=== PATIENT | female | born 1960 | race Caucasian/White ===

== ENCOUNTER 2023-06-17 16:49 | Emergency (ER) | payer MEDICARE, OTHER, SELFPAY ==
[2023-06-17] VITALS (9 sets, daily range): BP systolic 88–122; BP diastolic 56–66; PULSE 67–84; RESP 15–18; TEMP 36.6–37.1; O2SAT 89–100
--- NOTE | ~2023-06-17 | CT_ITS ---
EXAMINATION: CT abdomen pelvis w con DATE: 06/17/2023 21:08 INDICATION: right side abdominal pain TECHNIQUE: Computed tomography (CT) of the abdomen and pelvis was performed with 100 mL Omnipaque-350 intravenous contrast. Automated exposure control and iterative reconstruction technique were employe d. The dose-length product was 1487.04 mGy-cm. COMPARISON: Right upper quadrant ultrasound, same date. FINDINGS: Lower thorax: Minimal bibasilar atelectasis. Mitral calcification. Small hiatal hernia. Liver: Normal. Biliary/Gallbladder: 2 mm hyperdensity with a small amount of likely adjacent sludge in the gallbladd er neck. No bile duct dilation. Pancreas: Mild atrophy. Spleen: Normal. Adrenals:No mass. Kidneys: Bilateral hypodensities, likely representing cysts. Punctate nonobstructing right upper pole calculi. No suspicious mass or hydronephrosis. GI tract: Mild distal esophageal wall edema. Partial colectomy. There is mild dilation of large bowel proximal and distal to the lower midline abdominal large bowel anastomosis. Mild wall edema in the d istal portion of the colon, distal to the anastomosis. No small or large bowel dilation. Normal appen felicia. Mesentery/Peritoneum: No ascites, mass, or free air. Retroperitoneum: No mass. Atherosclerotic abdominal aortic and/or arterial calcifications. Pelvis: Pelvic organs are within normal limits. Soft Tissues: Small fat-containing uncomplicated umbilical hernia. Bones: No acute osseous finding. IMPRESSION: Mild esophagitis. Prior sonographic findings in the gallbladder likely represented a small gallstone with associated sl udge in the gallbladder neck. No CT evidence of cholecystitis or choledocholithiasis. The previously recommended six-month follow-up right upper quadrant ultrasound is still advised. Mild pre and post anastomotic colonic dilation in the lower abdomen. Mild distal colonic wall edema may reflect a component of colitis. Reviewed, dictated and finalized at location K. IMPRESSION: Mild esophagitis. Prior sonographic findings in the gallbladder likely represented a small gallst one with associated sludge in the gallbladder neck. No CT evidence of cholecyst itis or choledocholithiasis. The previously recommended six-month follow-up rig ht upper quadrant ultrasound is still advised. Mild pre and post anastomotic colonic dilation in the lower abdomen. Mild distal colonic wall edema may reflect a component of colitis.
--- NOTE | ~2023-06-17 | US_ITS ---
EXAMINATION: US right upper quadrant DATE: 06/17/2023 19:31 INDICATION: ruq pain TECHNIQUE: Multiple grayscale and Doppler ultrasound images of the right upper quadrant were obtained . COMPARISON: None available. FINDINGS: The visualized portions of the pancreas are normal. The liver is normal size with increased echogenicity and normal echotexture. No surface nodularity. Normal hepatopetal flow in the main port al vein. 1.4 cm nonmobile echogenic focus in the gallbladder neck, possible partial shadowing, withou t twinkle artifact. No wall thickening or pericholecystic fluid. The common bile duct measures 4 mm. There was no sonographic Lewis sign. The right kidneys measures 9.5 x 4.2 x 5.9 with mild pelviectas is and caliectasis. IMPRESSION: Echogenic liver, most commonly due to steatosis but also can be seen with hepatitis and fibrosis. 1.4 cm echogenic focus within the gallbladder lumen may represent a gallstone, sludge, or gallbladder polyp. Consider follow-up right upper quadrant ultrasound in 6 months. Mild right hydronephrosis. Reviewed, dictated and finalized at location K. IMPRESSION: Echogenic liver, most commonly due to steatosis but also can be seen with hepat itis and fibrosis. 1.4 cm echogenic focus within the gallbladder lumen may represent a gallstone, sludge, or gallbladder polyp. Consider follow-up right upper quadrant ultrasoun d in 6 months. Mild right hydronephrosis.
[2023-06-17 17:07] LABS: Basophils Absolute Auto 0.1 K/mm3 (0.0-0.1); Basophils Percent Auto 0.5 % (0.2-1.2); Eosinophils Absolute Auto 0.2 K/mm3 (0-0.3); Eosinophils Percent Auto 2.5 % (0-4.4); Hematocrit 35.4 % (37.0-47.0); Hemoglobin 10.4 g/dL (12.0-15.0); Immature Granulocyte Absolute 0.02 K/mm3 (0.00-0.031); Immature Granulocyte Percent A 0.2 % (0-0.5); Lymphocytes Absolute Auto 3.93 K/mm3 (0.9-3.2); Lymphocytes Percent Auto 41.4 % (18.3-44.2); Mean Corpuscular HGB Conc 29.4 g/dl (32-36); Mean Corpuscular Hemoglobin 23.6 pg (26-34); Mean Corpuscular Volume 80.3 fl (80-100); Mean Platelet Volume 9.7 fl (7.4-10.4); Monocytes Absolute Auto 0.8 K/mm3 (0.1-0.6); Monocytes Percent Auto 8.5 % (2.6-8.5); Neutrophils Absolute Auto 4.5 K/mm3 (1.3-6.7); Neutrophils Percent Auto 46.9 % (45.5-73.1); Platelet Count Result 339 k/mm3 (150-375); Red Blood Count 4.41 M/mm3 (4.2-5.4); Red Cell Distribution Width 19.9 % (11.5-14.5); White Blood Count 9.5 K/mm3 (4.5-10.0)
[2023-06-17 17:17] LABS: Alanine Aminotransferase 16 U/L (6-35); Alkaline Phosphatase 123 U/L (38-126); Anion Gap 8 mmol/L (8-16); Aspartate Amino Transferase 24 U/L (14-36); Bilirubin,Total 0.5 mg/dL (0.2-1.3); Blood Urea Nitrogen 33 mg/dL (7-17); Carbon Dioxide 19 mmol/L (22-30); Chloride 106 mmol/L (98-107); Estimated CRCL calculation 56 ml/min; Estimated Glomerular Filt Rate 50; Glucose 125 mg/dL (65-110); Lipase 264 U/L (23-300); Sodium 133 mmol/L (137-145)
[2023-06-17 17:29] LABS: Platelet Estimate Adequate (Adequate)
[2023-06-17 17:30] LABS: Schistocytes None Seen (NORMAL)
[2023-06-17 17:31] LABS: Anisocytosis 2+ (NORMAL); Hypochromasia 1+ (NORMAL)
[2023-06-17 17:32] LABS: Microcytosis 1+ (NORMAL)
--- NOTE | 2023-06-17 18:01 | ED.ABDPAIN ---
HPI - Abdominal Pain General Chief Complaint: Abdominal Pain <Antonio Jorge Alberto Mcdaniel III, DO - Last Filed: 06/17/23 19:29> Stated Complaint: abd pain <Antonio Jorge Alberto Mcdaniel III, DO - Last Filed: 06/17/23 19:29> Time Seen by Provider: 06/17/23 17:50 <Antonio Jorge Alberto Mcdaniel III, DO - Last Filed: 06/17/23 19:29> History of Present Illness HPI narrative: Pt presents with RUQ abdominal pain since mid morning wiht nausea but no vomiting. Pt has history of pancreatitis but this feels different. Pt has no history of gallstones. Pt denies fever. Pt has been belching a rotten egg tasting. Pt denies diarrhea or black stools. Pt received morphine 8 mg and zofran 8 mg IV in route per EMS. <Antonio Jorge Alberto Mcdaniel III, DO - Last Filed: 06/17/23 19:29> Related Data Allergies/Adverse Reactions: Allergies Allergy/AdvReac Type Severity Reaction Status Date / Time Penicillins Allergy Hives Verified 06/17/23 16:57 pineapple Allergy Anaphylactic Verified 06/17/23 16:57 Shock <Antonio Jorge Alberto Mcdaniel III, DO - Last Filed: 06/17/23 19:29> PMFSH Past Medical History Medical History: Medical History (Updated 06/18/23 @ 00:05 by Denilson Manriquez) Biliary colic <Antonio Jorge Alberto Mcdaniel III, DO - Last Filed: 06/17/23 19:29> Exam Const: General: healthy appearing <Antonio Jorge Alberto Mcdaniel III, DO - Last Filed: 06/17/23 19:29> Nutritional Appearance: well nourished <Antonio Jorge Alberto Mcdaniel III, DO - Last Filed: 06/17/23 19:29> Orientation/consciousness: patient oriented x3 <Antonio Jorge Alberto Mcdaniel III, DO - Last Filed: 06/17/23 19:29> Limitations: no limitations <Antonio Jorge Alberto Mcdaniel III, DO - Last Filed: 06/17/23 19:29> Resp: Effort & Inspection: normal respiratory effort <Antonio Jorge Alberto Mcdaniel III, DO - Last Filed: 06/17/23 19:29> Auscultation: clear to auscultation bilaterally <Antonio Jorge Alberto Mcdaniel III, DO - Last Filed: 06/17/23 19:29> Cardio: Rate: regular rate <Antonio Jorge Alberto Mcdaniel III, DO - Last Filed: 06/17/23 19:29> Rhythm: regular rhythm <Antonio Jorge Alberto Mcdaniel III, DO - Last Filed: 06/17/23 19:29> GI: Inspection: distended <Antonio Jorge Alberto Mcdaniel III, DO - Last Filed: 06/17/23 19:29> GI Palp: Yes Tenderness to palpation present (GI) (ruq) <Antonio Jorge Alberto Mcdaniel III, DO - Last Filed: 06/17/23 19:29> Auscultation: normal bowel sounds <Antonio Jorge Alberto Mcdaniel III, DO - Last Filed: 06/17/23 19:29> Skin: General skin exam: normal color <Antonio Jorge Alberto Mcdaniel III, DO - Last Filed: 06/17/23 19:29> Rashes: no rashes <Antonio Jorge Alberto Mcdaniel III, DO - Last Filed: 06/17/23 19:29> Wounds: no wounds <Antonio Jorge Alberto Mcdaniel III, DO - Last Filed: 06/17/23 19:29> Neuro: General: patient oriented x3, moves all extremities, no focal motor deficits and CN's II-XI intact bilaterally <Antonio Jorge Alberto Mcdaniel III, DO - Last Filed: 06/17/23 19:29> Cranial nerves: Yes Nystagmus not present <Antonio Jorge Alberto Mcdaniel III, DO - Last Filed: 06/17/23 19:29> Speech: normal speech <Antonio Jorge Alberto Mcdaniel III, DO - Last Filed: 06/17/23 19:29> Extrem: General: normal to inspection and no clubbing, cyanosis or edema <Antonio Jorge Alberto Mcdaniel III, DO - Last Filed: 06/17/23 19:29> Psych: Mental Status: mental status grossly normal <Antonio Jorge Alberto Mcdaniel III, DO - Last Filed: 06/17/23 19:29> Affect: normal affect <Antonio Jorge Alberto Mcdaniel III, DO - Last Filed: 06/17/23 19:29> Attitude: cooperative <Antonio Jorge Alberto Mcdaniel III, DO - Last Filed: 06/17/23 19:29> Course Reevaluation(s) Reevaluation #1: I discussed with patient and daughter lab results They were able to allow me to look at my chart old records. Creatinine is stable. Last BUN was 24 so mildly elevated today. Patient states she can not take cephalosporins but can take cipro so will given that for UTI. CT does not show cholecystitis. I Discussed with patient she will need to follow up with General surgeon. They are comfortable with discharge home <Jacqui Kumar MD - Last Filed: 06/18/23 06:53> Date: 06/17/23 <Jacqui Kumar MD - Last Filed: 06/18/23 06
[2023-06-17] MEDS: SODIUM CHLORIDE 0.9% IV 1,000 ML 999 ML IV CONT ×2 (18:15→20:52)
[2023-06-17] MEDS: fentaNYL CITRATE INJ (*CRX) 100 MCG/2 ML VIAL 25 MCG IV PUSH (18:20)
[2023-06-17 20:02] LABS: Appearance Urine Cloudy (Clear); Bacteria Urine 4+ /hpf; Bilirubin Urine Negative (Negative); Blood Urine Negative (Negative); Color Urine Yellow (Yellow); Glucose Urine UA 3+ mg/dL (Negative); Ketones Urine Negative (Negative); Leukocyte Esterase Ur 3+ LEU/UL (Negative); Nitrate Urine Positive (Negative); Protein Urine Trace mg/dL (Negative); RBC Urine 0-2 /hpf (0-2); Specific Grav Ur 1.014 (1.001-1.035); Squamous Epithelial Cell Urine Few /hpf (Few); Urobilinogen Urine 0.2 mg/dL (<2.0); WBC Urine 51-100 /hpf; pH Urine 5.5 (5.0-9.0)
[2023-06-17 20:09] LABS: Add Urine Microscopic? YES
[2023-06-17] MEDS: MORPHINE SULFATE (*CRX) 4 MG/ML INJ IV PUSH (20:51)
--- NOTE | 2023-06-17 22:32 | PC.NURSE ---
pharm called out of atx on pyxix
[2023-06-17] MEDS: CIPROFLOXACIN 250 MG TABLET PO (22:38)
== END 2023-06-17 22:49 | disposition home or self-care (01) ==
PROVIDERS: Student in an Organized Health Care Education/Training Program; Emergency Provider Emergency Medicine
DX: K80.50 Calculus of bile duct without cholangitis or cholecystitis without obstruction (principal); N39.0 Urinary tract infection, site not specified; N13.30 Unspecified hydronephrosis; K20.90 Esophagitis, unspecified without bleeding; R93.2 Abnormal findings on diagnostic imaging of liver and biliary tract
CPT/HCPCS: 36415; 74177; 76705; 80053; 81001; 83690; 85025; 87077; 87086; 87186; 96361; 96374; 96375; 99284; A9270; J2270; J3010; J7030; Q9967

== ENCOUNTER 2023-06-24 13:18 | Outpatient (CLI) | payer MEDICARE, OTHER, SELFPAY ==
--- NOTE | 2023-06-24 13:00 | ECG_ITS ---
Measurements Intervals [place] Rate: 78 P: 38 NV: 153 QRS: -29 QRSD: 103 T: 73 QT: 369 QTc: 421 Interpretive Statements BASELINE ARTIFACT/POOR DATA QUALITY SINUS RHYTHM LEFT AXIS DEVIATION BORDERLINE VOLTAGE EVIDENCE OF LVH POOR R-WAVE PROGRESSION ABNORMAL ECG NO PREVIOUS ECG AVAILABLE FOR COMPARISON Electronically Signed On 06-24-2023 17:13:50 CDT by Elver Melara M.D.
[2023-06-24 14:01] LABS: Amylase 95 U/L (30-110)
== END 2023-06-24 13:19 | disposition home or self-care (01) ==
PROVIDERS: PCP Internal Medicine; Visit Provider Surgery
DX: K81.9 Cholecystitis, unspecified (principal); I10 Essential (primary) hypertension; Z01.818 Encounter for other preprocedural examination
CPT/HCPCS: 36415; 82150; 86850; 86900; 86901; 93005

== ENCOUNTER 2023-06-27 00:42 | Day surgery (SDC) | payer MEDICARE, OTHER, SELFPAY ==
--- NOTE | 2023-06-21 11:58 | PC.NURSE ---
Report to the Outpatient Waiting Room, entrance under the green pavilion located off [facility], at time _0600 on date _06/27/23 . Planned Procedure Time: __0730 . Time changes happen often and if your time is changed the preop area will call you the afternoon before. - You and your visitor will be asked to self-screen and do not enter if you have any COVID symptoms. - A mask is optional within the hospital at this time. Patients may have clear liquids (water, carbonated beverages, clear teas, apple juice) until 3 hours prior to surgery with a maximum of 20 ounces. - No food from midnight until time of surgery - Infants may have breast milk until 4 hours before surgery, infant formula 6 hours prior to surgery. - Children will be allowed to drink immediately following surgery. If applicable, please bring a bottle or sippy cup to assist with drinking. Juice, water, soda, and popsicles are readily available. For infants on formula, please bring formula the day of surgery. Pacifiers are allowed. Take the following medications with a SIP of water the morning of surgery: ____PREGABALIN DO NOT STOP ANY OF YOUR OTHER PRESCRIPTION MEDICATIONS PRIOR TO SURGERY ?EXCEPT THE FOLLOWING Medications to discontinue per physician ALL VITAMINS/SUPPLEMENTS 3 DAYS PRE OP.LAST DOSE 06/24/23 HIBICLENS SHOWER MORNING OF SURGERY Please no make-up, nail czech, hairspray, perfume, deodorant, or body powder the day of surgery. No jewelry (including any body piercings) or valuables the day of surgery, leave them at home. Please take a shower or bath the night before, or the morning of, surgery with an antibacterial soap. Wear comfortable, loose fitting clothing. Children are encouraged to wear pajamas. - Jewelry must be removed prior to entering the operating room. Rings and piercings that are not removed may be cut off. - The hospital will not accept responsibility for valuables. - Please leave all valuables, including medications, at home the day of surgery. If you are going home after surgery, a licensed non emergency services ambulance driver must drive you home. - NO public transportation without another adult if you receive anesthesia. - We recommend that an adult stay with you for 24 hours following discharge. - We also recommend that you do not drive, make important decision, drink alcoholic beverages, or take any drugs that were not prescribed by your health care provider for at least 24 hours after your discharge time. For Pediatric surgeries, we recommend two adults accompany the child home. Follow any additional instructions given to you from your surgeon. If you or anyone in your household have experienced Covid symptoms in the past week, please notify your surgeon or the nurse liaison at the phone number below for possible testing. Telephone instructions given to ___PATIENT and asked if any additional questions and then verbalized understanding. Patient advised to call surgeon office or pre surgery nurse liaison [phone] if any additional questions.
[2023-06-21 12:09] VITALS: BMI 33.9
[2023-06-27] VITALS (8 sets, daily range): BP systolic 114–146; BP diastolic 60–77; PULSE 85–103; RESP 14–20; TEMP 36.4–37; O2SAT 96–100
[2023-06-27 07:08] LABS: Glucose Point of Care 174 mg/dl (65-105)
[2023-06-27] MEDS: LACTATED RINGERS 1,000 ML 30 ML IV CONT ×2 (07:15→09:23)
[2023-06-27] MEDS: ACETAMINOPHEN 500 MG TABLET 1000 MG PO (07:15)
[2023-06-27] MEDS: KETOROLAC 15 MG/ML VIAL (*BKC) IV PUSH (07:15)
--- NOTE | 2023-06-27 07:15 | WPDANESEPPF ---
Anes - Initial Pre Proc Eval Procedure: Operation Date: 06/27/23 07:30 Proposed Procedures p Laparoscopic Cholecystectomy - Anais Jackson MD Date/Time: 06/27/23 07:15 Surgeon: Anais Jackson MD Pre Op Diagnosis: Cholecystitis Patient Data Age: 62 Gender: F Height: 1.65 m Weight: 101.5 kg Last Vital Signs Temp 97.5 F L 06/27/23 06:15 Pulse 85 06/27/23 06:15 Resp 16 06/27/23 06:15 BP 137/60 06/27/23 06:15 Pulse Ox 100 06/27/23 06:15 O2 Del Method Room Air 06/27/23 06:15 Allergies Allergy/AdvReac Type Severity Reaction Status Date / Time pine nut Allergy Severe Anaphylactic Verified 06/27/23 07:09 Shock pineapple Allergy Severe Anaphylactic Verified 06/27/23 07:09 Shock Penicillins Allergy Hives Verified 06/27/23 07:09 Cephalosporins AdvReac Hives Verified 06/27/23 07:09 Home Medications Medication Instructions Recorded Confirmed Type ciprofloxacin HCl 500 mg tablet 500 mg PO Q12H #14 tabs 06/17/23 06/21/23 Rx (Cipro) tramadol 50 mg tablet 50 mg PO Q6H PRN pain #14 tabs 06/17/23 06/21/23 Rx duloxetine 60 mg capsule,delayed 60 mg PO HS FIBROMYALGIA 06/19/23 06/21/23 History release (Cymbalta) empagliflozin 10 mg tablet 10 mg PO DAILY 06/19/23 06/21/23 History (Jardiance) losartan 50 mg tablet 50 mg PO DAILY 06/19/23 06/21/23 History omeprazole 20 mg capsule,delayed 20 mg PO DAILY 06/19/23 06/21/23 History release pregabalin 300 mg capsule (Lyrica) 300 mg PO BID FIBROMYALGIA 06/19/23 06/21/23 History aspirin 81 mg tablet,delayed 81 mg PO DAILY 06/21/23 06/21/23 History release (Adult Low Dose Aspirin) ferrous sulfate 325 mg (65 mg 325 mg PO DAILY 06/21/23 06/21/23 History iron) tablet insulin glargine 100 unit/mL (3 15 unit subcut HS 06/21/23 06/21/23 History mL) subcutaneous pen (Lantus Solostar U-100 Insulin) tumeric 100 mg-sari 150 mg-olive 1 cap PO DAILY 06/21/23 06/21/23 History 50 mg-oreg 150 mg-caprylate capsule Laboratory Tests 06/27/23 07:00 POC Capillary Glucose 174 H mg/dl (65-105) Patient hx anesthesia problems: none Family hx anesthesia problems: none Results Review: All pre-operative results and documents have been reviewed as part of the pre-operative evaluation. [facility] Past Medical History Medical History (Updated 06/19/23 @ 11:44 by Ryann Caceres Willian) Biliary colic Diabetes type 2, controlled GERD (gastroesophageal reflux disease) History of blood transfusion Hypertension Surgical History Surgical History History of delivery x2 History of colon surgery 2022 [place], [place] History of hand surgery Family History Family History Other Cerebrovascular accident Diabetes mellitus Hypertension Social History Social History Smoking status: Never smoker Alcohol intake: never Living arrangements: alone Occupation/Education: occupation 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 Informed Consent: The patient's anesthetic plan and its attendant risks and benefits were discussed with the patient/family/POA. Questions were solicited and answers provided to the satisfaction of the patient/family/POA.
--- NOTE | 2023-06-27 07:19 | WPDHPUPDATE1 ---
History and Physical Update Update Date/Time: 06/27/23 07:19 History and Physical has been reviewed, including an updated exam of the patient. There are NO changes in the patient's condition. Risks, benefits, and alternatives have been discussed and questions answered. Patient agrees to proceed with procedure.
[2023-06-27] MEDS: CLINDAMYCIN 900 MG/D5W 50 ML 900 MG/50 ML PIGGYBACK 50 MG IVPB (07:30)
--- NOTE | 2023-06-27 08:47 | W.PM.PROC2 ---
Procedure Note - Detailed Date of Procedure 06/27/23 Pre-op Diagnosis Cholecystitis, cholelithiasis Post-op Diagnosis Same Procedure Performed Laparoscopic cholecystectomy Surgeon Anais Jackson MD Anesthesia General Indications 62-year-old female presented to the office complaining of postprandial right upper quadrant abdominal pain associated with nausea and vomiting. Workup including imaging significant for cholecystitis, cholelithiasis. Findings Cholecystitis with cholelithiasis Description of Procedure The patient was taken to the operating room placed in the supine position. After adequate induction of general anesthesia, the patient was prepped and draped in normal sterile fashion. A time-out was then performed to verify the patient's identity as well as the procedure being performed. I then made a 5 mm incision in the infraumbilical region. Through this, a Veress needle was placed into the peritoneal cavity and CO2 gas was then insufflated. After adequate pneumoperitoneum was achieved, the Veress needle was removed and a 5 mm optiview trocar was placed through this incision under direct visualization. I then placed the laparoscope through this trocar site and under direct visualization placed a further 12 mm subxiphoid port as well as 2 additional 5 mm ports in the right upper abdomen. Of note, there was some adhesions from previous abdominal surgery that were taken down to facilitate placement of ports. The gallbladder was then identified and was noted to be moderately inflamed and distended. I was able to place a grasper at the dome of the gallbladder and this was retracted anterior and cephalad up over the liver. A 2nd retractor was then placed at the infundibulum and retracted laterally, this allowed visualization of the triangle of Calot. I then was able to visualize the cystic duct in its entirety from its proximal insertion into the gallbladder, to its distal junction with the common hepatic/common bile duct junction. At this point, I carefully skeletonized the proximal cystic duct with the [place] dissector. I then clipped and transected the proximal cystic duct. Next I visualized the cystic artery. Again the artery was skeletonized, clipped, and transected. I then used the Bovie cautery to take down the peritoneal attachments of the gallbladder off the liver bed. This was somewhat difficult given the amount of inflammation in the posterior space. Once the gallbladder specimen was completely detached, an endo-pouch was placed through the 12 mm port site. I then placed the gallbladder specimen into the Endo pouch and removed the endo-pouch from the 12 mm port site. The specimen will now be sent to pathology for further review. I then copiously irrigated the right upper quadrant. Some mild oozing was noted in the liver bed and this was controlled with the bovie cautery. I then placed some hemostatic powder in the liver bed. Hemostasis was noted in the liver bed, the clips were noted to be in good position on both the cystic duct stump and the cystic artery stump. No other pathology was noted in the right upper quadrant. I then moved the laparoscope to the subxiphoid port. No iatrogenic injury or other pathology was noted in the lower abdomen. I then closed the 12 mm trocar site under direct visualization using the Smooth cone and 0 Vicryl suture. At this point, the abdomen was desufflated and all ports removed. All port sites were then closed with 4.O Monocryl subcuticular sutures. Dermabond was placed on each incision. The patient tolerated the procedure well, was extubated in the operating room postoperative and will be transferred to the recovery room in stable condition Estimated Blood Loss 5 Drains No Packing No Pathology Yes Complications No immediate complications Condition Stable Disposition PACU [facility] Billing Surgery - Charge Forward: Surgery Billing
--- NOTE | 2023-06-27 08:57 | SUR.PHASEI ---
0877 - dr. ruvalcaba aware of [facility] 210
[2023-06-27 09:00] LABS: Glucose Point of Care 210 mg/dl (65-105)
[2023-06-27] MEDS: fentaNYL CITRATE INJ (*CRX) 100 MCG/2 ML VIAL 25 MCG IV PUSH ×2 (09:11→09:18)
[2023-06-27] MEDS: oxyCODONE HCL (*CRX) 5 MG TAB IR PO (09:49)
== END 2023-06-27 10:30 | disposition home or self-care (01) ==
PROVIDERS: PCP Internal Medicine; Visit Provider Surgery
PROC: 0FT44ZZ Resection of Gallbladder, Percutaneous Endoscopic Approach (ICD-10-PCS; CPT 47562; principal; 2023-06-27 07:30)
DX: K80.10 Calculus of gallbladder with chronic cholecystitis without obstruction (principal); K21.9 Gastro-esophageal reflux disease without esophagitis; I10 Essential (primary) hypertension; E11.9 Type 2 diabetes mellitus without complications; Z79.891 Long term (current) use of opiate analgesic; Z79.82 Long term (current) use of aspirin; Z79.4 Long term (current) use of insulin; E66.9 Obesity, unspecified; Z68.37 Body mass index [BMI] 37.0-37.9, adult; Z79.84 Long term (current) use of oral hypoglycemic drugs
CPT/HCPCS: 47562; 82948; 88304; A9270; J1100; J1885; J2250; J2405; J2704; J3010; J7120

== ENCOUNTER 2024-09-14 10:57 | Emergency (ER) | payer MEDICARE, OTHER, SELFPAY ==
[2024-09-14 11:07] VITALS: BP 127/72; PULSE 84; RESP 18; TEMP 36.6; O2SAT 99
--- NOTE | 2024-09-14 11:21 | ED_ITS ---
HPI - Neck Pain/Injury General Chief Complaint: Neck Pain/Injury Stated Complaint: Neck Pain Source: patient, RN notes reviewed and old records reviewed Mode of arrival: ambulatory Limitations: no limitations History of Present Illness HPI Narrative: Patient presents with complaints of neck pain that radiates to the left trapezius and shoulder. She reports that pain began after she did several hours of cleaning and heavy lifting yesterday. She has been taking ibuprofen with minimal relief. She reports the pain is worse with range of motion of the neck. She reports that she has had similar pain in the past. She denies any fever, chills, sweats. She voices no other concerns or complaints at this time. She was able to perform ADLs and drive morning Related Data Home Medications Medication Instructions Recorded Confirmed duloxetine 60 mg capsule,delayed 60 mg PO HS FIBROMYALGIA 06/19/23 09/14/24 release (Cymbalta) empagliflozin 10 mg tablet 10 mg PO DAILY 06/19/23 09/14/24 (Jardiance) losartan 50 mg tablet 50 mg PO DAILY 06/19/23 09/14/24 omeprazole 20 mg capsule,delayed 20 mg PO DAILY 06/19/23 09/14/24 release pregabalin 300 mg capsule (Lyrica) 300 mg PO BID FIBROMYALGIA 06/19/23 09/14/24 aspirin 81 mg tablet,delayed 81 mg PO DAILY 06/21/23 09/14/24 release (Adult Low Dose Aspirin) ferrous sulfate 325 mg (65 mg 325 mg PO DAILY 06/21/23 09/14/24 iron) tablet insulin glargine 100 unit/mL (3 15 unit subcut HS 06/21/23 09/14/24 mL) subcutaneous pen (Lantus Solostar U-100 Insulin) turmeric 100 mg-sari 150 1 cap PO DAILY 06/21/23 09/14/24 mg-olive 50 mg-oreg 150 mg-capryl capsule tirzepatide 5 mg/0.5 mL 5 mg subcut DIRECTED 09/14/24 09/14/24 subcutaneous pen injector (Debra) Allergies Allergy/AdvReac Type Severity Reaction Status Date / Time pine nut Allergy Severe Anaphylactic Verified 09/14/24 11:08 Shock pineapple Allergy Severe Anaphylactic Verified 09/14/24 11:08 Shock Penicillins Allergy Hives Verified 09/14/24 11:08 Cephalosporins AdvReac Hives Verified 09/14/24 11:08 Review of Systems Review of Systems: All systems reviewed & are unremarkable except as noted in HPI and below Constitutional: Constitutional: Reports no additional constitutional complaints ENT: Reports system reviewed and no additional complaints, except as documented Cardiovascular: Cardiovascular: Reports no additional cardiovascular complaints Respiratory: Respiratory: Reports no additional respiratory complaints Gastrointestinal: Gastrointestinal: Reports no additional gastrointestinal complaints Musculoskeletal: Musculoskeletal: Reports no additional musculoskeletal complaints, Reports as per HPI, Reports neck pain and Reports radiating pain into limb [facility] Past Medical History Medical History Biliary colic Diabetes type 2, controlled GERD (gastroesophageal reflux disease) History of blood transfusion Hypertension Surgical History Surgical History History of delivery x2 History of colon surgery 2022 [place], [place] History of hand surgery Family History Family History Other Cerebrovascular accident Diabetes mellitus Hypertension Social History Social History Smoking status: Never smoker Alcohol intake: never Living arrangements: alone Occupation/Education: occupation 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 There is no relevant family history pertinent to the patient complaint. Exam Const: General: cooperative, no acute distress, alert and awake Orientation/consciousness: oriented to person, oriented to place and oriented to time HENMT: Head: normal to inspection Resp: Effort & Inspection: normal respiratory effort and able to speak in complete sentences Auscultation: clear to auscultation bilaterally, no crackles, no rales, no rhonchi and no wheezes Cardio: Palpation: normal PMI Rate: regular rate Rhythm: regular rhythm Heart sounds: S1 normal heart sound present and S2 normal heart sound present Back/Spine/Pelvis: Cervical Spine: cervical ROM normal, cervical muscular tenderness, pain with cervical ROM and No Cervical spine tenderness Neuro: General: oriented to person, oriented to place and oriented to time Cranial nerves: Yes CN's II-XII intact bilaterally Psych: Appearance: grossly normal Thought process: Normal thought process present Insight: Good insight present (Psych) Judgement: Good judgement present (Psych) Course Course Level of Care: Express Care Visit Vital Signs Vital signs: Vital Signs Temperature 97.8 F 09/14/24 11:07 Pulse Rate 84 09/14/24 11:07 Respiratory Rate 18 09/14/24 11:07 Blood Pressure 127/72 09/14/24 11:07 Pulse Oximetry 99 09/14/24 11:07 Oxygen Delivery Room Air 09/14/24 11:07 Temperature 97.8 F 09/14/24 11:07 Pulse Rate 84 09/14/24 11:07 Respiratory Rate 18 09/14/24 11:07 Blood Pressure 127/72 09/14/24 11:07 Pulse Oximetry 99 09/14/24 11:07 Oxygen Delivery Room Air 09/14/24 11:07 Reviewed MDM - Neck Pain/Injury MDM Narrative Medical decision making narrative: History and exam consistent with cervical radicular pain. Patient has had this in the past. Start steroid burst, muscle relaxants. She reports that she will follow with chiropractor and primary. Discharge instructions reviewed with patient, as well as provided in writing per nursing staff. The instructions also include specific and strict return/GO TO THE ER as well as f/u information. All questions have been answered, and the patient deny any further questions with discharge and discharge plan. Some parts of this dictation were generated by voice recognition software and may contain typographical and/or grammatical inaccuracies. Differential Diagnosis Differential diagnosis: Likely cervical radiculopathy and strain of neck muscle Medical Records Attestation: I reviewed the patient's medical records. Discharge Plan Discharge Clinical Impression: Cervical radiculopathy Patient Disposition: Home, Self-Care Condition: Stable Instructions: Antibiotic Form, Acute Neck Pain (ED) Additional Instructions: Take medications as prescribed, monitor blood sugars carefully. Follow with primary care provider, emergency department for new or worse symptoms Patient Language: Marshallese Prescriptions: New prednisone 50 mg tablet 50 mg PO DAILY Qty: 5 0RF methocarbamol 500 mg tablet 500 mg PO TID Qty: 30 0RF methocarbamol 500 mg tablet 500 mg PO TID PRN (Reason: muscle spasm) Qty: 30 0RF prednisone 50 mg tablet 50 mg PO DAILY Qty: 5 0RF No Action Mounjaro 5 mg/0.5 mL pen injector 5 mg SUBCUT DIRECTED pregabalin [Lyrica] 300 mg capsule 300 mg PO BID Jardiance 10 mg tablet 10 mg PO DAILY losartan 50 mg tablet 50 mg PO DAILY omeprazole 20 mg capsule,delayed release(DR/EC) 20 mg PO DAILY duloxetine [Cymbalta] 60 mg capsule,delayed release(DR/EC) 60 mg PO HS insulin glargine [Lantus Solostar U-100 Insulin] 100 unit/mL (3 mL) insulin pen 15 unit SUBCUT HS aspirin [Adult Low Dose Aspirin] 81 mg Tablet,Delayed Release (Dr/Ec) 81 mg PO DAILY ferrous sulfate 325 mg (65 mg iron) Tablet 325 mg PO DAILY [id number]-capry 100 mg-150 mg- 50 mg-150 mg Capsule 1 cap PO DAILY tramadol 50 mg tablet 50 mg PO Q6H PRN (Reason: pain) Qty: 14 0RF Follow-up/Referrals: Mike,MD Ana Cristina [Primary Care Provider] - 2 Weeks
== END 2024-09-14 11:40 | disposition home or self-care (01) ==
PROVIDERS: Emergency Provider Nurse Practitioner Family; PCP Internal Medicine
DX: M54.12 Radiculopathy, cervical region (principal); E11.9 Type 2 diabetes mellitus without complications; Z79.4 Long term (current) use of insulin; I10 Essential (primary) hypertension; K21.9 Gastro-esophageal reflux disease without esophagitis; Z79.82 Long term (current) use of aspirin
CPT/HCPCS: 99213; G0463

== ENCOUNTER 2025-01-27 10:16 | Outpatient (CLI) | payer MEDICARE, OTHER, SELFPAY ==
[2025-01-27 10:43] LABS: Hematocrit 40.1 % (37.0-47.0); Hemoglobin 12.1 g/dL (12.0-15.0); Mean Corpuscular HGB Conc 30.2 g/dl (32-36); Mean Corpuscular Hemoglobin 25.2 pg (26-34); Mean Corpuscular Volume 83.5 fl (80-100); Mean Platelet Volume 10.3 fl (7.4-10.4); Platelet Count Result 253 k/mm3 (150-375); Red Cell Distribution Width 16.8 % (11.5-14.5); White Blood Count 6.7 K/mm3 (4.5-10.0)
[2025-01-27 10:56] LABS: Alanine Aminotransferase 17 U/L (6-35); Albumin Level 4.2 g/dL (3.5-5.1); Alkaline Phosphatase 86 U/L (38-126); Amylase 299 U/L (30-110); Anion Gap 9 mmol/L (4-12); Aspartate Amino Transferase 22 U/L (14-36); Bilirubin,Total 0.4 mg/dL (0.2-1.3); Blood Urea Nitrogen 29 mg/dL (7-17); Calcium 9.3 mg/dL (8.4-10.2); Carbon Dioxide 26 mmol/L (22-30); Chloride 103 mmol/L (98-107); Cholesterol 158 mg/dL (0-200); Estimated Glomerular Filt Rate 50; Glucose 90 mg/dL (65-110); HDL Direct 79 mg/dL; Potassium 4.7 mmol/L (3.4-5.0); Sodium 138 mmol/L (137-145); Triglycerides 100 mg/dL (<150)
[2025-01-27 11:04] LABS: LDL Cholesterol Direct 45 mg/dL
[2025-01-27 11:10] LABS: Lipase 2924 U/L (23-300)
--- OUTSIDE RECORDS SUMMARY | 2025-01-27 11:50 | XMS_ITS | Referral Summary ---
Author Organization [facility] Address [address] [place] [address] Care Team Providers Care Diecast Machine Operator Name Role Phone Ana Cristina Mckeon MD Primary Care Provider [phone] Encounters Date Type Department Care Team Description 12/28/2024 1:45 PM FORK LIFT TRUCK OPERATOR Office Visit [facility] Ophthal[facility] [address] [place] [id number] Lo Mcgregor MD Proliferative diabetic retinopathy of both eyes with macular edema associated with type 2 diabetes mellitus (HCC) (Primary Dx) 12/25/2024 10:30 AM FORK LIFT TRUCK OPERATOR Office Visit [facility] Diabetes and Endocrinology [address] [place] [phone] Priya Calderon NP Type 2 diabetes mellitus with diabetic polyneuropathy, without long-term current use of insulin (HCC) (Primary Dx); Hypertension associated with type 2 diabetes mellitus (HCC); Hyperlipidemia associated with type 2 diabetes mellitus (HCC) 12/21/2024 Orders Only [facility] Diabetes and Endocrinology [address] [place] [phone] Priya Calderon NP Type 2 diabetes mellitus with diabetic polyneuropathy, without long-term current use of insulin (HCC) 12/18/2024 Orders Only [facility] Diabetes and Endocrinology [address] [place] [phone] Schleeper, Priya R., FRENCH BINDER Type 2 diabetes mellitus with diabetic polyneuropathy, without long-term current use of insulin (HCC) (Primary Dx) from Last 3 Months Allergies Active Allergy Reactions Criticality Noted Date Comments Adalimumab Unknown 12/16/2017 Humira Alprazolam Other (See comments) Low 11/17/2019 Intolerance - She becomes very irritable. Beta-Blockers (Beta-Adrenergic Blocking Agts) Palpitations Low Cephalosporins Hives Medium 07/02/2018 Codeine Nausea & Vomiting Low 09/03/2016 Gabapentin Other (See comments) Low 11/27/2017 Anxiety, depression Hydrocodone Hives,Shortness of breath,Rash High 03/05/2016 Insulin Glargine Vomiting Medium 08/12/2023 States that no allergy, was nauseated Canagliflozin Stomach upset Low 10/01/2014 Yeast infection Metformin Diarrhea Medium 08/12/2023 Methotrexate Other (See comments),Stomach upset Low 12/16/2017 Medication did not work Ondansetron Headache Low 11/27/2017 Penicillins Anaphylaxis,Hives High 11/16/2010 [place] Nut Anaphylaxis,Rash High 03/05/2016 Pineapple Swelling Medium 03/06/2016 Pregabalin Diarrhea,Fatigue,Hea d ache,Stomach upset,Vision changes Medium 06/21/2021 Promethazine Mental status changes High 03/05/2016 anxiety Semaglutide Diarrhea,Stomach upset,Nausea & Vomiting High 08/08/2021 pancreatitis Medications MULTIVITAMIN ORALIndications:s upplement Take 1 tablet by mouth daily as needed Active diclofenac sodium (VOLTAREN) 1 % gel Apply 2 g topically 4 (four) times a day 100 g 2 9 Active cholecalciferol (VITAMIN D-3) 2000 unit capsule Take 1 capsule (2,000 Units total) by mouth daily 0 Active aflibercept (Eylea) 2 mg/0.05 mL intra-ocular injection 0.05 mL (2 mg total) Pt currently getting injections every 10 weeks. 9 Active aspirin 81 mg enteric coated tabletIndications :Myocardial Reinfarction Prevention,preven tion of thrombosis Take 1 tablet (81 mg total) by mouth every morning On hold for bleeding 1 Active omeprazole (PriLOSEC) 20 mg capsuleIndication s:Stress Ulcer Prophylaxis Take 1 capsule (20 mg total) by mouth 2 (two) times a day as needed [address] (CYMBALTA) 60 mg capsuleIndication s:Fibromyalgia Take 1 capsule (60 mg total) by mouth nightly 1 Active losartan (COZAAR) 50 mg tabletIndications :hypertension Take 1 tablet (50 mg total) by mouth every morning 1 Active pregabalin (LYRICA) 100 mg capsuleIndication s:Fibromyalgia Take 1-2 capsules (100-200 mg total) by mouth 2 (two) times a day 100mg in am and 200mg in pm Active Jardiance 25 mg tabletIndications :type 2 diabetes mellitus Take 1 tablet (25 mg total) by mouth every morning 2 Active cyanocobalamin (Vitamin B-12) 1,000 mcg sublingual tabletIndications :Prevention of Vitamin B12 Deficiency Take 1 tablet (1,000 mcg total) by mouth every morning Active freestyle 28 gauge lancets 2 (two) times a day 3 Active atorvastatin (LIPITOR) 40 mg tabletIndications :hyperlipidemia Take 1 tablet (40 mg total) by mouth nightly 4 Active blood-glucose meter kitIndications:Ty pe 2 diabetes mellitus with diabetic polyneuropathy, without long-term current use of insulin ([facility]) Check blood sugar twice daily 1 kit 4 Active blood glucose diagnostic stripIndications: Type 2 diabetes mellitus with diabetic polyneuropathy, without long-term current use of insulin ([facility]) Check blood sugar twice daily. 200 strip 3 4 Active methocarbamoL (ROBAXIN) 500 mg tablet TAKE 1 TABLET BY MOUTH THREE TIMES A DAY NEEDED FOR MUSCLE SPASM 4 Active triamcinolone (KENALOG) 0.1 % cream PLEASE SEE ATTACHED FOR DETAILED DIRECTIONS 4 Active insulin glargine (LANTUS) 100 unit/mL (3 mL) pen for injectionIndicati ons:Type 2 diabetes mellitus with diabetic polyneuropathy, without long-term current use of insulin ([facility]) Inject 30 Units under the skin nightly 30 mL 3 4 09/24/20 25 Active pen needle, diabetic (Pen Needle) 31 gauge x 5/16 needleIndications :Type 2 diabetes mellitus with diabetic polyneuropathy, without long-term current use of insulin (HCC) Use to inject 1-4 times daily as directed 100 each 11 4 Active tirzepatide (MOUNJARO) 7.5 mg/0.5 mL pen injector injectionIndicati ons:type 2 diabetes mellitus Inject 0.5 mL (7.5 mg total) under the skin every 7 days 6 mL 3 5 12/21/19 26 Active albuterol HFA (PROVENTIL HFA,VENTOLIN HFA,PROAIR HFA) 90 mcg/actuation inhaler INHALE 1 TO 2 PUFFS BY MOUTH EVERY 4-6 HOURS NEEDED FOR WHEEZING FOR 10 DAYS 5 Active benzonatate (TESSALON) 200 mg capsule TAKE 1 CAPSULE BY MOUTH THREE TIMES A DAY FOR 10 DAYS 5 Active estradioL (ESTRACE) 0.01 % (0.1 mg/gram) vaginal cream INSERT 1 GRAM VAGINALLY AT BEDTIME 2-3 TIMES PER WEEK 4 Active levoFLOXacin (LEVAQUIN) 500 mg tablet TAKE 1 TABLET BY MOUTH EVERY DAY FOR 10 DAYS 5 Active ondansetron (ZOFRAN) 4 mg tabletIndications :Type 2 diabetes mellitus with diabetic polyneuropathy, without long-term current use of insulin (HCC) Take 1 tablet (4 mg total) by mouth 3 (three) times a day as needed for nausea or vomiting 20 tablet 1 5 Active Active Problems Problem Noted Date Diagnosed Date Vitreous hemorrhage of left eye 07/04/2024 Morbid (severe) obesity due to excess calories 0 05/25/2024 Class 2 severe obesity due t o excess calories with serious comorbidity and body mass index (BMI) of 35.0 to 35.9 in adult 05/25/2024 Assessment & Plan (05/25/2024 9:26 AM CDT): Discussed healthy diet and importance of regular physical activity (20- 30min/day, 150min/wk). Now on Mounjaro 5mg weekly that is helping with weight loss. Hypertension associated with type 2 diabetes romeo litus 08/12/2023 Assessment & Plan (12/25/2024 10:44 AM FORK LIFT TRUCK OPERATOR): Chronic problem. Controlled on current losartan 50mg daily. Assessment & Plan (09/24/2024 11:10 AM FORK LIFT TRUCK OPERATOR): Chronic problem. Controlled on current losartan 50mg daily. Assessment & Plan (05/25/2024 9:37 AM CDT): Chronic problem. Controlled on current losartan 50mg daily. Will update labs today. Verified that she uses mychart. Aware to check results/results letter in [place]. Will contact by phone if needed. Assessment & Plan (01/27/2024 9:39 AM CDT): Chronic problem. Controlled on current losartan 50mg daily. Assessment & Plan (08/12/2023 2:45 PM CDT): Chronic problem. Controlled on current losartan 50mg daily. Hyperlipidemia associated with type 2 diabetes kolby herbert 08/12/2023 Assessment & Plan (12/25/2024 10:44 AM FORK LIFT TRUCK OPERATOR): Chronic problem. Currently taking Atorvastatin 40mg & Bempedoic acid-zetia 180- 10mg. Last lipid panel: 05/25/24 ODQ=032, BZ=349. Assessment & Plan (09/24/2024 11:11 AM FORK LIFT TRUCK OPERATOR): Chronic problem. Currently taking Atorvastatin 40mg & Bempedoic acid-zetia 180- 10mg. Last lipid panel: 05/25/24 AZX=292, DW=369. Assessment & Plan (05/25/2024 9:38 AM CDT): Chronic problem. Currently taking Atorvastatin 40mg & Bempedoic acid-zetia 180- 10mg. Last lipid panel: 05/13/23 LDL=31, LV=195. Will update labs today. Verified that she uses mychart. Aware to check results/results letter in [place]. Will contact by phone if needed. Assessment & Plan (01/27/2024 9:39 AM CDT): Chronic problem. Currently taking Atorvastatin 40mg & Bempedoic acid-zetia 180- 10mg. Last lipid panel: 05/13/23 LDL=31, VV=580. Assessment & Plan (08/12/2023 2:53 PM CDT): Chronic problem. Currently taking Atorvastatin 40mg & Bempedoic acid-zetia 180- 10mg. Last lipid panel: 05/13/23 LDL=31, SM=954. Class 2 severe obesity due t o excess calories with serious comorbidity and body mass index (BMI) of 37.0 to 37.9 in adult 08/12/2023 Assessment & Plan (08/12/2023 2:27 PM CDT): Discussed healthy diet and importance of regular physical activity (20- 30min/day, 150min/wk). Please start using your [employer] membership. Right posterior capsular opacification Assessment & Plan (08/15/2021 12:06 PM CDT): PCO causing glare, poor vision at baseline. Discussed that vision may not improve although glare might. RBA discussed and pt wants to proceed with yag cap OD. History of iron deficiency anemia 06/29/2020 Assessment & Plan (08/24/2020 3:49 PM CDT): Lab Results Component Value Date WBC 8.7 06/22/2020 HGB 13.0 06/22/2020 HCT 40.1 06/22/2020 MCV 89.1 06/22/2020 LABPLAT 329 06/22/2020 Assessment & Plan (06/29/2020 2:49 PM CDT): Check iron studies and CBC. Status post cataract extraction, left 12/17/2019 History of rheumatic fever 12/17/2019 Overview (12/17/2019): Rheumatic fever Assessment & Plan (08/24/2020 3:49 PM CDT): Patient is followed by Rheumatology. Hiatal hernia with gastroesophageal reflux 12/17 Overview (12/17/2019): Hiatal Hernia Assessment & Plan (08/24/2020 3:50 PM CDT): Sit upright postprandial. Avoid eating after 7:00 p.m. Avoid fat sugar pork etoh Call for any signs of sal bleeding from rectum, dark tarry stools, abdominal pain nausea emesis or po intolerance, Encounter for care related to vascular access po rt 12/17/2019 Assessment & Plan (12/17/2019 2:09 PM FORK LIFT TRUCK OPERATOR): Without plans for further infusion therapy, vascular port may be removed. Surgical referral provided. Arthritis of carpometacarpal (CMC) joint of left thumb 11/17/2019 Arthritis of carpometacarpal (CMC) joint of righ t thumb 11/17/2019 Restless leg syndrome 11/17/2019 Insomnia 11/17/2019 Assessment & Plan (11/17/2019 8:35 PM FORK LIFT TRUCK OPERATOR): Symptoms are worsening in the context of increased stressors. She is referred to sleep medicine. Malaise 11/14/2019 Assessment & Plan (11/14/2019 12:22 AM FORK LIFT TRUCK OPERATOR): Check CBC and CMP. Encounter for adjustment and management of vascular access device 09/14/2019 Osteopenia of multiple sites 08/14/2019 Overview (08/14/2019): Images from the original note were not included. BONE DENSITY/DEX02/27/2018 [facility] Result Narrative Examination: Bone Density Axial and proximal Femurs Exam date/time: 02/27/2018 12:29 PM Reason For Exam: Postmenopausal Comparison: None Findings: DEXA bone densitometry The bone mineral density (BMD) was determined by dual-energy x-ray absorptiometry, the results are as follows: AP Lumbar Spine L2 through L4 BMD Patient (GM/SQCM): 1.065 T-Score (Standard deviations from young adult peak bone density): -0.1 Bilateral femoral neck mean: BMD Patient (GM/SQCM): 0.687 T-Score (Standard deviations from young adult peak bone density): -1.5 Bilateral femoral femur mean: BMD Patient (GM/SQCM): 0.900 T-Score (Standard deviations from young adult peak bone density): -0.3 =====IMPRESSION:===== Lumbar spine bone density: Normal Femur bone density: Osteopenia Bone Density for the femur is felt be more accurate as there is hypertrophic spurring of lumbar spine which can falsely elevate the bone density of the lumbar spine. 10 year fracture risk for major osteoporotic fracture is 8.9% and for hip fracture 0.9% All treatment decisions require clinical judgment and considerations of individual patient factors, including patient preferences, comorbidities, previous drug use and risk factors not catheter. In the FRAX model. ( Frailty, falls, vitamin D deficiency, increased bone turnover, interval significant decline in BMD ) Assessment & Plan (08/24/2020 3:48 PM CDT): To maintain your bone health, I recommend the following: Weight bearing exercises (like walking) 3-5 times a week for at least 30 minutes Dietary Calcium intake of 800-1000 mg a daily. Vitamin D intake of 7315-3941 iu daily. Most Cox Monetters do not get enough Vitamin D, so a supplement in an oil capsule gives the best absorption. I recommend repeating your bone density in 3 years. Assessment & Plan (09/17/2019 3:39 PM FORK LIFT TRUCK OPERATOR): We recommend you take Caltrate D once daily as well as increase dietary calcium as well. Exercising regularly (walking and light weights) will promote bone health. A Guide to Calcium-Rich Foods We all know that milk is a great source of calcium, but you may be surprised by all the different foods you can work into your diet to reach your daily recommended amount of calcium. Use the guide below to get ideas of additional calcium-rich foods to add to your weekly shopping list. Produce Serving Size Estimated Calcium* Major greens, frozen 8 oz 360 mg Broccoli libra 8 oz 200 mg Kale, frozen 8 oz 180 mg Soy Beans, green, boiled 8 oz 175 mg Bok Shayna, cooked, boiled 8 oz 160 mg Figs, dried 2 figs 65 mg Broccoli, fresh, cooked 8 oz 60 mg Oranges 1 whole 55 mg Seafood Serving Size Estimated Calcium* Sardines, canned with bones 3 oz 325 mg [place], canned with bones 3 oz 180 mg Shrimp, canned 3 oz 125 mg Dairy Serving Size Estimated Calcium* Ricotta, part-skim 4 oz 335 mg Yogurt, plain, low-fat 6 oz 310 mg Milk, skim, low-fat, whole 8 oz 300 mg Yogurt with fruit, low-fat 6 oz 260 mg Mozzarella, part-skim 1 oz 210 mg Cheddar 1 oz 205 mg Yogurt, Greenlandic 6 oz 200 mg Haitian Cheese 1 oz 195 mg Feta Cheese 4 oz 140 mg Cottage Cheese, 2% 4 oz 105 mg Frozen yogurt, vanilla 8 oz 105 mg Ice Cream, vanilla 8 oz 85 mg Parmesan 1 tbsp 55 mg Fortified Food Serving Size Estimated Calcium* [place] milk, rice milk or soy milk, fortified 8 oz 300 mg [place] juice and other fruit juices, fortified 8 oz 300 mg Tofu, prepared with calcium 4 oz 205 mg Waffle, frozen, fortified 2 pieces 200 mg Oatmeal, fortified 1 packet 140 mg [place]i muffin, fortified 1 muffin 100 mg Cereal, fortified 8 oz 100-1,000 mg Other Serving Size Estimated Calcium* Mac & cheese, frozen 1 package 325 mg Pizza, cheese, frozen 1 serving 115 mg Pudding, chocolate, prepared with 2% milk 4 oz 160 mg Beans, baked, canned 4 oz 160 mg *The calcium content listed for most foods is estimated and can vary due to multiple factors. Check the food label to determine how much calcium is in a particular product. Assessment & Plan (08/14/2019 3:15 PM CDT): Images from the original note were not included. BONE DENSITY/DEX02/27/2018 [facility] Result Narrative Examination: Bone Density Axial and proximal Femurs Exam date/time: 02/27/2018 12:29 PM Reason For Exam: Postmenopausal Comparison: None Findings: DEXA bone densitometry The bone mineral density (BMD) was determined by dual-energy x-ray absorptiometry, the results are as follows: AP Lumbar Spine L2 through L4 BMD Patient (GM/SQCM): 1.065 T-Score (Standard deviations from young adult peak bone density): -0.1 Bilateral femoral neck mean: BMD Patient (GM/SQCM): 0.687 T-Score (Standard deviations from young adult peak bone density): -1.5 Bilateral femoral femur mean: BMD Patient (GM/SQCM): 0.900 T-Score (Standard deviations from young adult peak bone density): -0.3 =====IMPRESSION:===== Lumbar spine bone density: Normal Femur bone density: Osteopenia Bone Density for the femur is felt be more accurate as there is hypertrophic spurring of lumbar spine which can falsely elevate the bone density of the lumbar spine. 10 year fracture risk for major osteoporotic fracture is 8.9% and for hip fracture 0.9% All treatment decisions require clinical judgment and considerations of individual patient factors, including patient preferences, comorbidities, previous drug use and risk factors not catheter. In the FRAX model. ( Frailty, falls, vitamin D deficiency, increased bone turnover, interval significant decline in BMD ) Low vitamin D on lab 05/2019. Repeat pend. Primary osteoarthritis involving multiple joints 08/14/2019 Assessment & Plan (12/17/2019 8:59 PM FORK LIFT TRUCK OPERATOR): Continue acetaminophen as needed. Assessment & Plan (09/17/2019 3:37 PM FORK LIFT TRUCK OPERATOR): See discussion above. Assessment & Plan (08/14/2019 3:17 PM CDT): See above. Continue acetaminophen for pain. MORRISSEY (dyspnea on exertion) 01/01/2019 Assessment & Plan (01/01/2019 11:08 AM FORK LIFT TRUCK OPERATOR): EKG, chest x-ray and labs. Patient has an appointment with her fish receiver on Saturday. Instruct patient that if she should developed symptoms again she should go to the emergency room. Symptoms including shortness of breath or chest pain. Patient verbalizes understanding. EKG normal sinus rhythm 77 with no ischemia. Snoring 09/29/2018 Encounter for medical examination to establish c are 07/02/2018 Assessment & Plan (07/04/2018 4:39 PM CDT): The patient is a 57-year-old woman who presents to establish primary care. Her past medical history is notable for type 2 diabetes with complications including retinopathy. Tinnitus of both ears 07/02/2018 Venosclerosis 05/12/2018 Mixed hyperlipidemia 09/23/2017 Assessment & Plan (08/24/2020 3:48 PM CDT): Most recent lipid profile reviewed: Lab Results Component Value Date CHOL 149 03/22/2020 TRIG 173 (H) 03/22/2020 HDL 63 03/22/2020 LDL 61 03/22/2020 Stable at this time. Continue current medication. Assessment & Plan (03/22/2020 7:41 PM CDT): Check fasting lipid panel. Continue atorvastatin 10 mg daily. Assessment & Plan (08/14/2019 3:14 PM CDT): Lab Results Component Value Date CHOL 162 01/14/2019 CHOL 176 09/29/2018 CHOL 176 10/08/2016 Lab Results Component Value Date HDL 57 01/14/2019 HDL 66 09/29/2018 HDL 60 10/08/2016 Lab Results Component Value Date LDL 73 01/14/2019 LDL 81 09/29/2018 LDL 80 10/08/2016 Lab Results Component Value Date TRIG 229 (H) 01/14/2019 TRIG 194 (H) 09/29/2018 TRIG 178 (H) 10/08/2016 Vitamin D deficiency 06/24/2017 Assessment & Plan (12/17/2019 1:55 PM FORK LIFT TRUCK OPERATOR): Images from the original note were not included. She is no longer taking her Vitamin D supplement. Update lab as per orders. Assessment & Plan (11/14/2019 12:20 AM FORK LIFT TRUCK OPERATOR): She continues vitamin D supplementation. Proliferative diabetic retin opathy of both eyes with macular edema associated with type 2 diabetes mellitus 10/26/2016 Assessment & Plan (09/24/2024 11:11 AM FORK LIFT TRUCK OPERATOR): Chronic problem. Seen at [facility]. 07/17/24 [facility] optho +PDR w/DME. Assessment & Plan (08/24/2020 3:47 PM CDT): Is followed by Ophthalmology and is receiving I injections. Assessment & Plan (09/17/2019 3:40 PM FORK LIFT TRUCK OPERATOR): Noted Assessment & Plan (10/31/2018 2:50 PM FORK LIFT TRUCK OPERATOR): Resolved fluid 5 wks after injection right eye (OD) Isolated cyst left eye (OS) Would continue alternating injections - Eylea left eye (OS) today Assessment & Plan (07/04/2018 4:38 PM CDT): The patient will continue to follow with her medical technical writer. Erosive osteoarthritis 10/08/2016 Overview (09/17/2019): Images from the original note were not included. US Hands Bilateral for Rheumatoid Arthritis (C) Order: [id number] Status: Final result Visible to patient: No (Not Released) Dx: Rheumatoid arthritis of multiple site... Details Reading Physician Reading Date Result Priority Nathaly Rodriguez MD 08/26/2019 Schedule Routine, Read Routine (OP Routine) Narrative & Impression EXAMINATION: US HANDS BILATERAL FOR RHEUMATOID ARTHRITIS (C) HISTORY: Arthritis, rule out synovitis and erosions; negative rheumatoid factor per patient COMPARISON: Radiographic joint survey 08/15/2019 TECHNIQUE: Real-time sonographic evaluation of both hands and wrists was performed, with attention to the dorsal first through third metacarpophalangeal and proximal interphalangeal joints, as well as the dorsal wrists. Additionally, the dorsal DIP joint of the third finger left hand was also evaluated. FINDINGS: Synovial hypertrophy with no significant associated synovial hyperemia was seen at the right thumb metacarpophalangeal, interphalangeal, second digit metacarpophalangeal joints. A small amount of fluid is seen at the dorsal mid wrists bilaterally. Sonographic images at the left third DIP joint demonstrates osteophyte formation, joint space narrowing, and associated joint fluid. IMPRESSION: 1. Synovial hypertrophy without significant associated hyperemia at multiple joints of both hands, right greater than left. 2. Ultrasound images of the left third DIP are most consistent with erosive osteoarthritis. Electronically signed by: Lorena Rodriguez MD Specimen Collected: 08/26/19 10:40 Assessment & Plan (12/17/2019 1:49 PM FORK LIFT TRUCK OPERATOR): Erosive osteoarthritis stable. Since she was last seen she has had surgery bilateral thumb (trigger finger) as well as fusion third DIP L hand by Dr. Nicola Singer. She is pleased with outcome; pain relieved. She is working with PT/OT; doing well. Assessment & Plan (09/17/2019 9:51 PM FORK LIFT TRUCK OPERATOR): Reviewed with patient ultrasound findings with little support for synovial based arthritis; findings more suggestive or erosive osteoarthritis. I do not advise further DMARD or biologic response modifiers at this time. Unfortunately hydroxychloroquine is not an option for her due to diabetic retinopathy. Will continue to work with duloxetine (increase dose to 40 mg daily) and diclofenac gel as needed. Continue Lyrica 100 mg three times daily. She will see Dr. Nicola Singer to discuss surgical options regarding recurrent snapping thumb and CMC osteoarthritis. She will see Dr. Dontrell Farah regarding painful bunions. She is advised she must keep her tramadol at no more than 2 daily (her current 90 day order was dispensed 08/12/2019). We could consider MR hands/wrists for further diagnostics down the line pend clinical course. A NCV test to rule out carpal tunnel as well as diabetic neuropathy may be informative. Assessment & Plan (08/14/2019 3:12 PM CDT): 58 year old female with history of RA (RF negative, ANIBAL positive) diagnosed 2014. She has been treated by Dr. Dontrell Gr with classic DMARDS (methotrexate [ineffective], leflunomide [GI intolerance] and azathioprine [ineffective]) as well as Humira (ineffective) and most recently Orencia. She has had repeated steroid injections for single joint and stenosing tenosynovitis management. She was recommended transition to Renflexis (infliximab bioequivalent) by Dr. Gr after last visit but has requested a second opinion for probable transition of care. Discussed with patient current observations and exam. Reviewed pathophysiology of RA vs OA. Recommend updated comprehensive lab and imaging as per orders. Discussed rationale for combination classic DMARD with biologics (methotrexate was tolerated in the past). Will discuss therapeutic alternatives pend diagnostic review. Assessment & Plan (10/30/2018 10:25 AM FORK LIFT TRUCK OPERATOR): The patient will continue to follow up with rheumatology. Assessment & Plan (07/04/2018 4:38 PM CDT): The patient will continue to follow up with her coding compliance specialist. 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 Assessment & Plan (03/22/2020 7:40 PM CDT): The patient's blood pressure is 132/68. Continue the current medication regimen. Continued weight loss encouraged. She is eating a more heart healthy eating plan. Assessment & Plan (12/17/2019 1:51 PM FORK LIFT TRUCK OPERATOR): Vitals BP 132/80 (BP Location: Right arm, Patient Position: Sitting) Pulse 78 Temp 36.8 C (98.3 F) (Oral) Resp 16 Ht 162.6 cm (5' 4 ) Wt 104.3 kg (230 lb) BMI 39.48 kg/m Denies headache, dizziness, chest pain, palpitations, shortness of breath, edema, orthopnea, PND. Assessment & Plan (11/14/2019 12:19 AM FORK LIFT TRUCK OPERATOR): Continue the current medication regimen. Assessment & Plan (09/17/2019 3:38 PM FORK LIFT TRUCK OPERATOR): Vitals BP 118/64 (BP Location: Right arm, Patient Position: Sitting) Pulse 77 Temp 36.8 C (98.3 F) (Oral) Resp 16 Ht 162.6 cm (5' 4 ) Wt 107.8 kg (237 lb 11.2 oz) BMI 40.80 kg/m Assessment & Plan (08/14/2019 3:17 PM CDT): Vitals BP 128/72 (BP Location: Right arm, Patient Position: Sitting) Pulse 72 Temp 36.9 C (98.5 F) (Oral) Resp 18 Ht 162.6 cm (5' 4 ) Wt 104.3 kg (230 lb) BMI 39.48 kg/m Denies headache, dizziness, chest pain, palpitations, shortness of breath, edema, orthopnea, PND. Fibromyalgia 05/21/2016 Assessment & Plan (08/24/2020 3:50 PM CDT): Followed by Rheumatology. Assessment & Plan (12/17/2019 1:51 PM FORK LIFT TRUCK OPERATOR): She remains on Lyrica 100 mg three times daily and duloxetine 30 mg daily. Pain control satisfactory. Assessment & Plan (09/17/2019 3:17 PM FORK LIFT TRUCK OPERATOR): She remains on Lyrica 100 mg three times daily and duloxetine 30 mg daily. She felt that she could not tolerate 60 mg duloxetine. She is willing to try 40 mg daily. Gastroparesis 05/21/2016 History of myocardial infarction 05/21/2016 Assessment & Plan (08/24/2020 3:49 PM CDT): Patient is on appropriate medication asymptomatic at this time. Unremarkable cardiac catheterization. Assessment & Plan (08/14/2019 3:13 PM CDT): Noted. Reportedly unremarkable cardiac catheterization. 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 Avoid nonsteroidals low-sodium diet drink plenty of fluids. Assessment & Plan (12/17/2019 1:53 PM FORK LIFT TRUCK OPERATOR): Images from the original note were not included. Be sure to maintain good hydration. Do not use any nonsteroidal antiinflammatory medications (including over the counter ibuprofen and naproxen) as these are kidney irritants. Assessment & Plan (09/17/2019 3:40 PM FORK LIFT TRUCK OPERATOR): Lab Results Component Value Date GLUCOSE 217 (H) 08/14/2019 CALCIUM 9.4 08/14/2019 SODIUM 139 08/14/2019 POTASSIUM 4.0 08/14/2019 CO2 24 08/14/2019 CHLORIDE 97 08/14/2019 BUNSER 15 08/14/2019 CREATININE 1.05 08/14/2019 Be sure to maintain good hydration. Do not use any nonsteroidal antiinflammatory medications (including over the counter ibuprofen and naproxen) as these are kidney irritants. Assessment & Plan (08/14/2019 3:16 PM CDT): Images from the original note were not included. Lab Results Component Value Date GLUCOSE 132 (H) 06/04/2019 CALCIUM 9.6 06/04/2019 SODIUM 139 06/04/2019 POTASSIUM 4.5 06/04/2019 CO2 26 06/04/2019 CHLORIDE 103 06/04/2019 BUNSER 17 06/04/2019 CREATININE 1.01 06/04/2019 Be sure to maintain good hydration. Do not use any nonsteroidal antiinflammatory medications (including over the counter ibuprofen and naproxen) as these are kidney irritants. Benign neoplasm of skin 03/17/2014 Type 2 diabetes mellitus wit h diabetic polyneuropathy, without long-term current use of insulin 01/27/2013 Overview (06/22/2020): Type 2 diabetes mellitus diagnosed in 2010. Assessment & Plan (12/25/2024 11:01 AM FORK LIFT TRUCK OPERATOR): Chronic problem. A1c improved from 7.4% 09/24/24 to now 6.7%. Nico start dropping Lantus dose by 2 units weekly if morning fasting blood sugar is less than 110 persistently. Current medications: Jardiance 25mg daily Mounjaro 7.5mg weekly Lantus 30 units nightly UTD on labs. UTD on DM eye exam (07/17/24 [facility] optho +PDR w/DME). Has appt 12/28/24. Strive for regular exercise (30min most days) and diet (get at least 4-5 servings of fruit and veggies daily, avoid processed foods, increase lean protein intake and decrease carb portions as well as fruit juices, regular soda & desserts). Watch carbs and simple sugars. Check the blood sugar daily Check the feet daily for skin breakdown and infection. Chronic problem. Currently taking Lyrica 300mg daily. Reviewed foot care; needs to lotion daily. Aware to check feet nightly, not to go barefoot. Assessment & Plan (09/24/2024 11:43 AM FORK LIFT TRUCK OPERATOR): Chronic problem. A1c not at goal & but improved from 7.7% 05/25/24 to now 7.4%. no med changes. Will continue to work on diet & activity. Will switch from Levemir to Lantus d/t insurance preference; to call if any side effects from Lantus (she thought it was only nausea when she took last). Current medications: Jardiance 25mg daily Mounjaro 5mg weekly Lantus 30 units nightly UTD on labs. UTD on DM eye exam (07/17/24 [facility] optho +PDR w/DME). Strive for regular exercise (30min most days) and diet (get at least 4-5 servings of fruit and veggies daily, avoid processed foods, increase lean protein intake and decrease carb portions as well as fruit juices, regular soda & desserts). Watch carbs and simple sugars. Check the blood sugar daily Check the feet daily for skin breakdown and infection. Chronic problem. Currently taking Lyrica 300mg daily. Reviewed foot care; needs to lotion daily. Aware to check feet nightly, not to go barefoot. Assessment & Plan (05/25/2024 9:37 AM CDT): Chronic problem. Not at goal & but improved from 9.9% 01/27/24 to now 7.7%. no med changes. Will continue to work on diet & activity. Current medications: Jardiance 25mg daily Mounjaro 5mg weekly Levemir 30 units nightly Will update labs today. Verified that she uses [facility]. Aware to check results/results letter in [facility]. Will contact by phone if needed. UTD on DM eye exam (12/30/23). Strive for regular exercise (30min most days) and diet (get at least 4-5 servings of fruit and veggies daily, avoid processed foods, increase lean protein intake and decrease carb portions as well as fruit juices, regular soda & desserts). Watch carbs and simple sugars. Check the blood sugar daily Check the feet daily for skin breakdown and infection. Chronic problem. Currently taking Lyrica 100mg Tid. Reviewed foot care; needs to lotion daily. Aware to check feet nightly, not to go barefoot. Assessment & Plan (01/27/2024 10:36 AM CDT): Chronic problem. Not at goal & worsening. A1c worsened from 9.0% 08/12/23 to now 9.9% Discussed diabetic education class so insurance will cover FSL. She will check with [facility] to see if there is a virtual class available as she works FT still. Restart the Ozempic 0.25mg weekly as we discussed. Watch for any signs of pancreatitis-stop immediately if pain starts. Current medications: Jardiance 25mg daily Ozempic 0.25mg weekly Levemir 30 units nightly UTD on labs. UTD on DM eye exam (12/30/23). List of complex carbs given on AVS. Discussed better snacks. Has improved activity level. Strive for regular exercise (30min most days) and diet (get at least 4-5 servings of fruit and veggies daily, avoid processed foods, increase lean protein intake and decrease carb portions as well as fruit juices, regular soda & desserts). Watch carbs and simple sugars. Check the blood sugar daily Check the feet daily for skin breakdown and infection. Chronic problem. Currently taking Lyrica 100mg bid. Reviewed foot care; needs to lotion daily. Aware to check feet nightly, not to go barefoot. Assessment & Plan (08/12/2023 2:55 PM CDT): Chronic problem. Not at goal & worsening. A1c worsened from 8.7% 05/2023 to now 9.0%. Unable to tolerate lantus. Will try levemir 15 units nightly. To let me know if any side effects. Current medications: Jardiance 25mg daily Levemir 15 units nightly. UTD on labs. UTD on DM eye exam. Strive for regular exercise (30min most days) and diet (get at least 4-5 servings of fruit and veggies daily, avoid processed foods, increase lean protein intake and decrease carb portions as well as fruit juices, regular soda & desserts). Watch carbs and simple sugars. Check the blood sugar freestyle gaurav. Check the feet daily for skin breakdown and infection. Assessment & Plan (05/13/2023 5:03 PM CDT): Hba1c was Lab Results Component Value Date HGBA1C 8.7 05/13/2023 today, indicating inadequate DM control Goal Hba1c and blood glucose explained Diet and exercise were advised Prevention and treatment of hyypoglcyemia were discussed with the patient Blood glucose monitoring : Start CGM with freestyle Gaurav Adjustment to medications: Stay on Metformin and Jardiance Start Tresiba insulin , 10 units at bedtime Increase by 3 units every 5 days until your morning sugars are persistently under 150 Assessment & Plan (09/28/2020 5:24 PM FORK LIFT TRUCK OPERATOR): Hemoglobin A1c ordered for today. Her last hemoglobin A1c approximately 3 months ago indicated reasonably adequate control. No changes in medication at this time. Patient is taking Ozempic and metformin. Follow-up in 3 months at which time we will perform a diabetic foot exam. Patient sees an medical technical writer for diabetic retinopathy management. Discussed diet and exercise. Assessment & Plan (08/24/2020 3:46 PM CDT): Pertinent diabetes labs reviewed: Lab Results Component Value Date HGBA1C 6.1 (H) 06/22/2020 GLUCOSE 110 (H) 03/22/2020 CREATININE 1.04 03/22/2020 LDL 61 03/22/2020 MALBCRTRAT <18.2 07/02/2018 On appropriate therapy. Assessment & Plan (06/22/2020 9:42 AM CDT): She notes that AM blood sugars are in the 120s at times. She plans to increase physical activity in the early evening. She will integrate a walking regimen or use her walking videos. Assessment & Plan (03/22/2020 7:37 PM CDT): The patient has lost 11 pounds. She recently started Ozempic, and blood sugars are improving. Check A1C. Assessment & Plan (12/17/2019 1:58 PM FORK LIFT TRUCK OPERATOR): She is working more diligently ion diet. Lab Results Component Value Date HGBA1C 8.5 (H) 10/20/[address] Valdes 01/2020. Assessment & Plan (11/17/2019 8:34 PM FORK LIFT TRUCK OPERATOR): The patient is tolerating Ozempic. She reports substantial improvement in blood sugars. She will continues the diabetic diet, and she is referred to a bank president. Assessment & Plan (11/14/2019 12:21 AM FORK LIFT TRUCK OPERATOR): The patient reports recent hyperglycemia. Check A1C. Consider addition of Ozempic. Assessment & Plan (09/17/2019 3:41 PM FORK LIFT TRUCK OPERATOR): Lab Results Component Value Date HGBA1C 7.1 (H) 06/04/2019 Assessment & Plan (08/14/2019 3:16 PM CDT): Lab Results Component Value Date HGBA1C 7.1 (H) 06/04/2019 Assessment & Plan (06/04/2019 10:28 AM CDT): Check A1C. Assessment & Plan (10/30/2018 10:25 AM FORK LIFT TRUCK OPERATOR): Check BMP and A1C at the next visit in 2 months. Assessment & Plan (07/04/2018 4:38 PM CDT): Check A1c. H/O colectomy 11/26/2012 Assessment & Plan (08/14/2019 3:13 PM CDT): Colonic inertia. Resolved Problems Problem Noted Date Diagnosed Date Resolved Date Morbid (severe) obesity due to excess calories 08/12/2023 08/12/2023 Morbid obesity with BMI of 40.0-44.9, adult 10/20/2019 08/12/2023 Overview (10/20/2019): BMI Follow-up includes: nutrition counseling, exercise counseling and education provided. Assessment & Plan (06/29/2020 2:48 PM CDT): Body mass index is 38.62 kg/m . BMI follow up includes nutrition counseling, exercise counseling, and education provided. Assessment & Plan (03/22/2020 7:38 PM CDT): Body mass index is 38.45 kg/m . BMI Follow-up includes: nutrition counseling, exercise counseling and education provided. She has lost 11 pounds since November. Assessment & Plan (11/17/2019 8:36 PM FORK LIFT TRUCK OPERATOR): Body mass index is 40.34 kg/m . BMI Follow-up includes: nutrition counseling, exercise counseling and education provided. Assessment & Plan (10/20/2019 2:35 PM FORK LIFT TRUCK OPERATOR): BMI Follow-up includes: nutrition counseling, exercise counseling and education provided. Earache on right 06/04/2019 12/17/2019 Assessment & Plan (06/04/2019 10:10 AM CDT): She notes two days of symptoms. BMI 36.0-36.9,adult 07/02/2018 08/12/20 23 Overview (07/02/2018): BMI Follow-up includes: nutrition counseling, exercise counseling and education provided. Assessment & Plan (08/24/2020 3:06 PM CDT): BMI Follow-up includes: nutrition counseling, exercise counseling and education provided. Assessment & Plan (12/17/2019 1:50 PM FORK LIFT TRUCK OPERATOR): 5 pound weight loss noted and endorsed. Continue your good efforts. An optimal BMI (body mass index) is between 20 and 25. Encourage weight loss. Each pound of weight lost unloads 3-4 pounds per square inch pressure from weight bearing joints. Diet and exercise are the keys to weight management. Assessment & Plan (09/17/2019 3:13 PM FORK LIFT TRUCK OPERATOR): An optimal BMI (body mass index) is between 20 and 25. Encourage weight loss. Each pound of weight lost unloads 3-4 pounds per square inch pressure from weight bearing joints. Diet and exercise are the keys to weight management. Assessment & Plan (08/14/2019 3:12 PM CDT): An optimal BMI (body mass index) is between 20 and 25. Encourage weight loss. Each pound of weight lost unloads 3-4 pounds per square inch pressure from weight bearing joints. Diet and exercise are the keys to weight management. Assessment & Plan (06/04/2019 9:46 AM CDT): BMI Follow-up includes: nutrition counseling, exercise counseling and education provided. Assessment & Plan (01/14/2019 8:39 AM FORK LIFT TRUCK OPERATOR): BMI Follow-up includes: nutrition counseling, exercise counseling and education provided. Assessment & Plan (01/01/2019 10:04 AM FORK LIFT TRUCK OPERATOR): BMI Follow-up includes: nutrition counseling, exercise counseling and education provided. Assessment & Plan (10/30/2018 10:12 AM FORK LIFT TRUCK OPERATOR): BMI Follow-up includes: nutrition counseling, exercise counseling and education provided. Assessment & Plan (09/29/2018 1:07 PM FORK LIFT TRUCK OPERATOR): BMI Follow-up includes: nutrition counseling, exercise counseling and education provided. Assessment & Plan (07/04/2018 4:39 PM CDT): Follow-up for management of elevated BMI morbid obesity includes nutrition counseling, exercise counseling, and lifestyle education. Dysuria 07/02/2018 12/17/2019 Assessment & Plan (11/14/2019 12:19 AM FORK LIFT TRUCK OPERATOR): Check UA micro and culture. Assessment & Plan (07/04/2018 4:39 PM CDT): Urinalysis will be checked. 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 Assessment & Plan (11/12/2018 3:51 PM FORK LIFT TRUCK OPERATOR): Status post (s/p) anti-VEGF left eye (OS) 1.5 wks ago with periocular swelling and tenderness since then. No evidence of endophthalmitis or intraocular inflammation on exam today. No conjunctivits/scleritis. +TTP but no erythema or significant periocular edema. On recheck post dilation, BCVA grossly stable compared to last visit. No increased cystoid macular edema (CME). No evidence of optic neuropathy. Recommend warm compress left cheek Ibuprofen PRN pain If no improvement patient to call for recs re f/u evaluation Otherwise f/u as scheduled with Dr. Mcgregor in a few weeks Infectious warts 03/17/2014 08/14/2019 Immunizations Immunization Administration Dates Next Due DTaP 03/06/2018 Hep B, Unspecified 11/12/2000 Influenza, Quadrivalent, Tawny l Culture-based MDCK, Preservative Free, Antibiotic Free, Intramuscular 08/23/2020 Influenza, Quadrivalent, Spl it, Intramuscular 08/14/2019,07/21/2018,09/13/2017,10/25 Influenza, Quadrivalent, Spl it, Preservative Free, Intramuscular 08/14/2019,2017,07/23/2016 Influenza, Split 07/30/2012 Influenza, Trivalent, IM (MDV) 07/28/2014,2012 Influenza, Trivalent, Preser vative Free, Intramuscular 07/12/2014 Pneumococcal Polysaccharide PPV23 11/08/2015, Pneumococcal, Unspecified 08/23/2014 TD Preservative Free 12/26/2011 Tdap 11/12/2017 Social History Tobacco Use Types Packs/Day Years Used Date Smoking Tobacco: Never Smokeless Tobacco: Never Alcohol Use Standard Drinks/Week Comments No 0 (1 standard drink = 0.6 oz pur e alcohol) AUDIT-C Answer Date Recorded Q1: How often do you have a drink containing alc ohol? Monthly or less 07/07/2024 Q2: How many drinks containi ng alcohol do you have on a typical day when you are drinking? 1 or 2 07/07/2024 Q3: How often do you have si x or more drinks on one occasion? Never 07/07/2024 PHQ-2 Answer Date Recorded PHQ-2 Total Score (If total score is 3 or more points, staff should administer the PHQ-9) 0 09/28/2020 Personal Safety Answer Date Recorded Have you ever been in or are you currently in a harmful physical or emotional relationship or is someone making you feel afraid or unsafe? 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 on file Not on file No t on file Last Filed Vital Signs Vital Sign Reading Time Taken Comments Blood Pressure 120/72 12/25/2024 10:33 AM FORK LIFT TRUCK OPERATOR Pulse 80 12/25/2024 10:33 AM FORK LIFT TRUCK OPERATOR Temperature 36 C (96.8 F) 07/14/2024 9:07 AM CDT Respiratory Rate 16 12/25/2024 10:33 AM FORK LIFT TRUCK OPERATOR Oxygen Saturation 98% 07/14/2024 9:25 AM CDT Inhaled Oxygen Concentration - - Weight 94.8 kg (209 lb) 12/25/2024 10:33 AM FORK LIFT TRUCK OPERATOR Height 165.1 cm (5' 5 ) 12/25/2024 10:33 AM FORK LIFT TRUCK OPERATOR Body Mass Index 34.78 12/25/2024 10:33 AM FORK LIFT TRUCK OPERATOR Plan of Treatment Not on file Medical Devices Implanted Type Area Software Educator Device Identifier Shelf Expiration Date Model / Serial / Lot [employer] [id number] [employer]rex Fibertak Fiberwire Needle 1 [place] Suture Sterile - [id number] Implanted:Qty: 1 on 12/28/2021 by Agapito Yang MD at [facility] Left: Wrist [employer] 10/10/2026 [id number] / / [id number] Procedures Procedure Name Priority Date/Time Associated Diagnosis Comments OCT, RETINA - OU - BOTH EYES Routine 12/28/2024 4:57 PM FORK LIFT TRUCK OPERATOR Proliferative diabetic retinopathy of both eyes with macular edema associated with type 2 diabetes mellitus (HCC) POCT GLUCOSE Routine 12/25/2024 10:36 AM FORK LIFT TRUCK OPERATOR Type 2 diabetes mellitus with diabetic polyneuropathy, without long-term current use of insulin (HCC) POCT HEMOGLOBIN A1C Routine 12/25/2024 1 0:36 AM FORK LIFT TRUCK OPERATOR Type 2 diabetes mellitus with diabetic polyneuropathy, without long-term current use of insulin (HCC) EGFR STAT 07/03/2024 10:02 PM CDT LIPID PANEL Routine 05/25/2024 9:58 AM CDT Type 2 diabetes mellitus with diabetic polyneuropathy, without long-term current use of insulin (HCC) Hyperlipidemia associated with type 2 diabetes mellitus (HCC) ALBUMIN CREATININE RATIO, URINE Routine 05/25/2024 9:58 AM CDT Type 2 diabetes mellitus with diabetic polyneuropathy, without long-term current use of insulin (HCC) SCREENING MAMMOGRAM Schedule Routine, Read Routine (OP Routine) 01/15/2020 HM PAP SMEAR Routine 01/14/2020 HEPATITIS C ANTIBODY Routine 08/14/2019 3:21 PM CDT Rheumatoid arthritis of multiple sites with negative rheumatoid factor (HCC) HM COLONOSCOPY Routine 05/09/2018 from Last 3 Months or Most Recently Relevant to Health Maintenance Results * OCT, Retina - OU - Both Eyes (12/28/2024 4:57 PM FORK LIFT TRUCK OPERATOR) Anatomical Region Laterality Modality Head Optical Coherenc e Tomography Narrative 12/28/2024 4:57 PM FORK LIFT TRUCK OPERATOR Right Eye Quality was good. Scan locations included subfoveal. Left Eye Quality was good. Scan locations included subfoveal. Notes OD: no cme OS: no CME us Lo Mcgregor MD OPHTH TOMOGRAPHY Final Res ult * (ABNORMAL) POCT hemoglobin A1c (12/25/2024 10:36 AM FORK LIFT TRUCK OPERATOR) Hemoglobin A1C, POC 6.7 4.0 - 5.6 % Blood 12/25/2024 10:3 6 AM FORK LIFT TRUCK OPERATOR us Priyacarmen Calderon [facility] POINT OF CARE TEST ORDERA BLES Final Result * POCT glucose (12/25/2024 10:36 AM FORK LIFT TRUCK OPERATOR) Glucose Blood, POC 102 mg/dL Blood 12/25/2024 10:3 6 AM FORK LIFT TRUCK OPERATOR us Priya Calderon [facility] POINT OF CARE TEST ORDERA BLES Final Result * (ABNORMAL) eGFR (07/03/2024 10:02 PM CDT) eGFR 59(L) >=60 mL/min/1. 73 m2 Comment: Interpretive Data Reference Interval Normal >/= 90 mL/min/1.73m2 Mildly decreased* 60 - 89 mL/min/1.73m2 Mildly to moderately decreased 45 - 59 mL/min/1.73m2 Moderately to severely decreased 30 - 44 mL/min/1.73m2 Severely decreased 15 - 29 mL/min/1.73m2 Kidney Failure < 15 mL/min/1.73m2 *Relative to young adult level Estimated glomerular filtration rate is determined by the 2020 CKD-EPI equation recommended by the National Kidney Foundation (A Unifying Approach to GFR Estimation: Recommendations of the NKF-ASK Task Force on Reassessing the Inclusion of Race in Diagnosing Kidney Disease, JASN 2020). The CKD-EPI equation should not be used for patients with unstable renal function and has not been validated in children and those over 70. Current interpretive data was last reviewed 2021. Blood 07/03/2024 10:0 2 PM CDT 07/03/2024 10:19 PM CDT Mu Kelley MD LAB BLOOD ORDERABLES [facility] Result [facility] Department [place] [address] * Albumin Creatinine Ratio, Urine (05/25/2024 9:58 AM CDT) Albumin Ur 22.9 mg/L Comment: Interpretive Data No reference range established. Current interpretive data was last revised 2019. Creatinine Ur 167.2 mg/dL [facility] BRANDON Comment: Interpretive Data No reference range established. Current interpretive data was last revised 2019. Albumin Creatinine Ratio, Ur 14 1 - 29 mg/g Y[facility]I BRANDON Urine 05/25/2024 9:58 AM CDT 05/25/2024 2:40 PM CDT us Priya Calderon NP LAB URINE ORDERABLES Joyce moreno Result [facility]AD[facility] [id number] [facility] Department [place] [address] * (ABNORMAL) Lipid panel (05/25/2024 9:58 AM CDT) Cholesterol 196 30 - 199 mg/dL Comment: Interpretive Data Ages < or = 19 years Acceptable: <170 mg/dL Borderline high: 170-199 mg/dL High: >or= 200 mg/dL Ages > or = 20 years Desirable: <200 mg/dL Borderline high: 200-239 mg/dL High: >or= 240 mg/dL Literature References: 1. Expert Panel on Integrated Guidelines for Cardiovascular Health and Risk Reduction in Children and Adolescents. Pediatrics 2011;128:S213 2. NCEP Expert Panel. Circulation 2004;110:227 Current Interpretive Data was last revised on 2018. Triglycerides 158(H) <=149 mg/dL YADI BRANDON Comment: Interpretive Data Ages < or = 9 years Acceptable: <75 mg/dL Borderline high: 75-99 mg/dL High: >or= 100 mg/dL Ages 10 to 20 years Acceptable: <90 mg/dL Borderline high: 90-129 mg/dL High: >or= 130 mg/dL Ages > or = 20 years Desirable: <150 mg/dL Borderline high: 150-199 mg/dL High: 200-499 mg/dL Very high: >or= 499 mg/dL Literature References: 1. Expert Panel on Integrated Guidelines for Cardiovascular Health and Risk Reduction in Children and Adolescents. Pediatrics 2011;128:S213 2. NCEP Expert Panel. Circulation 2004;110:227 Current Interpretive Data was last revised on 2018. HDL 62 >=40 mg/dL YADI BRANDON Comment: Interpretive Data Ages < or = 19 years Acceptable: >45 mg/dL Borderline low: 40-45 mg/dL Low: <40 mg/dL Ages > or = 20 years Desirable: >or= 60 mg/dL Low: <40 mg/dL Literature References: 1. Expert Panel on Integrated Guidelines for Cardiovascular Health and Risk Reduction in Children and Adolescents. Pediatrics 2011;128:S213 2. NCEP Expert Panel. Circulation 2004;110:227 Current Interpretive Data was last revised on 2018. LDL, calculated 102 <=129 mg/dL YADI BRANDON Comment: Interpretive Data Ages < or = 19 years Acceptable: <110 mg/dL Borderline high: 110-129 mg/dL High: >or= 130 mg/dL Ages > or = 20 years Optimal: <100 mg/dL Near optimal: 100-129 mg/dL Borderline high: 130-159 mg/dL High: >160 mg/dL Literature References: 1. Expert Panel on Integrated Guidelines for Cardiovascular Health and Risk Reduction in Children and Adolescents. Pediatrics 2011;128:S213 2. NCEP Expert Panel. Circulation 2004;110:227 Current Interpretive Data was last revised on 2018. Non-HDL Cholesterol 134 mg/dL YADI BRANDON Comment: Interpretive Data Ages < or = 19 years Acceptable: <120 mg/dL Borderline high: 120-144 mg/dL High: >145 mg/dL Ages > or = 20 years When triglycerides are >200 mg/dL, Non-HDL cholesterol is a secondary target of therapy with treatment goals that are 30 mg/dL greater than the LDL cholesterol target. Literature References: 1. Expert Panel on Integrated Guidelines for Cardiovascular Health and Risk Reduction in Children and Adolescents. Pediatrics 2011;128:S213 2. NCEP Expert Panel. Circulation 2003;110:227 Current Interpretive Data was last revised on 2018. Chol/HDL ratio 3 YADI BRANDON Blood 05/25/2024 9:58 AM CDT 05/25/2024 2:40 PM CDT us Priya Calderon [facility] BLOOD ORDERABLES Joyce l Result YADI [address] [place] [address] * Screening Mammogram (01/15/2020) Anatomical Region Laterality Modality Breast N/A Mammography Impressions 01/15/2020 Mammogram report 01/15/2020 Impression: No mammographic findings suggestive of malignancy. Assessment: ACR BI-RADS CATEGORY 2- benign findings Recommendation: Routine screening mammogram bilateral in 1 year. us Notinfile Unknown IMG MAMMO PROCEDURES Final Res ult * HM PAP SMEAR (01/14/2020) Pap smear Normal Comment:see scanned report Historical Provider HEALTH MAINTENANCE Final Result * Hepatitis C antibody (08/14/2019 3:21 PM CDT) Pathologist [facility] Hep C Ab Non-Reactiv e Non-Reactiv e YADI [facility] Blood specimen (specimen) 08/14/2019 3:21 PM CDT 08/14/2019 6:33 PM CDT Arden Justin MD LAB MICROBIOLOGY - GENERA L ORDERABLES Final Result YADI [facility] [address] [place] [address] * COLONOSCOPY (05/09/2018) Colonoscopy Abnormal Historical Provider HEALTH MAINTENANCE Final Result from Last 3 Months or Most Recently Relevant to Health Maintenance Insurance MEDICARE ClariFI MEDICARE [facility] MEDICARE [facility] 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
--- OUTSIDE RECORDS SUMMARY | 2025-01-27 11:50 | XMS_ITS | CONTINUITY OF CARE DOCUMENT ---
Author Name carlos a strauss Address Unknown Organization [facility] Office Address [address] [place] [address] Phone [phone] Care Team Providers Care Varnish Mixer Name Role Phone Sander WILCOX, Aaron Unavailable EFREN WILCOX, JELENA Tierney Unavailable Michael WILCOX, Aura Unavailable Unavailable INSURANCE PROVIDERS Payer name Policy type / Coverage type [place] red green party ID BLUE [facility] Blue Shield [id number] [place] MED[place] PART B Medicare [id number]
--- OUTSIDE RECORDS SUMMARY | 2025-01-27 11:50 | XMS_ITS | Continuity of Care Document ---
Author Organization [facility] Address [address] [place] [address] Phone Care Team Providers Care Master Planner Name Role Phone Hanane WILCOX, Constantin Unavailable Unavailable Allergies, Adverse Reactions, Alerts Substance Reaction Status Criticality pineapple Active No Information hydrocodone Active No Information Penicillins Hives Active No Information Medications Medication Instructions Dosage Effective Dates (start - stop) Status Comments OMEPRAZOLE DR 20 MG CAPSULE TAKE ONE CAPSULE BY MOUTH TWICE A DAY 30 MINUTES TO 1 HOUR BEFORE A MEAL 20 MG - Active Compazine 10 mg tablet take 1 tablet by oral route every 6 hours as needed nausea - Active metformin 500 mg tablet take 2 tablet by oral route 2 times every day with morning and evening meals 1000 MG - Active Zofran 4 mg tablet take 1 tablet by oral route every 6 hours as needed for nausea - Active One Touch Ultra Test Strips use once daily - Active Lancets, Super Thin use once daily - A ctive methotrexate sodium (PF) 25 mg/mL injection solution inject 1 milliliter by intramuscular route every week 25 MG - Active Cymbalta 30 mg capsule,delayed release take 2 capsule by oral route every day 60 MG - Active KAVA KAVA (unknown strength) Not Available - Active Super B-50 Complex Plus tablet - Active hydrochlorothiazide 12.5 mg tablet take 1 tablet by oral route every day 12.5 MG - Active cyclobenzaprine 5 mg tablet take 1 tablet by oral route every bedtime as needed for muscle spasm 5 MG - Active VITAMIN D2 (unknown strength) take 1 capsule by oral route every month Not Available - Active tramadol 50 mg tablet take 1-2 Tablet by Oral route 3 times every day prn severe pain - Active sodium bicarbonate 650 mg tablet take 1 Tablet by Oral route once 1 Tablet - Active folic acid 1 mg tablet take 1 tablet by oral route every day 1 MG - Active magnesium 250 mg tablet - Active loperamide 2 mg tablet take 3 Tablet by oral route 3 times every day 6 MG - Active cranberry concentrate-ascorbic acid 4,200 mg-20 mg capsule take 2 capsule by oral route 3 times every day 2 capsule - Active Xanax 0.5 mg tablet take 1 tablet (0.5MG) by oral route 2 times every day as needed - Active spironolactone 25 mg tablet take 0.5 tablet by oral route every day 12.5 MG - Active Lyrica 100 mg capsule take 1 capsule by oral route 3 times every day 100 MG - Active Advance Directives Directive Yes / No Effective Date File Name No Information Encounters Encounter Description Practice Location Reason(s) For Visit Diagnoses Date Provider Providers Copied on Encounter [facility], [address], [place], [place], [address] , tel: [phone] [facility] No Information 9 Hanane Killian. [address] [place] [address], [id number], [place]. tel:[phone] [facility], [address], [place], [place], [address] , tel: [phone] [facility] No Information 8 Hanane Martedamigue. [address] [place], [place], [address], [place]. tel:[phone] [facility], [address], [place], [place], [address] , tel: [phone] [place] Type 2 diabetes mellitus with peripheral neuropathyRheuma toid arthritis, involving unspecified site, unspecified rheumatoid factor presenceBenign essential hypertensionAnem ia, unspecified type 7 Humble Lopes. [address] [place] [address], [id number], [place]. tel:[phone] Referring Provider: Moses Kate, [address] [place] [address] [place], [address] . tel:[phone] [facility], [address], [place], [place], [address] , tel: [phone] [place] Mild anemia [place]. [address] [facility], [address], [address], . tel: [phone] Referring Provider: Moses Kate, [address] [facility] [address], [place], [address] . tel:[phone] [facility], [address], [place], [place], [address] , tel: [phone] [place] Jerking movements of extremities [place]. [address] [facility], [address], [place], [address], . tel: [phone] Referring Provider: Moses Kate, [address] [facility] [address], [place], [address] . tel:[phone] [facility], [address], [place], [place], [address] , tel: [phone] [place] Tremors of nervous system Su Briseno. [address] [facility], [address], [place], [address], . tel: [phone] [facility], [address], [place], [place], [address] , tel: [phone] [place] Benign essential hypertensionRheu matoid arthritis, involving unspecified site, unspecified rheumatoid factor presenceType 2 diabetes mellitus with peripheral neuropathyAnemia , unspecified type May-0 [place]. [address] [facility], [address], [place], [address], [place]. tel: [phone] Referring Provider: Moses Kate, [address], [place], [address] . tel:[phone] [facility], [address], [place], [place], [address] , [place] tel: [phone] [facility] No Information 7 Bialecki Eldad. [address] [place] [address], [id number], [place]. tel:[phone] [facility], [address], [place], [place], [address] , tel: [phone] [facility] Weight loss 7 Bialecki Eldad. [address] [place] [address], [id number], [place]. tel:[phone] Referring Provider: Moses Kate, [address] [facility] [address], [address] . tel:[phone] [facility], [address], [place], [place], [address] , tel: [phone] [place] Type 2 diabetes mellitus with peripheral neuropathyRheuma toid arthritis, involving unspecified site, unspecified rheumatoid factor presenceGastropa resisBenign essential hypertensionAnxi etyFibromyalgia syndromeGastroes ophageal reflux disease, esophagitis presence not specifiedAnemia, unspecified type 7 [place]. [address] [facility], [address], [id number], . tel:[phone] Referring Provider: Moses Kate, [address], [address] . tel:[phone] [facility], [address], [place], [place], [address] , tel: [phone] [facility] History of colectomySlow transit constipationGast roparesisHemorrh oids, unspecified hemorrhoid type 6 Bialecki Eldad. [address] [place] [address], [id number], [place]. tel:[phone] Referring Provider: Constantin Arnett, [address] [place] [address], [address] . tel:[phone] [facility], [address] [place] [address], [id number] , tel: [phone] [facility] Small bowel obstructionHisto ry of colectomy 6 Hanane Killian. [address] [place] [address], [id number], [place]. tel:[phone] Referring Provider: Constantin Arnett, [address] [place] [address], [address] . tel:[phone] [facility], [address] [place] [address], [id number] , [place] tel: [phone] [facility] Generalized abdominal painNauseaChange in bowel functionHistory of colectomy 6 Hanane Killian. [address] [place] [address], [id number], [place]. tel:[phone] Referring Provider: Constantin Arnett, [address] [place] [address], [place], [address] . tel:[phone] [facility], [address], [place], [place], [address] , [place] tel: [phone] [facility] No Information 3 Solitario Shah. [address] [place] [address], [address] , [place], [place], [address], . tel:[phone] [facility], [address], [place], [place], [address] , [place] tel: [phone] [facility] FibromyalgiaCons tipation, unspecifiedDiabe jeny with ophthalmic manifestations, type II or unspecified type, not stated as uncontrolledProl iferative diabetic retinopathy 3 Solitario Shah. [address] [place] [address], [address], [place], [place], [address], [place]. tel:[phone] [facility], [address], [place], [place], [address] , [place] tel: [phone] [facility] Diabetes mellitus type 2 with neurological manifesGastric paresisGERD (gastroesophagea l reflux disease)Anxiety and depressionAbdomi nal painMenopausal state 3 Debora Sinclair. [address], [address], [place], [place], [address], . tel:[phone] Referring Provider: Pablo Jerez, [address] [place] [address] [address], [place], [address] . tel:[phone] [facility], [address], [place], [place], [address] , tel: [phone] [facility] Diabetes with neurological manifestations, type II or unspecified type, not stated as uncontrolledGast roparesisEsophag eal refluxDysthymic disorderUnspecif ied essential hypertension [address], [address], [place], [place], [address], . tel:[phone] Referring Provider: Pablo Jerez, [address] [place] [address] [address], [place], [place], [address] [place] [address] . tel:[phone] [facility], [address], [place], [place], [address] , tel: [phone] [facility] NEED FOR PROPHYLACTIC VACCINATION AND INOCULATION, INFLUENZAScreeni ng examination for pulmonary tuberculosis 2 Solitario Shah. [address] [place] [address], [address], [place], [place], [address], . tel:[phone] Referring Provider: Pablo Jerez, [address] [place] [address] [address], [place], [address] . tel:[phone] [facility], [address], [place], [place], [address] , tel: [phone] [facility] Diabetes mellitus without mention of complication, type II or unspecified type, not stated as uncontrolledLong -term (current) use of other medications 2 Solitario Shah. [address] [place] [address], [address] , [place], [place], [address], . tel:[phone] Referring Provider: Pablo Jerez, [address] [place] [address] [address], [place], [address] . tel:[phone] [facility], [address], [place], [place], [address] , tel: [phone] [facility] Diabetes mellitus type 2 with neurological manifesGastric paresisEssential hypertensionWeig ht gainAbnormal CT scanHematuria, microscopicAbdom inal pain, RLQOther and unspecified hyperlipidemiaEs ophageal refluxDepressive disorder, not elsewhere classifiedDysthy kan disorderDiabetic retinopathy associated with type 2 diabet [address] Debor[address] Dott[address], [address], [place], [place], [address], [place]. tel:[phone] Referring Provider: Pablo Jerez, [address] [place] [address] [address], [place], [address] . tel:[phone] [facility], [address], [place], [place], [address] , tel: [phone] [facility] Diabetes with neurological manifestations, type II or unspecified type, not stated as uncontrolledGast roparesisOther and unspecified hyperlipidemiaUn specified essential hypertensionDepr essive disorder, not elsewhere classifiedEsopha geal reflux 2 Thompson Dottie. [address], [address], [place], [place], [address], [place]. tel:[phone] Referring Provider: Pablo Jerez, [address] [place] [address] [address], [place], [address] . tel:[phone] [facility], [address], [place], [place], [address] , [place] tel:[phone] [facility] Anxiety state, unspecifiedDiabe jeny with neurological manifestations, type II or unspecified type, not stated as uncontrolledPoly neuropathy in diabetes 2 Debora Dottie. [address], [address], [place], [place], [address], [place]. tel:[phone] Referring Provider: Pablo Jerez [address] [place] [address] [address], [place], [address] . tel:[phone] [facility], [address], [place], [place], [address] , tel:[phone] [facility] Laceration of scalpEncounter for removal of paula 2 eDbora Sinclair. [address], [address], [place], [place], [address], . tel:[phone] Referring Provider: Pablo Jerez, [address] [place] [address] [address], [place], [address] . tel:[phone] [facility], [address], [place], [place], [address] , tel: [phone] [facility] Scalp lacerationAssaul t, allegedAnxietyUn specified essential hypertensionDepr essive disorder, not elsewhere classifiedDiabet es with neurological manifestations, type IIGastric paresis 2 Debora Sinclair. [address] [place] [address], [address], [place], [place], [address], . tel:[phone] Referring Provider: Pablo Jerez [address] [place] [address] [address] , [place], [address] . tel:[phone] [facility], [address], [place], [place], [address] , tel: [phone] [facility] Diabetes with neurological manifestations, type IIPolyneuropathy in diabetesUnspecif ied essential hypertensionSCRE EN LIPOID DISORDERSOtalgia , unspecifiedOther malaise and fatigueROUTINE TECHNICAL COMMUNICATOR EXAMINATIONDiabe jeny mellitus without mention of complication, 2 Debor[address]. [address] [place] [address], [address], [place], [place], [address], . tel:[phone] Referring Provider: Pablo Jerez [address] [place] [address] [address], [place], [address] . tel:[phone] [facility], [address], [place], [place], [address] , [place] tel: [phone] [facility] ESOPHAGEAL REFLUX Sep-0 3-200 9 [facility]. [address], [place], [address], [place]. [facility], [address], [place], [place], [address] , [place] tel: [phone] [facility] HYPERLIPIDEMIA NEC/NOS Sep-0 2-[address], [place], [address], [place]. [facility], [address], [place], [place], [address] , tel: [phone] [facility] SCREEN-DIABETES MELLITUSSCREEN LIPOID DISORDERSLONG-TE RM USE MEDS NECVISUAL DISTURBANCE NOSIMPAIRED FASTING GLUCOSEROUTINE MEDICAL EXAMMALAISE AND FATIGUE NEC Sep-0 1200 9 Scooter Bejarano. [address] [facility] [address], [place], [place], [address]. tel:[phone] Family History Family Member Type Diagnosis Age At Onset Mother Problem (finding) malignant neoplasm of c ervix uteri Mother Problem (finding) Heart disease Brother Problem (finding) Allergies Mother Problem (finding) Renal disease Mother Problem (finding) Non-Hodgkin's lymphoma Mother Problem (finding) osteoarthritis Mother Problem (finding) raised blood lipids Mother Problem (finding) Obesity Father Problem (finding) Allergies Mother Problem (finding) Mental illness Father Problem (finding) Myocardial infarction Mother Problem (finding) diabetes melli tus in first degree relative Mother Problem (finding) hypertension Mother Problem (finding) depression Mother Problem (finding) stroke Immunizations Vaccine Date Status Comments Fluzone Quad , spli t virus, 0.5mL dosage administered Source: New Immuniza tion Record Flu (split) (3 yrs or older) administered Source: New Immunization Record Td administered Source: New Imm unization Record Td, preservative free, (7 yr s and older) pending Source: New Immuniza tion Record Payers Payer name Insurance type Covered democrat ID Authoriza tion(s) MEDICARE [place] [id number] FOR LIFE MDCR SUPPLEMENT CI [id number] MEDICARE MB [id number] BCBS INACTIVE OUT OF STATE BL [id number] FOR LIFE MDCR SUPPLEMENT CI [id number] Social History Type Description Quantity Date Captured Comments Alcohol Use Details Unknown Caffeine Use Details Unknown Tobacco Use Status No Information Smoking Status No Information Sex Female Chief Complaint And Reason For Visit No Information Reason For Referral Reason For Referral No Information Plan Of Treatment Date Type Action Status Unknown Immunization Td, preservative free, (7 yr s and older) ordered History Of Present Illness Encounter Date Complaint History Of Prese nt Illness No Information Functional Status Date Functional Assessmen t No Information Instructions Date Instruction Additional Infor mation No Information Assessments Type Assessment Date No Information Patient Care Teams Name Effective Dates (start - stop) Status Members No Information
--- OUTSIDE RECORDS SUMMARY | 2025-01-27 11:50 | XMS_ITS | Encounter Summary ---
Author Organization [facility] Address [address] [place] [address] Care Team Providers Care Passenger Interline Clerk Name Role Phone Darin Bryant MD Unavailable [phone] Mary Rodriguez Primary Care Provider [phone] Elizabeth Nava NP Primary Care Provider [phone] None, Provider MD Primary Care Provider Unavaila ble Mary Rodriguez Unavailable [phone] Elena Valdes MD Primary Care Provider [phone] Ana Cristina Mckeon MD Primary Care Provider [phone] Encounter Details Date Type Department Care Team (Late st Contact Info) Description 12/11/[address] [facility] [facility] [place] [address] Darin Bryant MD [facility]. 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 Gender Identity Not on file Sexual Orientation Not on file Occupation Industry Job Start Date Job End Date Not on file Not on file Not on file Not on file documented as of this encounter Plan of Treatment Upcoming Encounters Date Type Department Care Team (Late st Contact Info) Description 03/08/2025 2:00 PM CDT Appointment [facility] [place], [place] [address] Ana Cristina Mckeon MD [address] [place] [address] 03/08/2025 2:40 PM CDT Appointment [facility] [place], [place] [address] Ana Cristina Mckeon MD [address] [place] [address] documented as of this encounter Visit Diagnoses Not on filedocumented in this encounter Care Teams Passenger Interline Clerk Relationship Specialty Start Date End Date Mary Rodriguez APNP [address] [place] [address] PCP - General NURSE PRACTITIONER 11/11/17 01/08/19 Elizabeth Nava NP [address] [place] [address] PCP - General NURSE PRACTITIONER 01/09/19 02/02/19 None, MD Jermaine PCP - General 02/03/19 11/11/19 Mary Rodriguez APNP [address] [place] [address] PCP - Med Group - MSSP Attributed Provider 08/11/17 11/10/21 Elena Valdes MD [address] [place] [address] PCP - General INTERNAL MEDICINE GERIATRIC MEDICINE 11/12/19 03/14/21 Ana Cristina Mckeon MD [address] [facility] [address] [place] [address] PCP - General INTERNAL MEDICINE 03/15/21 Darin Bryant MD [facility]. [facility] [address] [place] [address] [facility] CARDIOVASCULAR DISEASE 11/05/17 documented as of this encounter
--- OUTSIDE RECORDS SUMMARY | 2025-01-27 11:50 | XMS_ITS | Continuity of Care Document ---
Author Organization [facility] Address [address] [place] [address] Phone Care Team Providers Care Central Office Equipment Installer Name Role Phone Lisa Reynaga Unavailabl e Allergies, Adverse Reactions, Alerts Substance Reaction Status Criticality Penicillins Rash, ItchyEyes, DifficultyBreat Active No Information codeine Rash, DifficultyBreathing Active No Information Medications Medication Instructions Dosage Effective Dates (start - stop) Status Comments Percocet 5 mg-325 mg tablet take 1 tablet by oral route every 4 hours as needed 1 tablet - Active atorvastatin 10 mg tablet - Active alprazolam 0.5 mg tablet - Active Compazine 10 mg tablet - Active Cyclobenzaprine 15mg TABLET - Active Cymbalta 30 mg capsule,delayed release - Active Lyrica 100 mg capsule - Active metformin 1,000 mg tablet - Active omeprazole 20 mg capsule,delayed release - Active sodium bicarbonate 650 mg tablet - Active Steglatro 5 mg tablet - Active tramadol 50 mg tablet - Active Orencia (with maltose) 250 mg intravenous solution - Active Procedures Procedure Date X-ray exam finger(s), minimum 2 views Ja Global/Postop followup visit X-ray exam finger(s), minimum 2 views De Global/Postop followup visit Arthrodesis IP Joint Tendon sheath incision, trigger finger D X-ray exam finger(s), minimum 2 views No X-ray exam hand, 3+ views Thumb Spica Orange OTS 9 Thumb Spica Orange OTS 9 Mallet Finger Splint Office/outpatient visit,halley gonzalez 2018 Advance Directives Directive Yes / No Effective Date File Name No Information Encounters Encounter Description Practice Location Reason(s) For Visit Diagnoses Date Provider Providers Copied on Encounter [facility], [address], [id number], tel:[phone] [facility] Left hand (chief complaint) Trigger thumb, left thumbPrimary osteoarthritis, left hand 0 Dre Gonzalez. [address] [facility] [place] [address], [place], [place], [id number], [place]. tel:[phone] Referring Provider: Lisa Hudson, [address] [facility] [address], [place], [address] . tel:[phone] [facility], [address], [id number], [place] tel:[phone] [facility] [employer] [facility] Left hand (chief complaint) Trigger thumb, left thumbPrimary osteoarthritis, left hand 9 Dre Gonzalez. [address] [facility] [facility] [address], [place], [place], [id number], [place]. tel:[phone] Referring Provider: Lisa Hudson, [address] [facility] [address], [place], [address] . tel:[phone] [facility], [address] [facility] [address], [place], [id number], [place] tel:[phone] [facility] No Information 9 Enmanuel Nicola. [address] [facility] [facility] [address], [place], [place], [id number], [place]. tel:[phone] [facility], [address], [id number], [place] tel:[phone] [facility] No Information 9 Enmanuel Petersen. [address] [facility], [place], [place], [id number], [place]. tel:[phone] [facility], [address] [facility] [address], [place], [place], [id number], [place] tel:[phone] [facility] Trigger thumb, left thumbPrimary osteoarthritis, left handPrimary OA of 1st carpometacarpal joint of left handPrimary OA of 1st carpometacarpal joint of right handTrigger thumb, right thumb 9 Dre Gonzalez. [address] [facility], [place], [place], [id number], [place]. tel:[phone] Office/outpa tient visit,[facility], [address] [address], [place], [place], [id number], [place] tel:[phone] [facility] Bilateral hands (chief complaint) Pain in right finger(s)Pain in left finger(s)Primary OA of 1st carpometacarpal joint of left handPrimary OA of 1st carpometacarpal joint of right handTrigger thumb, right thumbTrigger thumb, left thumbPrimary osteoarthritis, left hand 9 Dre Gonzalez. [address] [facility], [place], [place], [id number], [place]. tel:[phone] Referring Provider: Lisa Hudson, [address] [facility] [address] [facility], [place], [address] . tel:[phone] Family History Family Member Type Diagnosis Age At Onset Mother Problem (finding) Heart Disease Brother Problem (finding) Hypertension Brother Problem (finding) Heart Disease Brother Problem (finding) Seizures Mother Problem (finding) Osteoarthritis Father Problem (finding) Heart Disease Mother Problem (finding) Hypertension Father Problem (finding) Cancer, unknown Mother Problem (finding) Cancer, unknown Brother Problem (finding) Cancer, unknown Mother Problem (finding) Osteoporosis Mother Problem (finding) Depression Mother Problem (finding) Gout Father Problem (finding) Hypertension Mother Problem (finding) Diabetes Payers Payer name Insurance type Covered libertarian ID Authorarnaldoa arturo(s) Medicare [place] Part B [place] [id number] [place] [employer] Paul camarena [facility] [id number] [facility] [id number] Social History Type Description Quantity Date Captured Comments Alcohol Use Details Unknown Caffeine Use Details Unknown Tobacco Use Status No Information Smoking Status No Information Sex Female Chief Complaint And Reason For Visit From encounter dated '12/08/2019 09:45'. Left hand (chief complaint). Description: Lisa is 6 weeks out from a left middle finger distal interphalangeal joint arthrodesis and an A1 lili trigger release of the left thumb on October 27, 2019. She was last seen in the office 4 weeks ago on November 10, 2019. At that time she was referredto therapy for rehabilitation and I provided her with a tip protector splint. She has discontinued the splint. She has no complaints of pain, and she is pleased with her progress. She returns for follow-up. Reason For Referral Reason For Referral No Information Plan Of Treatment Date Type Action Status Referral Ordered: X-ray exam finger(s), minimum 2 views LT ordered Referral Ordered: X-ray exam hand, 3+ views LT ordered Referral Ordered: X-ray exam finger(s), minimum 2 views Bilateral ordered History Of Present Illness Encounter Date Complaint History Of Prese nt Illness Left hand Lisa is 6 week s out from a left middle finger distal interphalangeal joint arthrodesis and an A1 lili trigger release of the left thumb on October 27, 2019. She was last seen in the office 4 weeks ago on November 10, 2019. At that time she was referred to therapy for rehabilitation and I provided her with a tip protector splint. She has discontinued the splint. She has no complaints of pain, and she is pleased with her progress. She returns for follow-up. Left hand Lisa is 2 week s out from a left middle finger distal interphalangeal joint arthrodesis and an A1 lili trigger release of the left thumb on October 27, 2019. She returns for follow-up. Nov-14-2019 Bilateral hands Lisa is seen i n the office today as a new patient. She presents with bilateral hand pain. She presents with bilateral thumb pain and locking, pain at the base of both thumbs, and left middle finger pain at the distal interphalangeal joint. She saw Dr. Gr, a web site administrator, for a few years and was being treated for rheumatoid arthritis. At that time she was diagnosed with bilateral thumb stenosing flexor tenosynovitis. She received 6-7 injections for the bilateral trigger thumbs, and the injections provided temporary relief. She also has pain at the base of both thumbs. The pain is worse with gripping and activity. She also presents with pain at the middle finger distal interphalangeal joint. She has pain at rest as well as with activity. Even filing her nail is painful. She recently saw Dr. 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 Medications for erosive arthritis is limited because of severe vision problems so she is on Tylenol and tramadol only. She denies numbness and tingling. She presents to the office today for evaluation treatment of her bilateral thumb pain and left middle finger pain. Functional Status Date Functional Assessmen t No Information Instructions Date Instruction Additional Infor kim No Information Assessments Type Assessment Date assessment Trigger thumb, left thumb assessment Primary osteoarthritis, left aldana d impression She may slowly advan ce activities as tolerated. She will return to the office as needed. She may call with any questions or concerns. Patient Care Teams Name Effective Dates (start - stop) Status Members No Information
--- OUTSIDE RECORDS SUMMARY | 2025-01-27 11:50 | XMS_ITS | Encounter Summary ---
Author Organization [facility] Address [address] [place] [address] Phone Care Team Providers Care Road Production General Manager Name Role Phone Eduardo Liu MD Primary Care Provi jose antonio Eduardo Liu MD Primary Care Provi jose antonio Moses Kate MD Primary Care Provider Eduardo Liu MD Primary Care Provi jose antonio Moses Kate MD Primary Care Provider [phone] Mary Rodriguez NP Primary Care Provider [phone] Elena Valdes MD Primary Care Provider Sarah Lopez MD Primary Care Provider Mekhi Medrano DO Primary Care Provider [phone] No, Physician Primary Care Provider Ana Cristina Mckeon MD Primary Care Provider [phone] Encounter Details Date Type Department Care Team (Late st Contact Info) Description 02/05/2014 [facility] ProviderMoose MD [address] [place] [address] Social History Tobacco Use Types Packs/Day Years Used Date Smoking Tobacco: Never Alcohol Use Standard Drinks/Week Comments Yes 0 (1 standard drink = 0.6 oz pur e alcohol) Comments Unknown Sex and Gender Information Value Date Recorded Sex Assigned at Not on file Legal Sex Female 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 us Historical Provider NURSING COMMUNICATION Fin al Result documented in this encounter Visit Diagnoses Not on filedocumented in this encounter Care Teams Road Production General Manager Relationship Specialty Start Date End Date Eduardo Liu MD PCP - General 04/09/14 03/05/17 Eduardo Liu MD PCP - General 09/07/13 04/08/14 [place] [id number] [place] [id number] PCP - General 03/06/17 10/13/17 Eduardo Liu MD PCP - General Internal Medicine 10/14/17 10/17/17 [place] [id number] [place] [address] [id number] PCP - General 10/18/17 03/06/18 [place] [address] [place] [id number] PCP - General 03/07/18 07/01/18 Elena Valdes MD [address] [facility] [address] [place] [address] PCP - General Geriatric Medicine 07/02/18 08/23/20 Sarah Lopez MD [address] [facility] [facility] [address] [address] PCP - General Internal Medicine 08/24/20 09/27/20 Mekhi Medrano DO [address] [facility] [address] [place] [address] PCP - General Internal Medicine 09/28/20 02/13/21 No, Physician PCP - General 02/14/21 03/02/21 Ana Cristina Mckeon MD [address] [facility] [address] [place] [address] PCP - General Internal Medicine 03/03/21 documented as of this encounter
--- OUTSIDE RECORDS SUMMARY | 2025-01-27 11:50 | XMS_ITS | Clinical Summary ---
Author Organization [facility] Address Count includes the [facility] [place] [address] Care Team Providers Care Credit Operations Specialist Name Role Phone Darin Bryant MD Unavailable [phone] Ana Cristina Mckeon MD Primary Care Provider [phone] Allergies Active Allergy Reactions Criticality Noted Date Comments Adalimumab Unknown 12/16/2017 Adalimumab Unknown 12/16/2017 Alprazolam Other (see comment) Low 11/17/2019 Intolerance - She becomes very irritable. Beta Adrenergic Blockers Palpitations Low Canagliflozin Unknown,GI Upset Low 10/01/2014 Yeast infection Cephalosporins Hives Medium 07/02/2018 Codeine Nausea Only,Vomiting Low 09/03/2016 Gabapentin Other (see comment) Low 11/27/2017 anxiety Hydrocodone Hives,Shortness of Breath,Rash High 03/05/2016 Methotrexate Unknown,Other (see comment),GI Upset Low 12/16/2017 Medication did not work Ondansetron Headache Low 11/27/2017 Penicillins Anaphylaxis,Hives High 11/16/2010 Sandy Anaphylaxis,Rash High 03/05/2016 Sandy Nut Anaphylaxis,Rash High 03/05/2016 Pineapple Swelling 03/06/2016 Promethazine Hallucinations High 03/05/2016 Anxiety, Mental status changes, Psychiatric Medications traMADol 50 MG tablet Take 50-100 mg by mouth 3 (three) times daily. Active cyclobenzaprine 5 MG tablet Take 1 tablet (5 mg total) by mouth daily as needed for Muscle Spasms. 8 Active vitamin D2, ergocalciferol, 35949 UNITS capsule Take 1 capsule (50,000 Units total) by mouth weekly. 8 Active Blood Glucose Monitoring Suppl (ONE TOUCH ULTRA 2) w/Device Kit 1 each by Does not apply route. 7 Active Cranberry 600 MG Tab Take 2 tablets by mouth 3 (three) times daily. 7 Active Glucose Blood (BLOOD GLUCOSE TEST STRIPS) Strip 1 strip by Does not apply route. 7 Active Insulin Pen Needle (NOVOFINE PLUS) 32G X 4 MM Misc use to inject victoza daily 6 Active timolol 0.5 % ophthalmic solution 2 times daily. 6 Active prochlorperazine (COMPAZINE) 10 MG tabletIndication s:Healthcare maintenance Take 1 tablet (10 mg total) by mouth every 6 (six) hours as needed. 30 tablet 2 8 Active spironolactone 25 MG tabletIndication s:Healthcare maintenance Take 0.5 tablets (12.5 mg total) by mouth daily. 30 tablet 1 8 Active atorvastatin 10 MG tablet Take 1 tablet (10 mg total) by mouth every other day. 9 Active duloxetine 30 MG capsule Take 1 capsule (30 mg total) by mouth daily. 60 capsule 9 Active LYRICA 100 MG capsule Take 1 capsule (100 mg total) by mouth 3 (three) times a day. 90 capsule 1 9 Active metFORMIN 1000 MG tablet Take 1 tablet (1,000 mg total) by mouth 2 (two) times a day. 9 Active SODIUM BICARBONATE 650 MG tabletIndication s:Hypokalemia TAKE ONE TABLET BY MOUTH ONCE DAILY 90 tablet 9 Active OMEPRAZOLE 20 MG capsuleIndicatio ns:GERD (gastroesophagea l reflux disease) TAKE ONE CAPSULE BY MOUTH TWICE A DAY 60 capsule 5 9 Active Additional Information Patient not taking.Reason: listed twice, Reported on 06/08/2020 OMEPRAZOLE 20 MG capsuleIndicatio ns:GERD (gastroesophagea l reflux disease) TAKE ONE CAPSULE BY MOUTH TWICE A DAY 60 capsule 5 9 Active semaglutide 2 MG/1.5ML injection (PEN) Inject 1 mg into the skin once a week. 0 Active aflibercept (EYLEA) 2 MG/0.05ML ophthalmic injection 2 mg monthly. 9 Active Active Problems Problem Noted Date Diagnosed Date Chest pain 11/20/2017 Diabetes mellitus ([facility]) 11/20/2017 Palpitations 11/20/2017 Mixed hyperlipidemia 09/23/2017 Essential hypertension 05/21/2016 [place] (myocardial infarction) 05/21/2016 Acute renal failure (ARF) 03/06/2016 Family History Medical History Relation Comments hyperthyroidism Father Heart Attack Maternal Grandfather Heart Attack Maternal Grandmother Colon Cancer Mother Diabetes Mother Kidney Disease Mother Stroke Mother hyperthyroidism Mother Relation Status Comments Brother 1 Alive Brother 2 Alive Father Alive Maternal Grandfather (Age 83) non hodki ns Maternal Grandmother (Age 82) Mother (Age 67) cervicle ca Paternal Grandfather (Age 60) Paternal Grandmother (Age 83) Social History Tobacco Use Types Packs/Day Years Used Date Smoking Tobacco: Never Smokeless Tobacco: Never Alcohol Use Standard Drinks/Week Comments No 0 (1 standard drink = 0.6 oz pur e alcohol) Comments Unknown Sex and Gender Information Value Date Recorded Sex Assigned at Not on file 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 Gender Identity Not on file Sexual Orientation Not on file Occupation Industry Job Start Date Job End Date Not on file Not on file Not on file Not on file Last Filed Vital Signs Vital Sign Reading Time Taken Comments Blood Pressure 130/80 06/08/2020 9:26 AM CDT Pulse 92 06/08/2020 9:26 AM CDT Temperature 37.1 C (98.7 F) 02/03/2019 7:50 AM CDT Respiratory Rate 17 02/03/2019 7:50 AM CDT Oxygen Saturation 96% 02/03/2019 7:50 AM CDT Inhaled Oxygen Concentration - - Weight 102.1 kg (225 lb) 06/08/2020 9:26 AM CDT Height 165.1 cm (5' 5 ) 06/08/2020 9:26 AM CDT Body Mass Index 37.44 06/08/2020 9:26 AM CDT Plan of Treatment Upcoming Encounters Date Type Department Care Team (Late st Contact Info) Description 03/08/2025 2:00 PM CDT Appointment [facility] [place] [address] Ana Cristina Mckeon MD [address] [place] [address] 03/08/2025 2:40 PM CDT Appointment [facility] [place] [place] [address] Ana Cristina Mckeon MD [address] [place] [address] Health Maintenance Due Date Last Done Comments ASCVD Statin 1961 Cervical Cancer Screening Pap Smear (Age 30 to 64) Every 3 Years 1961 Kidney Health Evaluation 1961 Annual Physical 1964 Diabetes: Retinopathy Eye Exam 1979 Hepatitis C 1979 Cervical Cancer Screening Pap with HPV Testing (Age 30 to 64) Every 5 Years 1991 Cervical Cancer Screening with HPV 1991 ASCVD LDL 12/06/2018 12/06/2017 Lipid Panel 12/06/2018 12/06/2017 RSV Immunization or 60+ Years (1 - Risk 60-74 years 1-dose series) 2021 Hemoglobin A1C 07/23/2023 04/22/2023, 07/0 11/2021, 09/28/2020, Additional history exists COVID-19 Vaccine ( season) 2024 11/01/2021, 01/30/2021, 01/06/2021 Influenza Adult (#1) 2024 06/28/2021, 08/23/2020, 08/11/2020, Additional history exists PHQ-2 (Physician [place]) 11/11/2024 Mammogram Screening 05/10/2025 05/10/2023, 04/30/2022, 03/15/2021, Additional history exists Pneumococcal Vaccine: Pediatrics (0 to 5 Years) and At-Risk Patients (6 to 64 Years) (3 of 3 - PPSV23 or PCV20) 2026 11/08/2015, 08/23/2014, 11/11/2012 DTaP, Tdap and Td Vaccines (5 - Td or Tdap) 05/11/2029 05/11/2019, 03/06/2018, 03/06/2018, Additional history exists Colorectal Cancer Screening Colonoscopy (10 Years) Discontinued 11/11/2012 Zoster Vaccines Completed 06/28/2021, 04/28/2021 Meningococcal B Vaccine Aged Out No l onger eligible based on patient's age to complete this topic Meningococcal Vaccine Aged Out No raeann margot eligible based on patient's age to complete this topic RSV Immunizations Under 20 Months Aged Out No longer eligible based on patient's age to complete this topic Medical Devices Implanted Type Area Test Bore Helper Device Identifier Shelf Expiration Date Model / Serial / Lot Implantable Loop Recorder- [id number] Implanted:12/03 by Radha Gillespie MD (Quantity not on file) Explanted:02/03 by Radha Gillespie MD (Quantity not on file) Implantable Loop Recorder Meldium [id number] / [id number] S / Procedures Procedure Name Priority Date/Time Associated Diagnosis Comments MG SCREENING W HILDA RUPA DIGI Routine 05/10/2023 1:11 PM CDT Encounter for screening mammogram for malignant neoplasm of breast OUTSIDE LAB (SCAN ORDER) Routine 04/22/2023 LIPID PANEL Routine 12/06/2017 8:49 AM CRIME LABORATORY ANALYST Abnormal stress test Type 2 diabetes mellitus with other specified complication, without long-term current use of insulin Benign essential HTN Preop testing COLONOSCOPY Routine 11/11/2012 12:00 AM CRIME LABORATORY ANALYST from Last 3 Months or Most Recently Relevant to Health Maintenance Results * MG SCREENING W HILDA RUPA DIGI (05/10/2023 1:11 PM CDT) Anatomical Region Laterality Modality Breast Bilateral Mammography 05/10/2023 4:07 PM CDT Narrative 05/10/2023 4:09 PM CDT EXAMINATION: MG SCREENING W HILDA RUPA DIGI INDICATIONS: Screening TECHNIQUE: Digital full field CC and MLO screening mammography bilaterally to include 3-D Tomosynthesis technique. This study was read with the assistance of a computer-aided detection system. HISTORY: No reported personal or first degree family history of breast cancer. No reported prior breast procedure or current breast complaint. COMPARISON: Multiple prior examinations available for comparison dating back to 03/26/2016, the most recent of 04/30/2022, 03/15/2021, and 01/15/2020. TISSUE DENSITY: There are scattered areas of fibroglandular density. FINDINGS: Few scattered benign round, rim, and vascular calcifications. No suspicious microcalcification or mass. No developing asymmetry or architectural distortion. No axillary adenopathy. IMPRESSION: No significant interval change. No mammographic evidence of malignancy. RECOMMENDATION: Routine ScreeningBilateral OVERALL IMAGING ASSESSMENT: ACR BI-RADS 2 - BENIGN FINDING(S). Ordered By: ANA CRISTINA MCKEON Interpreted By: Eduar Haas, 05/10/2023 4:07 PM Ana Cristina Mckeon MD MAMMO Final Result * OUTSIDE LAB (SCAN) (04/22/2023) HGB A1C 9.3 % [facility] ONBASE CREATININE (U) 38.57 [facility] MICROALBUMIN (U) 12 [facility] MICROALB/CREAT 30 [facility] ONBASE 04/22/2023 [facility] Scanned SCANNING Edited Res ult - Final HS ONBASE * (ABNORMAL) LIPID PANEL (12/06/2017 8:49 AM CRIME LABORATORY ANALYST) CHOLESTEROL 182 <200 MG/DL 12/06/2017 9:55 AM CRIME LABORATORY ANALYST [facility] TRIGLYCERIDES 226(H) <150 MG/DL 12/06/2017 9:55 AM CRIME LABORATORY ANALYST [facility] HDL 55 >40.0 MG/DL 12/06/2017 9:55 AM [facility] LDL (CALCULATED) 81.8 <100 MG/L 12/06/19 18 9:55 AM [facility] NON HDL CHOLESTEROL 127 <130 MG/DL 12/06/2017 9:55 AM [facility] CHOL/HDL RATIO 3.3 0.0 - 4.5 12/06/2017 9:55 AM [facility] VLDL CALCULATION 45 5 - 55 MG/DL 12/06/2017 9:55 AM [facility] LIPID INTERPRETATION 12/06/2017 9:55 AM [facility] Comment: [facility]ENS[facility] REPORT RECOMMENDATIONS: ADULT CHILD LOW RISK: CHOLESTEROL <200 <170 TRIGLYCERIDE <150 --- HDL >=60 --- LDL <100 <110 BORDERLINE: CHOLESTEROL 200-239 170-199 TRIGLYCERIDE 150-199 --- HDL 40-59 --- LDL 100-159 110-129 HIGH RISK: CHOLESTEROL >=240 >=200 TRIGLYCERIDE >=200 --- HDL <40 --- LDL >=160 >=130 12/06/2017 8:49 AM CRIME LABORATORY ANALYST Darin Bryant MD LABORATORY Final Result Performing Organization Address [facility] de Phone Number [facility] [address] [place] [address], [place] [phone] * Colonoscopy (11/11/2012 12:00 AM CRIME LABORATORY ANALYST) 11/11/2012 11/11/2012 Narrative TOUCHWORKS TO EPIC CONVERSION - 05/09/2018 1:14 PM CDT removed colon Procedure Note , Generic ConversionMD - 02/24/2019 removed colon Joya Burr Md, MD GI PROCEDURE ORDERABLES Final Result Performing Organization Address [facility] Co de Phone Number TOUCHWORKS TO EPIC CONVERSION from Last 3 Months or Most Recently Relevant to Health Maintenance Insurance [employer] [facility] Care Teams Credit Operations Specialist Relationship Specialty Start Date End Date Ana Cristina Mckeon MD [address] [facility] [address] [place] [phone] PCP - General INTERNAL MEDICINE 03/15/21 Darin Bryant MD [facility]. [facility] [address] [place] [address] [employer] Account Manager CARDIOVASCULAR DISEASE 11/05/17
--- OUTSIDE RECORDS SUMMARY | 2025-01-27 11:50 | XMS_ITS | Clinical Summary ---
Author Organization [facility] Address [address] [place] [address] Care Team Providers Care Beam Worker Name Role Phone Ana Cristina Mckeon MD Primary Care Provider [phone] Allergies Active Allergy Reactions Criticality Noted Date [...] Headache Low 11/27/2017 Penicillins Anaphylaxis,Hives High 11/16/2010 Jackson Nut Anaphylaxis,Rash High 03/05/2016 Pineapple Swelling Medium [...] without long-term current use of insulin (HCC) Check blood sugar twice daily 1 kit 4 Active blood glucose diagnostic stripIndications: Type 2 diabetes mellitus with diabetic polyneuropathy, without long-term current use of insulin ([facility]) Check blood sugar twice daily. 200 strip [...] polyneuropathy, without long-term current use of insulin ([facility]) Inject 30 Units under the skin nightly 30 mL 3 4 09/24/20 25 Active pen needle, diabetic (Pen Needle) 31 gauge x 5/16 needleIndications :Type 2 diabetes mellitus with diabetic polyneuropathy, without long-term current use of insulin ([facility]) Use to inject 1-4 times daily as [...] polyneuropathy, without long-term current use of insulin ([facility]) Take 1 tablet (4 mg total) by [...] 08/12/2023 Assessment & Plan (12/25/2024 10:44 AM FISH HATCHERY SPECIALIST): Chronic problem. Controlled on current losartan 50mg daily. Assessment & Plan (09/24/2024 11:10 AM FISH HATCHERY SPECIALIST): Chronic problem. Controlled on current losartan 50mg daily. Assessment & Plan (05/25/2024 9:37 AM CDT): Chronic problem. Controlled on current losartan 50mg daily. Will update labs today. Verified that she uses [facility]. Aware to check results/results letter in [facility]. Will contact by phone if needed. Assessment & Plan (01/27/2024 9:39 AM CDT): Chronic problem. Controlled on current losartan 50mg daily. Assessment & Plan (08/12/2023 2:45 PM CDT): Chronic problem. Controlled on current losartan 50mg daily. Hyperlipidemia associated with type 2 diabetes kolby herbert 08/12/2023 Assessment & Plan (12/25/2024 10:44 AM FISH HATCHERY SPECIALIST): Chronic problem. Currently taking Atorvastatin 40mg & Bempedoic acid-zetia 180- 10mg. Last lipid panel: 05/25/24 ZCW=228, TP=497. Assessment & Plan (09/24/2024 11:11 AM FISH HATCHERY SPECIALIST): Chronic problem. Currently taking Atorvastatin 40mg & Bempedoic acid-zetia 180- 10mg. Last lipid panel: 05/25/24 PRW=874, UT=001. Assessment & Plan (05/25/2024 9:38 AM CDT): Chronic problem. Currently taking Atorvastatin 40mg & Bempedoic acid-zetia 180- 10mg. Last lipid panel: 05/13/23 LDL=31, CQ=262. Will update labs today. Verified that she uses [facility]. Aware to check results/results letter in [facility]. Will contact by phone if needed. Assessment & Plan (01/27/2024 9:39 AM CDT): Chronic problem. Currently taking Atorvastatin 40mg & Bempedoic acid-zetia 180- 10mg. Last lipid panel: 05/13/23 LDL=31, SW=205. Assessment & Plan (08/12/2023 2:53 PM CDT): Chronic problem. Currently taking Atorvastatin 40mg & Bempedoic acid-zetia 180- 10mg. Last lipid panel: 05/13/23 LDL=31, PL=411. Class 2 severe obesity due t o [...] 12/17/2019 Assessment & Plan (12/17/2019 2:09 PM FISH HATCHERY SPECIALIST): Without plans for further infusion therapy, vascular port may be removed. Surgical referral provided. Arthritis of carpometacarpal (CMC) joint of left thumb 11/17/2019 Arthritis of carpometacarpal (CMC) joint of righ t thumb 11/17/2019 Restless leg syndrome 11/17/2019 Insomnia 11/17/2019 Assessment & Plan (11/17/2019 8:35 PM FISH HATCHERY SPECIALIST): Symptoms are worsening in the context of increased stressors. She is referred to sleep medicine. Malaise 11/14/2019 Assessment & Plan (11/14/2019 12:22 AM FISH HATCHERY SPECIALIST): Check CBC and CMP. Encounter for adjustment and management of vascular access device 09/14/2019 Osteopenia of multiple sites 08/14/2019 Overview (08/14/2019): Images from the original note were not included. BONE DENSITY/DEX02/27/2018 [facility] Result Narrative Examination: Bone Density Axial and [...] mg a daily. Vitamin D intake of 0784-8859 iu daily. Most [facility] do not get enough Vitamin D, so a supplement in an oil capsule gives the best absorption. I recommend repeating your bone density in 3 years. Assessment & Plan (09/17/2019 3:39 PM FISH HATCHERY SPECIALIST): We recommend you take Caltrate D once [...] canned with bones 3 oz 325 mg Wahoo, canned with bones 3 oz 180 mg Shrimp, canned 3 oz 125 mg Dairy Serving Size Estimated Calcium* Ricotta, part-skim 4 oz 335 mg Yogurt, plain, low-fat 6 oz 310 mg Milk, skim, low-fat, whole 8 oz 300 mg Yogurt with fruit, low-fat 6 oz 260 mg Mozzarella, part-skim 1 oz 210 mg Cheddar 1 oz 205 mg Yogurt, Danish 6 oz 200 mg Gibraltarian Cheese 1 oz 195 mg Feta Cheese 4 oz 140 mg Cottage Cheese, 2% 4 oz 105 mg Frozen yogurt, vanilla 8 oz 105 mg Ice Cream, vanilla 8 oz 85 mg Parmesan 1 tbsp 55 mg Fortified Food Serving Size Estimated Calcium* Baldwin milk, rice milk or soy milk, fortified 8 oz 300 mg Sterling juice and other fruit juices, fortified 8 oz 300 mg Tofu, prepared with calcium 4 oz 205 mg Waffle, frozen, fortified 2 pieces 200 mg Oatmeal, fortified 1 packet 140 mg Sammarinese muffin, fortified 1 muffin 100 mg Cereal, [...] original note were not included. BONE DENSITY/DEX02/27/2018 [facility] Result Narrative Examination: Bone Density Axial and [...] 08/14/2019 Assessment & Plan (12/17/2019 8:59 PM FISH HATCHERY SPECIALIST): Continue acetaminophen as needed. Assessment & Plan (09/17/2019 3:37 PM FISH HATCHERY SPECIALIST): See discussion above. Assessment & Plan (08/14/2019 3:17 PM CDT): See above. Continue acetaminophen for pain. MORRISSEY (dyspnea on exertion) 01/01/2019 Assessment & Plan (01/01/2019 11:08 AM FISH HATCHERY SPECIALIST): EKG, chest x-ray and labs. Patient has an appointment with her dumbwaiter operator on Saturday. Instruct patient that if she [...] 06/24/2017 Assessment & Plan (12/17/2019 1:55 PM FISH HATCHERY SPECIALIST): Images from the original note were not included. She is no longer taking her Vitamin D supplement. Update lab as per orders. Assessment & Plan (11/14/2019 12:20 AM FISH HATCHERY SPECIALIST): She continues vitamin D supplementation. 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 Seen at [facility]. 07/17/24 [facility] optho +PDR w/DME. Assessment & Plan (08/24/2020 3:47 PM CDT): Is followed by Ophthalmology and is receiving I injections. Assessment & Plan (09/17/2019 3:40 PM FISH HATCHERY SPECIALIST): Noted Assessment & Plan (10/31/2018 2:50 PM FISH HATCHERY SPECIALIST): Resolved fluid 5 wks after injection right eye (OD) Isolated cyst left eye (OS) Would continue alternating injections - Eylea left eye (OS) today Assessment & Plan (07/04/2018 4:38 PM CDT): The patient will continue to follow with her ceo [place]. Erosive osteoarthritis 10/08/2016 Overview (09/17/2019): Images from the original note were not included. US Hands Bilateral for Rheumatoid Arthritis (C) Order: [id number] Status: Final result Visible to patient: No [...] with erosive osteoarthritis. Electronically signed by: Lorena Rodriguze MD Specimen Collected: 08/26/19 10:40 Assessment & Plan (12/17/2019 1:49 PM FISH HATCHERY SPECIALIST): Erosive osteoarthritis stable. Since she was last seen she has had surgery bilateral thumb (trigger finger) as well as fusion third DIP L hand by Dr. Nicola Singer. She is pleased with outcome; pain relieved. She is working with PT/OT; doing well. Assessment & Plan (09/17/2019 9:51 PM FISH HATCHERY SPECIALIST): Reviewed with patient ultrasound findings with little [...] review. Assessment & Plan (10/30/2018 10:25 AM FISH HATCHERY SPECIALIST): The patient will continue to follow up with rheumatology. Assessment & Plan (07/04/2018 4:38 PM CDT): The patient will continue to follow up with her adult basic education instructor. 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 Assessment & Plan (12/17/2019 1:51 PM FISH HATCHERY SPECIALIST): Vitals BP 132/80 (BP Location: Right arm, Patient Position: Sitting) Pulse 78 Temp 36.8 C (98.3 F) (Oral) Resp 16 Ht 162.6 cm (5' 4 ) Wt 104.3 kg (230 lb) BMI 39.48 kg/m Denies headache, dizziness, chest pain, palpitations, shortness of breath, edema, orthopnea, PND. Assessment & Plan (11/14/2019 12:19 AM FISH HATCHERY SPECIALIST): Continue the current medication regimen. Assessment & Plan (09/17/2019 3:38 PM FISH HATCHERY SPECIALIST): Vitals BP 118/64 (BP Location: Right arm, [...] Rheumatology. Assessment & Plan (12/17/2019 1:51 PM FISH HATCHERY SPECIALIST): She remains on Lyrica 100 mg three times daily and duloxetine 30 mg daily. Pain control satisfactory. Assessment & Plan (09/17/2019 3:17 PM FISH HATCHERY SPECIALIST): She remains on Lyrica 100 mg three [...] fluids. Assessment & Plan (12/17/2019 1:53 PM FISH HATCHERY SPECIALIST): Images from the original note were not included. Be sure to maintain good hydration. Do not use any nonsteroidal antiinflammatory medications (including over the counter ibuprofen and naproxen) as these are kidney irritants. Assessment & Plan (09/17/2019 3:40 PM FISH HATCHERY SPECIALIST): Lab Results Component Value Date GLUCOSE 217 [...] 2010. Assessment & Plan (12/25/2024 11:01 AM FISH HATCHERY SPECIALIST): Chronic problem. A1c improved from 7.4% 09/24/24 to now 6.7%. Nico start dropping Lantus dose by 2 units weekly if morning fasting blood sugar is less than 110 persistently. Current medications: Jardiance 25mg daily Mounjaro 7.5mg weekly Lantus 30 units nightly UTD on labs. UTD on DM eye exam (07/17/24 [facility] optho +PDR w/DME). Has appt 12/28/24. Strive [...] barefoot. Assessment & Plan (09/24/2024 11:43 AM FISH HATCHERY SPECIALIST): Chronic problem. A1c not at goal & [...] labs. UTD on DM eye exam (07/17/24 [facility] optho +PDR w/DME). Strive for regular exercise [...] update labs today. Verified that she uses [facility]. Aware to check results/results letter in [facility]. Will contact by phone if needed. UTD [...] 150 Assessment & Plan (09/28/2020 5:24 PM FISH HATCHERY SPECIALIST): Hemoglobin A1c ordered for today. Her last hemoglobin A1c approximately 3 months ago indicated reasonably adequate control. No changes in medication at this time. Patient is taking Ozempic and metformin. Follow-up in 3 months at which time we will perform a diabetic foot exam. Patient sees an ceo [place] for diabetic retinopathy management. Discussed diet and [...] A1C. Assessment & Plan (12/17/2019 1:58 PM FISH HATCHERY SPECIALIST): She is working more diligently ion diet. Lab Results Component Value Date HGBA1C 8.5 (H) 10/20/[address] Valdes 01/2020. Assessment & Plan (11/17/2019 8:34 PM FISH HATCHERY SPECIALIST): The patient is tolerating Ozempic. She reports substantial improvement in blood sugars. She will continues the diabetic diet, and she is referred to a maintenance groundskeeper. Assessment & Plan (11/14/2019 12:21 AM FISH HATCHERY SPECIALIST): The patient reports recent hyperglycemia. Check A1C. Consider addition of Ozempic. Assessment & Plan (09/17/2019 3:41 PM FISH HATCHERY SPECIALIST): Lab Results Component Value Date HGBA1C 7.1 (H) 06/04/2019 Assessment & Plan (08/14/2019 3:16 PM CDT): Lab Results Component Value Date HGBA1C 7.1 (H) 06/04/2019 Assessment & Plan (06/04/2019 10:28 AM CDT): Check A1C. Assessment & Plan (10/30/2018 10:25 AM FISH HATCHERY SPECIALIST): Check BMP and A1C at the next [...] November. Assessment & Plan (11/17/2019 8:36 PM FISH HATCHERY SPECIALIST): Body mass index is 40.34 kg/m . BMI Follow-up includes: nutrition counseling, exercise counseling and education provided. Assessment & Plan (10/20/2019 2:35 PM FISH HATCHERY SPECIALIST): BMI Follow-up includes: nutrition counseling, exercise counseling [...] provided. Assessment & Plan (12/17/2019 1:50 PM FISH HATCHERY SPECIALIST): 5 pound weight loss noted and endorsed. Continue your good efforts. An optimal BMI (body mass index) is between 20 and 25. Encourage weight loss. Each pound of weight lost unloads 3-4 pounds per square inch pressure from weight bearing joints. Diet and exercise are the keys to weight management. Assessment & Plan (09/17/2019 3:13 PM FISH HATCHERY SPECIALIST): An optimal BMI (body mass index) is [...] provided. Assessment & Plan (01/14/2019 8:39 AM FISH HATCHERY SPECIALIST): BMI Follow-up includes: nutrition counseling, exercise counseling and education provided. Assessment & Plan (01/01/2019 10:04 AM FISH HATCHERY SPECIALIST): BMI Follow-up includes: nutrition counseling, exercise counseling and education provided. Assessment & Plan (10/30/2018 10:12 AM FISH HATCHERY SPECIALIST): BMI Follow-up includes: nutrition counseling, exercise counseling and education provided. Assessment & Plan (09/29/2018 1:07 PM FISH HATCHERY SPECIALIST): BMI Follow-up includes: nutrition counseling, exercise counseling and education provided. Assessment & Plan (07/04/2018 4:39 PM CDT): Follow-up for management of elevated BMI morbid obesity includes nutrition counseling, exercise counseling, and lifestyle education. Dysuria 07/02/2018 12/17/2019 Assessment & Plan (11/14/2019 12:19 AM FISH HATCHERY SPECIALIST): Check UA micro and culture. Assessment & [...] reviewed. Assessment & Plan (11/12/2018 3:51 PM FISH HATCHERY SPECIALIST): Status post (s/p) anti-VEGF left eye (OS) [...] a few weeks Infectious warts 03/17/2014 08/14/2019 Encounters Date Type Department Care Team Description 12/28/2024 1:45 PM FISH HATCHERY SPECIALIST Office Visit [facility] Ophthalmology [facility] [address] [place] [address] Lo Mcgregor MD Proliferative diabetic retinopathy of both eyes with macular edema associated with type 2 diabetes mellitus (HCC) (Primary Dx) 12/25/2024 10:30 AM FISH HATCHERY SPECIALIST Office Visit [facility] Diabetes [facility] Endocrinology [address] [place] [phone] Priya Calderon NP Type 2 diabetes mellitus with diabetic polyneuropathy, without long-term current use of insulin (HCC) (Primary Dx); Hypertension associated with type 2 diabetes mellitus (HCC); Hyperlipidemia associated with type 2 diabetes mellitus (HCC) 12/21/2024 Orders Only [facility] Diabetes [facility] Endocr[facility]ology [address] [place] [phone] Priya Calderon NP Type 2 diabetes mellitus with diabetic polyneuropathy, without long-term current use of insulin (HCC) 12/18/2024 Orders Only [facility] Endocr[facility] [address] [place] [phone] Priya Calderon NP Type 2 diabetes mellitus with diabetic polyneuropathy, without long-term current use of insulin (HCC) (Primary Dx) from Last 3 Months Immunizations Immunization Administration Dates Next Due DTaP [...] 08/23/2014 TD Preservative Free 12/26/2011 Tdap 11/12/2017 Surgical History Surgery Date Site/Laterality Comments TUBAL LIGATION 04/14/1986 Bilateral tubal ligation COLECTOMY 12/11/2012 Colectomy 12/11/12 EPIDURAL INJECTION LUMBOSACRAL 06/05/2013 N/A EPIDURAL INJECTION LUMBOSACRAL 01/21/2013 N/A SECTION 1983, 1985 RETINAL LASER PROCEDURE Bilateral OTHER SURGICAL HISTORY 11/11/2014 - 11/10/2015 implanted and removal (2018) implantable loop recorder CATARACT EXTRACTION W/ INTRA OCULAR LENS IMPLANT 11/11/2019 - 11/10/2020 Bilateral Karacal JOINT REPLACEMENT 11/11/2019 - 11/10/2020 Bilateral Finger bones fused due to arthritis ESOPHAGOGASTRODUODENOSCOPY 11/11/2021 - 11/10/2022 has hiatal hernia FOOT GANGLION EXCISION 07/12/2021 - 08/10/2021 Left GALLBLADDER SURGERY 06/27/2023 COLONOSCOPY 11/30/2016 PORTACATH PLACEMENT 05/12/2018 THUMB SURGERY 12/28/2021 Left OTHER SURGICAL HISTORY 11/11/2018 - 11/10/2019 portacath removal Medical History Medical History Date Comments Hx Other Medical c-sections Hx Other Medical benign lung nod ules Hx Other Medical uterine fibroid s Depression Depression Hx Other Medical heart valve [place] Diabetes mellitus (HCC) GERD (gastroesophageal reflux disease) Anxiety Arthritis Hypertension 2017 Rheumatic fever Rheumatic fever as child Iron deficiency anemia iron defi ciency- assoc w colon surgery Type 2 diabetes mellitus (HCC) 2 011 Heart murmur transient murmer heard with no symptoms Gastroparesis Diabetic retinopathy (HCC) Pneumonia 12/18/2024 Family History Medical History Relation Name Comments Heart attack Brother 1 1 Other Brother 1 1 heart conditio n ; Diabetes Brother 2 2 Other Brother 2 2 good health; Coronary artery disease Father N a Glaucoma Father N a Hypertension Father N a Cancer Maternal Grandfather N a 1 Diabetes Maternal Grandfather N a 1 Heart attack Maternal Grandfather N a 1 Heart disease Maternal Grandfather N a 1 Hypertension Maternal Grandfather N a 1 Hypertension Maternal Grandmother N a Liver cancer Maternal Grandmother N a Stroke Maternal Grandmother N a Cancer Mother N a Depression Mother N a Diabetes Mother N a Hypertension Mother N a Mental illness Mother N a Obesity Mother N a Other Mother N a brain aneurysm, diabetes, stroke; Cause of : brain aneurysm, diabetes, stroke Ovarian cancer Mother N a Cancer, ovari an; Stroke Mother N a Transient ischemic attack Mother N a Tr ansient ischemic attack; Cause of : Transient ischemic attack Osteoarthritis Other Family histor y of Osteoarthritis; Macular degeneration Neg Hx Relation Name Status Comments Brother 1 1 Alive Brother 2 2 Alive Father N a Alive Maternal Grandfather N a 1 Maternal Grandmother N a Mother N a (Age 65) Other Social History Tobacco Use Types Packs/Day Years [...] on file Legal Sex Female 10:06 AM FISH HATCHERY SPECIALIST Gender Identity Female 09/28/2020 10:45 AM FISH HATCHERY SPECIALIST Sexual Orientation Straight 09/28/2020 10 :45 AM FISH HATCHERY SPECIALIST 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 Industry 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 Start 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 Job 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 on file Not on file No t on file Obstetrics History Last Filed Vital Signs Vital Sign Reading Time Taken Comments Blood Pressure 120/72 12/25/2024 10:33 AM FISH HATCHERY SPECIALIST Pulse 80 12/25/2024 10:33 AM FISH HATCHERY SPECIALIST Temperature 36 C (96.8 F) 07/14/2024 9:07 AM CDT Respiratory Rate 16 12/25/2024 10:33 AM FISH HATCHERY SPECIALIST Oxygen Saturation 98% 07/14/2024 9:25 AM CDT Inhaled Oxygen Concentration - - Weight 94.8 kg (209 lb) 12/25/2024 10:33 AM FISH HATCHERY SPECIALIST Height 165.1 cm (5' 5 ) 12/25/2024 10:33 AM FISH HATCHERY SPECIALIST Body Mass Index 34.78 12/25/2024 10:33 AM FISH HATCHERY SPECIALIST Plan of Treatment Health Maintenance Due Date Last Done Comments Regular Well Visit/Exam 18-64 1979 Zoster Vaccine (1 of 2) 2011 Pneumococcal vaccine <65 (2 of 2 - PCV) 11/08/2016 11/08/2015, 08/23/2014, 08/23/2014 Cervical Cancer Screening 01/13/20212019, 01/14/2020, 03/14/2015, Additional history exists Depression Screening 09/28/2021 09/28/2020, 08/24/2020, 06/22/2020, Additional history exists Breast Cancer Screening-Mammogram 05/10/2024 05/10/2023, 05/10/2023, 04/30/2022, Additional history exists Influenza Vaccine (#1) 2024 , 08/14/2019, 08/14/2019, Additional history exists Albumin Creatinine Ratio, Urine 05/25/2025 05/25/2024, 05/13/2023, 10/20/2019 Lipid Panel 05/25/2025 05/25/2024, 07/0 01/2023, 03/22/2020, Additional history exists Hemoglobin A1C 06/24/2025 12/25/2024, 09/11, 05/25/2024, Additional history exists eGFR 07/03/2025 07/03/2024, 05/11, 05/13/2023, Additional history exists Foot Exam 09/24/2025 09/24/2024, 1012/2022, 10/20/2019, Additional history exists Dilated Eye Exam 12/28/2025 12/28/2024, , 07/17/2024, Additional history exists DTaP/Tdap/Td Vaccine (3 - Td or Tdap) 03/06/2028 03/06/2018, 11/12/2017, 12/26/2011 Colon Cancer Screening-Colonoscopy 05/09/2028 05/09/2018, 10/29/2016 Hepatitis B Screening Completed 11/12/2000 Colon Cancer Screening-CT Colonography Discontinued 05/09/2018, 10/29/2016 Colon Cancer Screening-DNA Stool Discontinued 05/09/20 18, 10/29/2016 Colon Cancer Screening-FIT Discontinued 05/09/2018, Colon Cancer Screening-Sigmoidoscopy Discontinued 05/09/2018, 10/29/2016 Hepatitis C Screening Completed 08/14/2019 Medical Devices Implanted Type Area Pin Feather Machine Operator Device Identifier Shelf Expiration Date Model / Serial / Lot [employer] [id number] Ar[employer]rex Fibertak Fiberwire Needle 1 [place] Suture Sterile - [id number] Implanted:Qty: 1 on 12/28/2021 by Agapito Yang MD at [facility] Left: Wrist [employer] 10/10/2026 [id number] / / [id number] Procedures Procedure Name Priority Date/Time Associated Diagnosis Comments OCT, RETINA - OU - BOTH EYES Routine 12/28/2024 4:57 PM FISH HATCHERY SPECIALIST Proliferative diabetic retinopathy of both eyes with macular edema associated with type 2 diabetes mellitus (HCC) POCT GLUCOSE Routine 12/25/2024 10:36 AM FISH HATCHERY SPECIALIST Type 2 diabetes mellitus with diabetic polyneuropathy, without long-term current use of insulin (HCC) POCT HEMOGLOBIN A1C Routine 12/25/2024 1 0:36 AM FISH HATCHERY SPECIALIST Type 2 diabetes mellitus with diabetic polyneuropathy, [...] OU - Both Eyes (12/28/2024 4:57 PM FISH HATCHERY SPECIALIST) Anatomical Region Laterality Modality Head Optical Coherenc e Tomography Narrative 12/28/2024 4:57 PM FISH HATCHERY SPECIALIST Right Eye Quality was good. Scan locations included subfoveal. Left Eye Quality was good. Scan locations included subfoveal. Notes OD: no cme OS: no CME us Lo Mcgregor MD OPHTH TOMOGRAPHY Final Res ult * (ABNORMAL) POCT hemoglobin A1c (12/25/2024 10:36 AM FISH HATCHERY SPECIALIST) Hemoglobin A1C, POC 6.7 4.0 - 5.6 % Blood 12/25/2024 10:3 6 AM FISH HATCHERY SPECIALIST us Priyacarmen Calderon TUBE MAKING MACHINE OPERATOR POINT OF CARE TEST ORDERA BLES Final Result * POCT glucose (12/25/2024 10:36 AM FISH HATCHERY SPECIALIST) Glucose Blood, POC 102 mg/dL Blood 12/25/2024 10:3 6 AM FISH HATCHERY SPECIALIST us Priya Calderon TUBE MAKING MACHINE OPERATOR POINT OF CARE TEST ORDERA BLES Final [...] 2 PM CDT 07/03/2024 10:19 PM CDT us Mu Kelley MD LAB BLOOD ORDERABLES Fi nal Result [facility] Department [place] [address] * Albumin Creatinine Ratio, Urine (05/25/2024 9:58 AM CDT) Albumin Ur 22.9 mg/L Comment: Interpretive Data No reference range established. Current interpretive data was last revised 2019. Creatinine Ur 167.2 mg/dL [facility] Comment: Interpretive Data No reference range established. Current interpretive data was last revised 2019. Albumin Creatinine Ratio, Ur 14 1 - 29 mg/g [facility] Urine 05/25/2024 9:58 AM CDT 05/25/2024 2:40 PM CDT us Priay Calderon NP LAB URINE ORDERABLES Joyce l Result [facility] [id number] [place] [address] * (ABNORMAL) Lipid panel (05/25/2024 9:58 AM [...] on 2018. Triglycerides 158(H) <=149 mg/dL [facility] Comment: Interpretive Data Ages < or = [...] 05/25/2024 2:40 PM CDT us Priya Calderon TUBE MAKING MACHINE OPERATOR LAB BLOOD ORDERABLES Joyce moreno Result [facility] [id number] [place] [address] * Screening Mammogram (01/15/2020) Anatomical Region Laterality Modality Breast N/A Mammography Impressions 01/15/2020 Mammogram report 01/15/2020 Impression: No mammographic findings suggestive of malignancy. Assessment: ACR BI-RADS CATEGORY 2- benign findings Recommendation: Routine screening mammogram bilateral in 1 year. us Notinfile Unknown IMG MAMMO PROCEDURES Final Res ult * PAP SMEAR (01/14/2020) Pap smear Normal Comment:see scanned report Historical Provider HEALTH MAINTENANCE Final Result * Hepatitis C antibody (08/14/2019 3:21 PM CDT) Hep C Ab Non-Reactiv e Non-Reactiv e [facility] Blood specimen (specimen) 08/14/2019 3:21 PM CDT 08/14/2019 6:33 PM CDT Arden Justin MD LAB MICROBIOLOGY - GENERA L ORDERABLES Final Result Performing Organization Address City/[facility]/ZIP Co de Phone Number [facility] [address] [place] [address] * COLONOSCOPY (05/09/2018) Colonoscopy Abnormal Historical Provider HEALTH MAINTENANCE Final Result from Last 3 Months or Most Recently Relevant to Health Maintenance Insurance MEDICARE FOR LIFE MEDICARE FOR LIFE MEDICARE [facility] FOR [facility] Care Teams Beam Worker Relationship Specialty Start Date End Date Ana Cristina Mckeon MD [address] [facility] [address] [place] [address] PCP - General Internal Medicine 03/03/21
== END 2025-01-27 10:17 | disposition home or self-care (01) ==
PROVIDERS: PCP Internal Medicine; Visit Provider Nurse Practitioner Family
DX: K85.90 Acute pancreatitis without necrosis or infection, unspecified (principal)
CPT/HCPCS: 36415; 80053; 80061; 82150; 83690; 85027

== ENCOUNTER 2025-02-10 14:48 | Outpatient (CLI) | payer MEDICARE, OTHER, SELFPAY ==
--- NOTE | ~2025-02-10 | CT_ITS ---
CT of the Abdomen and Pelvis: Indication: Acute pancreatitis Technique: 2.5 mm axial scans were obtained through the abdomen and pelvis following intravenous adm inistration of 100 cc of Omnipaque 350. Dose reduction technique was used on this scan by utilizing a utomated exposure control and iterative reconstruction technique. The dose-length product (DLP) was 1 327.95 mGy-cm. COMPARISON: 06/17/2023 Findings: Scans through the lung bases are unremarkable. The liver, spleen, pancreas, adrenals and kidneys are within normal limits. Cholecystectomy clips are present. No evidence of aortic aneurysm. No lymphadenopathy. Extensive partial colectomy noted. Extensive stool in the remaining colon/rectum is compatible with c onstipation. No bowel obstruction. Small bowel unremarkable. Images through the pelvis were performed. Urinary bladder unremarkable. No pelvic mass seen. No ascit es. Impression: No acute abnormality. No evidence for acute pancreatitis. Extensive partial colectomy with constipation involving the remaining distal large bowel. Reviewed, dictated and finalized at location M. Impression: No acute abnormality. No evidence for acute pancreatitis. Extensive partial colectomy with constipation involving the remaining distal la rge bowel.
--- OUTSIDE RECORDS SUMMARY | 2025-02-10 16:14 | XMS_ITS | CONTINUITY OF CARE DOCUMENT ---
Author Name carlos a strauss Address Unknown Organization [facility] Office Address [address] [place] [address] Phone [phone] Care Team Providers Care Assistant Oceanographer Name Role Phone Sander WILCOX, Aaron Unavailable EFREN WILCOX, JELENA Tierney Unavailable [phone] Michael WILCOX, Aura Unavailable Unavailable INSURANCE PROVIDERS Payer name Policy type / Coverage type [place] red democrat ID BLUE [facility] Blue Shield [id number] MD MEDICARE PART B Medicare [id number]
--- OUTSIDE RECORDS SUMMARY | 2025-02-10 16:14 | XMS_ITS | Data Portability ---
Author Organization [facility], [employer] Address [address] [address] Care Team Providers Care Regulatory Affairs Coordinator Name Role Phone ANA CRISTINA WHITTINGTON Primary Care Provider Assessment Encounter Date Assessment Date Assessment LastModified by Organization Details LastModified Time 04/22/2023 04/22/2023 Patient presented for follow up. Studies ordered as below. Discussed plan with patient/careg iver, who expressed understanding . Follow up as noted below. Not available 04/22/2023 11:55:29 08/16/2023 08/16/2023 Patient presented for follow up. Studies ordered as below. Discussed plan with patient/careg iver, who expressed understanding . Follow up as noted below. Not available 08/16/2023 13:05:07 02/26/2024 02/26/2024 Patient presented for follow up. Studies ordered as below. Discussed plan with patient/careg iver, who expressed understanding . Follow up as noted below. Not available 02/26/2024 15:54:54 09/02/2024 09/02/2024 Patient presented for follow up. Studies ordered as below. Discussed plan with patient/careg iver, who expressed understanding . Follow up as noted below. Not available 09/02/2024 09:05:00 01/11/2025 01/11/2025 Patient presented for follow up. Studies ordered as below. Discussed plan with patient/careg iver, who expressed understanding . Follow up as noted below. Not available 01/11/2025 09:22:42 Plan of Treatment Reminders Order Date Submit Date Provider Last Modified By Organization Details Last Modified Time Details Appointments ESTABLISH ED PATIENT 15 2024 08:15A M Ana Cristina Whittington MD Not available Not available Not available Lab urinalysi s, dipstick 2024 025 [facility], [address] [facility] [address], [place], [address], 01/11/2025 10:39:56 CMP, serum or plasma 2024 025 [facility], [address] [facility], [place], [address], 01/12/2025 19:07:28 CBC w/ auto diff 2024 025 [facility], [address] [place] [address], [address], 01/12/2025 19:07:29 amylase + lipase, serum 2024 025 [facility], [address] [place] [address], [place], [address], 01/11/2025 10:00:27 HbA1c (hemoglob in A1c), blood 2024 025 [facility], [address] [place] [address], [place], [address], 01/12/2025 19:07:27 HIV (1+2) Ab screen, serum 2023 024 [facility], [address] [place] [address], [place], [address], 09/02/2024 09:46:29 ESR (erythroc yte sedimenta tion rate), blood 2023 024 [facility], [address] [place] [address], [address], 09/06/2024 11:12:42 amylase isoenzyme s, serum (OBS) 2023 024 [facility], [address] [place], [address], 09/02/2024 09:46:29 lipid panel w/ direct LDL, serum 2023 [facility], [address] [place], [address], 09/09/2024 05:39:18 vitamin B12 + folate, serum or blood 2023 [facility], [address] [place], [address], 09/02/2024 09:46:29 CMP, serum or plasma 2023 [facility], [address] [place], [address], 09/06/2024 11:12:39 CBC w/ auto diff 2023 [facility], [address] [place], [address], 09/06/2024 11:12:42 TSH, serum or plasma 2023 [facility], [address] [place], [address], 09/09/2024 05:39:17 HbA1c (hemoglob in A1c), blood 2023 [facility], [address] [place], [address], 09/06/2024 11:12:37 microalbu min/creat inine, mass ratio, urine 2023 [facility], [address] [place], [address], 09/09/2024 05:39:18 C-peptide , serum 2023 [facility], [address] [place], [address], 09/02/2024 09:46:28 vitamin B12, serum 2023 024 [facility], [address] [facility], [place], [address], 03/05/2024 00:38:39 drug screen, urine 2023 024 [facility], [address] [facility], [place], [address], 03/04/2024 04:10:20 lipid panel w/ direct LDL, serum 2023 024 [facility], [address] [facility], [place], [address], 03/04/2024 04:10:21 TSH, serum or plasma 2023 024 [facility], [address] [facility], [place], [address], 03/04/2024 04:10:21 CBC w/ auto diff 2023 024 [facility], [address] [facility], [place], [address], 03/05/2024 00:31:15 CMP, serum or plasma 2023 024 [facility], [address] [facility], [place], [address], 02/27/2024 15:23:08 lipase, serum or plasma 2023 024 [facility], [address] [facility], [place], [address], 02/27/2024 15:23:08 amylase, serum or plasma 2023 024 [facility], [address] [facility], [place], [address], 02/27/2024 15:23:07 urinalysi s, dipstick 2023 024 [facility], [address], [place], [address], 02/27/2024 14:56:45 lipid panel w/ direct LDL, serum 2022 023 [facility] Not available 08/23/2023 05:27:16 CMP, serum or plasma 2022 023 [facility] Not available 08/23/2023 05:26:54 CBC 2022 023 [facility] Not available 08/23/2023 05:26:48 ESR (erythroc yte sedimenta tion rate), blood 2022 023 [facility] Not available 04/24/2023 14:03:42 drug screen, urine 2022 023 [facility] Not available 04/29/2023 05:22:47 amylase, serum or plasma 2022 023 [facility] Not available 04/24/2023 14:03:37 lipid panel w/ direct LDL, serum 2022 023 [facility] Not available 04/29/2023 05:22:30 CK (creatine kinase), total, serum 2022 023 [facility] Not available 04/24/2023 14:03:39 CMP, serum or plasma 2022 023 [facility] Not available 04/24/2023 14:03:38 CBC 2022 023 [facility] Not available 04/24/2023 14:03:42 iron panel, serum or plasma 2022 023 [facility] Not available 04/24/2023 14:03:40 vitamin B12 + folate, serum or blood 2022 023 [facility] Not available 04/24/2023 14:03:41 HbA1c (hemoglob in A1c), blood 2022 023 [facility] Not available 04/29/2023 05:22:59 microalbu min/creat inine, mass ratio, urine 2022 023 [facility] Not available 04/24/2023 14:03:43 C-peptide , serum 2022 023 [facility] Not available 04/24/2023 14:03:38 TSH, serum or plasma 2022 023 [facility] Not available 04/24/2023 14:03:41 Referral gastroent erologist referral 2024 025 [facility] Pak MD, [address] [facility] [address], [place], [address], 02/08/2025 04:08:19 gynecolog ist referral 2023 024 [facility] Willis, [address], [place], [address], 09/30/2024 04:03:53 gastroent erologist referral 2023 024 [facility] Pak MD, [address] [facility] [address], [place], [address], 09/30/2024 04:03:53 podiatris t referral 2023 024 [email or web address] Pablo Callaway DPM, [address] [facility] , [place], [address], 09/02/2024 09:52:00 gynecolog ist referral 2023 024 [facility] Rudolph MD, [address], [place], [address], 03/25/2024 04:05:20 gastroent erologist referral 2023 024 [facility] Downey MD, [address], [place], [address], 03/25/2024 04:05:21 gynecolog ist referral 2022 023 [facility] Rudolph MD, [address], [place], [address], 05/20/2023 05:24:27 dermatolo gist referral 2022 023 [facility], [address] [facility] [place], [address], 05/20/2023 05:24:42 diabetic ophthalmo logy referral 2022 023 [facility] [place], [facility] [place], [address], 05/20/2023 05:24:11 Procedures None recorded. Surgeries None recorded. Imaging MAMMO, screening , digital, bilateral 2024 025 [facility], [facility] [facility], [place], [address], 01/21/2025 04:12:09 bone density 2024 025 [facility], [facility], [place], [address], 01/28/2025 04:04:32 XR, chest, 2 view - 6 weeks from 12/31/242024 025 [facility], [facility], [place], [address], 01/21/2025 04:12:09 MAMMO, screening , digital, bilateral 2023 024 [facility]uling, [address] [facility], [place], [address], 09/09/2024 05:39:18 bone density 2023 024 [facility], [address] [facility], [place], [address], 09/16/2024 04:03:44 CT, abdomen + pelvis, w/wo contrast 2023 024 [facility], [address] [facility], [place], [address], 03/04/2024 04:10:21 electroca rdiogram 2023 024 [facility], [facility], [address], [place], [address], 02/27/2024 08:49:18 MAMMO, screening , digital, bilateral [address] [facility]uling, [address] [facility], [place], [address], 05/11/2023 13:19:28 home sleep study 2022 023 [facility] Not available 04/29/2023 05:22:42 Medication Orders ondansetr on HCl 4 mg tablet 2023 024 [facility], [address] [place] [address], [address], 01/11/2025 09:49:49 Mounjaro 5 mg/0.5 mL subcutane ous pen injector 2023 024 [email or web address], [address] [place] [address], [address], 01/11/2025 09:48:54 Levemir FlexPen 100 unit/mL (3 mL) solution subcutane ous insulin pen 2023 024 [email or web address], [address] [place] [address], [address], 01/11/2025 09:47:52 ondansetr on HCl 4 mg tablet 2023 024 [email or web address], [address] [place] [address], [address], 01/11/2025 09:49:42 Cipro 500 mg tablet 2023 024 [email or web address], [address] [place] [address], [address], 03/22/2024 15:57:47 metronida zole 500 mg tablet 2023 024 [facility], [address] [place] [address], [address], 01/11/2025 09:49:09 atorvasta tin 40 mg tablet 2022 023 [facility], [address] [place] [address], [address], 08/16/2023 13:30:11 losartan 50 mg tablet 2022 023 [facility], [address] [place] [address], [address], 08/16/2023 13:30:13 duloxetin e 60 mg capsule,d elayed release 2022 023 [facility], [address] [place] [address], [address], 08/16/2023 13:30:10 clotrimaz ole-betam ethasone 1 %-0.05 % topical cream 2022 023 [email or web address], [address] [place] [address], [address], 08/16/2023 13:20:52 atorvasta tin 20 mg tablet 2022 023 [facility], [address] [place] [address], [address], 04/24/2023 21:24:40 pregabali n 100 mg capsule 2022 023 [email or web address], [address] [place] [address], [address], 08/07/2023 11:29:13 Patient TargetsNo targets recorded. Patient Instructions Encounter Date Encounter Id Patient Instructions Last Modified By Organization Details Last Modified Time 04/22/2023 [id number] mammogram: about this test mshenouda Not available 04/22/2023 12:34:58 arthritis: care instructions mshenouda Not available 04/22/2023 12:34:59 osteoarthritis: care instructions mshenouda Not available 04/22/2023 12:34:59 hand arthritis: exercises mshenouda Not available 04/22/2023 12:34:58 hyperkalemia: care instructions mshenouda Not available 04/22/2023 12:35:00 anemia: care instructions mshenouda Not available 04/22/2023 12:34:59 snoring: care instructions mshenouda Not available 04/22/2023 12:35:00 type 2 diabetes: care instructions mshenouda Not available 04/22/2023 12:34:59 diabetic retinopathy: care instructions mshenouda Not available 04/22/2023 12:34:59 type 2 diabetes: care instructions mshenouda Not available 04/22/2023 12:35:00 body mass index: care instructions mshenouda Not available 04/22/2023 12:34:59 learning about healthy weight mshenouda Not available 04/22/2023 12:34:59 living will mshenouda Not available 04/11 12:30:41 08/16/2023 [id number] mammogram: about this test mshenouda Not available 08/16/2023 13:30:08 type 2 diabetes: care instructions mshenouda Not available 08/16/2023 13:30:08 body mass index: care instructions mshenouda Not available 08/16/2023 13:30:08 learning about healthy weight mshenouda Not available 08/16/2023 13:30:07 02/26/2024 [id number] mammogram: about this test mshenouda Not available 02/26/2024 16:59:47 diarrhea: care instructions mshenouda Not available 02/26/2024 16:59:48 nausea and vomiting: care instructions mshenouda Not available 02/26/2024 16:59:47 abdominal pain: care instructions mshenouda Not available 02/26/2024 16:59:46 type 2 diabetes: care instructions mshenouda Not available 02/26/2024 16:59:48 body mass index: care instructions mshenouda Not available 02/26/2024 16:59:47 learning about healthy weight mshenouda Not available 02/26/2024 16:59:47 09/02/2024 [id number] mammogram: about this test mshenouda Not available 09/02/2024 09:45:38 arthritis: care instructions mshenouda Not available 09/02/2024 09:45:39 type 2 diabetes: care instructions mshenouda Not available 09/02/2024 09:45:37 body mass index: care instructions mshenouda Not available 09/02/2024 09:45:39 learning about healthy weight mshenouda Not available 09/02/2024 09:45:38 living will mshenouda Not available 08/12 09:35:33 01/11/2025 [id number] painful urinatio n (dysuria): care instructions mshenouda Not available 01/11/2025 09:59:49 mammogram: about this test mshenouda Not available 01/11/2025 09:59:49 pneumonia: care instructions mshenouda Not available 01/11/2025 09:59:49 type 2 diabetes: care instructions mshenouda Not available 01/11/2025 09:59:49 body mass index: care instructions mshenouda Not available 01/11/2025 09:59:48 learning about healthy weight mshenouda Not available 01/11/2025 09:59:49 Reason for Referral Diabetic Ophthalmology Refer ral for Type 2 diabetes mellitus without complication Referring Physician: Ana Cristina Whittington, Internal Medicine, Encounter Date: 04/22/2023 Automotive Tire Worker Referral for Sc reening for malignant neoplasm of cervix Referring Physician: Ana Cristina Whittington, Internal Medicine, Encounter Date: 04/22/2023 Software Support Analyst Referral for L ocalized eruption of skin Referring Physician: Ana Cristina Whittington, Internal Medicine, Encounter Date: 04/22/2023 Automotive Tire Worker Referral for Sc reening for malignant neoplasm of cervix Referring Physician: Ana Cristina Whittington Internal Medicine, Encounter Date: 02/26/2024 Machine Presser Referral for Screening for malignant neoplasm of colon Referring Physician: Ana Cristina Whittington Internal Medicine, Encounter Date: 02/26/2024 Automotive Tire Worker Referral for Sc reening for malignant neoplasm of cervix Referring Physician: Ana Cristina Whittington Internal Medicine, Encounter Date: 09/02/2024 Machine Presser Referral for Screening for malignant neoplasm of colon Referring Physician: Ana Cristina Whittington Internal Medicine, Encounter Date: 09/02/2024 Explosives Handler Referral for Type 2 diabetes mellitus without complication Referring Physician: Ana Cristina Whittington, Internal Medicine, Encounter Date: 09/02/2024 Machine Presser Referral for Screening for malignant neoplasm of colon Referring Physician: Ana Cristina Whittington Internal Medicine, Encounter Date: 01/11/2025 Results Created Date Observation Date Name Description Value Unit Range Abnormal Flag Note LastModifiedBy Organization Detail LastModifiedTime 04/22/2004/22/2023 HEMOG LOBIN A1C HGBA1C 9.3 % 4.0-6. 0 high Not Available [facility] (Main Location) [facility] ,, [place], [address], 04/24/2023 14:03:37 04/22/20 23 04/22/2023 AMYLA SE, SERUM amylase, serum 140 U/L 28-100 high Not Available [facility] (Main Location) [address] ,, [place], [address], 04/24/2023 14:03:37 04/22/20 23 04/22/2023 C-PEP TIDE C-peptide 2.4 NG/mL 1.1-4. 4 Not Available [facility] (Main Location) [facility] ,, [place], [address], 04/24/2023 14:03:37 04/22/20 23 04/22/2023 CMP (COMP REHEN SIVE METAB OLIC PANEL ) glucose 194 mg/dL 74-99 high Not Available [facility] (Main Location) [address] [place] [address]. [address] ,, [place], [address], 04/24/2023 14:03:38 04/22/20 23 04/22/2023 CMP (COMP REHEN SIVE METAB OLIC PANEL ) urea nitrogen, blood (BUN) 21 mg/dL 8-23 Not Available [facility] (Main Location) [address] [place] [address]. [address] ,, [place], [address], 04/24/2023 14:03:38 04/22/20 23 04/22/2023 CMP (COMP REHEN SIVE METAB OLIC PANEL ) total bilirubin 0.2 mg/dL 0.0-1. 2 Not Available [facility] (Main Location) [address] [place] [address]. [address] ,, [place], [address], 04/24/2023 14:03:38 04/22/20 23 04/22/2023 CMP (COMP REHEN SIVE METAB OLIC PANEL ) total protein 7.1 g/dL 6.6-8. 7 Not Available [facility] (Main Location) [address] [place] [address]. [address] ,, [place], [address], 04/24/2023 14:03:38 04/22/20 23 04/22/2023 CMP (COMP REHEN SIVE METAB OLIC PANEL ) alanine aminotransfe rase (ALT) 10 U/L 0-33 Not Available [facility] (Main Location) [address] [place] [address]. [address] ,, [place], [address], 04/24/2023 14:03:38 04/22/20 23 04/22/2023 CMP (COMP REHEN SIVE METAB OLIC PANEL ) alkaline phosphatase 139 U/L 40-130 high Not Available [facility] (Main Location) [address] [place] [address]. [address] ,, [place], [address], 04/24/2023 14:03:38 04/22/20 23 04/22/2023 CMP (COMP REHEN SIVE METAB OLIC PANEL ) aspartate aminotransfe rase (AST) 14 U/L 0-32 Not Available [facility] (Main Location) [address] [place], [place] [address] ,, [place], [address], 04/24/2023 14:03:38 04/22/20 23 04/22/2023 CMP (COMP REHEN SIVE METAB OLIC PANEL ) calcium 9.4 mg/dL 8.6-10 .2 Not Available [facility] (Main Location) [address] [place] [address] [address] ,, [place], [address], 04/24/2023 14:03:38 04/22/20 23 04/22/2023 CMP (COMP REHEN SIVE METAB OLIC PANEL ) albumin 4.3 g/dL 3.5-5. 2 Not Available [facility] (Main Location) [address] [place] [address]. [address] ,, [place], [address], 04/24/2023 14:03:38 04/22/20 23 04/22/2023 CMP (COMP REHEN SIVE METAB OLIC PANEL ) CO2 22 mmol/ L 23-31 low Not Available [facility] (Main Location) [address] [place] [address] [address] ,, [place], [address], 04/24/2023 14:03:38 04/22/20 23 04/22/2023 CMP (COMP REHEN SIVE METAB OLIC PANEL ) creatinine, serum 0.9 mg/dL 0.5-0. 9 Not Available [facility] (Main Location) [address] [place] [address] [address] ,, [place], [address], 04/24/2023 14:03:38 04/22/20 23 04/22/2023 CMP (COMP REHEN SIVE METAB OLIC PANEL ) sodium, serum 141 mmol/ L 136-14 5 Not Available [facility] (Main Location) [address] [place] [address] [address] ,, [place], [address], 04/24/2023 14:03:38 04/22/20 23 04/22/2023 CMP (COMP REHEN SIVE METAB OLIC PANEL ) potassium, serum 5.0 mmol/ L 3.5-5. 1 Not Available [facility] (Main Location) [address] ,, [place], [address], 04/24/2023 14:03:38 04/22/20 23 04/22/2023 CMP (COMP REHEN SIVE METAB OLIC PANEL ) chloride, serum 105 mmol/ L 98-107 Not Available [facility] (Main Location) [address] ,, [place], [address], 04/24/2023 14:03:38 04/22/20 23 04/22/2023 CMP (COMP REHEN SIVE METAB OLIC PANEL ) eGFR 94 >59 Persi stent reduc tion for 3 month s or more in an eGFR <60 mL/mi n/1.7 3 m2 defin es CKD. Patie nts with eGFR value s>/=6 0 mL/mi n/1.7 3 m2 may also have CKD if evide nce of persi stent protu niuri a is prese nt. Addit ional infor stephanie n may be found at www.k doqi. org. Not Available [facility] (Main Location) [address] ,, [place], [address], 04/24/2023 14:03:38 04/22/20 23 04/22/2023 CREAT INE KINAS E (CPK) creatine kinase 95 U/L 0-170 Not Available [facility] (Main Location) [address] ,, [place], [address], 04/24/2023 14:03:39 04/22/20 23 04/22/2023 DLDL dldl 122 mg/dL 0-100 high Not Available [facility] (Main Location) [address] ,, [place], [address], 04/24/2023 14:03:39 04/22/20 23 04/22/2023 IRON PANEL (WITH TRANS JULIANE N SATUR ATION ) transferrin 366 mg/dL 200-36 0 high Not Available [facility] (Main Location) [address] ,, [place], [address], 04/24/2023 14:03:40 04/22/20 23 04/22/2023 IRON PANEL (WITH TRANS JULIANE N SATUR ATION ) iron 37 ug/dL 25-156 Not Available [facility] (Main Location) [address] ,, [place], [address], 04/24/2023 14:03:40 04/22/20 23 04/22/2023 IRON PANEL (WITH TRANS JULIANE N SATUR ATION ) % transferrin saturation 7.22 20.00- 50.00 low Not Available [facility] (Main Location) [address] ,, [place], [address], 04/24/2023 14:03:40 04/22/20 23 04/22/2023 IRON PANEL (WITH TRANS JULIANE N SATUR ATION ) TIBC 512 ug/dL 250-45 0 high Not Available [facility] (Main Location) [facility] ,, [place], [address], 04/24/2023 14:03:40 04/22/20 23 04/22/2023 LIPID PANEL trigylceride s 179 mg/dL 0-150 high Not Available [facility] (Main Location) [facility] ,, [place], [address], 04/24/2023 14:03:40 04/22/20 23 04/22/2023 LIPID PANEL cholesterol 217 mg/dL 0-200 high Not Available [facility] (Main Location) [address] ,, [place], [address], 04/24/2023 14:03:40 04/22/20 23 04/22/2023 LIPID PANEL uhdl 74 mg/dL 45-65 high Not Available [facility] (Main Location) [facility] ,, [place], [address], 04/24/2023 14:03:40 04/22/20 23 04/22/2023 LIPID PANEL LDL, calculated 107 mg/dL 0-100 high Not Available [facility] (Main Location) [facility] ,, [place], [address], 04/24/2023 14:03:40 04/22/20 23 04/22/2023 LIPID PANEL LDL, measured 122 mg/dL <99 high Not Available [facility] (Main Location) [facility] ,, [place], [address], 04/24/2023 14:03:40 04/22/20 23 04/22/2023 LIPID PANEL LDL/HDL ratio 1 mg/dL 0-5 Not Available [facility] (Main Location) [facility] [address] ,, [place], [address], 04/24/2023 14:03:40 04/22/20 23 04/22/2023 LIPID PANEL VLDL 35.8 mg/dL 5.0-40 .0 Not Available [facility] (Main Location) [facility] [address] ,, [place], [address], 04/24/2023 14:03:40 04/22/20 23 04/22/2023 LIPID PANEL cholesterol/ HDL ratio 2.93 0.00-5 .00 Not Available [facility] (Main Location) [facility] ,, [place], [address], 04/24/2023 14:03:40 04/22/20 23 04/22/2023 THYRO ID STIMU LATIN G HORMO NE (TSH) TSH 2.56 ?IU/m L 0.27-4 .20 Not Available [facility] (Main Location) [facility] ,, [place], [address], 04/24/2023 14:03:41 04/22/20 23 04/22/2023 VITAM IN B12 AND FOLAT E folate 20.0 NG/mL 5.6-45 .8 Not Available [facility] (Main Location) [facility] [address] ,, [place], [address], 04/24/2023 14:03:41 04/22/20 23 04/22/2023 VITAM IN B12 AND FOLAT E vitamin B12 II 795 pg/mL 232-12 45 Not Available [facility] (Main Location) [address] ,, [place], [address], 04/24/2023 14:03:41 04/22/20 23 04/22/2023 CBC (W/O DIFF, W/ PLT) white blood cell count 7.4 thous and/u L 3.5-10 .0 Not Available [facility] (Main Location) [address] ,, [place], [address], 04/24/2023 14:03:42 04/22/20 23 04/22/2023 CBC (W/O DIFF, W/ PLT) red blood cell count 4.7 eboni on/uL 3.5-5. 5 Not Available [facility] (Main Location) [address] ,, [place], [address], 04/24/2023 14:03:42 04/22/20 23 04/22/2023 CBC (W/O DIFF, W/ PLT) hemoglobin 10.9 g/dL 11.5-1 6.5 low Not Available [facility] (Main Location) [address] ,, [place], [address], 04/24/2023 14:03:42 04/22/20 23 04/22/2023 CBC (W/O DIFF, W/ PLT) hematocrit 37 % 35-55 Not Available [facility] (Main Location) [address] ,, [place], [address], 04/24/2023 14:03:42 04/22/20 23 04/22/2023 CBC (W/O DIFF, W/ PLT) MCH 23 pg 25-35 low Not Available [facility] (Main Location) [address] ,, [place], [address], 04/24/2023 14:03:42 04/22/20 23 04/22/2023 CBC (W/O DIFF, W/ PLT) MCHC 30 g/dL 31-38 low Not Available [facility] (Main Location) [facility] [address] ,, [place], [address], 04/24/2023 14:03:42 04/22/20 23 04/22/2023 CBC (W/O DIFF, W/ PLT) MCV 80 fL 75-100 Not Available [facility] (Main Location) [facility] [address] ,, [place], [address], 04/24/2023 14:03:42 04/22/20 23 04/22/2023 CBC (W/O DIFF, W/ PLT) RDW-CV 19 % 11-15 high Not Available [facility] (Main Location) [facility] [address] ,, [place], [address], 04/24/2023 14:03:42 04/22/20 23 04/22/2023 CBC (W/O DIFF, W/ PLT) platelet count 412 thous and/u L 100-40 0 high Not Available [facility] (Main Location) [facility] [address] ,, [place], [address], 04/24/2023 14:03:42 04/22/20 23 04/22/2023 ERYTH ROCYT E SEDIM ENTAT ION RATE (ESR) sed rate 41 RESULT S VERIFI ED BY REPEAT ANALYS IS. mm/HR 0-20 high Not Available [facility] (Main Location) [facility] [address] ,, [place], [address], 04/24/2023 14:03:42 04/22/20 23 04/22/2023 URINE MICRO ALBUM IN/CR EATIN INE RATIO urine microalbumin 12 mg/L 0-30 Not Available [facility] (Main Location) [facility] [address] ,, [place], [address], 04/24/2023 14:03:43 04/22/20 23 04/22/2023 URINE MICRO ALBUM IN/CR EATIN INE RATIO urine creatinine 38.57 mg/dL 28.00- 217.00 Not Available [facility] (Main Location) [address] ,, [place], [address], 04/24/2023 14:03:43 04/22/20 23 04/22/2023 URINE MICRO ALBUM IN/CR EATIN INE RATIO urine microalbumin /creatinine ratio 30 mg/g_ creat inine 0-30 Not Available [facility] (Main Location) [address] ,, [place], [address], 04/24/2023 14:03:43 02/26/20 24 02/26/2024 AMYLA SE amylase 65.0 U/L 31.0-1 24.0 Not Available [facility] [address] [facility] [address], [place], [address], 02/27/2024 15:23:07 02/26/20 24 02/26/2024 COMPR EHENS LUCILLE METAB OLIC PANEL sodium 134 mmol/ L 134-14 4 Not Available [facility] [address] [facility] [address], [place], [address], 02/27/2024 15:23:07 02/26/20 24 02/26/2024 COMPR EHENS LUCILLE METAB OLIC PANEL potassium 4.9 mmol/ L 3.5-5. 2 Not Available [facility] [address] [facility] [address], [place], [address], 02/27/2024 15:23:07 02/26/20 24 02/26/2024 COMPR EHENS LUCILLE METAB OLIC PANEL chloride 107 mmol/ L 97-108 Not Available [facility] [address] [facility] [address], [place], [address], 02/27/2024 15:23:07 02/26/20 24 02/26/2024 COMPR EHENS LUCILLE METAB OLIC PANEL carbon dioxide (co2) 16.0 mmol/ L 18.0-2 9.0 low Not Available [facility] [address] [facility] [address], [place], [address], 02/27/2024 15:23:07 02/26/20 24 02/26/2024 COMPR EHENS LUCILLE METAB OLIC PANEL glucose 210 mg/dL 65-99 high Ruben l Fasti ng: < 100 mg/dL Impai red Fasti n - 125 mg/dL Diagn ostic of Diabe jeny: => 126 mg/dL Ameri can Diabe jeny [employer] i[employer] n, 2008 Not Available [facility] [address] [facility] [address], [place], [address], 02/27/2024 15:23:07 02/26/20 24 02/26/2024 COMPR EHENS LUCILLE METAB OLIC PANEL urea nitrogen (BUN) 27 mg/dL 8-23 high Not Available [facility] [address] [facility] [address], [place], [address], 02/27/2024 15:23:07 02/26/20 24 02/26/2024 COMPR EHENS LUCILLE METAB OLIC PANEL creatinine 1.27 mg/dL 0.57-1 .00 high Not Available [facility] [address] [facility] [address], [place], [address], 02/27/2024 15:23:07 02/26/20 24 02/26/2024 COMPR EHENS LUCILLE METAB OLIC PANEL eGFR for nonafrican AM 43 mL/mi nute/ 1.73_ m2 >59 low Not Available [facility] [address] [facility] [address], [place], [address], 02/27/2024 15:23:07 02/26/20 24 02/26/2024 COMPR EHENS LUCILLE METAB OLIC PANEL eGFR for AM 52 mL/mi nute/ 1.73_ m2 >59 low MDRD Study Equat ion: The calcu lated GFR is NOT appli cable for pedia tric (< 18 years old) and > 70 year old patie nts and patie nts that are NOT of [place] . Not Available [facility] [address] [facility] [address], [place], [address], 02/27/2024 15:23:07 02/26/20 24 02/26/2024 COMPR EHENS LUCILLE METAB OLIC PANEL calcium 8.8 mg/dL 8.7-10 .3 Not Available [facility] [address] [facility] [address], [place], [address], 02/27/2024 15:23:07 02/26/20 24 02/26/2024 COMPR EHENS LUCILLE METAB OLIC PANEL protein, total 6.7 gm/dL 6.4-8. 3 Not Available [facility] [address] [facility] [address], [place], [address], 02/27/2024 15:23:07 02/26/20 24 02/26/2024 COMPR EHENS LUCILLE METAB OLIC PANEL albumin 4.0 gm/dL 3.5-5. 2 Not Available [facility] [address] [facility] [address], [place], [address], 02/27/2024 15:23:07 02/26/20 24 02/26/2024 COMPR EHENS LUCILLE METAB OLIC PANEL bilirubin, total 0.50 mg/dL 0.00-1 .20 Not Available [facility] [address] [facility] [address], [place], [address], 02/27/2024 15:23:07 02/26/20 24 02/26/2024 COMPR EHENS LUCILLE METAB OLIC PANEL alkaline phosphatase (ALP) 159 U/L 39-117 high Not Available [facility] [address] [facility] [address], [place], [address], 02/27/2024 15:23:07 02/26/20 24 02/26/2024 COMPR EHENS LUCILLE METAB OLIC PANEL aspartate aminotransfe rase (AST) 19 U/L 0-32 Not Available [facility] [address] [facility] [address], [place], [address], 02/27/2024 15:23:07 02/26/20 24 02/26/2024 COMPR EHENS LUCILLE METAB OLIC PANEL alanine aminotransfe rase (ALT) 13 U/L 0-33 Not Available [facility] [address] [facility] [address], [place], [address], 02/27/2024 15:23:07 02/26/20 24 02/26/2024 COMPR EHENS LUCILLE METAB OLIC PANEL A/G ratio (calculated) 1.5 ratio 1.0-2. 7 Not Available [facility] [address] [facility] [address], [place], [address], 02/27/2024 15:23:07 02/26/20 24 02/26/2024 COMPR EHENS LUCILLE METAB OLIC PANEL globulin (calculated) 2.7 gm/dL 1.5-3. 8 Not Available [facility] [address] [facility] [address], [place], [address], 02/27/2024 15:23:07 02/26/20 24 02/26/2024 COMPR EHENS LUCILLE METAB OLIC PANEL BUN/creatini ne ratio (calculated) 21.3 ratio 8.0-20 .0 high Not Available [facility] [address] [facility] [address], [place], [address], 02/27/2024 15:23:07 02/26/20 24 02/26/2024 COMPR EHENS LUCILLE METAB OLIC PANEL serum hemolysis index NORMAL index normal Not Available [facility] [address] [facility] [address], [place], [address], 02/27/2024 15:23:07 02/26/20 24 02/26/2024 LIPAS E lipase 39 U/L 0-59 Not Available [facility] [address] [facility] [address], [place], [address], 02/27/2024 15:23:08 02/26/20 24 02/26/2024 LIPID PANEL W/ CALC. LDL cholesterol, total 109 mg/dL 100-19 9 Not Available [facility] [address] [facility] [address], [place], [address], 02/27/2024 15:23:09 02/26/20 24 02/26/2024 LIPID PANEL W/ CALC. LDL HDL cholesterol 58 mg/dL =>40 Not Available [facility] [address] [facility] [address], [place], [address], 02/27/2024 15:23:09 02/26/20 24 02/26/2024 LIPID PANEL W/ CALC. LDL LDL cholesterol (calculated) 26 mg/dL 0-99 Not Available [facility] [address] [facility] [address], [place], [address], 02/27/2024 15:23:09 02/26/20 24 02/26/2024 LIPID PANEL W/ CALC. LDL triglyceride s 125 mg/dL 50-149 Not Available [facility] [address] [facility] [address], [place], [address], 02/27/2024 15:23:09 02/26/20 24 02/26/2024 LIPID PANEL W/ CALC. LDL chol/HDL ratio (calculated) 1.88 ratio 0.00-5 .00 Not Available [facility] [address] [facility] [address], [place], [address], 02/27/2024 15:23:09 02/26/20 24 02/26/2024 LIPID PANEL W/ CALC. LDL VLDL cholesterol (calculated) 25 mg/dL 5-40 Not Available [facility] [address] [facility] [address], [place], [address], 02/27/2024 15:23:09 02/26/20 24 02/26/2024 THYRO ID-ST IM. HORMO NE (TSH) , HIGH- SENSI TIVE thyroid-stim . hormone (TSH), hs 1.96 uIU/m L 0.27-4 .20 Not Available [facility] [address] [facility] [address], [place], [address], 02/27/2024 15:23:10 02/26/20 24 02/26/2024 VITAM IN B12 vitamin B12 366 pg/mL 232-12 45 Not Available [facility] [address] [facility] [address], [place], [address], 02/27/2024 15:23:10 02/26/20 24 02/26/2024 CBC WITH AUTO- DIFFE RENTI AL WBC 9.8 10*3/ uL 3.4-10 .8 Not Available [facility] [address] [facility] [address], [place], [address], 02/27/2024 15:23:11 02/26/20 24 02/26/2024 CBC WITH AUTO- DIFFE RENTI AL RBC 4.92 10*6/ uL 3.80-5 .30 Not Available [facility] [address] [facility] [address], [place], [address], 02/27/2024 15:23:11 02/26/20 24 02/26/2024 CBC WITH AUTO- DIFFE RENTI AL HGB 11.6 g/dL 11.1-1 5.9 Not Available [facility] [address] [facility] [address], [place], [address], 02/27/2024 15:23:11 02/26/20 24 02/26/2024 CBC WITH AUTO- DIFFE RENTI AL HCT 39.2 % 34.0-4 6.6 Not Available [facility] [address] [facility] [address], [place], [address], 02/27/2024 15:23:11 02/26/20 24 02/26/2024 CBC WITH AUTO- DIFFE RENTI AL MCV 80 fL 79-97 Not Available [facility] [address], [place], [address], 02/27/2024 15:23:11 02/26/20 24 02/26/2024 CBC WITH AUTO- DIFFE RENTI AL MCH 23.6 pg 26.6-3 3.0 low Not Available [facility] [address] [facility] [facility] [address], [place], [address], 02/27/2024 15:23:11 02/26/20 24 02/26/2024 CBC WITH AUTO- DIFFE RENTI AL MCHC 29.6 g/dL 31.5-3 5.7 low Not Available [facility] [address] [facility] [address], [place], [address], 02/27/2024 15:23:11 02/26/20 24 02/26/2024 CBC WITH AUTO- DIFFE RENTI AL RDW 19.2 % 11.5-1 4.5 high Not Available [facility] [address] [facility] [address], [place], [address], 02/27/2024 15:23:11 02/26/20 24 02/26/2024 CBC WITH AUTO- DIFFE RENTI AL platelets 343 10*3/ uL 150-40 0 Not Available [facility] [address] [facility] [address], [place], [address], 02/27/2024 15:23:11 02/26/20 24 02/26/2024 CBC WITH AUTO- DIFFE RENTI AL MPV 11 fL 9-13 Not Available [facility] [address] [facility] [address], [place], [address], 02/27/2024 15:23:11 02/26/20 24 02/26/2024 CBC WITH AUTO- DIFFE RENTI AL neutrophils 66.9 % 40.0-7 4.0 Not Available [facility] [address] [facility] [address], [place], [address], 02/27/2024 15:23:11 02/26/20 24 02/26/2024 CBC WITH AUTO- DIFFE RENTI AL absolute neutrophils 6.55 10*3/ uL 1.40-7 .00 Not Available [facility] [address] [facility] [address], [place], [address], 02/27/2024 15:23:11 02/26/20 24 02/26/2024 CBC WITH AUTO- DIFFE RENTI AL lymphocytes 20.6 % 14.0-4 6.0 Not Available [facility] [address] [facility] [address], [place], [address], 02/27/2024 15:23:11 02/26/20 24 02/26/2024 CBC WITH AUTO- DIFFE RENTI AL absolute lymphocytes 2.02 10*3/ uL 0.70-3 .10 Not Available [facility] [address] [facility] [address], [place], [address], 02/27/2024 15:23:11 02/26/20 24 02/26/2024 CBC WITH AUTO- DIFFE RENTI AL monocytes 10.1 % 4.0-12 .0 Not Available [facility] [address] [facility] [address], [place], [address], 02/27/2024 15:23:11 02/26/20 24 02/26/2024 CBC WITH AUTO- DIFFE RENTI AL absolute monocytes 0.99 10*3/ uL 0.10-0 .90 high Not Available [facility] [address] [facility] [address], [place], [address], 02/27/2024 15:23:11 02/26/20 24 02/26/2024 CBC WITH AUTO- DIFFE RENTI AL eosinophils 1.9 % 0.0-5. 0 Not Available [facility] [address] [facility] [address], [place], [address], 02/27/2024 15:23:11 02/26/20 24 02/26/2024 CBC WITH AUTO- DIFFE RENTI AL absolute eosinophils 0.19 10*3/ uL 0.00-0 .40 Not Available [facility] [address] [facility] [address], [place], [address], 02/27/2024 15:23:11 02/26/20 24 02/26/2024 CBC WITH AUTO- DIFFE RENTI AL basophils 0.2 % 0.0-3. 0 Not Available [facility] [address] [facility] [address], [place], [address], 02/27/2024 15:23:11 02/26/20 24 02/26/2024 CBC WITH AUTO- DIFFE RENTI AL absolute basophils 0.02 10*3/ uL 0.00-0 .20 Not Available [facility] [address] [facility] [address], [place], [address], 02/27/2024 15:23:11 02/26/20 24 02/26/2024 CBC WITH AUTO- DIFFE RENTI AL imm. gran. 0.3 % 0.0-2. 0 Not Available [facility] [address] [facility] [address], [place], [address], 02/27/2024 15:23:11 02/26/20 24 02/26/2024 CBC WITH AUTO- DIFFE RENTI AL abs. imm. gran. 0.03 10*3/ uL 0.00-0 .10 Not Available [facility] [address] [facility] [address], [place], [address], 02/27/2024 15:23:11 02/26/20 24 02/26/2024 URINE DRUG SCREE N, 7-ROD EL WITH BUP amphetamines NEGATI VE negati ve Not Available [facility] [address] [facility] [address], [place], [address], 02/27/2024 15:23:11 02/26/20 24 02/26/2024 URINE DRUG SCREE N, 7-ROD EL WITH BUP benzodiazepi jihan NEGATI VE negati ve Not Available [facility] [address] [facility] [address], [place], [address], 02/27/2024 15:23:11 02/26/20 24 02/26/2024 URINE DRUG SCREE N, 7-ROD EL WITH BUP buprenorphin e (bup) NEGATI VE NG/mL cutoff =10 Not Available [facility] [address] [facility] [address], [place], [address], 02/27/2024 15:23:11 02/26/20 24 02/26/2024 URINE DRUG SCREE N, 7-ROD EL WITH BUP cocaine NEGATI VE negati ve Not Available [facility] [address] [facility] [address], [place], [address], 02/27/2024 15:23:11 02/26/20 24 02/26/2024 URINE DRUG SCREE N, 7-ROD EL WITH BUP opiates NEGATI VE negati ve Not Available [facility] [address] [facility] [address], [place], [address], 02/27/2024 15:23:11 02/26/20 24 02/26/2024 URINE DRUG SCREE N, 7-ROD EL WITH BUP oxycodone NEGATI VE negati ve Not Available [facility] [address] [facility] [address], [place], [address], 02/27/2024 15:23:11 02/26/20 24 02/26/2024 URINE DRUG SCREE N, 7-ROD EL WITH BUP cannabinoid (THC) NEGATI VE negati ve Not Available [facility] [address] [facility] [address], [place], [address], 02/27/2024 15:23:11 02/26/20 24 02/26/2024 URINE DRUG SCREE N, 7-ROD EL WITH BUP creatinine - uds urine 140.9 mg/dL >20.0 Not Available [facility] [address] [facility] [address], [place], [address], 02/27/2024 15:23:11 02/26/20 24 02/26/2024 URINE DRUG SCREE N, 7-ROD EL WITH BUP specific gravity (uds) 1.020 1.003- 1.035 Not Available [facility] [address] [facility] [address], [place], [address], 02/27/2024 15:23:11 02/26/20 24 02/26/2024 URINE DRUG SCREE N, 7-ROD EL WITH BUP pH (uds) 6.0 4.5-10 .9 Not Available [facility] [address] [facility] [address], [place], [address], 02/27/2024 15:23:11 02/26/20 24 02/26/2024 URINE DRUG SCREE N, 7-ROD EL WITH BUP amphetamines NEGATI VE negati ve Not Available [facility] [address] [facility] [address], [place], [address], 02/27/2024 15:23:11 02/26/20 24 02/26/2024 URINE DRUG SCREE N, 7-ROD EL WITH BUP benzodiazepi jihan NEGATI VE negati ve Not Available [facility] [address] [facility] [address], [place], [address], 02/27/2024 15:23:11 02/26/20 24 02/26/2024 URINE DRUG SCREE N, 7-ROD EL WITH BUP buprenorphin e (bup) NEGATI VE NG/mL cutoff =10 Not Available [facility] [address] [facility] [address], [place], [address], 02/27/2024 15:23:11 02/26/20 24 02/26/2024 URINE DRUG SCREE N, 7-ROD EL WITH BUP cocaine NEGATI VE negati ve Not Available [facility] [address] [facility] [address], [place], [address], 02/27/2024 15:23:11 02/26/20 24 02/26/2024 URINE DRUG SCREE N, 7-ROD EL WITH BUP opiates NEGATI VE negati ve Not Available [facility] [address] [facility] [address], [place], [address], 02/27/2024 15:23:11 02/26/20 24 02/26/2024 URINE DRUG SCREE N, 7-ROD EL WITH BUP oxycodone NEGATI VE negati ve Not Available [facility] [address] [facility] [address], [place], [address], 02/27/2024 15:23:11 02/26/20 24 02/26/2024 URINE DRUG SCREE N, 7-ROD EL WITH BUP cannabinoid (THC) NEGATI VE negati ve Not Available [facility] [address] [facility] [address], [place], [address], 02/27/2024 15:23:11 02/26/20 24 02/26/2024 URINE DRUG SCREE N, 7-ROD EL WITH BUP creatinine - uds urine 140.9 mg/dL >20.0 Not Available [facility] [address] [facility] [address], [place], [address], 02/27/2024 15:23:11 02/26/20 24 02/26/2024 URINE DRUG SCREE N, 7-ROD EL WITH BUP specific gravity (uds) 1.020 1.003- 1.035 Not Available [facility] [address] [facility] [address], [place], [address], 02/27/2024 15:23:11 02/26/20 24 02/26/2024 URINE DRUG SCREE N, 7-ROD EL WITH BUP pH (uds) 6.0 4.5-10 .9 Not Available [facility] [address], [place], [address], 02/27/2024 15:23:11 02/27/20 24 02/27/2024 urina lysis , dipst ick Color Yellow Not Available [facility], [facility] [address], [place], [address], 02/26/2024 16:49:12 02/27/20 24 02/27/2024 urina lysis , dipst ick Appearance Cloudy Not Available [facility] [address], [place], [address], 02/26/2024 16:49:12 02/27/20 24 02/27/2024 urina lysis , dipst ick Glucose 1000 Not Available [facility] [address] [facility] [address], [place], [address], 02/26/2024 16:49:12 02/27/20 24 02/27/2024 urina lysis , dipst ick Specific [place] 1.[address] [facility] [address], [place], [address], 02/26/2024 16:49:12 02/27/20 24 02/27/2024 urina lysis , dipst ick Ketone Trace Not Available [facility] [address], [place], [address], 02/26/2024 16:49:12 02/27/20 24 02/27/2024 urina lysis , dipst ick Bilirubin Negati ve Not Available [facility], [facility] [address], [place], [address], 02/26/2024 16:49:12 02/27/20 24 02/27/2024 urina lysis , dipst ick Leukocytes Negati ve Not Available [facility], [facility] [address], [place], [address], 02/26/2024 16:49:12 02/27/20 24 02/27/2024 urina lysis , dipst ick Nitrite positi ve Not Available [facility] [address], [place], [address], 02/26/2024 16:49:12 02/27/20 24 02/27/2024 urina lysis , dipst ick Urobilinogen .2 Not Available [facility] [address], [place], [address], 02/26/2024 16:49:12 02/27/20 24 02/27/2024 urina lysis , dipst ick Protein Trace Not Available [facility] [address], [place], [address], 02/26/2024 16:49:12 02/27/20 24 02/27/2024 urina lysis , dipst ick pH 5.0 Not Available [facility] [address], [place], [address], 02/26/2024 16:49:12 02/27/20 24 02/27/2024 urina lysis , dipst ick Blood Modera te Not Available [facility] [address], [place], [address], 02/26/2024 16:49:12 09/02/20 24 09/02/2024 HEMOG LOBIN A1C hemoglobin A1C 7.4 % 4.8-5. 6 high RUBEN L RANGE BASED ON ROCÍO COL 2 (DCCT /NGSP ): Non-D iabet ic: < 5.7% Pre-D iabet es: 5.7 - 6.4% Diabe jeny: => 6.5% GLYCE DEIDRA CONTR OL: < 7.0% Not Available [facility] [address] [facility] [address], [place], [address], 09/06/2024 11:12:37 09/02/2009/02/2024 HEMOG LOBIN A1C estimated average glucose 166 Not Available [facility] [address] [facility] [address], [place], [address], 09/06/2024 11:12:37 09/02/2009/02/2024 *C-PE PTIDE C-peptide 2.6 NG/mL 1.1-4. 4 NOTE: REFER ENCE RANGE APPLI ES TO FASTI NG SAMPL E ONLY. Not Available [facility] [address] [facility] [address], [place], [address], 09/06/2024 11:12:38 09/02/2009/02/2024 COMPR EHENS LUCILLE METAB OLIC PANEL sodium 142 mmol/ L 134-14 4 Not Available [facility] [address] [facility] [address], [place], [address], 09/06/2024 11:12:39 09/02/2009/02/2024 COMPR EHENS LUCILLE METAB OLIC PANEL potassium 4.5 mmol/ L 3.5-5. 2 Not Available [facility] [address] [facility] [address], [place], [address], 09/06/2024 11:12:39 09/02/2009/02/2024 COMPR EHENS LUCILLE METAB OLIC PANEL chloride 107 mmol/ L 98-107 Not Available [facility] [address] [facility] [address], [place], [address], 09/06/2024 11:12:39 09/02/2009/02/2024 COMPR EHENS LUCILLE METAB OLIC PANEL carbon dioxide (co2) 19.0 mmol/ L 18.0-2 9.0 Not Available [facility] [address] [facility] [address], [place], [address], 09/06/2024 11:12:39 09/02/2009/02/2024 COMPR EHENS LUCILLE METAB OLIC PANEL glucose 138 mg/dL 65-99 high Ruben l Fasti n - 99 mg/dL Impai red Fasti n - 125 mg/dL Diagn ostic of Diabe jeny: => 126 mg/dL Ameri can [facility] [employer] i[facility] n, 2007 Not Available [facility] [address] [facility] [address], [place], [address], 09/06/2024 11:12:39 09/02/2009/02/2024 COMPR EHENS LUCILLE METAB OLIC PANEL urea nitrogen (BUN) 29 mg/dL 8-23 high Not Available [facility] [address] [facility] [address], [place], [address], 09/06/2024 11:12:39 09/02/2009/02/2024 COMPR EHENS LUCILLE METAB OLIC PANEL creatinine 1.07 mg/dL 0.57-1 .00 high Not Available [facility] [address] [facility] [address], [place], [address], 09/06/2024 11:12:39 09/02/2009/02/2024 COMPR EHENS LUCILLE METAB OLIC PANEL eGFR 58 mL/mi nute/ 1.73_ m2 >59 low MDRD Study Equat ion: The calcu lated GFR is NOT appli cable for pedia tric (< 18 years old) and > 70 year old patie nts and patie nts that are NOT of stead y state . Not Available [facility] [address] [facility] [address], [place], [address], 09/06/2024 11:12:39 09/02/2009/02/2024 COMPR EHENS LUCILLE METAB OLIC PANEL calcium 8.9 mg/dL 8.7-10 .3 Not Available [facility] [address] [facility] [address], [place], [address], 09/06/2024 11:12:39 09/02/2009/02/2024 COMPR EHENS LUCILLE METAB OLIC PANEL protein, total 6.7 gm/dL 6.4-8. 3 Not Available [facility] [address] [facility] [address], [place], [address], 09/06/2024 11:12:39 09/02/2009/02/2024 COMPR EHENS LUCILLE METAB OLIC PANEL albumin 3.9 gm/dL 3.5-5. 2 Not Available [facility] [address] [facility] [address], [place], [address], 09/06/2024 11:12:39 09/02/2009/02/2024 COMPR EHENS LUCILLE METAB OLIC PANEL bilirubin, total 0.20 mg/dL 0.00-1 .20 Not Available [facility] [address] [facility] [address], [place], [address], 09/06/2024 11:12:39 09/02/2009/02/2024 COMPR EHENS LUCILLE METAB OLIC PANEL alkaline phosphatase (ALP) 135 U/L 39-117 high Not Available [facility] [address] [facility] [address], [place], [address], 09/06/2024 11:12:39 09/02/2009/02/2024 COMPR EHENS LUCILLE METAB OLIC PANEL aspartate aminotransfe rase (AST) 14 U/L 0-32 Not Available [facility] [address] [facility] [address], [place], [address], 09/06/2024 11:12:39 09/02/2009/02/2024 COMPR EHENS LUCILLE METAB OLIC PANEL alanine aminotransfe rase (ALT) 8 U/L 0-33 Not Available [facility] [address] [facility] [address], [place], [address], 09/06/2024 11:12:39 09/02/20 24 09/02/2024 COMPR EHENS LUCILLE METAB OLIC PANEL A/G ratio (calculated) 1.4 ratio 1.0-2. 7 Not Available [facility] [address] [facility] [address], [place], [address], 09/06/2024 11:12:39 09/02/2009/02/2024 COMPR EHENS LUCILLE METAB OLIC PANEL globulin (calculated) 2.8 gm/dL 1.5-3. 8 Not Available [facility] [address] [facility] [address], [place], [address], 09/06/2024 11:12:39 09/02/2009/02/2024 COMPR EHENS LUCILLE METAB OLIC PANEL BUN/creatini ne ratio (calculated) 27.1 ratio 8.0-20 .0 high Not Available [facility] [address] [facility] [address], [place], [address], 09/06/2024 11:12:39 09/02/20 24 09/02/2024 COMPR EHENS LUCILLE METAB OLIC PANEL serum hemolysis index NORMAL index normal Not Available [facility] [address] [facility] [address], [place], [address], 09/06/2024 11:12:39 09/02/2009/02/2024 FOLAT E, SERUM folate 5.3 NG/mL 20 REFER ENCE RANGE : Ruben l: > 3.0 ng/mL Inter media te: 2.2 - 3.0 ng/mL Defic ient: < 2.2 ng/mL Not Available [facility] [address] [facility] [address], [place], [address], 09/06/2024 11:12:40 09/02/2009/02/2024 LIPID PANEL W/ CALC. LDL cholesterol, total 144 mg/dL 100-19 9 Not Available [facility] [address] [facility] [address], [place], [address], 09/06/2024 11:12:40 09/02/20 24 09/02/2024 LIPID PANEL W/ CALC. LDL HDL cholesterol 64 mg/dL =>40 Not Available [facility] [address] [facility] [address], [place], [address], 09/06/2024 11:12:40 09/02/2009/02/2024 LIPID PANEL W/ CALC. LDL LDL cholesterol (calculated) 54 mg/dL 0-99 Not Available [facility] [address] [facility] [address], [place], [address], 09/06/2024 11:12:40 09/02/2009/02/2024 LIPID PANEL W/ CALC. LDL triglyceride s 132 mg/dL 50-149 Not Available [facility] [address] [facility] [address], [place], [address], 09/06/2024 11:12:40 09/02/20 24 09/02/2024 LIPID PANEL W/ CALC. LDL chol/HDL ratio (calculated) 2.25 ratio 0.00-5 .00 Not Available [facility] [address] [facility] [address], [place], [address], 09/06/2024 11:12:40 09/02/20 24 09/02/2024 LIPID PANEL W/ CALC. LDL VLDL cholesterol (calculated) 26 mg/dL 5-40 Not Available [facility] [address] [facility] [address], [place], [address], 09/06/2024 11:12:40 09/02/2009/02/2024 THYRO ID-ST IM. HORMO NE (TSH) thyroid-stim . hormone (TSH) 1.87 uIU/m L 0.27-4 .20 Not Available [facility] [address] [facility] [address], [place], [address], 09/06/2024 11:12:41 1009/02/2024 VITAM IN B12 vitamin B12 344 pg/mL 232-12 45 Not Available [facility] [address], [place], [address], 09/06/2024 11:12:41 09/02/2009/02/2024 CBC WITH AUTO- DIFFE RENTI AL WBC 7.6 10*3/ uL 3.4-10 .8 Not Available [facility] [address], [place], [address], 09/06/2024 11:12:42 09/02/2009/02/2024 CBC WITH AUTO- DIFFE RENTI AL RBC 4.87 10*6/ uL 3.80-5 .30 Not Available [facility] [address], [place], [address], 09/06/2024 11:12:42 09/02/2009/02/2024 CBC WITH AUTO- DIFFE RENTI AL HGB 11.4 g/dL 11.1-1 5.9 Not Available [facility] [address], [place], [address], 09/06/2024 11:12:42 09/02/2009/02/2024 CBC WITH AUTO- DIFFE RENTI AL HCT 38.2 % 34.0-4 6.6 Not Available [facility] [address], [place], [address], 09/06/2024 11:12:42 09/02/2009/02/2024 CBC WITH AUTO- DIFFE RENTI AL MCV 78 fL 79-97 low Not Available [facility] [address], [place], [address], 09/06/2024 11:12:42 09/02/20 24 09/02/2024 CBC WITH AUTO- DIFFE RENTI AL MCH 23.4 pg 26.6-3 3.0 low Not Available [facility] [address], [place], [address], 09/06/2024 11:12:42 09/02/2009/02/2024 CBC WITH AUTO- DIFFE RENTI AL MCHC 29.8 g/dL 31.5-3 5.7 low Not Available [facility] [address] [facility] [facility] [address], [place], [address], 09/06/2024 11:12:42 09/02/2009/02/2024 CBC WITH AUTO- DIFFE RENTI AL RDW 18.9 % 11.5-1 4.5 high Not Available [facility] [address] [facility] [address], [place], [address], 09/06/2024 11:12:42 09/02/2009/02/2024 CBC WITH AUTO- DIFFE RENTI AL platelets 308 10*3/ uL 150-40 0 Not Available [facility] [address] [facility] [address], [place], [address], 09/06/2024 11:12:42 09/02/2009/02/2024 CBC WITH AUTO- DIFFE RENTI AL MPV 12 fL 9-13 Not Available [facility] [address] [facility] [address], [place], [address], 09/06/2024 11:12:42 09/02/2009/02/2024 CBC WITH AUTO- DIFFE RENTI AL neutrophils 62.9 % 40.0-7 4.0 Not Available [facility] [address], [place], [address], 09/06/2024 11:12:42 09/02/2009/02/2024 CBC WITH AUTO- DIFFE RENTI AL absolute neutrophils 4.78 10*3/ uL 1.40-7 .00 Not Available [facility] [address] [facility] [address], [place], [address], 09/06/2024 11:12:42 09/02/2009/02/2024 CBC WITH AUTO- DIFFE RENTI AL lymphocytes 26.3 % 14.0-4 6.0 Not Available [facility] [address] [facility] [address], [place], [address], 09/06/2024 11:12:42 09/02/2009/02/2024 CBC WITH AUTO- DIFFE RENTI AL absolute lymphocytes 1.99 10*3/ uL 0.70-3 .10 Not Available [facility] [address] [facility] [address], [place], [address], 09/06/2024 11:12:42 09/02/2009/02/2024 CBC WITH AUTO- DIFFE RENTI AL monocytes 7.8 % 4.0-12 .0 Not Available [facility] [address] [facility] [address], [place], [address], 09/06/2024 11:12:42 09/02/2009/02/2024 CBC WITH AUTO- DIFFE RENTI AL absolute monocytes 0.59 10*3/ uL 0.10-0 .90 Not Available [facility] [address] [facility] [address], [place], [address], 09/06/2024 11:12:42 09/02/2009/02/2024 CBC WITH AUTO- DIFFE RENTI AL eosinophils 2.0 % 0.0-5. 0 Not Available [facility] [address] [facility] [address], [place], [address], 09/06/2024 11:12:42 09/02/2009/02/2024 CBC WITH AUTO- DIFFE RENTI AL absolute eosinophils 0.15 10*3/ uL 0.00-0 .40 Not Available [facility] [address] [facility] [address], [place], [address], 09/06/2024 11:12:42 09/02/2009/02/2024 CBC WITH AUTO- DIFFE RENTI AL basophils 0.7 % 0.0-3. 0 Not Available [facility] [address] [facility] [address], [place], [address], 09/06/2024 11:12:42 09/02/2009/02/2024 CBC WITH AUTO- DIFFE RENTI AL absolute basophils 0.05 10*3/ uL 0.00-0 .20 Not Available [facility] [address] [facility] [address], [place], [address], 09/06/2024 11:12:42 09/02/2009/02/2024 CBC WITH AUTO- DIFFE RENTI AL imm. gran. 0.3 % 0.0-2. 0 Not Available [facility] [address] [facility] [address], [place], [address], 09/06/2024 11:12:42 09/02/2009/02/2024 CBC WITH AUTO- DIFFE RENTI AL abs. imm. gran. 0.02 10*3/ uL 0.00-0 .10 Not Available [facility] [address] [facility] [address], [place], [address], 09/06/2024 11:12:42 09/02/2009/02/2024 ERYTH ROCYT E SEDIM ENTAT ION RATE (ESR) erythrocyte sedimentatio n rate (ESR) 24 mm/HR 0-40 Not Available [facility] [address] [facility] [address], [place], [address], 09/06/2024 11:12:42 09/02/2009/04/2024 AMYLA SE ISOEN ZYMES amylase 245 U/L 31-110 high Not Available [facility] [address] [facility] [address], [place], [address], 09/06/2024 11:12:43 09/02/2009/06/2024 AMYLA SE ISOEN ZYMES pancreatic amylase, S 194 U/L 13-72 high Not Available [facility] [address] [facility] [address], [place], [address], 09/06/2024 11:12:43 09/02/20 24 09/06/2024 AMYLA SE ISOEN ZYMES salivary amyl. calc. 51 U/L 11-83 normal Not Available [facility] [address] [facility] [address], [place], [address], 09/06/2024 11:12:43 09/02/2009/05/2024 HIV P24 ANTIG EN/AN TIBOD Y WITH REFLE X TO CONFI RMATI ON HIV Ab/P24 Ag screen NON REACTI VE non reacti ve normal HIV-1 /HIV- 2 antib odies and HIV-1 p24 antig en were NOT detec aniceto. There is no labor atory evide nce of HIV infec tion. HIV Negat lucille Not Available [facility] [address] [facility] [address], [place], [address], 09/06/2024 11:12:43 01/12/2001/11/2025 HEMOG LOBIN A1C hemoglobin A1C 6.7 % 4.8-5. 6 high RUBEN L RANGE BASED ON ROCÍO COL 2 (DCCT /NGSP ): Non-D iabet ic: < 5.7% Pre-D iabet es: 5.7 - 6.4% Diabe jeny: => 6.5% GLYCE DEIDRA CONTR OL: < 7.0% Not Available [facility] [address] [facility] [address], [place], [address], 01/12/2025 19:07:27 01/12/2001/11/2025 HEMOG LOBIN A1C estimated average glucose 147 Not Available [facility] [address] [facility] [address], [place], [address], 01/12/2025 19:07:27 01/12/20 25 01/11/2025 AMYLA SE amylase 184.0 U/L 31.0-1 24.0 high Not Available [facility] [address] [facility] [address], [place], [address], 01/12/2025 19:07:28 01/12/20 25 01/11/2025 COMPR EHENS LUCILLE METAB OLIC PANEL sodium 143 mmol/ L 134-14 4 Not Available [facility] [address] [facility] [address], [place], [address], 01/12/2025 19:07:28 01/12/20 25 01/11/2025 COMPR EHENS LUCILLE METAB OLIC PANEL potassium 4.8 mmol/ L 3.5-5. 2 Not Available [facility] [address] [facility] [address], [place], [address], 01/12/2025 19:07:28 01/12/20 25 01/11/2025 COMPR EHENS LUCILLE METAB OLIC PANEL chloride 105 mmol/ L 98-107 Not Available [facility] [address] [facility] [address], [place], [address], 01/12/2025 19:07:28 01/12/20 25 01/11/2025 COMPR EHENS LUCILLE METAB OLIC PANEL carbon dioxide (co2) 24.0 mmol/ L 18.0-2 9.0 Not Available [facility] [address] [facility] [address], [place], [address], 01/12/2025 19:07:28 01/12/20 25 01/11/2025 COMPR EHENS LUCILLE METAB OLIC PANEL glucose 117 mg/dL 65-99 high Ruben l Fasti n - 99 mg/dL Impai red Fasti n - 125 mg/dL Diagn ostic of Diabe jeny: => 126 mg/dL Ameri can Diabe jeny Assoc iatio n, 2007 Not Available [facility] [address] [facility] [address], [place], [address], 01/12/2025 19:07:28 01/12/20 25 01/11/2025 COMPR EHENS LUCILLE METAB OLIC PANEL urea nitrogen (BUN) 17 mg/dL 8-23 Not Available [facility] [address], [place], [address], 01/12/2025 19:07:28 01/12/20 25 01/11/2025 COMPR EHENS LUCILLE METAB OLIC PANEL creatinine 1.06 mg/dL 0.57-1 .00 high Not Available [facility] [address] [facility] [address], [place], [address], 01/12/2025 19:07:28 01/12/20 25 01/11/2025 COMPR EHENS LUCILLE METAB OLIC PANEL eGFR 59 mL/mi nute/ 1.73_ m2 >59 low MDRD Study Equat ion: The calcu lated GFR is NOT appli cable for pedia tric (< 18 years old) and > 70 year old patie nts and patie nts that are NOT of stead y state . Not Available [facility] [address] [facility] [address], [place], [address], 01/12/2025 19:07:28 01/12/20 25 01/11/2025 COMPR EHENS LUCILLE METAB OLIC PANEL calcium 9.5 mg/dL 8.7-10 .3 Not Available [facility] [address] [facility] [address], [place], [address], 01/12/2025 19:07:28 01/12/20 25 01/11/2025 COMPR EHENS LUCILLE METAB OLIC PANEL protein, total 7.3 gm/dL 6.4-8. 3 Not Available [facility] [address] [facility] [address], [place], [address], 01/12/2025 19:07:28 01/12/20 25 01/11/2025 COMPR EHENS LUCILLE METAB OLIC PANEL albumin 4.3 gm/dL 3.5-5. 2 Not Available [facility] [address] [facility] [address], [place], [address], 01/12/2025 19:07:28 01/12/20 25 01/11/2025 COMPR EHENS LUCILLE METAB OLIC PANEL bilirubin, total 0.30 mg/dL 0.00-1 .20 Not Available [address], [place], [address], 01/12/2025 19:07:28 01/12/20 25 01/11/2025 COMPR EHENS LUCILLE METAB OLIC PANEL alkaline phosphatase (ALP) 118 U/L 39-117 high Not Available [place] [address] [facility] [address], [place], [address], 01/12/2025 19:07:28 01/12/20 25 01/11/2025 COMPR EHENS LUCILLE METAB OLIC PANEL aspartate aminotransfe rase (AST) 16 U/L 0-32 Not Available [place] [address] [facility] [address], [place], [address], 01/12/2025 19:07:28 01/12/20 25 01/11/2025 COMPR EHENS LUCILLE METAB OLIC PANEL alanine aminotransfe rase (ALT) 8 U/L 0-33 Not Available [address], [place], [address], 01/12/2025 19:07:28 01/12/20 25 01/11/2025 COMPR EHENS LUCILLE METAB OLIC PANEL A/G ratio (calculated) 1.4 ratio 1.0-2. 7 Not Available [address], [place], [address], 01/12/2025 19:07:28 01/12/20 25 01/11/2025 COMPR EHENS LUCILLE METAB OLIC PANEL globulin (calculated) 3.0 gm/dL 1.5-3. 8 Not Available [address], [place], [address], 01/12/2025 19:07:28 01/12/20 25 01/11/2025 COMPR EHENS LUCILLE METAB OLIC PANEL BUN/creatini ne ratio (calculated) 16.0 ratio 8.0-20 .0 Not Available [facility] [address] [facility] [address], [place], [address], 01/12/2025 19:07:28 01/12/20 25 01/11/2025 COMPR EHENS LUCILLE METAB OLIC PANEL serum index hemolysis 25.0 index normal Not Available [facility] [address] [facility] [address], [place], [address], 01/12/2025 19:07:28 01/12/20 25 01/11/2025 LIPAS E lipase 466 U/L 0-59 high Not Available [facility] [address] [facility] [address], [place], [address], 01/12/2025 19:07:28 01/12/20 25 01/11/2025 CBC WITH AUTO- DIFFE RENTI AL WBC 6.3 10*3/ uL 3.4-10 .8 Not Available [facility] [address] [facility] [address], [place], [address], 01/12/2025 19:07:29 01/12/20 25 01/11/2025 CBC WITH AUTO- DIFFE RENTI AL RBC 4.92 10*6/ uL 3.80-5 .30 Not Available [facility] [address] [facility] [address], [place], [address], 01/12/2025 19:07:29 01/12/20 25 01/11/2025 CBC WITH AUTO- DIFFE RENTI AL HGB 12.5 g/dL 11.1-1 5.9 Not Available [facility] [address] [facility] [address], [place], [address], 01/12/2025 19:07:29 01/12/20 25 01/11/2025 CBC WITH AUTO- DIFFE RENTI AL HCT 41.5 % 34.0-4 6.6 Not Available [facility] [address], [place], [address], 01/12/2025 19:07:29 01/12/20 25 01/11/2025 CBC WITH AUTO- DIFFE RENTI AL MCV 84 fL 79-97 Not Available [facility] [address] [facility], [place], [address], 01/12/2025 19:07:29 01/12/20 25 01/11/2025 CBC WITH AUTO- DIFFE RENTI AL MCH 25.4 pg 26.6-3 3.0 low Not Available [facility] [address] [facility] [address], [place], [address], 01/12/2025 19:07:29 01/12/20 25 01/11/2025 CBC WITH AUTO- DIFFE RENTI AL MCHC 30.1 g/dL 31.5-3 5.7 low Not Available [facility] [address] [facility] [address], [place], [address], 01/12/2025 19:07:29 01/12/20 25 01/11/2025 CBC WITH AUTO- DIFFE RENTI AL RDW 18.2 % 11.5-1 4.5 high Not Available [facility] [address] [facility] [address], [place], [address], 01/12/2025 19:07:29 01/12/20 25 01/11/2025 CBC WITH AUTO- DIFFE RENTI AL platelets 286 10*3/ uL 150-40 0 Not Available [facility] [address] [facility] [address], [place], [address], 01/12/2025 19:07:29 01/12/20 25 01/11/2025 CBC WITH AUTO- DIFFE RENTI AL MPV 12 fL 9-13 Not Available [facility] [address] [facility] [address], [place], [address], 01/12/2025 19:07:29 01/12/20 25 01/11/2025 CBC WITH AUTO- DIFFE RENTI AL neutrophils 50.1 % 40.0-7 4.0 Not Available [facility] [address] [facility] [address], [place], [address], 01/12/2025 19:07:29 01/12/20 25 01/11/2025 CBC WITH AUTO- DIFFE RENTI AL absolute neutrophils 3.17 10*3/ uL 1.40-7 .00 Not Available [facility] [address] [facility] [address], [place], [address], 01/12/2025 19:07:29 01/12/20 25 01/11/2025 CBC WITH AUTO- DIFFE RENTI AL lymphocytes 35.5 % 14.0-4 6.0 Not Available [facility] [address] [facility] [address], [place], [address], 01/12/2025 19:07:29 01/12/20 25 01/11/2025 CBC WITH AUTO- DIFFE RENTI AL absolute lymphocytes 2.25 10*3/ uL 0.70-3 .10 Not Available [facility] [address] [facility] [address], [place], [address], 01/12/2025 19:07:29 01/12/20 25 01/11/2025 CBC WITH AUTO- DIFFE RENTI AL monocytes 12.3 % 4.0-12 .0 high Not Available [facility] [address] [facility] [address], [place], [address], 01/12/2025 19:07:29 01/12/20 25 01/11/2025 CBC WITH AUTO- DIFFE RENTI AL absolute monocytes 0.78 10*3/ uL 0.10-0 .90 Not Available [facility] [address] [facility] [address], [place], [address], 01/12/2025 19:07:29 01/12/20 25 01/11/2025 CBC WITH AUTO- DIFFE RENTI AL eosinophils 1.3 % 0.0-5. 0 Not Available [address], [place], [address], 01/12/2025 19:07:29 01/12/20 25 01/11/2025 CBC WITH AUTO- DIFFE RENTI AL absolute eosinophils 0.08 10*3/ uL 0.00-0 .40 Not Available [place] [address] [facility] [address], [place], [address], 01/12/2025 19:07:29 01/12/20 25 01/11/2025 CBC WITH AUTO- DIFFE RENTI AL basophils 0.6 % 0.0-3. 0 Not Available [address], [place], [address], 01/12/2025 19:07:29 01/12/20 25 01/11/2025 CBC WITH AUTO- DIFFE RENTI AL absolute basophils 0.04 10*3/ uL 0.00-0 .20 Not Available [address], [place], [address], 01/12/2025 19:07:29 01/12/20 25 01/11/2025 CBC WITH AUTO- DIFFE RENTI AL imm. gran. 0.2 % 0.0-2. 0 Not Available [address], [place], [address], 01/12/2025 19:07:29 01/12/20 25 01/11/2025 CBC WITH AUTO- DIFFE RENTI AL abs. imm. gran. 0.01 10*3/ uL 0.00-0 .10 Not Available [address], [place], [address], 01/12/2025 19:07:29 01/12/20 25 01/11/2025 urina lysis , dipst ick Appearance Cloudy Not Available [facility] [address] [facility] [address], [place], [address], 01/11/2025 09:49:21 01/12/20 25 01/11/2025 urina lysis , dipst ick Color Pale Yellow Not Available [facility] [address] [facility] [address], [place], [address], 01/11/2025 09:49:21 01/12/20 25 01/11/2025 urina lysis , dipst ick Glucose 2000+ Not Available [facility] [address] [facility] [address], [place], [address], 01/11/2025 09:49:21 01/12/20 25 01/11/2025 urina lysis , dipst ick Bilirubin Negati ve Not Available [facility] [address] [facility] [address], [place], [address], 01/11/2025 09:49:21 01/12/20 25 01/11/2025 urina lysis , dipst ick Ketone Negati ve Not Available [facility] [address] [facility] [address], [place], [address], 01/11/2025 09:49:21 01/12/20 25 01/11/2025 urina lysis , dipst ick Specific [place] 1.[address] [facility] [address] [facility] [address], [place], [address], 01/11/2025 09:49:21 01/12/20 25 01/11/2025 urina lysis , dipst ick Leukocytes Negati ve Not Available [employer] [address] [facility] [address], [place], [address], 01/11/2025 09:49:21 01/12/20 25 01/11/2025 urina lysis , dipst ick Nitrite negati ve Not Available [employer] [address] [facility] [address], [place], [address], 01/11/2025 09:49:21 01/12/20 25 01/11/2025 urina lysis , dipst ick Urobilinogen .2 Not Available [facility] [address] [facility] [address], [place], [address], 01/11/2025 09:49:21 01/12/20 25 01/11/2025 urina lysis , dipst ick Protein Trace Not Available [employer] [employer] [address] [facility] [address], [place], [address], 01/11/2025 09:49:21 01/12/20 25 01/11/2025 urina lysis , dipst ick pH 5.0 Not Available [employer] [address] [facility] [address], [place], [address], 01/11/2025 09:49:21 01/12/20 25 01/11/2025 urina lysis , dipst ick Blood Negati ve Not Available [employer] [address] [facility] [address], [place], [address], 01/11/2025 09:49:21 05/10/20 23 MAMMO , scree judy, tomos ynthe sis, bilat eral [facility] [address] [facility] [address] [place] [address] Orderi ng Provid er: ANA CRISTINA ANDREA This is a summar y report . The comple te report is availa ble in the patien t's medica l record . If you cannot access the medica l record , please contac t the sendin g organi antonia for a detail ed fax or copy. EXAMIN ATION: MG SCREEN ING W HILDA RUPA DIGI ACCESS ION: [id number] INDICA TIONS: Screen ing TECHNI QUE: Digita l full field CC and MLO screen ing mammog kiarra bilate rally to includ e 3-D Tomosy nthesi s techni que. This study was read with the assist ance of a zSoup er-aid ed detect ion system . HISTOR Y: No report ed person al or first degree family histor y of breast cancer . No report ed prior breast proced ure or curren t breast compla int. COMPAR ANAND: Multip le prior examin ations availa ble for compar anand dating back to 016, the most recent of 022, 03/15/20 21, and 01/15/20. TISSUE DENSIT Y: There are scatte red areas of fibrog landul ar densit y. FINDIN GS: Few scatte red benign round, rim, and vascul ar calcif icatio ns. No suspic ious microc alcifi cation or mass. No develo ping asymme try or jerri ectura l distor tion. No axilla ry adenop athy. IMPRES LOBO: No signif icant interv al change . No mammog raphic eviden ce of malign wang. RECOMM ENDATI ON: Routin e Screen ingBil ateral OVERAL L IMAGIN G ASSESS MENT: ACR BI-RAD S 2 - BENIGN FINDIN G(S). Ordere d By: ANA CRISTINA BEAL DA Electr onical ly Signed By: Pearl Haas on 023 4:09 PM Interp reted By: Pearl Haas, 023 4:[address], [address], 08/16/2023 13:18:12 02/26/20 24 02/27/2024 elect berlin earl am No observ ation record ed. [facility], [facility] [address], [place], [address], 09/02/2024 09:27:40 02/26/20 24 02/27/2024 , echo ardio gram No observ ation record ed. [facility], [facility] [address], [place], [address], 09/02/2024 09:27:40 02/26/20 elect rocar diogr am No observ ation record ed. [facility], [facility] [address], [place], [address], 09/02/2024 09:27:40 02/27/20 24 02/26/2024 elect rocar diogr am No observ ation record ed. [facility], [facility] [address], [place], [address], 09/02/2024 09:27:40 Result Notes None recorded. 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 026235413 Active 2020 Not Available [facility] 09:37:20 Osteoarthr itis 998454128 Active 2020 Not Available [facility] 09:37:20 Benign hypertensi on 94988160 Active 2020 Not Available [facility] 09:37:20 Mixed hyperlipid emia 618486825 Active 2020 Not Available [facility] 09:37:20 Mixed anxiety and depressive disorder 684255637 Active 2020 Not Available [facility] 09:37:20 Body mass index 30+ - obesity 890480753 Active 2020 Not Available [facility] 1 09:37:20 Chronic constipati on 109731012 Active 2020 Not Available [facility] 1 09:37:20 Menopause Active 2020 Not Available [facility] 1 09:37:19 Gastroesop hageal reflux disease without esophagiti s 284789918 Active 2020 Not Available [facility] 1 09:37:20 Primary fibromyalg ia syndrome 02949169 Active 2020 Not Available [facility] 1 09:37:20 Family history of aneurysm of blood vessel of brain 3992546210090 9103 Active 2020 Not Available [facility] 1 09:37:20 Diabetic peripheral neuropathy 438266000 Active 2020 Not Available [facility] 1 09:37:20 Right dominant coronary system 612236859 Active 2020 on cath 12/2017 Not Available [facility] 1 09:37:20 Coronary arterioscl erosis 33748204 Active 2020 mild on cath 12/2017 Not Available [facility] 1 09:37:20 Serum creatinine above reference range 008704439 Active 2020 Not Available [facility] 1 09:37:20 Hyperkalem ia 91741015 Active 2020 Ana Cristina Whittington MD [address], [place], [address] , [facility] 1 20:02:56 Serum amylase above reference range 372030145 Active 2020 Ana Cristina Whittington MD [address], [place], [address] , [facility] 1 20:02:58 Arthritis of hand 520665891 Active 2020 Ana Cristina Whittington MD [address], [place], [address] , [facility] 1 10:07:08 Long-term drug therapy Active 2020 Ana Cristina Whittington MD [address], [place], [address] , [facility] 1 10:20:50 Anemia 526474603 Active 2021 Ana Cristina Whittington MD [address], [place], [address] , [facility] 2 20:42:22 Vitamin B12 deficiency (non anemic) 61566559 Active 2021 Ana Cristina Whittington MD [address], [place], [address] , [facility] 2 17:47:29 Uncontroll ed type 2 diabetes mellitus 946425974 Active 2022 Ana Cristina Whittington MD [address], [place], [address] , [facility] 3 21:24:56 History of colectomy 997898014 Active 2023 Ana Cristina Whittington MD [address], [place], [address] , [facility] 4 16:55:12 Problem Notes None recorded. Procedures Surgical History Date Name Laterality Status Provider Name and Address Organization Details Recorded Time 01/12/20 25 Diabetic Foot Exam completed Ana Cristina Whittington MD [address], [place], [address], [facility] 01/11/2025 09:55:55 09/02/20 24 Diabetic Foot Exam completed Ana Cristina Whittington MD [address], [place], [address], [facility] 09/02/2024 09:40:11 02/26/20 24 Diabetic Foot Exam completed Ana Cristina Whittington MD [address], [place], [address], [facility] 02/26/2024 16:59:35 08/16/20 23 Diabetic Foot Exam completed Ana Cristina Whittington MD [address], [place], [address], [facility] 08/16/2023 13:29:39 06/27/20 23 Cholecystectomy completed Ana Cristina Whittington MD [address], [place], [address], [facility] 08/16/2023 13:20:41 04/22/20 23 Diabetic Foot Exam completed Ana Cristina Whittington MD [address], [place], [address], [facility] 04/22/2023 12:34:06 12/31/19 23 Diabetic Foot Exam completed Ana Cristina Whittington MD [address], [place], [address], [facility] 12/31/2022 09:57:03 09/03/20 22 Diabetic Foot Exam completed Ana rCistina Whittington MD [address], [place], [address], [facility] 09/03/2022 16:27:56 05/11/20 Diabetic Foot Exam completed Ana Cristina Whittington MD [address], [place], [address], [facility] 05/11/2022 10:39:14 01/30/20 Diabetic Foot Exam completed Ana Cristina Whittington MD [address], [place], [address], [facility] 01/29/2022 10:34:10 11/01/20 21 Diabetic Foot Exam completed Ana Cristina Whittington MD [address], [place], [address], [facility] 11/01/2021 10:04:31 08/02/20 Diabetic Foot Exam completed Ana Cristina Whittington MD [address], [place], [address], [facility] 08/02/2021 10:51:31 06/18/20 21 Diabetic Foot Exam completed Ana Cristina Whittington MD [address], [place], [address], [place] [facility] 04/28/2021 10:44:23 01/27/20 21 Diabetic Foot Exam completed Ana Cristina Whittington MD [address], [place], [address], [place] [facility] 01/26/2021 11:24:07 01/10/20 20 Date of Last Pap Smear completed SENG HINKLE [facility] 01/26/2021 10:23:20 01/10/20 20 Date of Last Mammogram completed SENG HINKLE [facility] 01/26/2021 10:23:25 11/11/19 13 partial resection of colon completed Ana Cristina Whittington MD [address], [place], [address], [place] [facility] 01/26/2021 11:17:55 Imaging Results Imaging Date Name Status LastModified by Organization Details LastModified Time 05/10/2023 MAMMO, screening, tomosynthesis, bilateral completed [address], [address], 08/16/2023 13:18:12 02/27/2024 electrocardiogram completed [facility] [employer], [facility] [address], [place], [address], 09/02/2024 09:27:40 02/27/2024 US, echocardiogram completed [facility], [facility] [address], [place], [address], 09/02/2024 09:27:40 02/26/2024 electrocardiogram completed [facility] [employer] [facility], [facility] [address], [place], [address], 09/02/2024 09:27:40 02/26/2024 electrocardiogram [facility], [facility] [address], [place], [address], 09/02/2024 09:27:40 Procedure Notes None recorded. Medical Equipment None Reported. Allergies Allergen ID Allergen Name Allergen Category Reaction Reaction Severity Criticality Documentation Date Start Date Code Code System Note Provider Name and Address Organization Details Recorded Time 24147 gabapenti n medicatio n other Not available Not available 08/02/2021 51912 RxNorm depre ssion with SI Ana Cristina Whittington MD [address], [place], [address], [facility] 1 10:47:31 18537 Ozempic medicatio n other Not available Not available 01/29/2022 07 RxNorm pancr eatit is Ana Cristina Whittington MD [address], [place], [address], [facility] 2 10:34:58 9661 Product containin g penicilli n (product) medicatio n rash Not available Not available 01/26/2021 09819 8001 SNOMED Ana Cristina Whittington MD [address], [place], [address], [facility] 1 10:54:09 9662 hydrocodo ne Not available nausea Not available Not available 01/26/2021 5489 RxNorm Ana Cristina Whittington MD [address], [place], [address], [facility] 1 10:54:23 9950 pregabali n medicatio n abdominal pain diarrhea dizziness nausea Not available Not available Not available Not available Not available 06/21/2021 29863 2 RxNorm Lizzy Leatherwo od null, [facility] 1 11:47:45 Medications Name Sig Start Date Stop Date Status Note LastModified by Organization Details LastModified Time losartan 50 mg tablet TAKE 1 TABLET DAILY IN THE MORNING active Not Available Not Available No t Available atorvastati n 40 mg tablet TAKE 1 TABLET DAILY AT BEDTIME active Not Available Not Available No t Available methocarbam ol 500 mg tablet TAKE 1 TABLET BY MOUTH THREE TIMES A DAY NEEDED FOR MUSCLE SPASM active Not Available Not Available No t Available atorvastati n 20 mg tablet TAKE 1 TABLET DAILY 04/24 completed Not Available Not Available Not Available clindamycin HCl 300 mg capsule TAKE 1 CAPSULE BY MOUTH THREE TIMES A DAY FOR 10 DAYS 05/11 completed Not Available Not Available Not Available benzonatate 200 mg capsule TAKE 1 CAPSULE BY MOUTH THREE TIMES A DAY FOR 10 DAYS 01/11 completed Not Available Not Available Not Available FreeStyle Lancets 28 gauge active Not Available Not Available Not Available ondansetron HCl 4 mg tablet TAKE 1 TABLET (4 MG TOTAL) BY MOUTH 3 (THREE) TIMES A DAY NEEDED FOR NAUSEA OR VOMITING 01/11 completed Not Available Not Available Not Available Ferrex 150 mg iron capsule Take 1 capsule every other day by oral route. 2022 active Not Available Not Available Not Avai lable metronidazo le 500 mg tablet TAKE 1 TABLET BY MOUTH EVERY 8 HOURS 01/11 completed Not Available Not Available Not Available ciprofloxac in 500 mg tablet TAKE 1 TABLET BY MOUTH EVERY 12 HOURS 03/22 completed Not Available Not Available Not Available tramadol 50 mg tablet TAKE 1 TABLET BY MOUTH EVERY 6 HOURS NEEDED FOR PAIN 08/16 completed Not Available Not Available Not Available triamcinolo ne acetonide 0.1 % topical cream PLEASE SEE ATTACHED FOR DETAILED DIRECTION S active Not Available Not Available No t Available spironolact one 25 mg tablet 09/10 completed Not Available Not Available Not Available oxycodone-a cetaminophe n 5 mg-325 mg tablet TAKE 1 TABLET BY MOUTH EVERY 4 HOURS NEEDED FOR PAIN 01/29 completed Not Available Not Available Not Available prednisolon e acetate 1 % eye drops,suspe nsion 09/02 completed Not Available Not Available Not Available lorazepam 0.5 mg tablet 1 tab Po BID PRN 11/01 completed Not Available Not Available Not Available hydrocodone 7.5 mg-acetamin ophen 325 mg tablet TAKE 1 TABLET BY MOUTH EVERY 6 HOURS NEEDED FOR PAIN 08/16 completed Not Available Not Available Not Available metformin 1,000 mg tablet TAKE 1 TABLET TWICE A DAY 08/16 completed Not Available Not Available Not Available tobramycin 0.3 % eye drops 01/11 completed Not Available Not Available Not Available buspirone 10 mg tablet TAKE 1 TABLET THREE TIMES A DAY NEEDED active Not Available Not Available No t Available clotrimazol e-betametha sone 1 %-0.05 % topical cream APPLY TO THE AFFECTED AND SURROUNDI NG AREAS OF SKIN TOPICALLY TWICE A DAY IN THE MORNING AND IN THE EVENING FOR 2 WEEKS 08/16 completed Not Available Not Available Not Available prednisone 50 mg tablet TAKE 1 TABLET BY MOUTH EVERY DAY 01/11 completed Not Available Not Available Not Available losartan 25 mg tablet TAKE 1 TABLET BY MOUTH EVERY DAY 08/02 completed Not Available Not Available Not Available omeprazole 20 mg capsule,del ayed release TAKE 1 CAPSULE EVERY MORNING active Not Available Not Available No t Available cyanocobala min (vit B-12) 1,[address] 1 tablet every day by sublingua l route. 2021 active Not Available Not Available Not Avai lable levofloxaci n 500 mg tablet TAKE 1 TABLET BY MOUTH EVERY DAY FOR 10 DAYS 01/11 completed Not Available Not Available Not Available estradiol 0.01% (0.1 mg/gram) vaginal cream active Not Available Not Available Not Available Enteric Coated Aspirin 81 mg tablet,thania yed release 1 tab PO QAM 2020 active Not Available Not Available Not Avai lable albuterol sulfate HFA 90 mcg/actuati on aerosol inhaler INHALE 1 TO 2 PUFFS BY MOUTH EVERY 4-6 HOURS NEEDED FOR WHEEZING FOR 10 DAYS active Not Available Not Available No t Available Tylenol Extra Strength 500 mg tablet Take 1 tablet every 8 hours by oral route. 2021 active Not Available Not Available Not Avai lable ezetimibe 10 mg tablet Take 1 tablet every day by oral route. 01/30 completed Not Available Not Available Not Available cyclobenzap rine 5 mg tablet TAKE 1 TABLET DAILY NEEDED active Not Available Not Available No t Available nitrofurant oin monohydrate /macrocryst als 100 mg capsule TAKE 1 CAPSULE BY MOUTH EVERY 12 HOURS 05/11 completed Not Available Not Available Not Available duloxetine 60 mg capsule,del ayed release TAKE 1 CAPSULE DAILY active Not Available Not Available No t Available pregabalin 100 mg capsule TAKE 1 CAPSULE THREE TIMES A DAY 2024 active Not Available Not Available Not Avai lable Lyrica 75 mg capsule Take 1 capsule twice a day by oral route for 90 days. 11/01 completed Not Available Not Available Not Available Levemir U-100 Insulin 100 unit/mL subcutaneou s solution INJECT 15 UNITS UNDER THE SKIN NIGHTLY 09/06 completed Not Available Not Available Not Available Levemir FlexPen 100 unit/mL (3 mL) solution subcutaneou s insulin pen Inject 35 units every day by subcutane ous route in the morning. 01/11 completed Not Available Not Available Not Available BD Ultra-Fine Short Pen Needle 31 gauge x 5/16 USE TO INJECT 1-4 TIMES DAILY DIRECTED. active Not Available Not Available No t Available FreeStyle Lite Meter kit CHECK BLOOD SUGAR TWICE DAILY active Not Available Not Available No t Available FreeStyle Lite Strips BID active Not Available Not Available Not Available Lantus Solostar U-100 Insulin 100 unit/mL (3 mL) subcutaneou s pen 28 U QAM active Not Available Not Available Not Available diclofenac 1 % topical gel APPLY 2 GRAMS TO THE AFFECTED AREA(S) TOPICALLY FOUR TIMES A DAY active Not Available Not Available No t Available Tradjenta 5 mg tablet TAKE 1 TABLET DAILY 08/16 completed Not Available Not Available Not Available Farxiga 10 mg tablet Take 1 tablet every day by oral route in the morning. 01/31 completed Not Available Not Available Not Available Farxiga 5 mg tablet Take 1 tablet every day by oral route in the morning. 01/30 completed Not Available Not Available Not Available Jardiance 25 mg tablet TAKE 1 TABLET DAILY IN THE MORNING 2024 active Not Available Not Available Not Avai lable melatonin ER 5 mg tablet,imme diate and extended release Take 1 tablet every day by oral route at bedtime. 2020 active Not Available Not Available Not Avai lable Ozempic 1 mg/dose (2 mg/1.5 mL) subcutaneou s pen injector Inject 1 mg every week by subcutane ous route 08/02 completed Not Available Not Available Not Available Ozempic 0.25 mg or 0.5 mg (2 mg/1.5 mL) subcutaneou s pen injector Inject 0.5 mg every week by subcutane ous route for 90 days. 11/01 completed Not Available Not Available Not Available Nexlizet 180 mg-10 mg tablet 09/03 completed Not Available Not Available Not Available Ozempic 1 mg/dose (4 mg/3 mL) subcutaneou s pen injector INJECT 1 MG UNDER THE SKIN EVERY WEEK 08/02 completed Not Available Not Available Not Available Mounjaro 7.5 mg/0.5 mL subcutaneou s pen injector active Not Available Not Available Not Available Mounjaro 5 mg/0.5 mL subcutaneou s pen injector Inject 5 mg by subcutane ous route. 01/11 completed Not Available Not Available Not Available Mounjaro 2.5 mg/0.5 mL subcutaneou s pen injector Inject 2.5 mg every week by subcutane ous route. 05/11 completed Not Available Not Available Not Available Vitals Date Recorded Body height Body temperature Body mass index (BMI) Body weight Respiratory rate Heart rate Systolic blood pressure Diastolic blood pressure Provider Name and Address Organization Details Last Updated DateTime 3 165.1 cm 97.8 [degF] 36.6 kg/m2 27049.3 2 g 16 /min 83 /min 131 mm[Hg] 78 mm[Hg] Nikki Lagos [facility] 3 12:08:49 Date Recorded Body height Body temperature Body mass index (BMI) Body weight Respiratory rate Heart rate Provider Name and Address Organization Details Last Updated DateTime 3 165.1 cm 98.7 [degF] 37.8 kg/m2 758591. 47 g 16 /min 82 /min Nikki Lagos [facility] 3 13:05:38 Date Recorded Systolic blood pressure Diastolic blood pressure Provider Name and Address Organization Details Last Updated DateTime 08/16/2023 133 mm[Hg] 81 mm[Hg] Ana Cristina Whittington MD [address], [place], [address], [facility] 08/16/2023 13:30:22 Date Recorded Body height Heart rate Respiratory rate Body temperature Body mass index (BMI) Body weight Systolic blood pressure Diastolic blood pressure Provider Name and Address Organization Details Last Updated DateTime 4 165.1 cm 94 /min 16 /min 97.8 [degF] 36.4 kg/m2 74390.7 3 g 118 mm[Hg] 75 mm[Hg] Joey Galeano [facility] 4 15:55:39 Date Recorded Body height Body mass index (BMI) Body weight Body temperature Heart rate Respiratory rate Systolic blood pressure Diastolic blood pressure Provider Name and Address Organization Details Last Updated DateTime 4 165.1 cm 35.8 kg/m2 31240.3 6 g 97.2 [degF] 84 /min 16 /min 135 mm[Hg] 81 mm[Hg] Nikki Lagos [facility] 4 09:09:55 Date Recorded Body height Body temperature Body mass index (BMI) Body weight Respiratory rate Heart rate Provider Name and Address Organization Details Last Updated DateTime 5 165.1 cm 96.3 [degF] 35.1 kg/m2 12583.9 9 g 16 /min 84 /min Nikki Lagos [facility] 5 09:23:15 Date Recorded Systolic blood pressure Diastolic blood pressure Provider Name and Address Organization Details Last Updated DateTime 01/11/2025 133 mm[Hg] 79 mm[Hg] Ana Cristina Whittington MD [address], [place], [address] 01/11/2025 09:48:35 Social History Question Answer Notes LastModified by Organizat ion Details LastModified Time Tobacco Smoking Status Never Smoker SENG rouse, [facility] 01/26/2021 10:22:50 What Is Your Level Of Alcohol Consumption? None [email or web address] Information not available 01/26/2021 What Is Your Level Of Caffeine Consumption? Moderate Information not available 09/07/2021 Are There Any Guns Present In Your Home? No Information not available 09/07/2021 Marital Status Informatio n not available 09/07/2021 What Was The Date Of Your Most Recent Tobacco Screening? 01/29/2022 Information not available 01/29/2022 Performs Monthly Self-breast Exam? Yes Information not available 09/07/2021 Seat Belts Used Routinely Yes Information not available 09/07/2021 Smoke Alarm In Home Yes Information not available 09/07/2021 Do You Use Sunscreen Routinely? No Information not available 09/07/2021 Have You Used IV Drugs? No Information not available 09/07/2021 Sex: Unknown Functional Status Question Answer Note LastModified by Organizat ion Details LastModified Time Are you able to care for yourself? Yes Information not available 09/07/2021 What is your exercise level? Occasional Information not available 09/07/2021 Mental Status None recorded. Family History Relationship Description Onset Age of this Age Resolved Age Notes LastModified by Organization Details LastModified Time Mother Ruptured cerebral aneurysm 65 [email or web address] Not available 01/2025 08:57:34 Mother Diabetes mellitus [email or web address] Not available 2020 11:17:03 Father Benign hypertension [email or web address] Not available 0 01/11/2025 08:57:35 Medical History No medical history recorded. Gynecological History Statement/Question Response Date of Last Pap Smear 01/10/2020 Date of Last Mammogram 01/10/2020 Obstetrics History GPAL:G 0 P 0 0 0 0 Immunizations Vaccine Type Date Status Note Provider Nam e and Address Organization Details Recorded Time Td(adult) unspecified formulation 9 completed Not Available [facility] 11/06/2022 10:28:57 SARS-COV-2 (COVID-19) vaccine, UNSPECIFIED 1 completed Not Available [facility] 11/06/2022 10:28:57 Influenza, split virus, quadrivalent, preservative 0 completed Not Available [facility] 11/06/2022 10:28:57 Pneumococcal conjugate PCV 13 3 completed Not Available [facility] 11/06/2022 10:28:57 SARS-COV-2 (COVID-19) vaccine, UNSPECIFIED 1 completed Not Available [facility] 11/06/2022 10:28:57 zoster recombinant 1 completed Not Available [facility] 11/06/2022 10:28:57 Influenza, split virus, quadrivalent, PF 1 completed Not Available [facility] 11/06/2022 10:28:57 zoster recombinant 1 completed Not Available [facility] 11/06/2022 10:28:57 COVID-19, mRNA, LNP-S, PF, 30 mcg/0.3 mL dose 1 completed Not Available [facility] 11/06/2022 10:28:57 RSV, recombinant, protein subunit RSVpreF, adjuvant reconstituted, 0.5 mL, PF 4 completed Ana Cristina Whittington MD [address], [place], [address], [facility] 08/10/2024 19:54:14 Influenza, split virus, trivalent, PF 4 completed Ana Cristina Whittington MD [address], [place], [address], [facility] 08/10/2024 19:54:14 Past Encounters Encounter ID Performer Location Encounter Start Date Encounter Closed Date Diagnosis/Indication Diagnosis SNOMED-CT Code Diagnosis ICD10 Code Diagnosis Note [id number] Ana Cristina Whittington MD [facility], [facility] [address] [place] [address] 01/26/2021 09:51:01 01/26/2021 11:34:24 Allergy to penicillin 41702191 Z88.0 education Adult [facility] th examination 248267159 Z00.01 Type 2 toña betes mellitus without complication 641534589 E11.9 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 0 Gastroesop hageal reflux disease without esophagitis 577085133 K21.9 Long-term drug therapy 035002867 Z79.899 metformin , lorazepam Family his tory of aneurysm of blood vessel of brain 1228267039 3087960 Z82.49 mother Active or passive immunization 659310511 Z23 Viral screening 24908570 4 Z11.59 Diabetic p eripheral neuropathy 914933651 E11.40 education Syncope and collapse 309 828551 R55 No driving [id number] Ana Cristina Whittington MD [employer] [employer] [address] [place] [address] 04/28/2021 10:23:56 04/28/2021 10:57:25 Benign hypertension 64684466 I10 last EKG 01/30/21 Body mass index 30+ - obesity 783901104 Z68.36 educationl ost 6 LBs on diet and exercise Type 2 toña betes mellitus without complication 116199578 E11.9 Mixed hyperlipidemia 267 918162 E78.2 last LDL was above goal , increased atorva , recheck Screening mammography 24 125910 Z12.31 last mammogram 03/15/21 Screening for malignant neoplasm of cervix 375782954 Z12.4 per pt had PAP 01/2021 Screening for malignant neoplasm of colon 331281252 Z12.11 per pt had C scope 2019 , good for 5 years Active or passive immunization 199333732 Z23 Osteoarthritis 562855569 M19.90 Dysplastic nevus of skin 527709004 D22.9 [id number] Ana Cristina Whittington MD [employer] [address] [place] [address] 08/02/2021 09:57:51 08/02/2021 11:05:14 Benign hypertension 53811524 I10 last EKG 01/30/21inc rease losartan Body mass index 30+ - obesity 851791900 Z68.36 educationl ost 5 LBs on diet and exercise Chronic constipation 236 870743 K59.09 stable Coronary arteriosclerosis 35349568 I25.10 No CP Diabetic p eripheral neuropathy 910384254 E11.40 educationc ould not tolerate generic 2ry to N/V Mixed hyperlipidemia 267 509458 E78.2 last LDL 04/28/21 Osteoarthritis 018866179 M19.90 Type 2 toña betes mellitus without complication 582847977 E11.9 decreased Ozempic to 0.5 Q week 2ry to Nausea Gastroesop hageal reflux disease without esophagitis 890804141 K21.9 had 2-3 trials of stopping Screening mammography 24 038754 Z12.31 last mammogram 03/15/21 Screening for malignant neoplasm of cervix 041341468 Z12.4 per pt had PAP 01/2021 Screening for malignant neoplasm of colon 937418927 Z12.11 per pt had C scope 2019 , good for 5 years Active or passive immunization 097131127 Z23 up to date Low back pain 835452895 M54.5 [id number] Ana Cristina Whittington MD [facility] [address] [place] [address] 11/01/2021 09:22:16 11/01/2021 10:19:10 Persistent insomnia 382153490 G47.09 Diabetic p eripheral neuropathy 523126462 E11.40 education Mixed anxi ety and depressive disorder 571202075 F41.8 just pass away 12/26/20 Type 2 toña betes mellitus without complication 622650272 E11.9 decreased Ozempic to 0.5 Q week 2ry to Nausea Mixed hyperlipidemia 267 192857 E78.2 last LDL 04/28/21 Serum amyl ase above reference range 047044361 R74.8 Screening mammography 24 581009 Z12.31 last mammogram 03/15/21 Screening for malignant neoplasm of cervix 485727787 Z12.4 per pt had PAP 01/2021 Screening for malignant neoplasm of colon 052004807 Z12.11 per pt had C scope 2019 , good for 5 years Active or passive immunization 393717938 Z23 up to date Arthritis of hand 170660 005 M13.849 [id number] Ana Cristina Whittington MD [employer] [employer] [address] [place] [address] 01/29/2022 10:01:21 01/29/2022 10:48:47 Adult health examination 994594509 Z00.01 Benign hypertension 1072 5009 I10 last EKG 08/09/21 Body mass index 30+ - obesity 680143616 Z68.36 educationo n diet and exercise Arthritis of hand 381625 005 M13.849 S/P surg on lt hand 12/28/21 Chronic constipation 236 195161 K59.09 stable Coronary arteriosclerosis 59006546 I25.10 No CP Diabetic p eripheral neuropathy 541267575 E11.40 education Gastroesop hageal reflux disease without esophagitis 446524839 K21.9 had 2-3 trials of stoppingGI increase omeprazole to BIDhad EGD 12/11/21 Hyperkalemia 38638196 E8 7.5 recheck Long-term drug therapy 940902528 Z79.899 metformin , lorazepam Menopause 150672507 Z78. 0 Mixed anxi ety and depressive disorder 393464367 F41.8 just pass away 12/26/20 Mixed hyperlipidemia 267 843542 E78.2 last LDL 04/28/21 Osteoarthritis 166476515 M19.90 stable Primary fi bromyalgia syndrome 21264246 M79.7 stable Type 2 toña betes mellitus without complication 057374142 E11.9 could not get Ozempic to 0.5 Q week 2ry to pancreatit is Screening mammography 24 049581 Z12.31 last mammogram 03/15/21 Screening for malignant neoplasm of cervix 180334081 Z12.4 per pt had PAP 01/2021 Screening for malignant neoplasm of colon 475504200 Z12.11 per pt had C scope 2019 , good for 5 years Active or passive immunization 326800154 Z23 up to date 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 189371663 E11.3299 F/U with ophth [id number] Ana Cristina Whittington MD [employer] [employer] [address] [place] [address] 05/11/2022 09:58:09 05/11/2022 10:52:43 Benign hypertension 24014171 I10 last EKG 08/09/21 Body mass index 30+ - obesity 467303267 Z68.36 educationo n diet and exercise Mixed hyperlipidemia 267 455922 E78.2 last LDL 01/29/22 Type 2 toña betes mellitus without complication 210028469 E11.9 could not get Ozempic to 0.5 Q week 2ry to pancreatit isseen ophth 03/2022 Screening for malignant neoplasm of cervix 897337260 Z12.4 per pt had PAP 03/27/22 Screening mammography 24 923939 Z12.31 last mammogram 04/30/22 Screening for malignant neoplasm of colon 482766539 Z12.11 per pt had C scope 2019 , good for 5 years Active or passive immunization 158464608 Z23 up to date Osteoarthritis 751580844 M19.90 stable [id number] Ana Cristina Whittington MD [employer], [employer] [address] [place] [address] 09/03/2022 15:44:27 09/03/2022 16:48:55 Benign hypertension 45798244 I10 last EKG 08/09/21 Body mass index 30+ - obesity 071871970 Z68.36 educationo n diet and exercise Coronary arteriosclerosis 55661492 I25.10 No CP Long-term drug therapy 244070207 Z79.899 metformin , lorazepam Mixed hyperlipidemia 267 597356 E78.2 last LDL 05/11/22 Type 2 toña betes mellitus without complication 976178118 E11.9 could not get Ozempic to 0.5 Q week 2ry to pancreatit isseen ophth 03/2022 Screening mammography 24 391127 Z12.31 last mammogram 04/30/22 Screening for malignant neoplasm of cervix 601867020 Z12.4 per pt had PAP 03/27/22 Screening for malignant neoplasm of colon 182041510 Z12.11 per pt had C scope 2019 , good for 5 years Active or passive immunization 881313196 Z23 up to date Mixed anxi ety and depressive disorder 316851435 F41.8 just pass away 12/26/20 [id number] Ana Cristina Whittington MD [employer], [employer] [address] [place] [address] 10/11/2022 16:47:41 10/11/2022 18:12:30 Type 2 diabetes mellitus without complication 182180590 E11.9 could not get Ozempic to 0.5 Q week 2ry to pancreatit isseen ophth 03/2022 Vitamin B1 2 deficiency (non anemic) 03525111 E53.8 Anemia 413354794 D64.9 Long-term drug therapy 486304810 Z79.899 metformin , lorazepam Diabetic p eripheral neuropathy 749372356 E11.40 education Benign hypertension 1072 5009 I10 last EKG 09/03/22 Mixed anxi ety and depressive disorder 933455163 F41.8 pass away 12/26/20No SI , No HI Mixed hyperlipidemia 267 566054 E78.2 last LDL 05/11/22 Screening for malignant neoplasm of colon 449323401 Z12.11 per pt had C scope 2019 , good for 5 years Active or passive immunization 302791760 Z23 up to date Screening mammography 24 632820 Z12.31 last mammogram 04/30/22 Lumbago with sciatica 20 4693509 M54.42 Pain of le ft knee joint 5996055639 78212 M25.562 [id number] Ana Cristina Whittington MD [facility], [facility] [address] [place] [address] 12/31/2022 09:02:51 12/31/2022 10:06:21 Benign hypertension 61644025 I10 last EKG 09/03/22 Body mass index 30+ - obesity 597771100 Z68.36 educationo n diet and exercise Chronic constipation 236 976811 K59.09 stable Coronary arteriosclerosis 95863805 I25.10 No CP Diabetic p eripheral neuropathy 425442741 E11.40 education Long-term drug therapy 264712045 Z79.899 metformin , lorazepaml ast drug screen 08/2022 Mixed anxi ety and depressive disorder 105809940 F41.8 pass away 12/26/20No SI , No HI Mixed hyperlipidemia 267 468479 E78.2 last LDL 05/11/22 Type 2 toña betes mellitus without complication 722075620 E11.9 could not get Ozempic to 0.5 Q week 2ry to pancreatit isseen ophth 11/2022 Vitamin B1 2 deficiency (non anemic) 93080565 E53.8 recheck Screening mammography 24 156303 Z12.31 last mammogram 04/30/22 Screening for malignant neoplasm of cervix 383510792 Z12.4 per pt had PAP 03/27/22 Screening for malignant neoplasm of colon 286736432 Z12.11 per pt had C scope 2019 , good for 5 years Active or passive immunization 331323676 Z23 up to date Gastroesop hageal reflux disease without esophagitis 584233733 K21.9 had 2-3 trials of stoppingGI increase omeprazole to BIDhad EGD 12/11/21 [id number] Ana Cristina Whittington MD [employer], [employer] [address] [place] [address] 04/22/2023 11:22:51 04/22/2023 12:58:40 Adult health examination 426791498 Z00.01 Benign hypertension 1072 5009 I10 last EKG 09/03/22 Arthritis of hand 910198 005 M13.849 S/P surg on lt hand 12/28/21 Anemia 001480083 D64.9 Body mass index 30+ - obesity 209640498 Z68.36 educationo n diet and exercise Chronic constipation 236 319581 K59.09 stable Coronary arteriosclerosis 76990003 I25.10 No CP Diabetic p eripheral neuropathy 963255893 E11.40 education Family his tory of aneurysm of blood vessel of brain 2428479315 4891377 Z82.49 mother Gastroesop hageal reflux disease without esophagitis 658844573 K21.9 had 2-3 trials of stoppingGI increase omeprazole to BIDhad EGD 12/11/21 Hyperkalemia 73115585 E8 7.5 recheck Long-term drug therapy 967774953 Z79.899 metformin , lorazepaml ast drug screen 08/2022 Menopause 294298705 Z78. 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 919773176 E11.3299 F/U with ophth Osteoarthritis 710844122 M19.90 stable Primary fi bromyalgia syndrome 37287743 M79.7 stable Right mari nant coronary system 950444938 Q24.5 Serum amyl ase above reference range 407122408 R74.8 Serum crea tinine above reference range 747904092 R79.89 recheck Type 2 toña betes mellitus without complication 588876376 E11.9 could not get Ozempic to 0.5 Q week 2ry to pancreatit isseen ophth 11/2022 Vitamin B1 2 deficiency (non anemic) 56230931 E53.8 recheck Snoring 97692973 R06.83 Screening mammography 24 828961 Z12.31 last mammogram 04/30/22 Screening for malignant neoplasm of cervix 278433455 Z12.4 per pt had PAP 03/27/22 Screening for malignant neoplasm of colon 904544796 Z12.11 per pt had C scope 2019 , good for 5 years Active or passive immunization 704480090 Z23 up to date Advance di rective discussed with patient 556567588 Z71.89 education Localized eruption of skin 672873175 R21 [id number] Ana Cristina Whittington MD [facility], [facility] [address] [place] [address] 08/16/2023 12:26:31 08/16/2023 13:39:51 Mixed hyperlipidemia 430044196 E78.2 last LDL 04/22/23 Mixed anxi ety and depressive disorder 479948095 F41.8 pass away 12/26/20No SI , No HI Benign hypertension 1072 5009 I10 last EKG 09/03/22 Body mass index 30+ - obesity 918978893 Z68.36 educationo n diet and exercise Type 2 toña betes mellitus without complication 373986540 E11.9 seen endo had A1c 07/2023endo started insulin , stopped metformins een ophth 11/2022 Screening mammography 24 437055 Z12.31 last mammogram 05/10/23 Screening for malignant neoplasm of cervix 734577250 Z12.4 per pt had PAP 03/27/22 Screening for malignant neoplasm of colon 483701244 Z12.11 per pt had C scope 2019 , good for 5 years Active or passive immunization 063674397 Z23 up to date Menopause 967347531 Z78. 0 last DEXA 04/30/22 [id number] Ana Cristina Whittington MD [employer] [employer] [address] [place] [address] 02/26/2024 15:35:37 02/26/2024 17:19:14 Abdominal pain 56911207 R10.9 Diarrhea 06672308 R19.7 increase fluids Nausea and vomiting 1693 2000 R11.2 Benign hypertension 1072 5009 I10 last EKG 09/03/22 Body mass index 30+ - obesity 226834768 Z68.36 educationo n diet and exercise Long-term drug therapy 348240512 Z79.899 metformin , lorazepaml ast drug screen 08/2022 Mixed hyperlipidemia 267 216324 E78.2 last LDL 04/22/23 Type 2 toña betes mellitus without complication 117436064 E11.9 seen endo had A1c 01/27/24inc reased levemier to 35 U QAMendo started insulin , stopped metformins een ophth 11/2023 Screening mammography 24 468538 Z12.31 last mammogram 05/10/23 Screening for malignant neoplasm of cervix 469881769 Z12.4 per pt had PAP 03/27/22 Screening for malignant neoplasm of colon 859953139 Z12.11 per pt had C scope 2019 , good for 5 years Active or passive immunization 877915171 Z23 up to date History of colectomy 427 411948 Z90.49 2013 2ry to obstructio n [id number] Ana Cristina Whittington MD [employer], [employer] [address] [place] [address] 09/02/2024 08:53:16 09/02/2024 09:51:59 Adult health examination 970277900 Z00.01 Benign hypertension 1072 5009 I10 last EKG 02/27/24 Body mass index 30+ - obesity 945146096 Z68.36 educationd own 4 LBs on diet and exercise Chronic constipation 236 065073 K59.09 stable Diabetic p eripheral neuropathy 288953151 E11.40 education Coronary arteriosclerosis 28170979 I25.10 No CP Gastroesop hageal reflux disease without esophagitis 957684447 K21.9 had 2-3 trials of stoppingGI increase omeprazole to BIDhad EGD 12/11/21 History of colectomy 427 320407 Z90.49 2013 2ry to obstructio n Long-term drug therapy 748448355 Z79.899 metformin , Menopause 870977717 Z78. 0 last DEXA 04/30/22 Mixed anxi ety and depressive disorder 890860043 F41.8 pass away 12/26/20No SI , No HI Mixed hyperlipidemia 267 867004 E78.2 last LDL 04/22/23 Osteoarthritis 842878805 M19.90 stable Primary fi bromyalgia syndrome 08310699 M79.7 stable Serum amyl ase above reference range 375535226 R74.8 Type 2 toña betes mellitus without complication 198029986 E11.9 seen endo had A1c 05/25/24inc reased levemier to 35 U QAMendo started insulin , stopped metformin , now on mounjaro 5 q weekseen ophth 11/2023 Vitamin B1 2 deficiency (non anemic) 12754662 E53.8 recheck Nausea and vomiting 1693 1999 R11.2 Screening mammography 24 699223 Z12.31 last mammogram 05/10/23 Screening for malignant neoplasm of cervix 144914933 Z12.4 per pt had PAP 03/27/22 Screening for malignant neoplasm of colon 474543674 Z12.11 per pt had C scope 2019 , good for 5 years Active or passive immunization 056790698 Z23 up to date Advance di rective discussed with patient 393733823 Z71.89 education Viral screening 46825384 4 Z11.59 [id number] Ana Cristian Whittington MD [employer], [facility] [address] [place] [address] 01/11/2025 08:56:53 01/11/2025 10:06:19 Benign hypertension 67873310 I10 last EKG 02/27/24 Body mass index 30+ - obesity 824813773 Z68.36 educationd own 4 LBs on diet and exercise Coronary arteriosclerosis 04820353 I25.10 No CP Diabetic p eripheral neuropathy 336215205 E11.40 education Long-term drug therapy 100735612 Z79.899 metformin , Mixed hyperlipidemia 267 388730 E78.2 last LDL 09/02/24 Type 2 toña betes mellitus without complication 251213676 E11.9 seen endo had A1c 7/15/24end o decrease levemier to 28 U QAM, stopped metformin , now on mounjaro 7.5 q weekseen ophth 12/2024 Vitamin B1 2 deficiency (non anemic) 08045632 E53.8 last level 09/02/24 Pneumonia 951175089 J18. 9 Dysuria 78219369 R30.9 Screening mammography 24 933206 Z12.31 last mammogram 05/10/23 Screening for malignant neoplasm of cervix 670868396 Z12.4 per pt had PAP 11/2024 Menopause 765177900 Z78. 0 last DEXA 04/30/22 Screening for malignant neoplasm of colon 035735274 Z12.11 per pt had C scope 2019 , good for 5 years Active or passive immunization 064537861 Z23 up to date Serum amyl ase above reference range 847851226 R74.8 Health Concerns Section Related Observation LastModified by Organization Detai ls LastModified Time None Recorded Concern Status LastModified by Organization Details LastModified Time None Recorded Advance Directives Directive None Recorded Payers Encounter Date Sequence Insurance Name Policy Number Policy [employer] Covered Member ID [place] Member ID Guarantor Name 04/22/2023 2 [employer] - FOR LIFE (MEDICARE SUPPLEMENT) Lisa Guzman [id number] Lisa Guzman 04/22/2023 [place] Lisa Guzman [id number] Lisa Guzman 08/16/2023 2 [employer] - FOR LIFE (MEDICARE SUPPLEMENT) Lisa Guzman [id number] Lisa Guzman 08/16/2023 [place] Lisa Guzman [id number] Lisa Guzman 02/26/2024 2 [employer] - FOR LIFE (MEDICARE SUPPLEMENT) Lisa Guzman [id number] Lisa Guzman 02/26/2024 [place] Lisa Guzman [id number] Lisa Guzman 09/02/2024 2 [employer] - FOR LIFE (MEDICARE SUPPLEMENT) Lisa Guzman [id number] Lisa Guzman 09/02/2024 1 [place] Lisa Gzuman [id number] Lisa Guzman 01/11/2025 2 [employer] - FOR LIFE (MEDICARE SUPPLEMENT) Lisa Guzman [id number] Lisa Guzman 01/11/2025 1 [place] Lisa Guzman [id number] Lisa Thomas Notes Date Note Type Note Provider Name and Address Organization Details Recorded Time 04/22/2023 text/html Hypertension F/UReported bypatient.Medications: taking medications as directed; no side effects from medication Lifestyle:regular exercise; limiting/avoiding salt; compliant with low salt diet Associated Symptoms:no dizziness; no lightheadedness; no chest pain; no shortness of breath; no palpitations; no edema; no calf pain with exertion; no headacheMedicare Annual Wellness VisitReported bypatient.Diet and Nutrition:healthy diet Fracture Risk:no history of fractures; no recent explained fracture; no sudden unexplained fractures; no previous musculoskeletal injuries Physical Activity:exercises on a regular basis (walking); recent increase in physical activity; good physical condition; discussed exercise habits Depression Risk:never feels sad, empty, or tearful; no loss of interest in activities; no significant changes in weight; no sleep disturbances or insomnia; no agitation; no loss of energy; no feelings of worthlessness or guilt; no thoughts of suicide; no history of depression; no history of mood disorders Orientation:no disorientation to time; no disorientation to date; no disorientation to place Concentration and Memory:no decreased concentrating ability; no memory lapses or loss; does not forget words Speech/Motor difficulties:no speech difficulties; no difficulty expressing formulated concepts; no difficulty with fine manipulative tasks; no difficulty writing/copying; no slowed reaction time; does not knock things over when trying to pick them up Hearing:no loss of hearing Vision:no vision problems Falls Risk Assessment:no frequent falls while walking; no fall in the past year; no fall since last visit; no dizziness/vertigo Home Safety:use of seatbelts; no vision or hearing loss while driving Ana Cristina Whittington MD [address] [place] [address], [place], [address], [facility] 04/22/2023 12:40:00 08/16/2023 text/html Hypertension F/UReported bypatient.Medications: taking medications as directed; no side effects from medication Lifestyle:regular exercise; limiting/avoiding salt; compliant with low salt diet Associated Symptoms:no dizziness; no lightheadedness; no chest pain; no shortness of breath; no palpitations; no edema; no calf pain with exertion; no headache Ana Cristina Whittington MD [address] [facility] [address], [place], [address], [facility] 08/16/2023 13:33:55 02/26/2024 text/html Hypertension F/UReported bypatient.Medications: taking medications as directed; no side effects from medication Lifestyle:regular exercise; limiting/avoiding salt; compliant with low salt diet Associated Symptoms:no dizziness; no lightheadedness; no chest pain; no shortness of breath; no palpitations; no edema; no calf pain with exertion; no headache Lt abd pain , N/V/D , low grad grad fever Ana Cristina Whittington MD [address] [facility] [address], [place], [address], [facility] 02/26/2024 17:00:56 09/02/2024 text/html Hypertension F/UReported bypatient.Medications: taking medications as directed; no side effects from medication Lifestyle:regular exercise; limiting/avoiding salt; compliant with low salt diet Associated Symptoms:no dizziness; no lightheadedness; no chest pain; no shortness of breath; no palpitations; no edema; no calf pain with exertion; no headacheMedicare Annual Wellness VisitReported bypatient.Diet and Nutrition:healthy diet Fracture Risk:no history of fractures; no recent explained fracture; no sudden unexplained fractures; no previous musculoskeletal injuries Physical Activity:exercises on a regular basis (walking); recent increase in physical activity; good physical condition; discussed exercise habits Depression Risk:never feels sad, empty, or tearful; no loss of interest in activities; no significant changes in weight; no sleep disturbances or insomnia; no agitation; no loss of energy; no feelings of worthlessness or guilt; no thoughts of suicide; no history of depression; no history of mood disorders Orientation:no disorientation to time; no disorientation to date; no disorientation to place Concentration and Memory:no decreased concentrating ability; no memory lapses or loss; does not forget words Speech/Motor difficulties:no speech difficulties; no difficulty expressing formulated concepts; no difficulty with fine manipulative tasks; no difficulty writing/copying; no slowed reaction time; does not knock things over when trying to pick them up Hearing:no loss of hearing Vision:no vision problems Activities of Daily Living:able to bathe with limited or no assistance; able to contol urination and bowels; able to dress with limited or no assistance; able to feed self with limited or no assistance; able to get out of chair or bed with limited or no assistance; able to groom with limited or no assistance; able to toilet with limited or no assistance Instrumental Activities of Daily Living:able to do house work with limited or no assistance; able to grocery shop with limited or no assistance; able to manage medications with limited or no assistance; able to manage money with limited or no assistance; able to prepare meals with limited or no assistance; able to use the phone with limited or no assistance Falls Risk Assessment:no frequent falls while walking; no fall in the past year; no fall since last visit; no dizziness/vertigo Home Safety:use of seatbelts; no vision or hearing loss while driving Ana Cristina Whittington MD [address] [facility] [address], [place], [address], [facility] 09/02/2024 09:45:58 01/11/2025 text/html Hypertension F/UReported bypatient.Medications: taking medications as directed; no side effects from medication Lifestyle:regular exercise; limiting/avoiding salt; compliant with low salt diet Associated Symptoms:no dizziness; no lightheadedness; no chest pain; no shortness of breath; no palpitations; no edema; no calf pain with exertion; no headache went to Urgent care 12/21/24 Dx pneumonia , a lot better on levaquin Ana Cristina Whittington MD [address], [place], [address], [facility] 01/11/2025 10:00:52 OBGyn Episode No OBEpisode recorded.
--- OUTSIDE RECORDS SUMMARY | 2025-02-10 16:14 | XMS_ITS | Clinical Summary ---
Author Organization [facility] Address [address] [place] [address] Care Team Providers Care Adjunct Faculty Mathematics Department Name Role Phone Darin Bryant MD Unavailable [phone] Ana Cristina Mckeon MD Primary Care Provider [phone] Allergies Active Allergy Reactions Criticality Noted Date [...] Headache Low 11/27/2017 Penicillins Anaphylaxis,Hives High 11/16/2010 Ringold Anaphylaxis,Rash High 03/05/2016 Ringold Nut Anaphylaxis,Rash High 03/05/2016 Pineapple Swelling 03/06/2016 Promethazine Hallucinations High 03/05/2016 Anxiety, Mental status changes, Psychiatric Medications traMADol 50 MG tablet Take 50-100 mg by mouth 3 (three) times daily. Active cyclobenzaprine 5 MG tablet Take 1 tablet (5 mg total) by mouth daily as needed for Muscle Spasms. 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 [place] [address] Ana Cristina Mckeon MD [address] [place] [address] 03/08/2025 2:40 PM CDT Appointment [facility] [address] [address] Ana Cristina Mckeon MD [address] [place] [address] Health Maintenance Due Date Last [...] 08/23/2020, 08/11/2020, Additional history exists PHQ-2 (Physician [place]) 11/11/2024 Mammogram Screening 05/10/2025 05/10/2023, 04/30/2022, 03/15/2021, [...] this topic Medical Devices Implanted Type Area Finish Painter Device Identifier Shelf Expiration Date Model / Serial / Lot Implantable Loop Recorder- [id number] Implanted:12/03 by Radha Gillespie MD (Quantity not on file) Explanted:02/03 by Radha Gillespie MD (Quantity not on file) Implantable Loop Recorder PriceMe [id number] / [id number] S / Procedures Procedure Name Priority Date/Time Associated Diagnosis Comments MG SCREENING W HILDA RUPA DIGI Routine 05/10/2023 1:11 PM CDT Encounter for screening mammogram for malignant neoplasm of breast OUTSIDE LAB (SCAN ORDER) Routine 04/22/2023 LIPID PANEL Routine 12/06/2017 8:49 AM SENIOR GAME DESIGNER Abnormal stress test Type 2 diabetes mellitus with other specified complication, without long-term current use of insulin Benign essential HTN Preop testing COLONOSCOPY Routine 11/11/2012 12:00 AM SENIOR GAME DESIGNER from Last 3 Months or Most Recently [...] Scanned SCANNING Edited Res ult - Final [facility] ONBASE * (ABNORMAL) LIPID PANEL (12/06/2017 8:49 AM SENIOR GAME DESIGNER) CHOLESTEROL 182 <200 MG/DL 12/06/2017 9:55 AM SENIOR GAME DESIGNER [facility] TRIGLYCERIDES 226(H) <150 MG/DL 12/06/2017 9:55 AM SENIOR GAME DESIGNER [facility] HDL 55 >40.0 MG/DL 12/06/2017 9:55 AM SENIOR GAME DESIGNER [facility] LDL (CALCULATED) 81.8 <100 MG/L 12/06/19 18 9:55 AM [facility] NON HDL CHOLESTEROL 127 <130 MG/DL 12/06/2017 9:55 AM [facility] CHOL/HDL RATIO 3.3 0.0 - 4.5 12/06/2017 9:55 AM [facility] VLDL CALCULATION 45 5 - 55 MG/DL 12/06/2017 9:55 AM [facility] LIPID INTERPRETATION 12/06/2017 9:55 AM [facility] Comment: NIH CONCENSUS REPORT RECOMMENDATIONS: ADULT CHILD LOW RISK: CHOLESTEROL <200 <170 TRIGLYCERIDE <150 --- HDL >=60 --- LDL <100 <110 BORDERLINE: CHOLESTEROL 200-239 170-199 TRIGLYCERIDE 150-199 --- HDL 40-59 --- LDL 100-159 110-129 HIGH RISK: CHOLESTEROL >=240 >=200 TRIGLYCERIDE >=200 --- HDL <40 --- LDL >=160 >=130 12/06/2017 8:49 AM SENIOR GAME DESIGNER Darin Bryant MD LABORATORY Final Result [facility] [address] [place] [address], [place] [phone] * Colonoscopy (11/11/2012 12:00 AM SENIOR GAME DESIGNER) 11/11/2012 11/11/2012 Narrative TOUCHWORKS TO EPIC CONVERSION - 05/09/2018 1:14 PM CDT removed colon Procedure Note Joya Sellers MD - 02/24/2019 removed colon Joya Burr Md, MD GI PROCEDURE ORDERABLES Final Result Performing Organization Address City/[facility] Co de Phone Number TOUCHWORKS TO EPIC CONVERSION from Last 3 Months or Most Recently Relevant to Health Maintenance Insurance HUMANA MEDICARE HUMANA MEDICARE Care Teams Adjunct Faculty Mathematics Department Relationship Specialty Start Date End Date Ana Cristina Mckeon MD [address] [facility] [address] [place] [address] PCP - General INTERNAL MEDICINE 03/15/21 Darin Bryant MD [address] [facility] [address] [place], [place] [address] [place] Assistant Professor Of Criminal Justice CARDIOVASCULAR DISEASE 11/05/17
--- OUTSIDE RECORDS SUMMARY | 2025-02-10 16:14 | XMS_ITS | Encounter Summary ---
Author Organization [facility] Address [address] [place] [address] Phone Care Team Providers Care Steel Finisher Name Role Phone Eduardo Liu MD Primary Care Provi jose antonio Eduardo Liu MD Primary Care Provi jose antonio Moses Kate MD Primary Care Provider Eduardo Liu MD Primary Care Provi jose antonio Moses Kate MD Primary Care Provider Mary Rodriguez NP Primary Care Provider [phone] Elena Valdes MD Primary Care Provider Sarah Lopez MD Primary Care Provider Mekhi Medrano DO Primary Care Provider [phone] No, Physician Primary Care Provider [phone] Ana Cristina Mckeon MD Primary Care Provider [phone] Encounter Details Date Type Department Care Team (Late st Contact Info) Description 02/05/2014 Orders Only [facility] ProviderMoose MD [address] [place] [address] Social History Tobacco Use Types Packs/Day Years Used Date Smoking Tobacco: Never Alcohol Use Standard Drinks/Week Comments Yes 0 (1 standard drink = 0.6 oz pur e alcohol) Comments Unknown Sex and Gender Information Value Date Recorded Sex Assigned at Not on file Legal Sex Female 10:06 AM CONCRETE 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 Gender Identity Female 09/28/2020 10:45 AM CONCRETE RUBBER Sexual Orientation Straight 09/28/2020 10 :45 AM CONCRETE RUBBER documented as of this encounter Plan of [...] on filedocumented in this encounter Care Teams Steel Finisher Relationship Specialty Start Date End Date Eduardo Liu MD PCP - General 04/09/14 03/05/17 Eduardo Liu MD PCP - General 09/07/13 04/08/14 [place] [id number] [id number] PCP - General 03/06/17 10/13/17 Eduardo Liu MD PCP - General Internal Medicine 10/14/17 10/17/17 [place] [id number] [place] [address] PCP - General 10/18/17 03/06/18 [place] [address] [place] [address] [address] PCP - General 03/07/18 07/01/18 Elena Valdes MD [address] [facility] [address] [place] [address] PCP - General Geriatric Medicine 07/02/18 08/23/20 Sarah Lopez MD [address] [facility] [address], [place] [address] PCP - General Internal Medicine 08/24/20 09/27/20 Mekhi Medrano DO [address] [facility] [address] [place] [address] PCP - General Internal Medicine 09/28/20 02/13/21 No, Physician PCP - General 02/14/21 03/02/21 Ana Cristina Mckeon MD [address] [facility] [address] [place] [address] PCP - General Internal Medicine 03/03/21 documented as of this encounter
--- OUTSIDE RECORDS SUMMARY | 2025-02-10 16:14 | XMS_ITS | Continuity of Care Document ---
Author Organization [facility] Address [address] [place] [address] Phone Care Team Providers Care Computer Numerical Control Programmer Name Role Phone Lisa Reynaga Unavailabl e [...] X-ray exam hand, 3+ views Thumb Spica Milam OTS 9 Thumb Spica Milam OTS 9 Mallet Finger Splint Office/outpatient visit,halley gonzalez 2018 Advance Directives Directive Yes / No Effective Date File Name No Information Encounters Encounter Description Practice Location Reason(s) For Visit Diagnoses Date Provider Providers Copied on Encounter [facility], [address], [id number], tel:[phone] [facility] Left hand (chief complaint) Trigger thumb, left thumbPrimary osteoarthritis, left hand 0 Dre Gonzalez. [address] [facility] [address], [place], [place], [id number], [place]. tel:[phone] Referring Provider: Lisa Hudson, [address] [facility] [address], [place], [address] . tel:[phone] [facility], [address], [id number], [place] tel:[phone] [facility] Left hand (chief complaint) Trigger thumb, left thumbPrimary osteoarthritis, left hand 9 Dre Gonzalez. [address] [facility] [facility] [address], [place], [place], [id number], [place]. tel:[phone] Referring Provider: Lisa Hudson, [address] [facility] [address], [place], [address] . tel:[phone] [facility], [address] [facility] [address], [place], [id number], [place] tel:[phone] [facility] No Information 9 Enmanuel Nicola. [address] [facility], [facility] [address], [place], [place], [id number], [place]. tel:[phone] [facility], [address], [id number], [place] tel:[phone] [facility] No Information 9 Enmanuel Petersen. [address] [facility], [address], [place], [place], [id number], [place]. tel:[phone] [facility], [address] [facility] [address], [place], [place], [id number], [place] tel:[phone] [facility] Trigger thumb, left thumbPrimary osteoarthritis, left handPrimary OA of 1st carpometacarpal joint of left handPrimary OA of 1st carpometacarpal joint of right handTrigger thumb, right thumb 9 Dre Gonzalez. [address] [facility], [address], [place], [place], [id number], [place]. tel:[phone] Office/outpa tient visit,[facility], [address] [address], [place], [place], [id number], [place] tel:[phone] [facility] Bilateral hands (chief complaint) Pain in right finger(s)Pain in left finger(s)Primary OA of 1st carpometacarpal joint of left handPrimary OA of 1st carpometacarpal joint of right handTrigger thumb, right thumbTrigger thumb, left thumbPrimary osteoarthritis, left hand 9 Dre Gonzalez. [address] [facility], [address], [place], [place], [id number], [place]. tel:[phone] Referring Provider: Lisa Hudson, [address] [facility] [address] [facility], [place], [address] . tel:[phone] Family History Family Member Type Diagnosis Age [...] arturo(s) Medicare [place] Part [place] MB [id number] [place] [employer] Paul camarena [facility] [id number] [facility] [id number] Social History Type Description Quantity Date Captured [...] interphalangeal joint. 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
--- OUTSIDE RECORDS SUMMARY | 2025-02-10 16:15 | XMS_ITS | Data Portability ---
Author Organization [facility] Address [address] [place] [address] Assessment Encounter Date Assessment Date Assessment LastModified by Organization Details LastModified Time 10/28/2024 10/28/2024 Annual gynecological exam performed. Patient will come back in a year unless there are new symptoms. [email or web address] Not available 10/28/2024 16:22:45 Plan of Treatment Reminders Order Date Submit Date Provider Last Modified By Organization Details Last Modified Time Details Appointments MED CHECK 2024 03:30P JUSTICE Vargas Not available Not available Not available Lab None recorded. Referral None recorded. Procedures None recorded. Surgeries None recorded. Imaging None recorded. Medication Orders estradiol 0.01% (0.1 mg/gram) vaginal cream 2023 024 [facility] [id number], [place], [address], 10/28/2024 16:36:03 Patient TargetsNo targets recorded. Patient InstructionsNo instructions recorded. Reason for Referral None Reported. Results Created Date Observation Date Name Description Value Unit Range Abnormal Flag Note LastModifiedBy Organization Detail LastModifiedTime 10/28/20 24 10/28/2024 IMAGE GUIDE D PAP AND HPV REGAR DLESS image guided Pap, HPV regardless of Pap result SEE RESULT S BELOW CASE REPOR T: Cytol ogy Gynec ologi yesenia Repor t Case: [id number] Autho riwhit g Provi jose antonio: Sisi Sequeira NP Colle cted: 10/28 1701 Order ing Locat ion: [place] [facility] Recei renea: 10/29 0301 First Scree n: Usha Fields ret, CT Rescr een: Edwina Dennis, CT Speci men: Carole kim Pap - Image d, Cervi x STATE MENT OF ADEQU ACY: Satis facto ry for evalu ation Trans forma tion zone compo nent canno t be defin itive ly ident ified due to the prese nce of atrop hy or other hormo nal olson es Parti ally obscu ring infla mmati on prese nt ----- ----- ----- ----- ----- ----- ----- ----- ----- ----- ----- ----- ----- ----- ----- ----- ----- ---- FINAL DIAGN OSIS: Negat ben for Intra epith elial Leskb beaulieu or Juan Carlos valencia (NIL) . Atrop hic cell marysol chairez. Elect getachew rodriguez shanita d by Edwina Dennis , CT on 11/09 at 1117 TRAINING MANAGER ----- ----- ----- ----- ----- ----- ----- ----- ----- ----- ----- ----- ----- ----- ----- ----- ----- ---- HPV RESUL TS: HPV mRNA E6/E7 : No HPV mRNA Detec aniceto NOTE: This high risk HPV mRNA assay detec ts fourt een high- risk HPV types (16, 18, 31, 33, 35, 39, 45, 51, 52, 56, 58, 59, 66, 68) witho ut diffe renti ation . COMME NT: This speci men was revie wed by a Cytot echno logis t and/o r Patho logis t (as indic ated in this repor t) after evalu ation using the Thinp rep Imagi ng Syste m. CLINI YESENIA INFOR MATIO N: Menst rual Statu s: LMP (if appli cable ): Clini yesenia Histo ry/Pr eviou s Pap: Type of Neopl kieran (if appli cable ): Signi fican t Clini yesenia Findi ngs: Other Histo ry: Hormo jihan (if appli cable ): PAP EDUCA SRIDEVI L NOTE: The Pap Test is a scree judy test with an inher ent false negat ben rate. Liqui d-bas ed sampl ing may decre ase, but will not elimi vinod, false negat ben resul ts. A negat ben resul t does not precl ude the prese nce and/o r devel opmen t of disea se, since the prese nce of abnor mal cells in the sampl e depen ds on the locat ion of the lesio n and sampl ing techn ique. Betsy nued regul ar scree judy is the best metho d of cance r preve ntion . If repor aniceto cytol ogic findi ng do not corre late with physi yesenia and/o r histo rical findi ngs, furth er inves tigat ion is recom tyree d, as clini jesu jolley nted. Not Available [facility] ([facility]) [address], [place], [address], 11/09/2024 12:21:47 Result Notes None recorded. Procedures Surgical History Date Name Laterality Status Provider Name and Address Organization Details Recorded Time 10/28/20 24 Date of Last Pap Smear completed Catieinocente Daniels [facility] 10/28/2024 18:05:41 08/11/20 23 surgical procedure on eye proper using laser completed Catieinocente Daniels [facility] 10/28/2024 19:30:04 06/11/20 23 cholecystectomy completed Catieinocente Daniels [facility] 10/28/2024 19:13:18 11/11/19 22 Date of Last Mammogram completed Catieinocente Daniels [facility] 10/28/2024 19:03:39 11/11/19 19 Date of Last Colonoscopy completed [facility] 10/28/2024 19:04:22 11/11/19 19 colonoscopy completed [facility] 10/28/2024 19:17:27 11/11/19 18 surgical procedure on eye proper using laser completed [facility] 10/28/2024 19:29:58 11/11/19 18 insertion of denture completed [facility] 10/28/2024 19:31:09 11/11/19 16 cataract surgery completed [facility] 10/28/2024 19:26:20 11/11/19 13 cholecystostomy completed [facility] 10/28/2024 19:24:21 11/11/19 09 surgical procedure on eye proper using laser completed [facility] 10/28/2024 19:29:53 04/14/19 86 section completed [facility] 10/28/2024 19:10:08 11/11/18 86 Tubal Ligation completed [facility] 10/28/2024 19:30:26 12/11/18 84 section completed [facility] 10/28/2024 19:09:56 11/11/18 82 extraction of wisdom tooth completed [facility] 10/28/2024 19:30:46 Imaging Results None recorded. Procedure Notes None recorded. Medical Equipment None Reported. Allergies Allergen ID Allergen Name Allergen Category Reaction Reaction Severity Criticality Documentation Date Start Date Code Code System Note Provider Name and Address Organization Details Recorded Time 18290 Product containin g penicilli n (product) medicatio n Not available Not available Not available 10/28/2024 60579 [id number] SNOMED [facility] 4 16:31:07 Medications Name Sig Start Date Stop Date Status Note LastModified by Organization Details LastModified Time losartan 50 mg tablet active Not Available Not Available No t Available atorvastatin 40 mg tablet active Not Available Not Available Not Available methocarbamo l 500 mg tablet TAKE 1 TABLET BY MOUTH THREE TIMES A DAY NEEDED FOR MUSCLE SPASM active Not Available Not Available No t Available clindamycin HCl 300 mg capsule TAKE 1 CAPSULE BY MOUTH THREE TIMES A DAY FOR 10 DAYS active Not Available Not Available Not Available ondansetron HCl 4 mg tablet TAKE 1 TABLET BY MOUTH THREE TIMES DAILY NEEDED active Not Available Not Available No t Available metronidazol e 500 mg tablet TAKE 1 TABLET BY MOUTH EVERY 8 HOURS active Not Available Not Available No t Available ciprofloxaci n 500 mg tablet TAKE 1 TABLET BY MOUTH EVERY 12 HOURS active Not Available Not Available No t Available triamcinolon e acetonide 0.1 % topical cream PLEASE SEE ATTACHED FOR DETAILED DIRECTIONS active Not Available Not Available N ot Available prednisolone acetate 1 % eye drops,suspen rylie active Not Available Not Available Not Available tobramycin 0.3 % eye drops active Not Available Not Available Not Available prednisone 50 mg tablet TAKE 1 TABLET BY MOUTH EVERY DAY active Not Available Not Available No t Available omeprazole 20 mg capsule,thania yed release active Not Available Not Available Not Available estradiol 0.01% (0.1 mg/gram) vaginal cream Insert 1g vaginally at bedtime 2-3 times per week 2024 active Not Available Not Available Not Avai lable cyclobenzapr ine 5 mg tablet active Not Available Not Available Not Available nitrofuranto in monohydrate/ macrocrystal s 100 mg capsule TAKE 1 CAPSULE BY MOUTH EVERY 12 HOURS active Not Available Not Available No t Available duloxetine 60 mg capsule,thania yed release active Not Available Not Available Not Available pregabalin 100 mg capsule TAKE 1 CAPSULE BY MOUTH THREE TIMES A DAY active Not Available Not Available Not Available Levemir U-100 Insulin 100 unit/mL subcutaneous solution INJECT 15 UNITS UNDER THE SKIN NIGHTLY active Not Available Not Available No t Available BD Ultra-Fine Short Pen Needle 31 gauge x 5/16 USE TO INJECT 1-4 TIMES DAILY DIRECTED. active Not Available Not Available No t Available FreeStyle Lite Meter kit CHECK BLOOD SUGAR TWICE DAILY active Not Available Not Available No t Available FreeStyle Lite Strips active Not Available Not Available Not Available Lantus Solostar U-100 Insulin 100 unit/mL (3 mL) subcutaneous pen active Not Available Not Available Not Available Jardiance 25 mg tablet active Not Available Not Available No t Available Mounjaro 5 mg/0.5 mL subcutaneous pen injector active Not Available Not Available Not Available Mounjaro 2.5 mg/0.5 mL subcutaneous pen injector INJECT 0.5ML SUBCUTANEOU SLY ONCE A WEEK active Not Available Not Available No t Available Vitals Date Recorded Body height Body mass index (BMI) Body weight Systolic blood pressure Diastolic blood pressure Provider Name and Address Organization Details Last Updated DateTime 10/28/2024 160.02 cm 37.2 kg/m2 69257.4 g 138 mm[Hg] 71 mm[Hg] Catie Daniels [facility] 16:30:58 Social History Question Answer Notes LastModified by Organizat ion Details LastModified Time Tobacco Smoking Status Never Smoker Catie Daniels [facility], [facility] 10/28/2024 19:09:15 What Is Your Level Of Alcohol Consumption? Occasional [email or web address] Information not available 10/28/2024 Are You Blind Or Do You Have Difficulty Seeing? No [email or web address] Information n ot available 10/28/2024 What Is Your Level Of Caffeine Consumption? Moderate [email or web address] Information not available 10/28/2024 In The 14 Days Before Symptom Onset, Have You Had Close Contact With A Laboratory-confirm ed COVID-19 While That Case Was Ill? No [email or web address] Information n ot available 10/28/2024 In The 14 Days Before Symptom Onset, Have You Had Close Contact With A Person Who Is Under Investigation For COVID-19 While That Person Was Ill? No [email or web address] Information not available 10/28/2024 Have You Been To An Area Known To Be High Risk For COVID-19? No [email or web address] Information not available 10/28/2024 Are You Deaf Or Do You Have Serious Difficulty Hearing? No Information not available 10/28/2024 What Type Of Diet Are You Following? REGULAR [email or web address] Information n ot available 10/28/2024 Have You Ever Been Counseled For Unhealthy Alcohol Use? No [email or web address] Information not available 10/28/2024 Do You Use Your Seat Belt Or Car Seat Routinely? Yes [email or web address] Information not available 10/28/2024 Do You Have Smoke And Carbon Monoxide Detectors In Your Home? Yes [email or web address] Information not available 10/28/2024 Do You Feel Stressed (tense, Restless, Nervous, Or Anxious, Or Unable To Sleep At Night)? [id number] [email or web address] Information not available 10/28/2024 Do You Use Any Illicit Or Recreational Drugs? No [email or web address] Information not available 10/28/2024 Do You Use Sunscreen Routinely? Yes [email or web address] Information not available 10/28/2024 Has Tobacco Cessation Counseling Been Provided? No [email or web address] Information not available 10/28/2024 Do You Or Have You Ever Used Any Other Forms Of Tobacco Or Nicotine? No [email or web address] Information not available 10/28/2024 Sex: Unknown Functional Status Question Answer Note LastModified by Organizat ion Details LastModified Time Do you have difficulty walking or climbing stairs? No Information not available 10/28/2024 Are you able to walk? YESWOREST [email or web address] Information not available 10/28/2024 Are you able to care for yourself? Yes [email or web address] Information not available 10/28/2024 Do you have difficulty dressing or bathing? No [email or web address] Information not available 10/28/2024 What is your exercise level? Occasional [email or web address] Information not available 10/28/2024 Mental Status None recorded. Family History Relationship Description Onset Age of this Age Resolved Age Notes LastModified by Organization Details LastModified Time Mother Malignant tumor of cervix [email or web address] Not available 10/28 19:07:06 Mother Diabetes mellitus [email or web address] Not available 10/28 19:07:30 Mother Hypertensive disorder Not available 10/28 19:08:12 Maternal Grandfather Diabetes mellitus [email or web address] Not available 10/28 19:07:30 Maternal Grandfather Hypertensive disorder [email or web address] Not available 10/28 19:08:12 Brother Diabetes mellitus [email or web address] Not available 10/28 19:07:30 Brother Hypertensive disorder Not available 10/28 19:08:19 Brother Hypertensive disorder [email or web address] Not available 10/28 19:08:23 Father Hypercholest erolemia [email or web address] Not available 10/28 19:07:40 Father Disorder of thyroid gland [email or web address] Not available 10/28 19:08:52 Maternal Grandmother Hypertensive disorder [email or web address] Not available 10/28 19:08:12 Paternal Grandfather Hypertensive disorder [email or web address] Not available 10/28 19:08:12 Paternal Grandmother Hypertensive disorder Not available 10/28 19:08:12 Medical History Condition Response Allergies (Food, seasonal, environmental ) N Other N Breast Cancer N Drug/Latex Allergies/Reactions Y Blood Transfusion N Dermatologic Disorders N Lung Disease N Defects or Inherited Disease N Breast Problem N Gestational Diabetes N Hematologic disorders N Anesthesia Complications N History of STI N Deep Vein Thrombosis N Polycystic ovary syndrome N Anxiety Disorder Y Autoimmune disease N Arthritis Y Infertility N Polyps N Acid Reflux (GERD) N History of abnormal pap N Cancer N Stroke N Varicosities N Neurologic/Epilepsy Y Endometriosis N High Cholesterol Y Headaches N Fibromyalgia Y Kidney Disease N Heart Problems N Kidney or Bladder Problems N Thyroid Problems N GI Problems Y Eating Disorder N Anemia Y Art (IVF or FET) N Psychiatric Illness N Ovarian Cancer N Diabetes Y Pulmonary (TB, Asthma) N Hepatitis/Liver Disease N No Past Medical History N Eczema N Urinary Tract Infection N Abuse/Domestic Violence N Asthma N Trauma/Violence N Depression/ depression Y Heart Disease N Pre-Eclampsia N Hypertension Y Osteoporosis N Thrombophilias N Gynecological History Statement/Question Response Abnormal Pap N Date of Last Colonoscopy 11/11/2018 Date of Last Mammogram 11/11/2021 Date of LMP 11/11/2007 STIs/STDs N Date of DEXA bone scan Date of Last Pap Smear 10/28/2024 Current Control Method Menopause Desired Control Method Sterilizati on LMP Approximate Obstetrics History GPAL:G 2 P 2 0 0 2 Type Value Full Term 2 Living 2 Total 2 Past Encounters Encounter ID Performer Location Encounter Start Date Encounter Closed Date Diagnosis/Indication Diagnosis SNOMED-CT Code Diagnosis ICD10 Code Diagnosis Note [id number] [facility]ira[facility] [place] [address] [address] 10/28/2024 15:35:35 10/28/2024 16:48:10 Gynecologic examination 93205011 Z01.419 WWEpostmen opausalPap - updated todaySTI screen - declinedMa mmogram - has scheduled, ordered through [facility]CPColon cancer screening - UTDDexa - has scheduled, ordered through [facility] - UTD/PCPRTC in 1 yr or sooner if needed Do monthly self breast exams.It is advised to get annual flu shot in the fall and she could obtain at local pharmacy. If you haven't received the Tdap vaccine in the last 10 years you should obtain one as well.Have mammogram yearly, bone density every 2-3 years and stay up to date on colon cancer screening. Engage in regular exercise. Avoid tobacco and illicit drugs. This lifestyle behavior pattern will lead to less health conditions and longer life span. If BMI greater than 25 dietary consult advised.Qu estions have been answered. Vaginal dryness [id number] N89.8 veg based moisturize r routine discussedr x for vaginal estrogen cream - r/b/a reviewedme d check in 4 months Health Concerns Section Related Observation LastModified by Organization Detai ls LastModified Time None Recorded Concern Status LastModified by Organization Details LastModified Time None Recorded Advance Directives Directive None Recorded Payers Encounter Date Sequence Insurance Name Policy Number Policy [employer] Covered Member ID [employer] Member ID Guarantor Name 10/28/2024 1 [place] Lisa Guzman [id number] Lisa Guzman 10/28/2024 2 [employer] - FOR LIFE (MEDICARE SUPPLEMENT) Lisa Guzman [id number] Lisa Guzman Notes Date Note Type Note Provider Name and Address Organization Details Recorded Time 4 text/html Annual Underbaster Post-MenopausalReported bypatient.Menopausal Symptoms:no menopausal symptoms;inadequacy of lubrication of vaginal mucosa Vaginal Bleeding:history of menopause having occurred; no history of post menopausal bleeding Urinary Symptoms:no hematuria; no incontinence; no nocturia; no urinary frequency Vulva:no genital lesion; no vulvar atrophy Vagina:normal vaginal discharge; no vaginal atrophy Breast:no breast lump; no nipple discharge; no breast pain Sexual Complaints:no sexual complaints Psychological Symptoms:no depression; no anxiety Preventive Measures:encourage regular mammograms starting age 40; encourage self breast examination; encourage regular exercise; encourage no tobacco useNotes:64yo wwepostmenopausalno h/o abnormal papslast pap 2021 - normal per ptmammogram last 2021 - has new order from [facility]CPdexa last 5 yrs ago, has new order from PCPcolonoscopy UTD vaginal dryness, not SA - 3 yrs ago [facility] [address], [place], [address], [place] [facility] 10/28/2024 16:38:51 OBGyn Episode Ob Episode Information Episode Created Date Number of Fetuses Patient Bloodtype Patient rh Status Prepregnancy Weight lbs Domestic Partner Domestic Partner Phone Father Name Software Security Consultant Status 10/28/20 24 1 CLOSED Fetus Data First Name Last Name Admitted to NICU Weight (g) Sex Living Outcome Pediatric Complications Fetus ID Race Codes Race Delivery Type 4365.82 3 F Full Term [id number] Primary Michael Calculation Initial Michael Date Initial Exam Date Initial Exam Provider Initial Ultrasound Date Last Menstrual Period Date Ultra Sound Weeks Gestation 0 Eighteen To Twenty Week Michael Update Ultra Sound Date Fundal Height At Umbil Quickening Date Ultra Sound Latest Weeks Gestation Final Michael Confirmed By Final Michael Confirmed Date Final Michael Date Ultra Sound Latest Days Gestation 0 0 Menstrual History Last Menstrual Date Menses Monthly On Bcp Conception Prior Menses Frequency Hcg Plus Date Menarche Onset Age Delivery Information Delivery Date Delivery Type Labor Anesthesia Weeks Gestation Incision Type Labor Labor Length Hrs Delivered By Post Complications Tubal Sterilization Discharge Date Comments 4 40 pre- ed toxemia Discharge Information Feeding Method Contraceptive Method Maternal HG B and HCT Levels Ob Episode Information Episode Created Date Number of Fetuses Patient Bloodtype Patient rh Status Prepregnancy Weight lbs Domestic Partner Domestic Partner Phone Father Name Software Security Consultant Status 10/28/20 24 1 CLOSED Fetus Data First Name Last Name Admitted to NICU Weight (g) Sex Living Outcome Pediatric Complications Fetus ID Race Codes Race Delivery Type 3742.13 4 F Full Term [id number] Repeat Michael Calculation Initial Michael Date Initial Exam Date Initial Exam Provider Initial Ultrasound Date Last Menstrual Period Date Ultra Sound Weeks Gestation 0 Eighteen To Twenty Week Michael Update Ultra Sound Date Fundal Height At Umbil Quickening Date Ultra Sound Latest Weeks Gestation Final Michael Confirmed By Final Michael Confirmed Date Final Michael Date Ultra Sound Latest Days Gestation 0 0 Menstrual History Last Menstrual Date Menses Monthly On Bcp Conception Prior Menses Frequency Hcg Plus Date Menarche Onset Age Delivery Information Delivery Date Delivery Type Labor Anesthesia Weeks Gestation Incision Type Labor Labor Length Hrs Delivered By Post Complications Tubal Sterilization Discharge Date Comments 6 39 Discharge Information Feeding Method Contraceptive Method Maternal HG B and HCT Levels
--- OUTSIDE RECORDS SUMMARY | 2025-02-10 16:15 | XMS_ITS | Referral Summary ---
Author Organization [facility] Address [address] [place] [address] Care Team Providers Care Underground Drill Operator Name Role Phone Ana Cristina Mckeon MD Primary Care Provider [phone] Encounters Date Type Department Care Team Description 12/28/2024 1:45 PM PEDIATRIC NURSE Office Visit [facility] 6th [place] [phone] Lo Mcgregor MD Proliferative diabetic retinopathy of both eyes with macular edema associated with type 2 diabetes mellitus (HCC) (Primary Dx) 12/25/2024 10:30 AM PEDIATRIC NURSE Office Visit [facility] Diabetes and Endocrinology [address] [place] [phone] Priya Calderon NP Type 2 diabetes mellitus with diabetic polyneuropathy, without long-term current use of insulin (HCC) (Primary Dx); Hypertension associated with type 2 diabetes mellitus (HCC); Hyperlipidemia associated with type 2 diabetes mellitus (HCC) 12/21/2024 Orders Only [facility] Diabetes [facility] Endocrinology [address] [place] [phone] Priya Calderon NP Type 2 diabetes mellitus with diabetic polyneuropathy, without long-term current use of insulin (HCC) 12/18/2024 Orders Only [facility] Endocr[facility] [address] [place] [phone] Schleeper, Priya R., PEDIATRIC DENTAL HYGIENIST Type 2 diabetes mellitus with diabetic polyneuropathy, [...] Headache Low 11/27/2017 Penicillins Anaphylaxis,Hives High 11/16/2010 Patrick Nut Anaphylaxis,Rash High 03/05/2016 Pineapple Swelling Medium [...] polyneuropathy, without long-term current use of insulin ([facility]) Check blood sugar twice daily 1 kit 4 Active blood glucose diagnostic stripIndications: Type 2 diabetes mellitus with diabetic polyneuropathy, without long-term current use of insulin ([facility]) Check blood sugar twice daily. 200 strip [...] polyneuropathy, without long-term current use of insulin ([facility]) Inject 30 Units under the skin nightly [...] 08/12/2023 Assessment & Plan (12/25/2024 10:44 AM PEDIATRIC NURSE): Chronic problem. Controlled on current losartan 50mg daily. Assessment & Plan (09/24/2024 11:10 AM PEDIATRIC NURSE): Chronic problem. Controlled on current losartan 50mg daily. Assessment & Plan (05/25/2024 9:37 AM CDT): Chronic problem. Controlled on current losartan 50mg daily. Will update labs today. Verified that she uses mychart. Aware to check results/results letter in [place]. Will contact by phone if needed. Assessment & Plan (01/27/2024 9:39 AM CDT): Chronic problem. Controlled on current losartan 50mg daily. Assessment & Plan (08/12/2023 2:45 PM CDT): Chronic problem. Controlled on current losartan 50mg daily. Hyperlipidemia associated with type 2 diabetes kolby herbert 08/12/2023 Assessment & Plan (12/25/2024 10:44 AM PEDIATRIC NURSE): Chronic problem. Currently taking Atorvastatin 40mg & Bempedoic acid-zetia 180- 10mg. Last lipid panel: 05/25/24 UII=338, BF=058. Assessment & Plan (09/24/2024 11:11 AM PEDIATRIC NURSE): Chronic problem. Currently taking Atorvastatin 40mg & Bempedoic acid-zetia 180- 10mg. Last lipid panel: 05/25/24 MCS=293, ED=411. Assessment & Plan (05/25/2024 9:38 AM CDT): Chronic problem. Currently taking Atorvastatin 40mg & Bempedoic acid-zetia 180- 10mg. Last lipid panel: 05/13/23 LDL=31, RA=579. Will update labs today. Verified that she uses mychart. Aware to check results/results letter in [place]. Will contact by phone if needed. Assessment & Plan (01/27/2024 9:39 AM CDT): Chronic problem. Currently taking Atorvastatin 40mg & Bempedoic acid-zetia 180- 10mg. Last lipid panel: 05/13/23 LDL=31, CY=223. Assessment & Plan (08/12/2023 2:53 PM CDT): Chronic problem. Currently taking Atorvastatin 40mg & Bempedoic acid-zetia 180- 10mg. Last lipid panel: 05/13/23 LDL=31, ZQ=854. Class 2 severe obesity due t o [...] 12/17/2019 Assessment & Plan (12/17/2019 2:09 PM PEDIATRIC NURSE): Without plans for further infusion therapy, vascular port may be removed. Surgical referral provided. Arthritis of carpometacarpal (CMC) joint of left thumb 11/17/2019 Arthritis of carpometacarpal (CMC) joint of righ t thumb 11/17/2019 Restless leg syndrome 11/17/2019 Insomnia 11/17/2019 Assessment & Plan (11/17/2019 8:35 PM PEDIATRIC NURSE): Symptoms are worsening in the context of increased stressors. She is referred to sleep medicine. Malaise 11/14/2019 Assessment & Plan (11/14/2019 12:22 AM PEDIATRIC NURSE): Check CBC and CMP. Encounter for adjustment and management of vascular access device 09/14/2019 Osteopenia of multiple sites 08/14/2019 Overview (08/14/2019): Images from the original note were not included. BONE DENSITY/DEX02/27/2018 [facility] Result Narrative Examination: Bone Density Axial [...] mg a daily. Vitamin D intake of 3338-5167 iu daily. Most [facility] do not get enough Vitamin D, so a supplement in an oil capsule gives the best absorption. I recommend repeating your bone density in 3 years. Assessment & Plan (09/17/2019 3:39 PM PEDIATRIC NURSE): We recommend you take Caltrate D once [...] canned with bones 3 oz 325 mg Fajardo, canned with bones 3 oz 180 mg Shrimp, canned 3 oz 125 mg Dairy Serving Size Estimated Calcium* Ricotta, part-skim 4 oz 335 mg Yogurt, plain, low-fat 6 oz 310 mg Milk, skim, low-fat, whole 8 oz 300 mg Yogurt with fruit, low-fat 6 oz 260 mg Mozzarella, part-skim 1 oz 210 mg Cheddar 1 oz 205 mg Yogurt, Ugandan 6 oz 200 mg Filipino Cheese 1 oz 195 mg Feta Cheese 4 oz 140 mg Cottage Cheese, 2% 4 oz 105 mg Frozen yogurt, vanilla 8 oz 105 mg Ice Cream, vanilla 8 oz 85 mg Parmesan 1 tbsp 55 mg Fortified Food Serving Size Estimated Calcium* Lenore milk, rice milk or soy milk, fortified 8 oz 300 mg [place]ec juice and other fruit juices, fortified 8 oz 300 mg Tofu, prepared with calcium 4 oz 205 mg Waffle, frozen, fortified 2 pieces 200 mg Oatmeal, fortified 1 packet 140 mg Omani muffin, fortified 1 muffin 100 mg Cereal, [...] original note were not included. BONE DENSITY/DEX02/27/2018 [facility] Result Narrative Examination: Bone Density Axial [...] 08/14/2019 Assessment & Plan (12/17/2019 8:59 PM PEDIATRIC NURSE): Continue acetaminophen as needed. Assessment & Plan (09/17/2019 3:37 PM PEDIATRIC NURSE): See discussion above. Assessment & Plan (08/14/2019 3:17 PM CDT): See above. Continue acetaminophen for pain. MORRISSEY (dyspnea on exertion) 01/01/2019 Assessment & Plan (01/01/2019 11:08 AM PEDIATRIC NURSE): EKG, chest x-ray and labs. Patient has an appointment with her baseball sewer hand on Saturday. Instruct patient that if she [...] 06/24/2017 Assessment & Plan (12/17/2019 1:55 PM PEDIATRIC NURSE): Images from the original note were not included. She is no longer taking her Vitamin D supplement. Update lab as per orders. Assessment & Plan (11/14/2019 12:20 AM PEDIATRIC NURSE): She continues vitamin D supplementation. Proliferative diabetic retin opathy of both eyes with macular edema associated with type 2 diabetes mellitus 10/26/2016 Assessment & Plan (09/24/2024 11:11 AM PEDIATRIC NURSE): Chronic problem. Seen at [facility]. 07/17/24 [facility] optho +PDR w/DME. Assessment & Plan (08/24/2020 3:47 PM CDT): Is followed by Ophthalmology and is receiving I injections. Assessment & Plan (09/17/2019 3:40 PM PEDIATRIC NURSE): Noted Assessment & Plan (10/31/2018 2:50 PM PEDIATRIC NURSE): Resolved fluid 5 wks after injection right eye (OD) Isolated cyst left eye (OS) Would continue alternating injections - Eylea left eye (OS) today Assessment & Plan (07/04/2018 4:38 PM CDT): The patient will continue to follow with her color shop helper. Erosive osteoarthritis 10/08/2016 Overview (09/17/2019): Images from the original note were not included. US Hands Bilateral for Rheumatoid Arthritis (C) Order: [id number] Status: Final result Visible to patient: No [...] 10:40 Assessment & Plan (12/17/2019 1:49 PM PEDIATRIC NURSE): Erosive osteoarthritis stable. Since she was last seen she has had surgery bilateral thumb (trigger finger) as well as fusion third DIP L hand by Dr. Nicola Singer. She is pleased with outcome; pain relieved. She is working with PT/OT; doing well. Assessment & Plan (09/17/2019 9:51 PM PEDIATRIC NURSE): Reviewed with patient ultrasound findings with little [...] review. Assessment & Plan (10/30/2018 10:25 AM PEDIATRIC NURSE): The patient will continue to follow up with rheumatology. Assessment & Plan (07/04/2018 4:38 PM CDT): The patient will continue to follow up with her carpenter assembler. 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 Assessment & Plan (12/17/2019 1:51 PM PEDIATRIC NURSE): Vitals BP 132/80 (BP Location: Right arm, Patient Position: Sitting) Pulse 78 Temp 36.8 C (98.3 F) (Oral) Resp 16 Ht 162.6 cm (5' 4 ) Wt 104.3 kg (230 lb) BMI 39.48 kg/m Denies headache, dizziness, chest pain, palpitations, shortness of breath, edema, orthopnea, PND. Assessment & Plan (11/14/2019 12:19 AM PEDIATRIC NURSE): Continue the current medication regimen. Assessment & Plan (09/17/2019 3:38 PM PEDIATRIC NURSE): Vitals BP 118/64 (BP Location: Right arm, [...] Rheumatology. Assessment & Plan (12/17/2019 1:51 PM PEDIATRIC NURSE): She remains on Lyrica 100 mg three times daily and duloxetine 30 mg daily. Pain control satisfactory. Assessment & Plan (09/17/2019 3:17 PM PEDIATRIC NURSE): She remains on Lyrica 100 mg three [...] fluids. Assessment & Plan (12/17/2019 1:53 PM PEDIATRIC NURSE): Images from the original note were not included. Be sure to maintain good hydration. Do not use any nonsteroidal antiinflammatory medications (including over the counter ibuprofen and naproxen) as these are kidney irritants. Assessment & Plan (09/17/2019 3:40 PM PEDIATRIC NURSE): Lab Results Component Value Date GLUCOSE 217 [...] 2010. Assessment & Plan (12/25/2024 11:01 AM PEDIATRIC NURSE): Chronic problem. A1c improved from 7.4% 09/24/24 to now 6.7%. Nico start dropping Lantus dose by 2 units weekly if morning fasting blood sugar is less than 110 persistently. Current medications: Jardiance 25mg daily Mounjaro 7.5mg weekly Lantus 30 units nightly UTD on labs. UTD on DM eye exam (07/17/24 [facility] optho +PDR w/DME). Has appt [...] barefoot. Assessment & Plan (09/24/2024 11:43 AM PEDIATRIC NURSE): Chronic problem. A1c not at goal & [...] labs. UTD on DM eye exam (07/17/24 [facility] optho +PDR w/DME). Strive for [...] update labs today. Verified that she uses [employer]. Aware to check results/results letter in [employer]. Will contact by phone if needed. UTD [...] 150 Assessment & Plan (09/28/2020 5:24 PM PEDIATRIC NURSE): Hemoglobin A1c ordered for today. Her last hemoglobin A1c approximately 3 months ago indicated reasonably adequate control. No changes in medication at this time. Patient is taking Ozempic and metformin. Follow-up in 3 months at which time we will perform a diabetic foot exam. Patient sees an color shop helper for diabetic retinopathy management. Discussed diet and [...] A1C. Assessment & Plan (12/17/2019 1:58 PM PEDIATRIC NURSE): She is working more diligently ion diet. Lab Results Component Value Date HGBA1C 8.5 (H) 10/20/[address] Valdes 01/2020. Assessment & Plan (11/17/2019 8:34 PM PEDIATRIC NURSE): The patient is tolerating Ozempic. She reports substantial improvement in blood sugars. She will continues the diabetic diet, and she is referred to a powder line repairer. Assessment & Plan (11/14/2019 12:21 AM PEDIATRIC NURSE): The patient reports recent hyperglycemia. Check A1C. Consider addition of Ozempic. Assessment & Plan (09/17/2019 3:41 PM PEDIATRIC NURSE): Lab Results Component Value Date HGBA1C 7.1 (H) 06/04/2019 Assessment & Plan (08/14/2019 3:16 PM CDT): Lab Results Component Value Date HGBA1C 7.1 (H) 06/04/2019 Assessment & Plan (06/04/2019 10:28 AM CDT): Check A1C. Assessment & Plan (10/30/2018 10:25 AM PEDIATRIC NURSE): Check BMP and A1C at the next [...] November. Assessment & Plan (11/17/2019 8:36 PM PEDIATRIC NURSE): Body mass index is 40.34 kg/m . BMI Follow-up includes: nutrition counseling, exercise counseling and education provided. Assessment & Plan (10/20/2019 2:35 PM PEDIATRIC NURSE): BMI Follow-up includes: nutrition counseling, exercise counseling [...] provided. Assessment & Plan (12/17/2019 1:50 PM PEDIATRIC NURSE): 5 pound weight loss noted and endorsed. Continue your good efforts. An optimal BMI (body mass index) is between 20 and 25. Encourage weight loss. Each pound of weight lost unloads 3-4 pounds per square inch pressure from weight bearing joints. Diet and exercise are the keys to weight management. Assessment & Plan (09/17/2019 3:13 PM PEDIATRIC NURSE): An optimal BMI (body mass index) is [...] provided. Assessment & Plan (01/14/2019 8:39 AM PEDIATRIC NURSE): BMI Follow-up includes: nutrition counseling, exercise counseling and education provided. Assessment & Plan (01/01/2019 10:04 AM PEDIATRIC NURSE): BMI Follow-up includes: nutrition counseling, exercise counseling and education provided. Assessment & Plan (10/30/2018 10:12 AM PEDIATRIC NURSE): BMI Follow-up includes: nutrition counseling, exercise counseling and education provided. Assessment & Plan (09/29/2018 1:07 PM PEDIATRIC NURSE): BMI Follow-up includes: nutrition counseling, exercise counseling and education provided. Assessment & Plan (07/04/2018 4:39 PM CDT): Follow-up for management of elevated BMI morbid obesity includes nutrition counseling, exercise counseling, and lifestyle education. Dysuria 07/02/2018 12/17/2019 Assessment & Plan (11/14/2019 12:19 AM PEDIATRIC NURSE): Check UA micro and culture. Assessment & [...] reviewed. 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 on file Not on file No t on file Last Filed Vital Signs Vital Sign Reading Time Taken Comments Blood Pressure 120/72 12/25/2024 10:33 AM PEDIATRIC NURSE Pulse 80 12/25/2024 10:33 AM PEDIATRIC NURSE Temperature 36 C (96.8 F) 07/14/2024 9:07 AM CDT Respiratory Rate 16 12/25/2024 10:33 AM PEDIATRIC NURSE Oxygen Saturation 98% 07/14/2024 9:25 AM CDT Inhaled Oxygen Concentration - - Weight 94.8 kg (209 lb) 12/25/2024 10:33 AM PEDIATRIC NURSE Height 165.1 cm (5' 5 ) 12/25/2024 10:33 AM PEDIATRIC NURSE Body Mass Index 34.78 12/25/2024 10:33 AM PEDIATRIC NURSE Plan of Treatment Not on file Medical Devices Implanted Type Area Manager Of Development Device Identifier Shelf Expiration Date Model / Serial / Lot [employer] [id number]-8990 Ar[employer]rex Fibertak Fiberwire Needle 1 Oxford Suture Sterile - [id number] Implanted:Qty: 1 on 12/28/2021 by Agapito Yang MD at [facility] Left: Wrist [employer] 10/10/2026 AR-[id number] / / [id number] Procedures Procedure Name Priority Date/Time Associated Diagnosis Comments OCT, RETINA - OU - BOTH EYES Routine 12/28/2024 4:57 PM PEDIATRIC NURSE Proliferative diabetic retinopathy of both eyes with macular edema associated with type 2 diabetes mellitus (HCC) POCT GLUCOSE Routine 12/25/2024 10:36 AM PEDIATRIC NURSE Type 2 diabetes mellitus with diabetic polyneuropathy, without long-term current use of insulin (HCC) POCT HEMOGLOBIN A1C Routine 12/25/2024 1 0:36 AM PEDIATRIC NURSE Type 2 diabetes mellitus with diabetic polyneuropathy, [...] OU - Both Eyes (12/28/2024 4:57 PM PEDIATRIC NURSE) Anatomical Region Laterality Modality Head Optical Coherenc e Tomography Narrative 12/28/2024 4:57 PM PEDIATRIC NURSE Right Eye Quality was good. Scan locations included subfoveal. Left Eye Quality was good. Scan locations included subfoveal. Notes OD: no cme OS: no CME us Lo Mcgregor MD OPHTH TOMOGRAPHY Final Res ult * (ABNORMAL) POCT hemoglobin A1c (12/25/2024 10:36 AM PEDIATRIC NURSE) Hemoglobin A1C, POC 6.7 4.0 - 5.6 % Blood 12/25/2024 10:3 6 AM PEDIATRIC NURSE us Priyacarmen Calderon PEDIATRIC DENTAL HYGIENIST POINT OF CARE TEST ORDERA BLES Final Result * POCT glucose (12/25/2024 10:36 AM PEDIATRIC NURSE) Glucose Blood, POC 102 mg/dL Blood 12/25/2024 10:3 6 AM PEDIATRIC NURSE us Priya Calderon PEDIATRIC DENTAL HYGIENIST POINT OF CARE TEST ORDERA BLES Final [...] CDT Mu Kelley MD LAB BLOOD ORDERABLES [facility] Result [facility] One [facility] Department [place] [address] * Albumin Creatinine Ratio, Urine (05/25/2024 9:58 [...] LAB URINE ORDERABLES Joyce moreno Result [facility] [id number] [facility] Department [place] [address] * (ABNORMAL) Lipid panel (05/25/2024 [...] 05/25/2024 2:40 PM CDT us Priya Calderon PEDIATRIC DENTAL HYGIENIST LAB BLOOD ORDERABLES Joyce l Result [facility] [id number] Department [place] [address] * Screening Mammogram (01/15/2020) Anatomical [...] C antibody (08/14/2019 3:21 PM CDT) Pathologist [facility] Hep C Ab Non-Reactiv e Non-Reactiv e [facility] Blood specimen (specimen) 08/14/2019 3:21 PM CDT 08/14/2019 6:33 PM CDT Arden Justin MD LAB MICROBIOLOGY - GENERA L ORDERABLES Final Result [facility] [address] [place] [address] * COLONOSCOPY (05/09/2018) Colonoscopy Abnormal Historical Provider HEALTH MAINTENANCE Final Result from Last 3 Months or Most Recently Relevant to Health Maintenance Insurance MEDICARE [employer] MEDICARE [facility] MEDICARE [facility] Care Teams Underground Drill Operator Relationship Specialty Start Date End Date Ana Cristina Mckeon MD [address] [address] PCP - General Internal Medicine 03/03/21
--- OUTSIDE RECORDS SUMMARY | 2025-02-10 16:15 | XMS_ITS | Encounter Summary ---
Author Organization [facility] Address [address] [place] [address] Care Team Providers Care Cloth Shrinking Supervisor Name Role Phone Darin Bryant MD Unavailable Mary Rodriguez Primary Care Provider [phone] Elizabeth Nava NP Primary Care Provider [phone] None, Provider Primary Care Provider Unavaila ble Mary Rodriguez Unavailable [phone] Elena Valdes MD Primary Care Provider [phone] Ana Cristina Mckeon MD Primary Care Provider [phone] Encounter Details Date Type Department Care Team (Late Contact Info) Description 12/11/[address] [facility] [place] [address] Darin Bryant MD Three [facility]. [address] [address] Social History Tobacco Use Types Packs/Day Years Used Date Smoking Tobacco: Never Smokeless Tobacco: Never Alcohol Use Standard Drinks/Week Comments No 0 (1 standard drink = 0.6 oz pur e alcohol) Comments Unknown Sex and Gender Information Value Date Recorded Sex Assigned at Not on file Legal Sex Female 10:12 AM GAS STATION ATTENDANT Gender Identity Not on file Sexual Orientation Not on file Occupation Industry Job Start Date Job End Date Not on file Not on file Not on file Not on file documented as of this encounter Plan of Treatment Upcoming Encounters Date Type Department Care Team (Late st Contact Info) Description 03/08/2025 2:00 PM CDT Appointment [facility] [place] [address] Ana Cristina Mckeon MD [address] [place] [address] 03/08/2025 2:40 PM CDT Appointment [facility] [place] [place] [address] Ana Cristnia Mckeon MD [address] [place] [address] documented as of this encounter Visit Diagnoses Not on filedocumented in this encounter Care Teams Cloth Shrinking Supervisor Relationship Specialty Start Date End Date Mary Rodriguez APNP [address] [place] [address] PCP - General NURSE PRACTITIONER 11/11/17 01/08/19 Elizabeth Nava NP [address] [place] [address] PCP - General NURSE PRACTITIONER 01/09/19 02/02/19 Bienvenido, MD Jermaine PCP - General 02/03/19 11/11/19 Mary Rodriguez APNP [address] [place] [address] PCP - Med Group - MSSP Attributed Provider 08/11/17 11/10/21 Elena Valdes MD [address] [place] [address] PCP - General INTERNAL MEDICINE GERIATRIC MEDICINE 11/12/19 03/14/21 Ana Cristina Mckeon MD [address] [facility] [address] [place] [address] PCP - General INTERNAL MEDICINE 03/15/21 Darin Bryant MD Three [facility]. [facility] [address] [place], [place] [id number] Points Burn Out Scarfing Operator CARDIOVASCULAR DISEASE 11/05/17 documented as of this encounter
--- OUTSIDE RECORDS SUMMARY | 2025-02-10 16:15 | XMS_ITS | Continuity of Care Document ---
Author Organization [facility] Address [address] [place] [address] Phone Care Team Providers Care Billing Machine Operator Name Role Phone Hanane WILCOX, Constantin Unavailable [...] Diagnoses Date Provider Providers Copied on Encounter [facility], [address], [place], [place], [id number] , tel: [phone] [facility] No Information 9 Hanane Killian. [address] [place] [address], [id number], [place]. tel:[phone] [facility], [address], [place], [place], [address] , tel: [phone] [facility] No Information 8 Hanane Martedamigue. [address], [place], [id number], [place]. tel:[phone] [employer] [facility], [address], [place], [place], [address] , tel: [phone] [place] Type 2 diabetes mellitus with peripheral neuropathyRheuma toid arthritis, involving unspecified site, unspecified rheumatoid factor presenceBenign essential hypertensionAnem ia, unspecified type 7 Humble Lopes. [address] [place] [address], [id number], [place]. tel:[phone] Referring Provider: Moses Kate, [address] [place] [address] [place], [address] . tel:[phone] [facility] [facility], [address], [place], [place], [address] , tel: [phone] [place] Mild anemia [place]opes. [address] [address] [facility], [address], [address], . tel: [phone] Referring Provider: Moses Kate, [address] [facility], [address], [place], [address] . tel:[phone] [employer] [facility], [address], [place], [place], [address] , tel: [phone] [place] Jerking movements of extremities [place]opes. [address] [address] [facility], [address], [address], . tel: [phone] Referring Provider: Moses Kate, [address] [facility] [address], [place], [address] . tel:[phone] [facility], [address], [place], [place], [address] , tel: [phone] [place] Tremors of nervous system Su Briseno. [address] [facility], [address], [place], [address], . tel: [phone] [facility], [address], [place], [place], [address] , tel: [phone] [place] Benign essential hypertensionRheu matoid arthritis, involving unspecified site, unspecified rheumatoid factor presenceType 2 diabetes mellitus with peripheral neuropathyAnemia , unspecified type May-0 [place]opes. [address] [facility], [address], [place], [address], [place]. tel: [phone] Referring Provider: Moses Kate, [address], [place], [address] . tel:[phone] [employer] [facility], [address], [place], [place], [address] , [place] tel: [phone] [facility] No Information 7 Bialecki Eldad. [address] [place] [address], [id number], [place]. tel:[phone] [facility], [address], [place], [place], [address] , tel: [phone] [facility] Weight loss 7 Bialecki Eldad. [address] [place] [address], [id number], [place]. tel:[phone] Referring Provider: Moses Kate, [address] [facility] [address], [place], [address] . tel:[phone] [facility], [address], [place], [place], [address] , tel: [phone] [place] Type 2 diabetes mellitus with peripheral neuropathyRheuma toid arthritis, involving unspecified site, unspecified rheumatoid factor presenceGastropa resisBenign essential hypertensionAnxi etyFibromyalgia syndromeGastroes ophageal reflux disease, esophagitis presence not specifiedAnemia, unspecified type 7 Hum[place] Lopes. [address] [facility], [address], [id number], . tel:[phone] Referring Provider: Moses Kate, [address], [address] . tel:[phone] [facility], [address], [place], [place], [address] , tel: [phone] [facility] History of colectomySlow transit constipationGast roparesisHemorrh oids, unspecified hemorrhoid type 6 Bialecki Eldad. [address] [place] [address], [id number], [place]. tel:[phone] Referring Provider: Constantin Arnett, [address] [place] [address], [address] . tel:[phone] [facility], [address] [place] [address], [id number] , tel: [phone] [facility] [place] Small bowel obstructionHisto ry of colectomy 6 Hanane Killian. [address] [place] [address], [id number], [place]. tel:[phone] Referring Provider: Constantin Arnett, [address] [place] [address], [address] . tel:[phone] [facility], [address] [place] [address], [id number] , [place] tel: [phone] [facility] [place] Generalized abdominal painNauseaChange in bowel functionHistory of colectomy 6 Hanane Killian. [address] [place] [address], [id number], [place]. tel:[phone] Referring Provider: Constantin Arnett, [address] [place] [address], [place], [address] . tel:[phone] [facility], [address], [place], [place], [address] , [place] tel: [phone] [facility] No Information 3 Solitario Shah. [address] [place] [address], [address] , [place], [place], [address], . tel:[phone] [facility], [address], [place], [place], [address] , [place] tel: [phone] [facility] FibromyalgiaCons tipation, unspecifiedDiabe jeny with ophthalmic manifestations, type II or unspecified type, not stated as uncontrolledProl iferative diabetic retinopathy 3 Solitario Shah. [address] [place] [address], [address], [place], [place], [address], [place]. tel:[phone] [facility], [address], [place], [place], [address] , [place] tel: [phone] [facility] Diabetes mellitus type 2 with neurological manifesGastric paresisGERD (gastroesophagea l reflux disease)Anxiety and depressionAbdomi nal painMenopausal state 3 Debora Sinclair. [address] [facility], [address], [place], [place], [address], . tel:[phone] Referring Provider: Pablo Jerez, [address] [place] [address] [address], [place], [address] . tel:[phone] [facility], [address], [place], [place], [address] , tel: [phone] [facility] Diabetes with neurological manifestations, type II or unspecified type, not stated as uncontrolledGast roparesisEsophag eal refluxDysthymic disorderUnspecif ied essential hypertension 2 Debora Sinclair. [address], [address], [place], [place], [address], . tel:[phone] Referring Provider: Pablo Jerez, [address] [place] [address] [address], [place], [address] [place] [address] . tel:[phone] [facility], [address], [place], [place], [address] , tel: [phone] [facility] NEED FOR PROPHYLACTIC VACCINATION AND INOCULATION, INFLUENZAScreeni ng examination for pulmonary tuberculosis 2 Solitario Shah. [address] [place] [address], [address], [place], [place], [address], . tel:[phone] Referring Provider: Pablo Jerez, [address] [place] [address] [address], [place], [address] . tel:[phone] [facility], [address], [place], [place], [address] , tel: [phone] [facility] Diabetes mellitus without mention of complication, type II or unspecified type, not stated as uncontrolledLong -term (current) use of other medications 2 Solitario Shah. [address] [place] [address], [address] , [place], [place], [address], . tel:[phone] Referring Provider: Pablo Jerez, [address] [place] [address] [address], [place], [address] . tel:[phone] [facility] [facility], [address], [place], [place], [address] , tel: [phone] [facility] Diabetes mellitus type 2 with neurological manifesGastric paresisEssential hypertensionWeig ht gainAbnormal CT scanHematuria, microscopicAbdom inal pain, RLQOther and unspecified hyperlipidemiaEs ophageal refluxDepressive disorder, not elsewhere classifiedDysthy kan disorderDiabetic retinopathy associated with type 2 diabet 2 Debora Dottie. [address], [address], [place], [place], [address], [place]. tel:[phone] Referring Provider: Pablo Jerez, [address] [place] [address] [address], [place], [address] . tel:[phone] [facility], [address], [place], [place], [address] , tel: [phone] [facility] Diabetes with neurological manifestations, type II or unspecified type, not stated as uncontrolledGast roparesisOther and unspecified hyperlipidemiaUn specified essential hypertensionDepr essive disorder, not elsewhere classifiedEsopha geal reflux 2 Arma Dottie. [address] [facility], [address], [place], [place], [address], [place]. tel:[phone] Referring Provider: Pablo Jerez, [address] [place] [address] [address], [place], [address] . tel:[phone] [facility], [address], [place], [place], [address] , [place] [phone] [facility] Anxiety state, unspecifiedDiabe jeny with neurological manifestations, type II or unspecified type, not stated as uncontrolledPoly neuropathy in diabetes 2 Debora Dottie. [address] [facility], [address], [place], [place], [address], [place]. tel:[phone] Referring Provider: Pablo Jerez [address] [place] [address] [address], [place], [address] . tel:[phone] [facility], [address], [place], [place], [address] , tel:[phone] [facility] Laceration of scalpEncounter for removal of paula 2 Debora Sinclair. [address] [facility], [address], [place], [place], [address], . tel:[phone] Referring Provider: Pablo Jerez, [address] [place] [address] [address], [place], [address] . tel:[phone] [facility], [address], [place], [place], [address] , tel: [phone] [facility] Scalp lacerationAssaul t, allegedAnxietyUn specified essential hypertensionDepr essive disorder, not elsewhere classifiedDiabet es with neurological manifestations, type IIGastric paresis 2 Debora [address]. [address] [place] [address], [address], [place], [place], [address], . tel:[phone] Referring Provider: Pablo Jerez [address] [place] [address] [address] , [place], [address] . tel:[phone] [facility], [address], [place], [place], [address] , tel: [phone] [facility] Diabetes with neurological manifestations, type IIPolyneuropathy in diabetesUnspecif ied essential hypertensionSCRE EN LIPOID DISORDERSOtalgia , unspecifiedOther malaise and fatigueROUTINE COMPUTER PROJECT MANAGER EXAMINATIONDiabe jeny mellitus without mention of complication, 2 Debora Sinclair. [address] [place] [address], [address], [place], [place], [address], . tel:[phone] Referring Provider: Pablo Jerez [address] [place] [address] [address], [place], [address] . tel:[phone] [facility], [address], [place], [place], [address] , [place] tel: [phone] [facility] ESOPHAGEAL REFLUX Sep-0 3-200 9 [facility]. [address], [place], [address], [place]. [facility], [address], [place], [place], [address] , [place] tel: [phone] [facility] HYPERLIPIDEMIA NEC/NOS Sep-0 2-[address], [place], [address], [place]. [facility], [address], [place], [place], [address] , tel: [phone] [facility] SCREEN-DIABETES MELLITUSSCREEN LIPOID DISORDERSLONG-TE RM USE MEDS NECVISUAL DISTURBANCE NOSIMPAIRED FASTING GLUCOSEROUTINE MEDICAL EXAMMALAISE AND FATIGUE NEC Sep-0 1200 9 Scooter Bejarano. [address] [facility], [facility] [address], [place], [place], [address]. tel:[phone] Family History Family Member Type Diagnosis Age At Onset Mother Problem (finding) Mental illness Father Problem (finding) Allergies Father Problem (finding) Myocardial infarction Mother Problem (finding) Obesity Mother Problem (finding) raised blood lipids Mother Problem (finding) osteoarthritis Mother Problem (finding) Non-Hodgkin's lymphoma Mother Problem (finding) Renal disease Mother Problem (finding) diabetes melli tus in first degree relative Brother Problem (finding) Allergies Mother Problem (finding) hypertension Mother Problem (finding) Heart disease Mother Problem (finding) depression Mother Problem (finding) stroke Mother Problem (finding) malignant neoplasm of c ervix uteri Immunizations Vaccine Date Status Comments Fluzone Quad , spli t virus, 0.5mL dosage administered Source: New Immuniza tion Record Flu (split) (3 yrs or older) administered Source: New Immunization Record Td administered Source: New Imm unization Record Td, preservative free, (7 yr s and older) pending Source: New Immuniza tion Record Payers Payer name Insurance type Covered alliance party ID Authoriza tion(s) MEDICARE [place] [id number] FOR LIFE MDCR SUPPLEMENT CI [id number] MEDICARE MB [id number] [employer] INACTIVE OUT OF STATE BL [id number] FOR LIFE MDCR SUPPLEMENT [id number] Social History Type Description Quantity Date [...]
--- OUTSIDE RECORDS SUMMARY | 2025-02-10 16:15 | XMS_ITS | Clinical Summary ---
Author Organization [facility] Address [address] [place] [address] Care Team Providers Care Paper Production Engineer Name Role Phone Ana Cristina Mckeon MD Primary Care Provider [phone] Allergies Active Allergy Reactions Criticality Noted Date [...] Headache Low 11/27/2017 Penicillins Anaphylaxis,Hives High 11/16/2010 [place] Nut Anaphylaxis,Rash High 03/05/2016 Pineapple Swelling Medium [...] polyneuropathy, without long-term current use of insulin ([facility]) Check blood sugar twice daily. 200 [...] polyneuropathy, without long-term current use of insulin ([facility]) Inject 30 Units under the skin nightly 30 mL 3 4 09/24/20 25 Active pen needle, diabetic (Pen Needle) 31 gauge x 5/16 needleIndications :Type 2 diabetes mellitus with diabetic polyneuropathy, without long-term current use of insulin ([facility]) Use to inject 1-4 times daily [...] polyneuropathy, without long-term current use of insulin ([facility]) Take 1 tablet (4 mg total) [...] 08/12/2023 Assessment & Plan (12/25/2024 10:44 AM MAJOR GENERAL): Chronic problem. Controlled on current losartan 50mg daily. Assessment & Plan (09/24/2024 11:10 AM MAJOR GENERAL): Chronic problem. Controlled on current losartan 50mg daily. Assessment & Plan (05/25/2024 9:37 AM CDT): Chronic problem. Controlled on current losartan 50mg daily. Will update labs today. Verified that she uses [employer]. Aware to check results/results letter in [employer]. Will contact by phone if needed. Assessment & Plan (01/27/2024 9:39 AM CDT): Chronic problem. Controlled on current losartan 50mg daily. Assessment & Plan (08/12/2023 2:45 PM CDT): Chronic problem. Controlled on current losartan 50mg daily. Hyperlipidemia associated with type 2 diabetes kolby herbert 08/12/2023 Assessment & Plan (12/25/2024 10:44 AM MAJOR GENERAL): Chronic problem. Currently taking Atorvastatin 40mg & Bempedoic acid-zetia 180- 10mg. Last lipid panel: 05/25/24 CMR=805, YQ=218. Assessment & Plan (09/24/2024 11:11 AM MAJOR GENERAL): Chronic problem. Currently taking Atorvastatin 40mg & Bempedoic acid-zetia 180- 10mg. Last lipid panel: 05/25/24 FHF=458, TK=556. Assessment & Plan (05/25/2024 9:38 AM CDT): Chronic problem. Currently taking Atorvastatin 40mg & Bempedoic acid-zetia 180- 10mg. Last lipid panel: 05/13/23 LDL=31, HY=369. Will update labs today. Verified that she uses [employer]. Aware to check results/results letter in [employer]. Will contact by phone if needed. Assessment & Plan (01/27/2024 9:39 AM CDT): Chronic problem. Currently taking Atorvastatin 40mg & Bempedoic acid-zetia 180- 10mg. Last lipid panel: 05/13/23 LDL=31, OX=762. Assessment & Plan (08/12/2023 2:53 PM CDT): Chronic problem. Currently taking Atorvastatin 40mg & Bempedoic acid-zetia 180- 10mg. Last lipid panel: 05/13/23 LDL=31, EJ=696. Class 2 severe obesity due t o [...] 12/17/2019 Assessment & Plan (12/17/2019 2:09 PM MAJOR GENERAL): Without plans for further infusion therapy, vascular port may be removed. Surgical referral provided. Arthritis of carpometacarpal (CMC) joint of left thumb 11/17/2019 Arthritis of carpometacarpal (CMC) joint of righ t thumb 11/17/2019 Restless leg syndrome 11/17/2019 Insomnia 11/17/2019 Assessment & Plan (11/17/2019 8:35 PM MAJOR GENERAL): Symptoms are worsening in the context of increased stressors. She is referred to sleep medicine. Malaise 11/14/2019 Assessment & Plan (11/14/2019 12:22 AM MAJOR GENERAL): Check CBC and CMP. Encounter for adjustment and management of vascular access device 09/14/2019 Osteopenia of multiple sites 08/14/2019 Overview (08/14/2019): Images from the original note were not included. BONE DENSITY/DEX02/27/2018 [facility] Result Narrative Examination: Bone Density [...] mg a daily. Vitamin D intake of 1997-7513 iu daily. Most [facility] do not get enough Vitamin D, so a supplement in an oil capsule gives the best absorption. I recommend repeating your bone density in 3 years. Assessment & Plan (09/17/2019 3:39 PM MAJOR GENERAL): We recommend you take Caltrate D once [...] canned with bones 3 oz 325 mg [place], canned with bones 3 oz 180 mg Shrimp, canned 3 oz 125 mg Dairy Serving Size Estimated Calcium* Ricotta, part-skim 4 oz 335 mg Yogurt, plain, low-fat 6 oz 310 mg Milk, skim, low-fat, whole 8 oz 300 mg Yogurt with fruit, low-fat 6 oz 260 mg Mozzarella, part-skim 1 oz 210 mg Cheddar 1 oz 205 mg Yogurt, English 6 oz 200 mg [place] Cheese 1 oz 195 mg Feta Cheese 4 oz 140 mg Cottage Cheese, 2% 4 oz 105 mg Frozen yogurt, vanilla 8 oz 105 mg Ice Cream, vanilla 8 oz 85 mg Parmesan 1 tbsp 55 mg Fortified Food Serving Size Estimated Calcium* [place] milk, rice milk or soy milk, fortified 8 oz 300 mg [place] juice and other fruit juices, fortified 8 oz 300 mg Tofu, prepared with calcium 4 oz 205 mg Waffle, frozen, fortified 2 pieces 200 mg Oatmeal, fortified 1 packet 140 mg Greek muffin, fortified 1 muffin 100 mg Cereal, [...] original note were not included. BONE DENSITY/DEX02/27/2018 [facility] Result Narrative Examination: Bone Density [...] 08/14/2019 Assessment & Plan (12/17/2019 8:59 PM MAJOR GENERAL): Continue acetaminophen as needed. Assessment & Plan (09/17/2019 3:37 PM MAJOR GENERAL): See discussion above. Assessment & Plan (08/14/2019 3:17 PM CDT): See above. Continue acetaminophen for pain. MORRISSEY (dyspnea on exertion) 01/01/2019 Assessment & Plan (01/01/2019 11:08 AM MAJOR GENERAL): EKG, chest x-ray and labs. Patient has an appointment with her sensor operator on Saturday. Instruct patient that if [...] 06/24/2017 Assessment & Plan (12/17/2019 1:55 PM MAJOR GENERAL): Images from the original note were not included. She is no longer taking her Vitamin D supplement. Update lab as per orders. Assessment & Plan (11/14/2019 12:20 AM MAJOR GENERAL): She continues vitamin D supplementation. 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 Seen at [facility]. 07/17/24 [facility] optho +PDR w/DME. Assessment & Plan (08/24/2020 3:47 PM CDT): Is followed by Ophthalmology and is receiving I injections. Assessment & Plan (09/17/2019 3:40 PM MAJOR GENERAL): Noted Assessment & Plan (10/31/2018 2:50 PM MAJOR GENERAL): Resolved fluid 5 wks after injection right eye (OD) Isolated cyst left eye (OS) Would continue alternating injections - Eylea left eye (OS) today Assessment & Plan (07/04/2018 4:38 PM CDT): The patient will continue to follow with her pick up operator. Erosive osteoarthritis 10/08/2016 Overview (09/17/2019): Images from the original note were not included. US Hands Bilateral for Rheumatoid Arthritis (C) Order: [id number] Status: Final result Visible to patient: No [...] 10:40 Assessment & Plan (12/17/2019 1:49 PM MAJOR GENERAL): Erosive osteoarthritis stable. Since she was last seen she has had surgery bilateral thumb (trigger finger) as well as fusion third DIP L hand by Dr. Nicola Singer. She is pleased with outcome; pain relieved. She is working with PT/OT; doing well. Assessment & Plan (09/17/2019 9:51 PM MAJOR GENERAL): Reviewed with patient ultrasound findings with little [...] review. Assessment & Plan (10/30/2018 10:25 AM MAJOR GENERAL): The patient will continue to follow up with rheumatology. Assessment & Plan (07/04/2018 4:38 PM CDT): The patient will continue to follow up with her chief electrician. 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 Assessment & Plan (12/17/2019 1:51 PM MAJOR GENERAL): Vitals BP 132/80 (BP Location: Right arm, Patient Position: Sitting) Pulse 78 Temp 36.8 C (98.3 F) (Oral) Resp 16 Ht 162.6 cm (5' 4 ) Wt 104.3 kg (230 lb) BMI 39.48 kg/m Denies headache, dizziness, chest pain, palpitations, shortness of breath, edema, orthopnea, PND. Assessment & Plan (11/14/2019 12:19 AM MAJOR GENERAL): Continue the current medication regimen. Assessment & Plan (09/17/2019 3:38 PM MAJOR GENERAL): Vitals BP 118/64 (BP Location: Right arm, [...] Rheumatology. Assessment & Plan (12/17/2019 1:51 PM MAJOR GENERAL): She remains on Lyrica 100 mg three times daily and duloxetine 30 mg daily. Pain control satisfactory. Assessment & Plan (09/17/2019 3:17 PM MAJOR GENERAL): She remains on Lyrica 100 mg three [...] fluids. Assessment & Plan (12/17/2019 1:53 PM MAJOR GENERAL): Images from the original note were not included. Be sure to maintain good hydration. Do not use any nonsteroidal antiinflammatory medications (including over the counter ibuprofen and naproxen) as these are kidney irritants. Assessment & Plan (09/17/2019 3:40 PM MAJOR GENERAL): Lab Results Component Value Date GLUCOSE 217 [...] 2010. Assessment & Plan (12/25/2024 11:01 AM MAJOR GENERAL): Chronic problem. A1c improved from 7.4% 09/24/24 to now 6.7%. Nico start dropping Lantus dose by 2 units weekly if morning fasting blood sugar is less than 110 persistently. Current medications: Jardiance 25mg daily Mounjaro 7.5mg weekly Lantus 30 units nightly UTD on labs. UTD on DM eye exam (07/17/24 [facility] optho +PDR w/DME). Has appt 12/28/24. [...] barefoot. Assessment & Plan (09/24/2024 11:43 AM MAJOR GENERAL): Chronic problem. A1c not at goal & [...] labs. UTD on DM eye exam (07/17/24 [facility] optho +PDR w/DME). Strive for regular [...] update labs today. Verified that she uses [employer]. Aware to check results/results letter in [employer]. Will contact by phone if needed. UTD [...] 150 Assessment & Plan (09/28/2020 5:24 PM MAJOR GENERAL): Hemoglobin A1c ordered for today. Her last hemoglobin A1c approximately 3 months ago indicated reasonably adequate control. No changes in medication at this time. Patient is taking Ozempic and metformin. Follow-up in 3 months at which time we will perform a diabetic foot exam. Patient sees an pick up operator for diabetic retinopathy management. Discussed diet and [...] A1C. Assessment & Plan (12/17/2019 1:58 PM MAJOR GENERAL): She is working more diligently ion diet. Lab Results Component Value Date HGBA1C 8.5 (H) 10/20/[address] Valdes 01/2020. Assessment & Plan (11/17/2019 8:34 PM MAJOR GENERAL): The patient is tolerating Ozempic. She reports substantial improvement in blood sugars. She will continues the diabetic diet, and she is referred to a breaker unit assembler. Assessment & Plan (11/14/2019 12:21 AM MAJOR GENERAL): The patient reports recent hyperglycemia. Check A1C. Consider addition of Ozempic. Assessment & Plan (09/17/2019 3:41 PM MAJOR GENERAL): Lab Results Component Value Date HGBA1C 7.1 (H) 06/04/2019 Assessment & Plan (08/14/2019 3:16 PM CDT): Lab Results Component Value Date HGBA1C 7.1 (H) 06/04/2019 Assessment & Plan (06/04/2019 10:28 AM CDT): Check A1C. Assessment & Plan (10/30/2018 10:25 AM MAJOR GENERAL): Check BMP and A1C at the next [...] November. Assessment & Plan (11/17/2019 8:36 PM MAJOR GENERAL): Body mass index is 40.34 kg/m . BMI Follow-up includes: nutrition counseling, exercise counseling and education provided. Assessment & Plan (10/20/2019 2:35 PM MAJOR GENERAL): BMI Follow-up includes: nutrition counseling, exercise counseling [...] provided. Assessment & Plan (12/17/2019 1:50 PM MAJOR GENERAL): 5 pound weight loss noted and endorsed. Continue your good efforts. An optimal BMI (body mass index) is between 20 and 25. Encourage weight loss. Each pound of weight lost unloads 3-4 pounds per square inch pressure from weight bearing joints. Diet and exercise are the keys to weight management. Assessment & Plan (09/17/2019 3:13 PM MAJOR GENERAL): An optimal BMI (body mass index) is [...] provided. Assessment & Plan (01/14/2019 8:39 AM MAJOR GENERAL): BMI Follow-up includes: nutrition counseling, exercise counseling and education provided. Assessment & Plan (01/01/2019 10:04 AM MAJOR GENERAL): BMI Follow-up includes: nutrition counseling, exercise counseling and education provided. Assessment & Plan (10/30/2018 10:12 AM MAJOR GENERAL): BMI Follow-up includes: nutrition counseling, exercise counseling and education provided. Assessment & Plan (09/29/2018 1:07 PM MAJOR GENERAL): BMI Follow-up includes: nutrition counseling, exercise counseling and education provided. Assessment & Plan (07/04/2018 4:39 PM CDT): Follow-up for management of elevated BMI morbid obesity includes nutrition counseling, exercise counseling, and lifestyle education. Dysuria 07/02/2018 12/17/2019 Assessment & Plan (11/14/2019 12:19 AM MAJOR GENERAL): Check UA micro and culture. Assessment & [...] reviewed. Assessment & Plan (11/12/2018 3:51 PM MAJOR GENERAL): Status post (s/p) anti-VEGF left eye (OS) [...] Department Care Team Description 12/28/2024 1:45 PM MAJOR GENERAL Office Visit [facility] Ophthalmology [facility] [address] [place] [address] Lo Mcgregor MD Proliferative diabetic retinopathy of both eyes with macular edema associated with type 2 diabetes mellitus (HCC) (Primary Dx) 12/25/2024 10:30 AM MAJOR GENERAL Office Visit [facility] Diabetes [facility] Endocrinology [address] [place] [phone] Priya Calderon NP Type 2 diabetes mellitus with diabetic polyneuropathy, without long-term current use of insulin (HCC) (Primary Dx); Hypertension associated with type 2 diabetes mellitus (HCC); Hyperlipidemia associated with type 2 diabetes mellitus (HCC) 12/21/2024 Orders Only [facility] [address] [place] [phone] Priya Calderon NP Type 2 diabetes mellitus with diabetic polyneuropathy, without long-term current use of insulin (HCC) 12/18/2024 Orders Only [facility] [address] [place] [phone] Priya Calderon NP Type 2 diabetes mellitus [...] on file Legal Sex Female 10:06 AM MAJOR GENERAL Gender Identity Female 09/28/2020 10:45 AM MAJOR GENERAL Sexual Orientation Straight 09/28/2020 10 :45 AM MAJOR GENERAL 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 Not on file No t on file Obstetrics History Last Filed Vital Signs Vital Sign Reading Time Taken Comments Blood Pressure 120/72 12/25/2024 10:33 AM MAJOR GENERAL Pulse 80 12/25/2024 10:33 AM MAJOR GENERAL Temperature 36 C (96.8 F) 07/14/2024 9:07 AM CDT Respiratory Rate 16 12/25/2024 10:33 AM MAJOR GENERAL Oxygen Saturation 98% 07/14/2024 9:25 AM CDT Inhaled Oxygen Concentration - - Weight 94.8 kg (209 lb) 12/25/2024 10:33 AM MAJOR GENERAL Height 165.1 cm (5' 5 ) 12/25/2024 10:33 AM MAJOR GENERAL Body Mass Index 34.78 12/25/2024 10:33 AM MAJOR GENERAL Plan of Treatment Health Maintenance Due Date Last Done Comments Regular Well Visit/Exam 18-64 1979 Zoster Vaccine (1 of 2) 2011 Pneumococcal vaccine <65 (2 of 2 - PCV) 11/08/2016 11/08/2015, 08/23/2014, 08/23/2014 Cervical Cancer Screening 01/13/20212019, 01/14/2020, 03/14/2015, Additional history exists Depression Screening 09/28/2021 09/28/2020, 08/24/2020, 06/22/2020, Additional history exists Breast Cancer Screening-Mammogram 05/10/2024 05/10/2023, 05/10/2023, 04/30/2022, Additional history exists Albumin Creatinine Ratio, Urine 05/25/2025 05/25/2024, 05/13/2023, 10/20/2019 Lipid Panel 05/25/2025 05/25/2024, 07/0 01/2023, 03/22/2020, Additional history exists Hemoglobin A1C 06/24/2025 12/25/2024, 09/11, 05/25/2024, Additional history exists eGFR 07/03/2025 07/03/2024, 07/03/2024, 05/13/2023, Additional history exists Influenza Vaccine (Season Ended) 2025 08/23/2020, 08/14/2019, 08/14/2019, Additional history exists Foot Exam 09/24/2025 09/24/2024, [...] Completed 08/14/2019 Medical Devices Implanted Type Area Consumer Lending Manager Device Identifier Shelf Expiration Date Model / Serial / Lot [employer] [id number] Ar[employer]rex Fibertak Fiberwire Needle 1 [place] Suture Sterile - [id number] Implanted:Qty: 1 on 12/28/2021 by Agapito Yang MD at [facility] Left: Wrist [employer] 10/10/2026 AR-[id number] / / [id number] Procedures Procedure Name Priority Date/Time Associated Diagnosis Comments OCT, RETINA - OU - BOTH EYES Routine 12/28/2024 4:57 PM MAJOR GENERAL Proliferative diabetic retinopathy of both eyes with macular edema associated with type 2 diabetes mellitus (HCC) POCT GLUCOSE Routine 12/25/2024 10:36 AM MAJOR GENERAL Type 2 diabetes mellitus with diabetic polyneuropathy, without long-term current use of insulin (HCC) POCT HEMOGLOBIN A1C Routine 12/25/2024 1 0:36 AM MAJOR GENERAL Type 2 diabetes mellitus with diabetic polyneuropathy, [...] OU - Both Eyes (12/28/2024 4:57 PM MAJOR GENERAL) Anatomical Region Laterality Modality Head Optical Coherenc e Tomography Narrative 12/28/2024 4:57 PM MAJOR GENERAL Right Eye Quality was good. Scan locations included subfoveal. Left Eye Quality was good. Scan locations included subfoveal. Notes OD: no cme OS: no CME us Lo Mcgregor MD OPHTH TOMOGRAPHY Final Res ult * (ABNORMAL) POCT hemoglobin A1c (12/25/2024 10:36 AM MAJOR GENERAL) Hemoglobin A1C, POC 6.7 4.0 - 5.6 % Blood 12/25/2024 10:3 6 AM MAJOR GENERAL us Priyacarmen Calderon NP POINT OF CARE TEST ORDERA BLES Final Result * POCT glucose (12/25/2024 10:36 AM MAJOR GENERAL) Glucose Blood, POC 102 mg/dL Blood 12/25/2024 10:3 6 AM MAJOR GENERAL us Priya Calderon COMPUTER APPLICATIONS INSTRUCTOR POINT OF CARE TEST ORDERA BLES Final [...] LAB BLOOD ORDERABLES Fi nal Result YADI MARIE [facility] Department [place] [address] * Albumin Creatinine Ratio, Urine (05/25/2024 9:58 [...] Priya Calderon NP LAB URINE ORDERABLES Joyce l Result YADI [id number] Department [place] [address] * (ABNORMAL) Lipid panel (05/25/2024 9:58 AM [...] 05/25/2024 2:40 PM CDT us Priya Calderon COMPUTER APPLICATIONS INSTRUCTOR LAB BLOOD ORDERABLES Joyce l Result YADI [id number] Department [place] [address] * Screening Mammogram (01/15/2020) Anatomical Region Laterality [...] C Ab Non-Reactiv e Non-Reactiv e YADI [facility] Blood specimen (specimen) 08/14/2019 3:21 PM CDT 08/14/2019 6:33 PM CDT Arden Justin MD LAB MICROBIOLOGY - GENERA L ORDERABLES Final Result Performing Organization Address [facility] Co de Phone Number [facility] [address] [place] [address] * COLONOSCOPY (05/09/2018) Colonoscopy Abnormal Historical Provider HEALTH MAINTENANCE Final Result from Last 3 Months or Most Recently Relevant to Health Maintenance Insurance MEDICARE FOR LIFE MEDICARE FOR LIFE MEDICARE [facility] EM[facility] FOR LIFE Care Teams Paper Production Engineer Relationship Specialty Start Date End Date Ana Cristina Mckeon MD [address] [facility] [address] [place] [address] PCP - General Internal Medicine 03/03/21
== END 2025-02-10 14:49 | disposition home or self-care (01) ==
PROVIDERS: PCP Internal Medicine; Visit Provider Nurse Practitioner Family
DX: K85.90 Acute pancreatitis without necrosis or infection, unspecified (principal); R74.8 Abnormal levels of other serum enzymes; K59.00 Constipation, unspecified
CPT/HCPCS: 74177; Q9967

== ENCOUNTER 2025-03-22 07:57 | Outpatient (CLI) | payer MEDICARE, OTHER, SELFPAY ==
--- NOTE | ~2025-03-22 | MR_ITS ---
EXAMINATION: MR MRCP wo/w con/w 3D wo ind DATE: 03/22/2025 09:08 INDICATION: Epigastric pain and right upper quadrant abdominal pain TECHNIQUE: Magnetic resonance imaging (MRI) of the abdomen was performed without and with 18 mL Multi addy intravenous contrast. Sequences included coronal T2-weighted SS-FSE, coronal T2-weighted FS SS- FSE, coronal T2-weighted FS FIESTA, axial T2-weighted FS FIESTA, axial T2-weighted FIESTA, sagittal T 2-weighted SS-FSE, axial T1-weighted dual-echo FSPGR, axial T2-weighted SS-FSE, axial T1-weighted LAV A, axial T2-weighted STIR FSE. Thick-slab T2-weighted FRFSE-XL images were obtained for magnetic reso nance cholangiopancreatography (MRCP). Rotating maximum intensity projection 3-D reconstructions of t he volumetric data were created by the technologist. Postcontrast sequences included a time course of axial T1-weighted LAVA. COMPARISON: CT dated 02/10/2025 FINDINGS: ABDOMEN MRI: Heart size is normal. No pericardial or pleural effusion. Status post cholecystectomy. Liver, spleen, bilateral adrenal glands and left kidney are normal. A couple subcentimeter T2 hyperintense nonenhan cing right renal cyst. There multiple small pancreatic ductal side branches along the head, body and tail of the pancreas which are likely sequela of chronic pancreatitis. Pancreas is otherwise normal. Again seen is a partial right hemicolectomy with large amount of stool in the remaining distal colon suggestive of constipation. No bowel obstruction. No pathologically enlarged abdominal or upper pelvi c lymphadenopathy. Mild lumbar spondylosis. ABDOMEN MRCP: No intrahepatic biliary ductal dilation. There is dilation of the common bile duct 8 mm which is with in normal limits post cholecystectomy. The common bile duct tapers at the ampulla with no evident cho ledocholithiasis or stricture. IMPRESSION: 1. Mild dilation the common bile duct 8 mm which is within normal limits post cholecystectomy with no evident choledocholithiasis or intrahepatic biliary ductal dilation. 2. Multiple mildly dilated pancreatic ductal side branches throughout the pancreas which likely seque la of chronic pancreatitis. Correlate with clinical history. 3. Status post right hemicolectomy with large amount of stool in the remaining distal colon suggestiv e of constipation. Reviewed, dictated and finalized at location [facility]. IMPRESSION: 1. Mild dilation the common bile duct 8 mm which is within normal limits post c holecystectomy with no evident choledocholithiasis or intrahepatic biliary duct al dilation. 2. Multiple mildly dilated pancreatic ductal side branches throughout the pancr eas which likely sequela of chronic pancreatitis. Correlate with clinical histo ry. 3. Status post right hemicolectomy with large amount of stool in the remaining distal colon suggestive of constipation.
--- OUTSIDE RECORDS SUMMARY | 2025-03-22 08:05 | XMS_ITS | CONTINUITY OF CARE DOCUMENT ---
Author Name carlos a strauss Address Unknown Organization [facility] Office Address [address] [place] [address] Phone [phone] Care Team Providers Care Communications Tower Technician Name Role Phone Sander WILCOX, Aaron Unavailable EFREN WILCOX, JELENA Tierney Unavailable [phone] Michael WILCOX, Aura Unavailable Unavailable INSURANCE PROVIDERS Payer name Policy type / Coverage type [place] red libertarian ID BLUE [facility] Blue Shield [id number] [place] B [place] [id number]
--- OUTSIDE RECORDS SUMMARY | 2025-03-22 08:05 | XMS_ITS | Data Portability ---
Author Organization [facility], auto[employer]mer Address [address] [address] Care Team Providers Care Spinner Fixer Name Role Phone ANA CRISTINA WHITTINGTON Primary Care Provider [phone] Assessment Encounter Date Assessment Date Assessment LastModified [...] understanding . Follow up as noted below. [email or web address] Not available 02/26/2024 15:54:54 09/02/2024 09/02/2024 Patient [...] available Lab urinalysi s, dipstick [address] [facility], [address] [facility] [address], [place], [address], 01/11/2025 10:39:56 CMP, serum or plasma 2024 025 [facility], [address] [facility], [place], [address], 01/12/2025 19:07:28 CBC w/ auto diff 2024 025 [facility], [address] [place] [address], [address], 01/12/2025 19:07:29 amylase + lipase, serum 2024 025 [facility], [address] [place] [address], [place], [address], 01/11/2025 10:00:27 HbA1c (hemoglob in A1c), blood 2024 025 [facility], [address] [place] [address], [place], [address], 01/12/2025 19:07:27 HIV (1+2) Ab screen, serum 2023 024 [facility], [address] [place] [address], [place], [address], 09/02/2024 09:46:29 ESR (erythroc yte sedimenta tion rate), blood 2023 024 [facility], [address] [place] [address], [address], 09/06/2024 11:12:42 amylase isoenzyme s, serum (OBS) 2023 024 [facility], [address] [place], [address], 09/02/2024 09:46:29 lipid panel w/ direct LDL, serum 2023 [facility], [address] [place], [address], 09/09/2024 05:39:18 vitamin B12 + folate, serum or blood 2023 [facility], [address] [place], [address], 09/02/2024 09:46:29 CMP, serum or plasma 2023 [facility], [address] [place], [address], 09/06/2024 11:12:39 CBC w/ auto diff 2023 [facility], [address] [place], [address], 09/06/2024 11:12:42 TSH, serum or plasma 2023 [facility], [address] [place], [address], 09/09/2024 05:39:17 HbA1c (hemoglob in A1c), blood 2023 [facility], [address] [place], [address], 09/06/2024 11:12:37 microalbu min/creat inine, mass ratio, urine 2023 [facility], [address] [place], [address], 09/09/2024 05:39:18 C-peptide , serum 2023 [facility], [address] [place], [address], 09/02/2024 09:46:28 vitamin B12, serum 2023 024 [facility], [address] [facility], [place], [address], 03/05/2024 00:38:39 drug screen, urine 2023 024 [facility], [address] [facility], [place], [address], 03/04/2024 04:10:20 lipid panel w/ direct LDL, serum 2023 024 [facility], [address] [facility], [place], [address], 03/04/2024 04:10:21 TSH, serum or plasma 2023 024 [facility], [address] [facility], [place], [address], 03/04/2024 04:10:21 CBC w/ auto diff 2023 024 [facility], [address] [facility], [place], [address], 03/05/2024 00:31:15 CMP, serum or plasma 2023 024 [facility], [address] [facility], [place], [address], 02/27/2024 15:23:08 lipase, serum or plasma 2023 024 [facility], [address] [facility], [place], [address], 02/27/2024 15:23:08 amylase, serum or plasma 2023 024 [facility], [address] [facility], [place], [address], 02/27/2024 15:23:07 urinalysi s, dipstick 2023 024 [facility], [address], [place], [address], 02/27/2024 14:56:45 lipid panel w/ direct LDL, [...] 14:03:41 Referral gastroent erologist referral 2024 025 joey Pak MD, [address] [facility] [address], [address], [place], [address], 02/11/2025 15:17:43 gynecolog ist referral 2023 024 [facility] Willis, [address], [place], [address], 09/30/2024 04:03:53 gastroent erologist referral 2023 024 [facility] Pak MD, [address] [facility] [address], [address], [place], [address], 09/30/2024 04:03:53 podiatris t referral 2023 024 [email or web address] Pablo Callaway DPM, [address] [facility] , [place], [address], 09/02/2024 09:52:00 gynecolog ist referral 2023 024 [facility] Rudolph MD, [address], [place], [address], 03/25/2024 04:05:20 gastroent erologist referral 2023 024 [facility] Downey MD, [address], [place], [address], 03/25/2024 04:05:21 gynecolog ist referral 2022 023 [facility] Rudolph MD, [address], [facility] [address], [place], [address], 05/20/2023 05:24:27 dermatolo gist referral 2022 023 [facility], [address] [facility] [place], [address], 05/20/2023 05:24:42 diabetic ophthalmo logy referral 2022 023 [facility], [facility] [place], [address], 05/20/2023 05:24:11 Procedures None recorded. Surgeries None recorded. Imaging MAMMO, screening , digital, bilateral 2024 025 [facility], [address], [place], [address], 02/11/2025 15:16:58 bone density 2024 025 [facility], [facility], [place], [address], 02/11/2025 15:16:59 XR, chest, 2 view - 6 weeks from 12/31/242024 025 [facility], [address], [place], [address], 02/11/2025 15:16:58 MAMMO, screening , digital, bilateral 2023 024 [facility], [address], [place], [address], 09/09/2024 05:39:18 bone density 2023 024 [facility], [address], [place], [address], 03/08/2025 18:07:53 CT, abdomen + pelvis, w/wo contrast 04/17/ 2024 04/17/2 024 [facility], [address] [facility], [place], [address], 02/11/2025 09:35:40 electroca rdiogram 2023 024 [facility], [facility], [address], [place], [address], 02/27/2024 08:49:18 MAMMO, screening , digital, bilateral 2022 023 [facility], [address] [facility], [place], [address], 05/11/2023 13:19:28 home sleep study 2022 023 [facility] Not available 04/29/2023 05:22:42 Medication Orders ondansetr on HCl 4 mg tablet 2023 024 [facility], [address] [place] [address], [address], 01/11/2025 09:49:49 Mounjaro 5 mg/0.5 mL subcutane ous pen injector 2023 024 [email or web address], [address] [place] [address], [address], 01/11/2025 09:48:54 Levemir FlexPen 100 unit/mL (3 mL) solution subcutane ous insulin pen 2023 024 [facility], [address] [place] [address], [address], 01/11/2025 09:47:52 ondansetr on HCl 4 mg tablet 2023 024 [email or web address], [address] [place] [address], [address], 01/11/2025 09:49:42 Cipro 500 mg tablet 2023 024 [facility], [address] [place] [address], [address], 03/17/2025 09:03:02 metronida zole 500 mg tablet 2023 024 [facility], [address] [place] [address], [address], 01/11/2025 09:49:09 atorvasta tin 40 mg tablet 2022 023 [facility], [address] [place] [address], [address], 08/16/2023 13:30:11 losartan 50 mg tablet 2022 023 [facility], [address] [place] [address], [address], 08/16/2023 13:30:13 duloxetin e 60 mg capsule,d elayed release 2022 023 [facility], [address] [place] [address], [address], 08/16/2023 13:30:10 clotrimaz ole-betam ethasone 1 %-0.05 % topical cream 2022 023 [email or web address], [address] [place] [address], [address], 08/16/2023 13:20:52 atorvasta tin 20 mg tablet 2022 023 [facility], [address] [place] [address], [address], 04/24/2023 21:24:40 pregabali n 100 mg capsule 2022 023 [email or web address] [facility], [address] [place] [address], [address], 08/07/2023 11:29:13 Patient TargetsNo targets recorded. Patient Instructions Encounter Date Encounter Id Patient Instructions Last Modified By Organization Details Last Modified Time 04/22/2023 [id number] mammogram: about this test mshenouda Not available [...] will mshenouda Not available 04/11 12:30:41 08/16/2023 [id number] mammogram: about this test [email or web address] Not available 08/16/2023 13:30:08 type 2 diabetes: care instructions mshenouda Not available 08/16/2023 13:30:08 body mass index: care instructions mshenouda Not available 08/16/2023 13:30:08 learning about healthy weight mshenouda Not available 08/16/2023 13:30:07 02/26/2024 [id number] mammogram: about this test mshenouda Not available [...] weight mshenouda Not available 02/26/2024 16:59:47 09/02/2024 [id number] mammogram: about this test mshenouda Not available 09/02/2024 09:45:38 arthritis: care instructions mshenouda Not available 09/02/2024 09:45:39 type 2 diabetes: care instructions mshenouda Not available 09/02/2024 09:45:37 body mass index: care instructions mshenouda Not available 09/02/2024 09:45:39 learning about healthy weight mshenouda Not available 09/02/2024 09:45:38 living will mshenouda Not available 08/12 09:35:33 01/11/2025 [id number] painful urinatio n (dysuria): care instructions mshenouda [...] Cristina Whittington, Internal Medicine, Encounter Date: 04/22/2023 Brick Setter Referral for Sc reening for malignant neoplasm of cervix Referring Physician: Ana Cristina Whittington, Internal Medicine, Encounter Date: 04/22/2023 Psychiatry Physician Referral for L ocalized eruption of skin Referring Physician: Ana Cristina Whittington, Internal Medicine, Encounter Date: 04/22/2023 Brick Setter Referral for Sc reening for malignant neoplasm of cervix Referring Physician: Ana Cristina Whittington, Internal Medicine, Encounter Date: 02/26/2024 Hand Molder And Caster Referral for Screening for malignant neoplasm of colon Referring Physician: Ana Cristina Whittington, Internal Medicine, Encounter Date: 02/26/2024 Brick Setter Referral for Sc reening for malignant neoplasm of cervix Referring Physician: Ana Cristina Whittington Internal Medicine, Encounter Date: 09/02/2024 Hand Molder And Caster Referral for Screening for malignant neoplasm of colon Referring Physician: Ana Cristina Whittington Internal Medicine, Encounter Date: 09/02/2024 Strategy Planning Consultant Referral for Type 2 diabetes mellitus without complication Referring Physician: Ana Cristina Whittington, Internal Medicine, Encounter Date: 09/02/2024 Hand Molder And Caster Referral for Screening for malignant neoplasm of colon Referring Physician: Ana Cristina Whittington, Internal Medicine, Encounter Date: 01/11/2025 Results Created Date Observation Date Name Description Value Unit Range Abnormal Flag Note LastModifiedBy Organization Detail LastModifiedTime 04/22/2004/22/2023 HEMOG LOBIN A1C HGBA1C 9.3 % 4.0-6. 0 high Not Available [facility] (Main Location) [facility] [address] ,[place], [address], 04/24/2023 14:03:37 04/22/20 23 04/22/2023 AMYLA SE, SERUM amylase, serum 140 U/L 28-100 high Not Available [facility] (Main Location) [facility] ,[place], [address], 04/24/2023 14:03:37 04/22/20 23 04/22/2023 C-PEP TIDE C-peptide 2.4 NG/mL 1.1-4. 4 Not Available [facility] (Main Location) [facility] [address] ,, [place], [address], 04/24/2023 14:03:37 04/22/20 23 04/22/2023 CMP (COMP REHEN SIVE METAB OLIC PANEL ) glucose 194 mg/dL 74-99 high Not Available [facility] (Main Location) [address] [place] [address]. [address] ,, [place], [address], 04/24/2023 14:03:38 04/22/20 23 04/22/2023 CMP (COMP REHEN SIVE METAB OLIC PANEL ) urea nitrogen, blood (BUN) 21 mg/dL 8-23 Not Available [facility] (Main Location) [address] [place] [address]. [address] ,, [place], [address], 04/24/2023 14:03:38 04/22/20 23 04/22/2023 CMP (COMP REHEN SIVE METAB OLIC PANEL ) total bilirubin 0.2 mg/dL 0.0-1. 2 Not Available [facility] (Main Location) [address] [place] [address]. [address] ,, [place], [address], 04/24/2023 14:03:38 04/22/20 23 04/22/2023 CMP (COMP REHEN SIVE METAB OLIC PANEL ) total protein 7.1 g/dL 6.6-8. 7 Not Available [facility] (Main Location) [address] [place] [address]. [address] ,, [place], [address], 04/24/2023 14:03:38 04/22/20 23 04/22/2023 CMP (COMP REHEN SIVE METAB OLIC PANEL ) alanine aminotransfe rase (ALT) 10 U/L 0-33 Not Available [facility] (Main Location) [address] [place] [address]. [address] ,, [place], [address], 04/24/2023 14:03:38 04/22/20 23 04/22/2023 CMP (COMP REHEN SIVE METAB OLIC PANEL ) alkaline phosphatase 139 U/L 40-130 high Not Available [facility] (Main Location) [address] [place] [address]. [address] ,, [place], [address], 04/24/2023 14:03:38 04/22/20 23 04/22/2023 CMP (COMP REHEN SIVE METAB OLIC PANEL ) aspartate aminotransfe rase (AST) 14 U/L 0-32 Not Available [facility] (Main Location) [facility] [address] ,, [place], [address], 04/24/2023 14:03:38 04/22/20 23 04/22/2023 CMP (COMP REHEN SIVE METAB OLIC PANEL ) calcium 9.4 mg/dL 8.6-10 .2 Not Available [facility] (Main Location) [address] [place], [place] [address] ,, [place], [address], 04/24/2023 14:03:38 04/22/20 23 04/22/2023 CMP (COMP REHEN SIVE METAB OLIC PANEL ) albumin 4.3 g/dL 3.5-5. 2 Not Available [facility] (Main Location) [address] [place], [place] [address] ,, [place], [address], 04/24/2023 14:03:38 04/22/20 23 04/22/2023 CMP (COMP REHEN SIVE METAB OLIC PANEL ) CO2 22 mmol/ L 23-31 low Not Available [facility] (Main Location) [address] [place], [place] [address] ,, [place], [address], 04/24/2023 14:03:38 04/22/20 23 04/22/2023 CMP (COMP REHEN SIVE METAB OLIC PANEL ) creatinine, serum 0.9 mg/dL 0.5-0. 9 Not Available [facility] (Main Location) [address] [place], [place] [address] ,, [place], [address], 04/24/2023 14:03:38 04/22/20 23 04/22/2023 CMP (COMP REHEN SIVE METAB OLIC PANEL ) sodium, serum 141 mmol/ L 136-14 5 Not Available [facility] (Main Location) [address] [place], [place] [address] ,, [place], [address], 04/24/2023 14:03:38 04/22/20 23 04/22/2023 CMP (COMP REHEN SIVE METAB OLIC PANEL ) potassium, serum 5.0 mmol/ L 3.5-5. 1 Not Available [facility] (Main Location) [address] ,, [place], [address], 04/24/2023 14:03:38 04/22/20 23 04/22/2023 CMP (COMP REHEN SIVE METAB OLIC PANEL ) chloride, serum 105 mmol/ L 98-107 Not Available [facility] (Main Location) [address] ,, [place], [address], 04/24/2023 14:03:38 04/22/20 23 04/22/2023 CMP (COMP [...] a is prese nt. Addit ional infor matkb n may be found at www.k doqi. org. Not Available [facility] (Main Location) [address] ,, [place], [address], 04/24/2023 14:03:38 04/22/20 23 04/22/2023 CREAT INE KINAS E (CPK) creatine kinase 95 U/L 0-170 Not Available [facility] (Main Location) [facility] ,, [place], [address], 04/24/2023 14:03:39 04/22/20 23 04/22/2023 DLDL dldl 122 mg/dL 0-100 high Not Available [facility] (Main Location) [address] ,, [place], [address], 04/24/2023 14:03:39 04/22/20 23 04/22/2023 IRON PANEL (WITH TRANS JULIANE N SATUR ATION ) transferrin 366 mg/dL 200-36 0 high Not Available [facility] (Main Location) [address] ,, [place], [address], 04/24/2023 14:03:40 04/22/20 23 04/22/2023 IRON PANEL (WITH TRANS JULIANE N SATUR ATION ) iron 37 ug/dL 25-156 Not Available [facility] (Main Location) [address] ,, [place], [address], 04/24/2023 14:03:40 04/22/20 23 04/22/2023 IRON PANEL (WITH TRANS JULIANE N SATUR ATION ) % transferrin saturation 7.22 20.00- 50.00 low Not Available [facility] (Main Location) [address] ,, [place], [address], 04/24/2023 14:03:40 04/22/20 23 04/22/2023 IRON PANEL (WITH TRANS JULIANE N SATUR ATION ) TIBC 512 ug/dL 250-45 0 high Not Available [facility] (Main Location) [address] ,, [place], [address], 04/24/2023 14:03:40 04/22/20 23 04/22/2023 LIPID PANEL trigylceride s 179 mg/dL 0-150 high Not Available [facility] (Main Location) [facility] ,, [place], [address], 04/24/2023 14:03:40 04/22/20 23 04/22/2023 LIPID PANEL cholesterol 217 mg/dL 0-200 high Not Available [facility] (Main Location) [facility] ,, [place], [address], 04/24/2023 14:03:40 04/22/20 23 04/22/2023 LIPID PANEL uhdl 74 mg/dL 45-65 high Not Available [facility] (Main Location) [facility] ,, [place], [address], 04/24/2023 14:03:40 04/22/20 23 04/22/2023 LIPID PANEL LDL, calculated 107 mg/dL 0-100 high Not Available [facility] (Main Location) [address] ,, [place], [address], 04/24/2023 14:03:40 04/22/20 23 04/22/2023 LIPID PANEL LDL, measured 122 mg/dL <99 high Not Available [facility] (Main Location) [address] ,, [place], [address], 04/24/2023 14:03:40 04/22/20 23 04/22/2023 LIPID PANEL LDL/HDL ratio 1 mg/dL 0-5 Not Available [facility] (Main Location) [address] ,, [place], [address], 04/24/2023 14:03:40 04/22/20 23 04/22/2023 LIPID PANEL VLDL 35.8 mg/dL 5.0-40 .0 Not Available [facility] (Main Location) [address] ,, [place], [address], 04/24/2023 14:03:40 04/22/20 23 04/22/2023 LIPID PANEL cholesterol/ HDL ratio 2.93 0.00-5 .00 Not Available [facility] (Main Location) [address] ,, [place], [address], 04/24/2023 14:03:40 04/22/20 23 04/22/2023 THYRO ID STIMU LATIN G HORMO NE (TSH) TSH 2.56 ?IU/m L 0.27-4 .20 Not Available [facility] (Main Location) [address] ,, [place], [address], 04/24/2023 14:03:41 04/22/20 23 04/22/2023 VITAM IN B12 AND FOLAT E folate 20.0 NG/mL 5.6-45 .8 Not Available [facility] (Main Location) [address] ,, [place], [address], 04/24/2023 14:03:41 04/22/20 23 04/22/2023 VITAM IN B12 AND FOLAT E vitamin B12 II 795 pg/mL 232-12 45 Not Available [facility] (Main Location) [address] ,, [place], [address], 04/24/2023 14:03:41 04/22/20 23 04/22/2023 CBC (W/O DIFF, W/ PLT) white blood cell count 7.4 thous and/u L 3.5-10 .0 Not Available [facility] (Main Location) [address] ,, [place], [address], 04/24/2023 14:03:42 04/22/20 23 04/22/2023 CBC (W/O DIFF, W/ PLT) red blood cell count 4.7 eboni on/uL 3.5-5. 5 Not Available [facility] (Main Location) [address] ,, [place], [address], 04/24/2023 14:03:42 04/22/20 23 04/22/2023 CBC (W/O DIFF, W/ PLT) hemoglobin 10.9 g/dL 11.5-1 6.5 low Not Available [facility] (Main Location) [address] ,, [place], [address], 04/24/2023 14:03:42 04/22/20 23 04/22/2023 CBC (W/O DIFF, W/ PLT) hematocrit 37 % 35-55 Not Available [facility] (Main Location) [address] ,, [place], [address], 04/24/2023 14:03:42 04/22/20 23 04/22/2023 CBC (W/O DIFF, W/ PLT) MCH 23 pg 25-35 low Not Available [facility] (Main Location) [address] ,, [place], [address], 04/24/2023 14:03:42 04/22/20 23 04/22/2023 CBC (W/O DIFF, W/ PLT) MCHC 30 g/dL 31-38 low Not Available [facility] (Main Location) [facility] [address] ,, [place], [address], 04/24/2023 14:03:42 04/22/20 23 04/22/2023 CBC (W/O DIFF, W/ PLT) MCV 80 fL 75-100 Not Available [facility] (Main Location) [address] [place], [place] [address] ,, [place], [address], 04/24/2023 14:03:42 04/22/20 23 04/22/2023 CBC (W/O DIFF, W/ PLT) RDW-CV 19 % 11-15 high Not Available [facility] (Main Location) [address] [place], [place] [address] ,, [place], [address], 04/24/2023 14:03:42 04/22/20 23 04/22/2023 CBC (W/O DIFF, W/ PLT) platelet count 412 thous and/u L 100-40 0 high Not Available [facility] (Main Location) [address] [place], [place] [address] ,, [place], [address], 04/24/2023 14:03:42 04/22/20 23 04/22/2023 ERYTH ROCYT E SEDIM ENTAT ION RATE (ESR) sed rate 41 RESULT S VERIFI ED BY REPEAT ANALYS IS. mm/HR 0-20 high Not Available [facility] (Main Location) [address] [place], [place] [address] ,, [place], [address], 04/24/2023 14:03:42 04/22/20 23 04/22/2023 URINE MICRO ALBUM IN/CR EATIN INE RATIO urine microalbumin 12 mg/L 0-30 Not Available [facility] (Main Location) [address] [place], [place] [address] ,, [place], [address], 04/24/2023 14:03:43 04/22/20 23 04/22/2023 URINE MICRO ALBUM IN/CR EATIN INE RATIO urine creatinine 38.57 mg/dL 28.00- 217.00 Not Available [facility] (Main Location) [address] ,, [place], [address], 04/24/2023 14:03:43 04/22/20 23 04/22/2023 URINE MICRO ALBUM IN/CR EATIN INE RATIO urine microalbumin /creatinine ratio 30 mg/g_ creat inine 0-30 Not Available [facility] (Main Location) [address] ,, [place], [address], 04/24/2023 14:03:43 02/26/20 24 02/26/2024 AMYLA SE amylase 65.0 U/L 31.0-1 24.0 Not Available [facility] [address] [facility] [address], [place], [address], 02/27/2024 15:23:07 02/26/20 24 02/26/2024 COMPR EHENS LUCILLE METAB OLIC PANEL sodium 134 mmol/ L 134-14 4 Not Available [facility] [address] [facility] [address], [place], [address], 02/27/2024 15:23:07 02/26/20 24 02/26/2024 COMPR EHENS LUCILLE METAB OLIC PANEL potassium 4.9 mmol/ L 3.5-5. 2 Not Available [facility] [address] [facility] [address], [place], [address], 02/27/2024 15:23:07 02/26/20 24 02/26/2024 COMPR EHENS LUCILLE METAB OLIC PANEL chloride 107 mmol/ L 97-108 Not Available [facility] [address] [facility] [address], [place], [address], 02/27/2024 15:23:07 02/26/20 24 02/26/2024 COMPR EHENS LUCILLE METAB OLIC PANEL carbon dioxide (co2) 16.0 mmol/ L 18.0-2 9.0 low Not Available [facility] [address] [facility] [address], [place], [address], 02/27/2024 15:23:07 02/26/20 24 02/26/2024 COMPR EHENS LUCILLE METAB OLIC PANEL glucose 210 mg/dL 65-99 high Ruben l Fasti ng: < 100 mg/dL Impai red Fasti n - 125 mg/dL Diagn ostic of Diabe jeny: => 126 mg/dL Ameri can [facility], 2007 Not Available [facility] [address] [facility] [address], [place], [address], 02/27/2024 15:23:07 02/26/20 24 02/26/2024 COMPR EHENS LUCILLE METAB OLIC PANEL urea nitrogen (BUN) 27 mg/dL 8-23 high Not Available [facility] [address] [facility] [address], [place], [address], 02/27/2024 15:23:07 02/26/20 24 02/26/2024 COMPR EHENS LUCILLE METAB OLIC PANEL creatinine 1.27 mg/dL 0.57-1 .00 high Not Available [facility] [address] [facility] [address], [place], [address], 02/27/2024 15:23:07 02/26/20 24 02/26/2024 COMPR EHENS LUCILLE METAB OLIC PANEL eGFR for nonafrican AM 43 mL/mi nute/ 1.73_ m2 >59 low Not Available [facility] [address] [facility] [address], [place], [address], 02/27/2024 15:23:07 02/26/20 24 02/26/2024 COMPR EHENS LUCILLE METAB OLIC PANEL eGFR for AM 52 mL/mi nute/ 1.73_ m2 >59 low MDRD Study Equat ion: The calcu lated GFR is NOT appli cable for pedia tric (< 18 years old) and > 70 year old patie nts and patie nts that are NOT of [place] . Not Available [facility] [address] [facility] [address], [place], [address], 02/27/2024 15:23:07 02/26/20 24 02/26/2024 COMPR EHENS LUCILLE METAB OLIC PANEL calcium 8.8 mg/dL 8.7-10 .3 Not Available [facility] [address] [facility] [address], [place], [address], 02/27/2024 15:23:07 02/26/20 24 02/26/2024 COMPR EHENS LUCILLE METAB OLIC PANEL protein, total 6.7 gm/dL 6.4-8. 3 Not Available [facility] [address] [facility] [address], [place], [address], 02/27/2024 15:23:07 02/26/20 24 02/26/2024 COMPR EHENS LUCILLE METAB OLIC PANEL albumin 4.0 gm/dL 3.5-5. 2 Not Available [facility] [address] [facility] [address], [place], [address], 02/27/2024 15:23:07 02/26/20 24 02/26/2024 COMPR EHENS LUCILLE METAB OLIC PANEL bilirubin, total 0.50 mg/dL 0.00-1 .20 Not Available [facility] [address] [facility] [address], [place], [address], 02/27/2024 15:23:07 02/26/20 24 02/26/2024 COMPR EHENS LUCILLE METAB OLIC PANEL alkaline phosphatase (ALP) 159 U/L 39-117 high Not Available [facility] [address], [place], [address], 02/27/2024 15:23:07 02/26/20 24 02/26/2024 COMPR EHENS LUCILLE METAB OLIC PANEL aspartate aminotransfe rase (AST) 19 U/L 0-32 Not Available [facility] [address] [facility] [address], [place], [address], 02/27/2024 15:23:07 02/26/20 24 02/26/2024 COMPR EHENS LUCILLE METAB OLIC PANEL alanine aminotransfe rase (ALT) 13 U/L 0-33 Not Available [facility] [address] [facility] [address], [place], [address], 02/27/2024 15:23:07 02/26/20 24 02/26/2024 COMPR EHENS LUCILLE METAB OLIC PANEL A/G ratio (calculated) 1.5 ratio 1.0-2. 7 Not Available [facility] [address] [facility] [address], [place], [address], 02/27/2024 15:23:07 02/26/20 24 02/26/2024 COMPR EHENS LUCILLE METAB OLIC PANEL globulin (calculated) 2.7 gm/dL 1.5-3. 8 Not Available [facility] [address] [facility] [address], [place], [address], 02/27/2024 15:23:07 02/26/20 24 02/26/2024 COMPR EHENS LUCILLE METAB OLIC PANEL BUN/creatini ne ratio (calculated) 21.3 ratio 8.0-20 .0 high Not Available [facility] [address] [facility] [address], [place], [address], 02/27/2024 15:23:07 02/26/20 24 02/26/2024 COMPR EHENS LUCILLE METAB OLIC PANEL serum hemolysis index NORMAL index normal Not Available [facility] [address] [facility] [address], [place], [address], 02/27/2024 15:23:07 02/26/20 24 02/26/2024 LIPAS E lipase 39 U/L 0-59 Not Available [facility] [address] [facility] [address], [place], [address], 02/27/2024 15:23:08 02/26/20 24 02/26/2024 LIPID PANEL W/ CALC. LDL cholesterol, total 109 mg/dL 100-19 9 Not Available [facility] [address] [facility] [address], [place], [address], 02/27/2024 15:23:09 02/26/20 24 02/26/2024 LIPID PANEL W/ CALC. LDL HDL cholesterol 58 mg/dL =>40 Not Available [facility] [address] [facility] [address], [place], [address], 02/27/2024 15:23:09 02/26/20 24 02/26/2024 LIPID PANEL W/ CALC. LDL LDL cholesterol (calculated) 26 mg/dL 0-99 Not Available [facility] [address] [facility] [address], [place], [address], 02/27/2024 15:23:09 02/26/20 24 02/26/2024 LIPID PANEL W/ CALC. LDL triglyceride s 125 mg/dL 50-149 Not Available [facility] [address] [facility] [address], [place], [address], 02/27/2024 15:23:09 02/26/20 24 02/26/2024 LIPID PANEL W/ CALC. LDL chol/HDL ratio (calculated) 1.88 ratio 0.00-5 .00 Not Available [facility] [address] [facility] [address], [place], [address], 02/27/2024 15:23:09 02/26/20 24 02/26/2024 LIPID PANEL W/ CALC. LDL VLDL cholesterol (calculated) 25 mg/dL 5-40 Not Available [facility] [address] [facility] [address], [place], [address], 02/27/2024 15:23:09 04/17/20 24 02/26/2024 THYRO ID-ST IM. HORMO NE (TSH) , HIGH- SENSI TIVE thyroid-stim . hormone (TSH), hs 1.96 uIU/m L 0.27-4 .20 Not Available [facility] [address], [place], [address], 02/27/2024 15:23:10 02/26/20 24 02/26/2024 VITAM IN B12 vitamin B12 366 pg/mL 232-12 45 Not Available [facility] [address], [place], [address], 02/27/2024 15:23:10 02/26/20 24 02/26/2024 CBC WITH AUTO- DIFFE RENTI AL WBC 9.8 10*3/ uL 3.4-10 .8 Not Available [facility] [address] [facility] [address], [place], [address], 02/27/2024 15:23:11 02/26/20 24 02/26/2024 CBC WITH AUTO- DIFFE RENTI AL RBC 4.92 10*6/ uL 3.80-5 .30 Not Available [facility] [address], [place], [address], 02/27/2024 15:23:11 02/26/20 24 02/26/2024 CBC WITH AUTO- DIFFE RENTI AL HGB 11.6 g/dL 11.1-1 5.9 Not Available [facility] [address], [place], [address], 02/27/2024 15:23:11 02/26/20 24 02/26/2024 CBC WITH AUTO- DIFFE RENTI AL HCT 39.2 % 34.0-4 6.6 Not Available [facility] [address] [facility] [address], [place], [address], 02/27/2024 15:23:11 02/26/20 24 02/26/2024 CBC WITH AUTO- DIFFE RENTI AL MCV 80 fL 79-97 Not Available [facility] [address], [place], [address], 02/27/2024 15:23:11 02/26/20 24 02/26/2024 CBC WITH AUTO- DIFFE RENTI AL MCH 23.6 pg 26.6-3 3.0 low Not Available [facility] [address] [facility] [address], [place], [address], 02/27/2024 15:23:11 02/26/20 24 02/26/2024 CBC WITH AUTO- DIFFE RENTI AL MCHC 29.6 g/dL 31.5-3 5.7 low Not Available [facility] [address], [place], [address], 02/27/2024 15:23:11 02/26/20 24 02/26/2024 CBC WITH AUTO- DIFFE RENTI AL RDW 19.2 % 11.5-1 4.5 high Not Available [facility] [address] [facility] [address], [place], [address], 02/27/2024 15:23:11 02/26/20 24 02/26/2024 CBC WITH AUTO- DIFFE RENTI AL platelets 343 10*3/ uL 150-40 0 Not Available [facility] [address], [place], [address], 02/27/2024 15:23:11 02/26/20 24 02/26/2024 CBC WITH AUTO- DIFFE RENTI AL MPV 11 fL 9-13 Not Available [facility] [address], [place], [address], 02/27/2024 15:23:11 02/26/20 24 02/26/2024 CBC WITH AUTO- DIFFE RENTI AL neutrophils 66.9 % 40.0-7 4.0 Not Available [facility] [address], [place], [address], 02/27/2024 15:23:11 02/26/20 24 02/26/2024 CBC WITH AUTO- DIFFE RENTI AL absolute neutrophils 6.55 10*3/ uL 1.40-7 .00 Not Available [facility] [address] [facility] [address], [place], [address], 02/27/2024 15:23:11 02/26/20 24 02/26/2024 CBC WITH AUTO- DIFFE RENTI AL lymphocytes 20.6 % 14.0-4 6.0 Not Available [facility] [address] [facility] [address], [place], [address], 02/27/2024 15:23:11 02/26/20 24 02/26/2024 CBC WITH AUTO- DIFFE RENTI AL absolute lymphocytes 2.02 10*3/ uL 0.70-3 .10 Not Available [facility] [address], [place], [address], 02/27/2024 15:23:11 02/26/20 24 02/26/2024 CBC WITH AUTO- DIFFE RENTI AL monocytes 10.1 % 4.0-12 .0 Not Available [facility] [address] [facility] [address], [place], [address], 02/27/2024 15:23:11 02/26/20 24 02/26/2024 CBC WITH AUTO- DIFFE RENTI AL absolute monocytes 0.99 10*3/ uL 0.10-0 .90 high Not Available [facility] [address] [facility] [address], [place], [address], 02/27/2024 15:23:11 02/26/20 24 02/26/2024 CBC WITH AUTO- DIFFE RENTI AL eosinophils 1.9 % 0.0-5. 0 Not Available [facility] [address] [facility] [address], [place], [address], 02/27/2024 15:23:11 02/26/20 24 02/26/2024 CBC WITH AUTO- DIFFE RENTI AL absolute eosinophils 0.19 10*3/ uL 0.00-0 .40 Not Available [facility] [address] [facility] [address], [place], [address], 02/27/2024 15:23:11 02/26/20 24 02/26/2024 CBC WITH AUTO- DIFFE RENTI AL basophils 0.2 % 0.0-3. 0 Not Available [facility] [address] [facility] [address], [place], [address], 02/27/2024 15:23:11 02/26/20 24 02/26/2024 CBC WITH AUTO- DIFFE RENTI AL absolute basophils 0.02 10*3/ uL 0.00-0 .20 Not Available [facility] [address] [facility] [address], [place], [address], 02/27/2024 15:23:11 02/26/20 24 02/26/2024 CBC WITH AUTO- DIFFE RENTI AL imm. gran. 0.3 % 0.0-2. 0 Not Available [facility] [address] [facility] [address], [place], [address], 02/27/2024 15:23:11 02/26/20 24 02/26/2024 CBC WITH AUTO- DIFFE RENTI AL abs. imm. gran. 0.03 10*3/ uL 0.00-0 .10 Not Available [facility] [address] [facility] [address], [place], [address], 02/27/2024 15:23:11 02/26/20 24 02/26/2024 URINE DRUG SCREE N, 7-ROD EL WITH BUP amphetamines NEGATI VE negati ve Not Available [facility] [address] [facility] [address], [place], [address], 02/27/2024 15:23:11 02/26/20 24 02/26/2024 URINE DRUG SCREE N, 7-ROD EL WITH BUP benzodiazepi jihan NEGATI VE negati ve Not Available [facility] [address] [facility] [address], [place], [address], 02/27/2024 15:23:11 02/26/20 24 02/26/2024 URINE DRUG SCREE N, 7-ROD EL WITH BUP buprenorphin e (bup) NEGATI VE NG/mL cutoff =10 Not Available [facility] [address] [facility] [address], [place], [address], 02/27/2024 15:23:11 02/26/20 24 02/26/2024 URINE DRUG SCREE N, 7-ROD EL WITH BUP cocaine NEGATI VE negati ve Not Available [facility] [address] [facility] [address], [place], [address], 02/27/2024 15:23:11 02/26/20 24 02/26/2024 URINE DRUG SCREE N, 7-ROD EL WITH BUP opiates NEGATI VE negati ve Not Available [facility] [address] [facility] [address], [place], [address], 02/27/2024 15:23:11 02/26/20 24 02/26/2024 URINE DRUG SCREE N, 7-ROD EL WITH BUP oxycodone NEGATI VE negati ve Not Available [facility] [address], [place], [address], 02/27/2024 15:23:11 02/26/20 24 02/26/2024 URINE DRUG SCREE N, 7-ROD EL WITH BUP cannabinoid (THC) NEGATI VE negati ve Not Available [facility] [address] [facility] [address], [place], [address], 02/27/2024 15:23:11 02/26/20 24 02/26/2024 URINE DRUG SCREE N, 7-ROD EL WITH BUP creatinine - uds urine 140.9 mg/dL >20.0 Not Available [facility] [address] [facility] [address], [place], [address], 02/27/2024 15:23:11 02/26/20 24 02/26/2024 URINE DRUG SCREE N, 7-ROD EL WITH BUP specific gravity (uds) 1.020 1.003- 1.035 Not Available [facility] [address] [facility] [address], [place], [address], 02/27/2024 15:23:11 02/26/20 24 02/26/2024 URINE DRUG SCREE N, 7-ROD EL WITH BUP pH (uds) 6.0 4.5-10 .9 Not Available [facility] [address] [facility] [address], [place], [address], 02/27/2024 15:23:11 02/26/20 24 02/26/2024 URINE DRUG SCREE N, 7-ROD EL WITH BUP amphetamines NEGATI VE negati ve Not Available [facility] [address] [facility] [address], [place], [address], 02/27/2024 15:23:11 02/26/20 24 02/26/2024 URINE DRUG SCREE N, 7-ROD EL WITH BUP benzodiazepi jihan NEGATI VE negati ve Not Available [facility] [address] [facility] [address], [place], [address], 02/27/2024 15:23:11 02/26/20 24 02/26/2024 URINE DRUG SCREE N, 7-ROD EL WITH BUP buprenorphin e (bup) NEGATI VE NG/mL cutoff =10 Not Available [facility] [address] [facility] [address], [place], [address], 02/27/2024 15:23:11 02/26/20 24 02/26/2024 URINE DRUG SCREE N, 7-ROD EL WITH BUP cocaine NEGATI VE negati ve Not Available [facility] [address] [facility] [address], [place], [address], 02/27/2024 15:23:11 02/26/20 24 02/26/2024 URINE DRUG SCREE N, 7-ROD EL WITH BUP opiates NEGATI VE negati ve Not Available [facility] [address] [facility] [address], [place], [address], 02/27/2024 15:23:11 02/26/20 24 02/26/2024 URINE DRUG SCREE N, 7-ROD EL WITH BUP oxycodone NEGATI VE negati ve Not Available [facility] [address] [facility] [address], [place], [address], 02/27/2024 15:23:11 02/26/20 24 02/26/2024 URINE DRUG SCREE N, 7-ROD EL WITH BUP cannabinoid (THC) NEGATI VE negati ve Not Available [facility] [address] [facility] [address], [place], [address], 02/27/2024 15:23:11 02/26/20 24 02/26/2024 URINE DRUG SCREE N, 7-ROD EL WITH BUP creatinine - uds urine 140.9 mg/dL >20.0 Not Available [facility] [address] [facility] [address], [place], [address], 02/27/2024 15:23:11 02/26/20 24 02/26/2024 URINE DRUG SCREE N, 7-ROD EL WITH BUP specific gravity (uds) 1.020 1.003- 1.035 Not Available [facility] [address] [facility] [address], [place], [address], 02/27/2024 15:23:11 02/26/20 24 02/26/2024 URINE DRUG SCREE N, 7-ROD EL WITH BUP pH (uds) 6.0 4.5-10 .9 Not Available [facility] [address], [place], [address], 02/27/2024 15:23:11 02/27/20 24 02/27/2024 urina lysis , dipst ick Color Yellow Not Available [facility] [address] [facility] [address], [place], [address], 02/26/2024 16:49:12 02/27/20 24 02/27/2024 urina lysis , dipst ick Appearance Cloudy Not Available [facility] [address] [facility] [address], [place], [address], 02/26/2024 16:49:12 02/27/20 24 02/27/2024 urina lysis , dipst ick Glucose 1000 Not Available [facility] [address] [facility] [address], [place], [address], 02/26/2024 16:49:12 02/27/20 24 02/27/2024 urina lysis , dipst ick Specific [place] 1.020 Not Available [facility] [address] [facility] [address], [place], [address], 02/26/2024 16:49:12 02/27/20 24 02/27/2024 urina lysis , dipst ick Ketone Trace Not Available [facility] [address] [facility] [address], [place], [address], 02/26/2024 16:49:12 02/27/20 24 02/27/2024 urina lysis , dipst ick Bilirubin Negati ve Not Available [facility] [address], [place], [address], 02/26/2024 16:49:12 02/27/20 24 02/27/2024 urina lysis , dipst ick Leukocytes Negati ve Not Available [facility] [address], [place], [address], 02/26/2024 16:49:12 02/27/20 24 02/27/2024 urina lysis , dipst ick Nitrite positi ve Not Available [facility] [address], [place], [address], 02/26/2024 16:49:12 02/27/20 24 02/27/2024 urina lysis , dipst ick Urobilinogen .2 Not Available [facility] [address], [place], [address], 02/26/2024 16:49:12 02/27/20 24 02/27/2024 urina lysis , dipst ick Protein Trace Not Available [facility] [address], [place], [address], 02/26/2024 16:49:12 02/27/20 24 02/27/2024 urina lysis , dipst ick pH 5.0 Not Available [facility] [address], [place], [address], 02/26/2024 16:49:12 02/27/20 24 02/27/2024 urina lysis , dipst ick Blood Modera te Not Available [facility] [address], [place], [address], 02/26/2024 16:49:12 09/02/20 24 09/02/2024 HEMOG LOBIN A1C hemoglobin A1C 7.4 % 4.8-5. 6 high RUBEN L RANGE BASED ON ROCÍO COL 2 (DCCT /NGSP ): Non-D iabet ic: < 5.7% Pre-D iabet es: 5.7 - 6.4% Diabe jeny: => 6.5% GLYCE DEIDRA CONTR OL: < 7.0% Not Available [facility] [address] [facility] [address], [place], [address], 09/06/2024 11:12:37 09/02/2009/02/2024 HEMOG LOBIN A1C estimated average glucose 166 Not Available [facility] [address] [facility] [address], [place], [address], 09/06/2024 11:12:37 09/02/2009/02/2024 *C-PE PTIDE C-peptide 2.6 NG/mL 1.1-4. 4 NOTE: REFER ENCE RANGE APPLI ES TO FASTI NG SAMPL E ONLY. Not Available [facility] [address] [facility] [address], [place], [address], 09/06/2024 11:12:38 09/02/2009/02/2024 COMPR EHENS LUCILLE METAB OLIC PANEL sodium 142 mmol/ L 134-14 4 Not Available [facility] [address] [facility] [address], [place], [address], 09/06/2024 11:12:39 09/02/2009/02/2024 COMPR EHENS LUCILLE METAB OLIC PANEL potassium 4.5 mmol/ L 3.5-5. 2 Not Available [facility] [address] [facility] [address], [place], [address], 09/06/2024 11:12:39 09/02/2009/02/2024 COMPR EHENS LUCILLE METAB OLIC PANEL chloride 107 mmol/ L 98-107 Not Available [facility] [address] [facility] [address], [place], [address], 09/06/2024 11:12:39 09/02/2009/02/2024 COMPR EHENS LUCILLE METAB OLIC PANEL carbon dioxide (co2) 19.0 mmol/ L 18.0-2 9.0 Not Available [facility] [address] [facility] [address], [place], [address], 09/06/2024 11:12:39 09/02/2009/02/2024 COMPR EHENS LUCILLE METAB OLIC PANEL glucose 138 mg/dL 65-99 high Ruben l Fasti n - 99 mg/dL Impai red Fasti n - 125 mg/dL Diagn ostic of Diabe jeny: => 126 mg/dL Ameri can [facility]abe jeny [facility] i[facility] n, 2007 Not Available [facility] [address] [facility] [address], [place], [address], 09/06/2024 11:12:39 09/02/2009/02/2024 COMPR EHENS LUCILLE METAB OLIC PANEL urea nitrogen (BUN) 29 mg/dL 8-23 high Not Available [facility] [address] [facility] [address], [place], [address], 09/06/2024 11:12:39 09/02/2009/02/2024 COMPR EHENS LUCILLE METAB OLIC PANEL creatinine 1.07 mg/dL 0.57-1 .00 high Not Available [facility] [address] [facility] [address], [place], [address], 09/06/2024 11:12:39 09/02/2009/02/2024 COMPR EHENS LUCILLE METAB OLIC PANEL eGFR 58 mL/mi nute/ 1.73_ m2 >59 low MDRD Study Equat ion: The calcu lated GFR is NOT appli cable for pedia tric (< 18 years old) and > 70 year old patie nts and patie nts that are NOT of [place] . Not Available [facility] [address] [facility] [address], [place], [address], 09/06/2024 11:12:39 09/02/2009/02/2024 COMPR EHENS LUCILLE METAB OLIC PANEL calcium 8.9 mg/dL 8.7-10 .3 Not Available [facility] [address] [facility] [address], [place], [address], 09/06/2024 11:12:39 09/02/2009/02/2024 COMPR EHENS LUCILLE METAB OLIC PANEL protein, total 6.7 gm/dL 6.4-8. 3 Not Available [facility] [address] [facility] [address], [place], [address], 09/06/2024 11:12:39 09/02/2009/02/2024 COMPR EHENS LCUILLE METAB OLIC PANEL albumin 3.9 gm/dL 3.5-5. 2 Not Available [facility] [address] [facility] [address], [place], [address], 09/06/2024 11:12:39 09/02/2009/02/2024 COMPR EHENS LUCILLE METAB OLIC PANEL bilirubin, total 0.20 mg/dL 0.00-1 .20 Not Available [facility] [address] [facility] [address], [place], [address], 09/06/2024 11:12:39 09/02/2009/02/2024 COMPR EHENS LUCILLE METAB OLIC PANEL alkaline phosphatase (ALP) 135 U/L 39-117 high Not Available [facility] [address] [facility] [address], [place], [address], 09/06/2024 11:12:39 09/02/2009/02/2024 COMPR EHENS LUCILLE METAB OLIC PANEL aspartate aminotransfe rase (AST) 14 U/L 0-32 Not Available [facility] [address] [facility] [address], [place], [address], 09/06/2024 11:12:39 09/02/2009/02/2024 COMPR EHENS LUCILLE METAB OLIC PANEL alanine aminotransfe rase (ALT) 8 U/L 0-33 Not Available [facility] [address] [facility] [address], [place], [address], 09/06/2024 11:12:39 09/02/20 24 09/02/2024 COMPR EHENS LUCILLE METAB OLIC PANEL A/G ratio (calculated) 1.4 ratio 1.0-2. 7 Not Available [facility] [address] [facility] [address], [place], [address], 09/06/2024 11:12:39 09/02/2009/02/2024 COMPR EHENS LUCILLE METAB OLIC PANEL globulin (calculated) 2.8 gm/dL 1.5-3. 8 Not Available [facility] [address] [facility] [address], [place], [address], 09/06/2024 11:12:39 09/02/2009/02/2024 COMPR EHENS LUCILLE METAB OLIC PANEL BUN/creatini ne ratio (calculated) 27.1 ratio 8.0-20 .0 high Not Available [facility] [address] [facility] [address], [place], [address], 09/06/2024 11:12:39 09/02/2009/02/2024 COMPR EHENS LUCILLE METAB OLIC PANEL serum hemolysis index NORMAL index normal Not Available [facility] [facility] [address] [facility] [address], [place], [address], 09/06/2024 11:12:39 09/02/2009/02/2024 FOLAT E, SERUM folate 5.3 NG/mL 20 REFER ENCE RANGE : Ruben l: > 3.0 ng/mL Inter media te: 2.2 - 3.0 ng/mL Defic ient: < 2.2 ng/mL Not Available [facility] [address] [facility] [address], [place], [address], 09/06/2024 11:12:40 09/02/2009/02/2024 LIPID PANEL W/ CALC. LDL cholesterol, total 144 mg/dL 100-19 9 Not Available [facility] [address] [facility] [address], [place], [address], 09/06/2024 11:12:40 09/02/2009/02/2024 LIPID PANEL W/ CALC. LDL HDL cholesterol 64 mg/dL =>40 Not Available [facility] [address] [facility] [address], [place], [address], 09/06/2024 11:12:40 09/02/2009/02/2024 LIPID PANEL W/ CALC. LDL LDL cholesterol (calculated) 54 mg/dL 0-99 Not Available [facility] [address] [facility] [address], [place], [address], 09/06/2024 11:12:40 09/02/2009/02/2024 LIPID PANEL W/ CALC. LDL triglyceride s 132 mg/dL 50-149 Not Available [facility] [address] [facility] [address], [place], [address], 09/06/2024 11:12:40 09/02/2009/02/2024 LIPID PANEL W/ CALC. LDL chol/HDL ratio (calculated) 2.25 ratio 0.00-5 .00 Not Available [facility] [address] [facility] [address], [place], [address], 09/06/2024 11:12:40 09/02/2009/02/2024 LIPID PANEL W/ CALC. LDL VLDL cholesterol (calculated) 26 mg/dL 5-40 Not Available [facility] [address] [facility] [address], [place], [address], 09/06/2024 11:12:40 09/02/2009/02/2024 THYRO ID-ST IM. HORMO NE (TSH) thyroid-stim . hormone (TSH) 1.87 uIU/m L 0.27-4 .20 Not Available [facility] [address] [facility] [address], [place], [address], 09/06/2024 11:12:41 09/02/2009/02/2024 VITAM IN B12 vitamin B12 344 pg/mL 232-12 45 Not Available [facility] [address], [place], [address], 09/06/2024 11:12:41 09/02/2009/02/2024 CBC WITH AUTO- DIFFE RENTI AL WBC 7.6 10*3/ uL 3.4-10 .8 Not Available [facility] [address], [place], [address], 09/06/2024 11:12:42 09/02/2009/02/2024 CBC WITH AUTO- DIFFE RENTI AL RBC 4.87 10*6/ uL 3.80-5 .30 Not Available [facility] [address], [place], [address], 09/06/2024 11:12:42 09/02/2009/02/2024 CBC WITH AUTO- DIFFE RENTI AL HGB 11.4 g/dL 11.1-1 5.9 Not Available [facility] [address], [place], [address], 09/06/2024 11:12:42 09/02/2009/02/2024 CBC WITH AUTO- DIFFE RENTI AL HCT 38.2 % 34.0-4 6.6 Not Available [facility] [address], [place], [address], 09/06/2024 11:12:42 09/02/2009/02/2024 CBC WITH AUTO- DIFFE RENTI AL MCV 78 fL 79-97 low Not Available [facility] [address], [place], [address], 09/06/2024 11:12:42 09/02/2009/02/2024 CBC WITH AUTO- DIFFE RENTI AL MCH 23.4 pg 26.6-3 3.0 low Not Available [facility] [address] [facility] [address], [place], [address], 09/06/2024 11:12:42 09/02/2009/02/2024 CBC WITH AUTO- DIFFE RENTI AL MCHC 29.8 g/dL 31.5-3 5.7 low Not Available [facility] [address] [facility] [address], [place], [address], 09/06/2024 11:12:42 09/02/2009/02/2024 CBC WITH AUTO- DIFFE RENTI AL RDW 18.9 % 11.5-1 4.5 high Not Available [facility] [address] [facility] [address], [place], [address], 09/06/2024 11:12:42 09/02/2009/02/2024 CBC WITH AUTO- DIFFE RENTI AL platelets 308 10*3/ uL 150-40 0 Not Available [facility] [address] [facility] [address], [place], [address], 09/06/2024 11:12:42 09/02/2009/02/2024 CBC WITH AUTO- DIFFE RENTI AL MPV 12 fL 9-13 Not Available [facility] [address] [facility] [address], [place], [address], 09/06/2024 11:12:42 09/02/2009/02/2024 CBC WITH AUTO- DIFFE RENTI AL neutrophils 62.9 % 40.0-7 4.0 Not Available [facility] [address], [place], [address], 09/06/2024 11:12:42 09/02/2009/02/2024 CBC WITH AUTO- DIFFE RENTI AL absolute neutrophils 4.78 10*3/ uL 1.40-7 .00 Not Available [facility] [address], [place], [address], 09/06/2024 11:12:42 09/02/2009/02/2024 CBC WITH AUTO- DIFFE RENTI AL lymphocytes 26.3 % 14.0-4 6.0 Not Available [facility] [address], [place], [address], 09/06/2024 11:12:42 09/02/2009/02/2024 CBC WITH AUTO- DIFFE RENTI AL absolute lymphocytes 1.99 10*3/ uL 0.70-3 .10 Not Available [facility] [address] [facility] [address], [place], [address], 09/06/2024 11:12:42 09/02/2009/02/2024 CBC WITH AUTO- DIFFE RENTI AL monocytes 7.8 % 4.0-12 .0 Not Available [facility] [address] [facility] [address], [place], [address], 09/06/2024 11:12:42 09/02/2009/02/2024 CBC WITH AUTO- DIFFE RENTI AL absolute monocytes 0.59 10*3/ uL 0.10-0 .90 Not Available [facility] [address] [facility] [address], [place], [address], 09/06/2024 11:12:42 09/02/2009/02/2024 CBC WITH AUTO- DIFFE RENTI AL eosinophils 2.0 % 0.0-5. 0 Not Available [facility] [address] [facility] [address], [place], [address], 09/06/2024 11:12:42 09/02/2009/02/2024 CBC WITH AUTO- DIFFE RENTI AL absolute eosinophils 0.15 10*3/ uL 0.00-0 .40 Not Available [facility] [address] [facility] [address], [place], [address], 09/06/2024 11:12:42 09/02/2009/02/2024 CBC WITH AUTO- DIFFE RENTI AL basophils 0.7 % 0.0-3. 0 Not Available [facility] [address] [facility] [address], [place], [address], 09/06/2024 11:12:42 09/02/2009/02/2024 CBC WITH AUTO- DIFFE RENTI AL absolute basophils 0.05 10*3/ uL 0.00-0 .20 Not Available [facility] [address] [facility] [address], [place], [address], 09/06/2024 11:12:42 09/02/2009/02/2024 CBC WITH AUTO- DIFFE RENTI AL imm. gran. 0.3 % 0.0-2. 0 Not Available [facility] [address] [facility] [address], [place], [address], 09/06/2024 11:12:42 09/02/2009/02/2024 CBC WITH AUTO- DIFFE RENTI AL abs. imm. gran. 0.02 10*3/ uL 0.00-0 .10 Not Available [facility] [address] [facility] [address], [place], [address], 09/06/2024 11:12:42 09/02/2009/02/2024 ERYTH ROCYT E SEDIM ENTAT ION RATE (ESR) erythrocyte sedimentatio n rate (ESR) 24 mm/HR 0-40 Not Available [facility] [address] [facility] [address], [place], [address], 09/06/2024 11:12:42 09/02/2009/04/2024 AMYLA SE ISOEN ZYMES amylase 245 U/L 31-110 high Not Available [facility] [address] [facility] [address], [place], [address], 09/06/2024 11:12:43 09/02/2009/06/2024 AMYLA SE ISOEN ZYMES pancreatic amylase, S 194 U/L 13-72 high Not Available [facility] [address] [facility] [address], [place], [address], 09/06/2024 11:12:43 09/02/2009/06/2024 AMYLA SE ISOEN ZYMES salivary amyl. calc. 51 U/L 11-83 normal Not Available [facility] [address] [facility] [address], [place], [address], 09/06/2024 11:12:43 09/02/2009/05/2024 HIV P24 ANTIG EN/AN TIBOD Y WITH REFLE X TO CONFI RMATI ON HIV Ab/P24 Ag screen NON REACTI VE non reacti ve normal HIV-1 /HIV- 2 antib odies and HIV-1 p24 antig en were NOT detec aniceto. There is no labor atory evide nce of HIV infec tion. HIV Negat lucille Not Available [facility] [address] [facility] [address], [place], [address], 09/06/2024 11:12:43 01/12/2001/11/2025 HEMOG LOBIN A1C hemoglobin A1C 6.7 % 4.8-5. 6 high RUBEN L RANGE BASED ON ROCÍO COL 2 (DCCT /NGSP ): Non-D iabet ic: < 5.7% Pre-D iabet es: 5.7 - 6.4% Diabe jeny: => 6.5% GLYCE DEIDRA CONTR OL: < 7.0% Not Available [facility] [address] [facility] [address], [place], [address], 01/12/2025 19:07:27 01/12/2001/11/2025 HEMOG LOBIN A1C estimated average glucose 147 Not Available [facility] [address] [facility] [address], [place], [address], 01/12/2025 19:07:27 01/12/20 25 01/11/2025 AMYLA SE amylase 184.0 U/L 31.0-1 24.0 high Not Available [facility] [address] [facility] [address], [place], [address], 01/12/2025 19:07:28 01/12/20 25 01/11/2025 COMPR EHENS LUCILLE METAB OLIC PANEL sodium 143 mmol/ L 134-14 4 Not Available [facility] [address] [facility] [address], [place], [address], 01/12/2025 19:07:28 01/12/20 25 01/11/2025 COMPR EHENS LUCILLE METAB OLIC PANEL potassium 4.8 mmol/ L 3.5-5. 2 Not Available [facility] [address] [facility] [address], [place], [address], 01/12/2025 19:07:28 01/12/20 25 01/11/2025 COMPR EHENS LUCILLE METAB OLIC PANEL chloride 105 mmol/ L 98-107 Not Available [facility] [address] [facility] [address], [place], [address], 01/12/2025 19:07:28 01/12/20 25 01/11/2025 COMPR EHENS LUCILLE METAB OLIC PANEL carbon dioxide (co2) 24.0 mmol/ L 18.0-2 9.0 Not Available [facility] [address] [facility] [address], [place], [address], 01/12/2025 19:07:28 01/12/20 25 01/11/2025 COMPR EHENS LUCILLE METAB OLIC PANEL glucose 117 mg/dL 65-99 high Ruben l Fasti n - 99 mg/dL Impai red Fasti n - 125 mg/dL Diagn ostic of Diabe jeny: => 126 mg/dL Ameri can Diabe jeny Assoc iatio n, 2008 Not Available [facility] [address] [facility] [address], [place], [address], 01/12/2025 19:07:28 01/12/20 25 01/11/2025 COMPR EHENS LUCILLE METAB OLIC PANEL urea nitrogen (BUN) 17 mg/dL 8-23 Not Available [facility] [address], [place], [address], 01/12/2025 19:07:28 01/12/20 25 01/11/2025 COMPR EHENS LUCILLE METAB OLIC PANEL creatinine 1.06 mg/dL 0.57-1 .00 high Not Available [facility] [address] [facility] [address], [place], [address], 01/12/2025 19:07:28 01/12/20 25 01/11/2025 COMPR EHENS LUCILLE METAB OLIC PANEL eGFR 59 mL/mi nute/ 1.73_ m2 >59 low MDRD Study Equat ion: The calcu lated GFR is NOT appli cable for pedia tric (< 18 years old) and > 70 year old patie nts and patie nts that are NOT of stead y state . Not Available [facility] [address] [facility] [address], [place], [address], 01/12/2025 19:07:28 01/12/20 25 01/11/2025 COMPR EHENS LUCILLE METAB OLIC PANEL calcium 9.5 mg/dL 8.7-10 .3 Not Available [facility] [address] [facility] [address], [place], [address], 01/12/2025 19:07:28 01/12/20 25 01/11/2025 COMPR EHENS LUCILLE METAB OLIC PANEL protein, total 7.3 gm/dL 6.4-8. 3 Not Available [facility] [address] [facility] [address], [place], [address], 01/12/2025 19:07:28 01/12/20 25 01/11/2025 COMPR EHENS LUCILLE METAB OLIC PANEL albumin 4.3 gm/dL 3.5-5. 2 Not Available [facility] [address] [facility] [address], [place], [address], 01/12/2025 19:07:28 01/12/20 25 01/11/2025 COMPR EHENS LUCILLE METAB OLIC PANEL bilirubin, total 0.30 mg/dL 0.00-1 .20 Not Available [facility] [address] [facility] [address], [place], [address], 01/12/2025 19:07:28 01/12/20 25 01/11/2025 COMPR EHENS LUCILLE METAB OLIC PANEL alkaline phosphatase (ALP) 118 U/L 39-117 high Not Available [facility] [address] [facility] [address], [place], [address], 01/12/2025 19:07:28 01/12/20 25 01/11/2025 COMPR EHENS LUCILLE METAB OLIC PANEL aspartate aminotransfe rase (AST) 16 U/L 0-32 Not Available [facility] [address] [facility] [address], [place], [address], 01/12/2025 19:07:28 01/12/20 25 01/11/2025 COMPR EHENS LUCILLE METAB OLIC PANEL alanine aminotransfe rase (ALT) 8 U/L 0-33 Not Available [facility] [address] [facility] [address], [place], [address], 01/12/2025 19:07:28 01/12/20 25 01/11/2025 COMPR EHENS LUCILLE METAB OLIC PANEL A/G ratio (calculated) 1.4 ratio 1.0-2. 7 Not Available [facility] [address] [facility] [address], [place], [address], 01/12/2025 19:07:28 01/12/20 25 01/11/2025 COMPR EHENS LUCILLE METAB OLIC PANEL globulin (calculated) 3.0 gm/dL 1.5-3. 8 Not Available [facility] [address] [facility] [address], [place], [address], 01/12/2025 19:07:28 01/12/20 25 01/11/2025 COMPR EHENS LUCILLE METAB OLIC PANEL BUN/creatini ne ratio (calculated) 16.0 ratio 8.0-20 .0 Not Available [facility] [address] [facility] [address], [place], [address], 01/12/2025 19:07:28 01/12/20 25 01/11/2025 COMPR EHENS LUCILLE METAB OLIC PANEL serum index hemolysis 25.0 index normal Not Available [facility] [address] [facility] [address], [place], [address], 01/12/2025 19:07:28 01/12/20 25 01/11/2025 LIPAS E lipase 466 U/L 0-59 high Not Available [facility] [address] [facility] [address], [place], [address], 01/12/2025 19:07:28 01/12/20 25 01/11/2025 CBC WITH AUTO- DIFFE RENTI AL WBC 6.3 10*3/ uL 3.4-10 .8 Not Available [facility] [address] [facility] [address], [place], [address], 01/12/2025 19:07:29 01/12/20 25 01/11/2025 CBC WITH AUTO- DIFFE RENTI AL RBC 4.92 10*6/ uL 3.80-5 .30 Not Available [facility] [address] [facility] [address], [place], [address], 01/12/2025 19:07:29 01/12/20 25 01/11/2025 CBC WITH AUTO- DIFFE RENTI AL HGB 12.5 g/dL 11.1-1 5.9 Not Available [facility] [address] [facility] [address], [place], [address], 01/12/2025 19:07:29 01/12/20 25 01/11/2025 CBC WITH AUTO- DIFFE RENTI AL HCT 41.5 % 34.0-4 6.6 Not Available [facility] [address], [place], [address], 01/12/2025 19:07:29 01/12/20 25 01/11/2025 CBC WITH AUTO- DIFFE RENTI AL MCV 84 fL 79-97 Not Available [facility] [address], [place], [address], 01/12/2025 19:07:29 01/12/20 25 01/11/2025 CBC WITH AUTO- DIFFE RENTI AL MCH 25.4 pg 26.6-3 3.0 low Not Available [facility] [address] [facility] [address], [place], [address], 01/12/2025 19:07:29 01/12/20 25 01/11/2025 CBC WITH AUTO- DIFFE RENTI AL MCHC 30.1 g/dL 31.5-3 5.7 low Not Available [facility] [address], [place], [address], 01/12/2025 19:07:29 01/12/20 25 01/11/2025 CBC WITH AUTO- DIFFE RENTI AL RDW 18.2 % 11.5-1 4.5 high Not Available [facility] [address], [place], [address], 01/12/2025 19:07:29 01/12/20 25 01/11/2025 CBC WITH AUTO- DIFFE RENTI AL platelets 286 10*3/ uL 150-40 0 Not Available [facility] [address] [facility] [address], [place], [address], 01/12/2025 19:07:29 01/12/20 25 01/11/2025 CBC WITH AUTO- DIFFE RENTI AL MPV 12 fL 9-13 Not Available [facility] [address] [facility] [address], [place], [address], 01/12/2025 19:07:29 01/12/20 25 01/11/2025 CBC WITH AUTO- DIFFE RENTI AL neutrophils 50.1 % 40.0-7 4.0 Not Available [facility] [address] [facility] [address], [place], [address], 01/12/2025 19:07:29 01/12/20 25 01/11/2025 CBC WITH AUTO- DIFFE RENTI AL absolute neutrophils 3.17 10*3/ uL 1.40-7 .00 Not Available [facility] [address] [facility] [address], [place], [address], 01/12/2025 19:07:29 01/12/20 25 01/11/2025 CBC WITH AUTO- DIFFE RENTI AL lymphocytes 35.5 % 14.0-4 6.0 Not Available [facility] [address] [facility] [address], [place], [address], 01/12/2025 19:07:29 01/12/20 25 01/11/2025 CBC WITH AUTO- DIFFE RENTI AL absolute lymphocytes 2.25 10*3/ uL 0.70-3 .10 Not Available [facility] [address] [facility] [address], [place], [address], 01/12/2025 19:07:29 01/12/20 25 01/11/2025 CBC WITH AUTO- DIFFE RENTI AL monocytes 12.3 % 4.0-12 .0 high Not Available [facility] [address] [facility] [address], [place], [address], 01/12/2025 19:07:29 01/12/20 25 01/11/2025 CBC WITH AUTO- DIFFE RENTI AL absolute monocytes 0.78 10*3/ uL 0.10-0 .90 Not Available [facility] [address] [facility] [address], [place], [address], 01/12/2025 19:07:29 01/12/20 25 01/11/2025 CBC WITH AUTO- DIFFE RENTI AL eosinophils 1.3 % 0.0-5. 0 Not Available [facility] [address] [place] [address] [address], [place], [address], 01/12/2025 19:07:29 01/12/20 25 01/11/2025 CBC WITH AUTO- DIFFE RENTI AL absolute eosinophils 0.08 10*3/ uL 0.00-0 .40 Not Available [address], [place], [address], 01/12/2025 19:07:29 01/12/20 25 01/11/2025 CBC WITH AUTO- DIFFE RENTI AL basophils 0.6 % 0.0-3. 0 Not Available [place] [address] [facility] [address], [place], [address], 01/12/2025 19:07:29 01/12/20 25 01/11/2025 CBC WITH AUTO- DIFFE RENTI AL absolute basophils 0.04 10*3/ uL 0.00-0 .20 Not Available [address], [place], [address], 01/12/2025 19:07:29 01/12/20 25 01/11/2025 CBC WITH AUTO- DIFFE RENTI AL imm. gran. 0.2 % 0.0-2. 0 Not Available [address], [place], [address], 01/12/2025 19:07:29 01/12/20 25 01/11/2025 CBC WITH AUTO- DIFFE RENTI AL abs. imm. gran. 0.01 10*3/ uL 0.00-0 .10 Not Available [address], [place], [address], 01/12/2025 19:07:29 01/12/20 25 01/11/2025 urina lysis , dipst ick Appearance Cloudy Not Available [facility], [facility] [address] [facility] [address], [place], [address], 01/11/2025 09:49:21 01/12/20 25 01/11/2025 urina lysis , dipst ick Color Pale Yellow Not Available [facility], [facility] [address] [facility] [address], [place], [address], 01/11/2025 09:49:21 01/12/20 25 01/11/2025 urina lysis , dipst ick Glucose 2000+ Not Available [facility], [facility] [address] [facility] [address], [place], [address], 01/11/2025 09:49:21 01/12/20 25 01/11/2025 urina lysis , dipst ick Bilirubin Negati ve Not Available [facility], [facility] [address] [facility] [address], [place], [address], 01/11/2025 09:49:21 01/12/20 25 01/11/2025 urina lysis , dipst ick Ketone Negati ve Not Available [facility], [facility] [address] [facility] [address], [place], [address], 01/11/2025 09:49:21 01/12/20 25 01/11/2025 urina lysis , dipst ick Specific [place] 1.010 Not Available [facility] [address] [facility] [address], [place], [address], 01/11/2025 09:49:21 01/12/20 25 01/11/2025 urina lysis , dipst ick Leukocytes Negati ve Not Available [facility], [facility] [address], [place], [address], 01/11/2025 09:49:21 01/12/20 25 01/11/2025 urina lysis , dipst ick Nitrite negati ve Not Available [facility] [address] [facility] [address], [place], [address], 01/11/2025 09:49:21 01/12/20 25 01/11/2025 urina lysis , dipst ick Urobilinogen .2 Not Available [facility] [address] [facility] [address], [place], [address], 01/11/2025 09:49:21 01/12/20 25 01/11/2025 urina lysis , dipst ick Protein Trace Not Available [facility] [address] [facility] [address], [place], [address], 01/11/2025 09:49:21 01/12/20 25 01/11/2025 urina lysis , dipst ick pH 5.0 Not Available [facility] [address] [facility] [address], [place], [address], 01/11/2025 09:49:21 01/12/20 25 01/11/2025 urina lysis , dipst ick Blood Negati ve Not Available [facility] [address] [facility] [address], [place], [address], 01/11/2025 09:49:21 05/10/20 23 MAMMO , scree judy, tomos ynthe sis, bilat eral [facility] [place] [place] [address] Orderi ng Provid er: ANA CRISTINA ANDREA This is a summar y report . The comple te report is availa ble in the patien t's medica l record . If you cannot access the medica l record , please contac t the sendin g organi zaarturo for a detail ed fax or copy. EXAMIN ATION: MG SCREEN ING W HILDA RUPA DIGI ACCESS ION: [id number] INDICA TIONS: Screen ing TECHNI QUE: Digita l full field CC and MLO screen ing mammog kiarra bilate rally to includ e 3-D Tomosy nthesi s techni que. This study was read with the assist ance of a commercetools er-aid ed detect ion system . HISTOR Y: No report ed person al or first degree family histor y of breast cancer . No report ed prior breast proced ure or curren t breast compla int. COMPAR ANAND: Multip le prior examin ations availa ble for compar anand dating back to 016, the most recent of 022, 03/15/20 21, and 01/15/20 20. TISSUE DENSIT Y: There are scatte red [...] reted By: Pearl Haas, 023 4:[address], [address], 08/16/2023 13:18:12 02/26/20 24 02/27/2024 elect berlin earl am No observ ation record ed. [facility], [facility] [address], [place], [address], 09/02/2024 09:27:40 02/26/20 24 02/27/2024 , [facility] ardio gram No observ ation record ed. [facility], [facility] [address], [place], [address], 09/02/2024 09:27:40 02/26/20 24 elect rocar diogr am No observ ation record ed. [facility], [facility] [address], [place], [address], 09/02/2024 09:27:40 02/27/20 24 02/26/2024 elect rocar diogr am No observ ation record ed. [facility], [facility] [address], [place], [address], 09/02/2024 09:27:40 02/12/20 25 02/10/2025 CT, abdom en + pelvi s, w/wo contr ast No observ ation record ed. [facility] [address], [place], [address], 02/11/2025 13:27:40 03/08/20 25 MAMMO , scree judy, tomos ynthe sis, bilat eral [facility] ONE [facility] [place] [address] Orderi ng [facility] er: ANA CRISTINA ANDREA This is a summar y report . The comple te report is availa ble in the patien t's medica l record . If you cannot access the medica l record , please contac t the venusin michael knight for a detail ed fax or copy. [facility]1 [facility] [place] [address] [id number] Examin ation: Screen ing bilate ral mammog eliseo Access ion: [id number] Exam Date/T shelby: 025 2:41 PM Clinic al histor y: No curren t compla ints. Compar anand: 023 Techni que: Digita l screen ing mammog kiarra of both breast s was perfor med. Breast tomosy nthesi s acquis itions were obtain ed and review ed. This study was read with the assist ance of a commercetools er-aid ed detect ion system . Tissue densit y: There are scatte red areas of fibrog landul ar densit y. Findin gs: No suspic ious masses , malign ant appear ing calcif icatio ns, skin thicke judy or other abnorm alitie s are presen t. No signif icant change from the prior exam. IMPRES LOBO: No suspic ious mammog raphic findin gs. Recomm endati on: 1. Routin e Screen ing, Bilate ral Assess ment: ACR BI-RAD S 2 - BENIGN FINDIN G(S) Ordere d By: ANA CRISTINA ANDREA Electr onical ly Signed By: Jose Triplett on 3:07 PM Interp reted By: Jose Triplett, 3:05 PM [facility] 1 [facility], [place], [address], 03/08/2025 20:57:22 03/08/20 25 03/08/2025 MAMMO , scree judy, digit al, bilat eral No observ ation record ed. [facility] 1 [facility], [place], [address], 03/12/2025 12:18:24 03/08/20 25 bone densi ty/de xa [facility] ONE [facility] [address] Orderi ng Provid er: ANA CRISTINA ANDREA [facility] [place] [address] [phone] EXAMIN ATION: BONE DENSIT Y/DEXA ACCESS ION: [id number] INDICA TIONS: Asympt omatic menopa usal state COMPAR ANAND: 022 TECHNI QUE: DEXA bone minera l densit y evalua tion was perfor med in the AP projec tion over the lumbar spine and both hips utiliz ing standa rd imagin g techni ques. FINDIN GS: The BMD measur ed at the AP spine L1-L4 is 1.110 g/cm? with a T-scor e of 0.6 (previ ously 1.079 g/cm? with a T-scor e of 0.3). The BMD measur ed at the left femora l neck is 0.636 g/cm? with a T-scor e of -1.9 (previ ously 0.637 g/cm? with a T-scor e of -1.9). The BMD measur ed at the left hip is 0.902 g/cm? with a T-scor e of -0.3 (previ ously 0.870 g/cm? with a T-scor e of -0.6). The BMD measur ed at the right femora l neck is 0.642 g/cm? with a T-scor e of -1.9 (previ ously 0.698 g/cm? with a T-scor e of -1.4). The BMD measur ed at the right hip is 0.893 g/cm? with a T-scor e of -0.4 (previ ously 0.877 g/cm? with a T-scor e of -0.5). FRAX 10-yea r fractu re risk: Major Osteop orotic Fractu re: 9.4% Hip Fractu re: 1.2% IMPRES LOBO: WHO Classi ficati on: Osteop enia. RECOMM ENDATI ONS: All patien ts should ensure an adequa te intake of dietar y calciu m and vitami n D. The NOF recomm end adults under the age of 50 need 1000 mg of calciu m and 400-80 0 IU of vitami n D daily. Effect lucille therap y for the preven tion and treatm ent of osteop orosis includ e bispho sphona jeny. FOLLOW -UP: People with diagno sed cases of osteop orosis or at high risk for fractu re should have regula r bone minera l densit y test. For patien ts eligib le for Medica re, routin e testin g is allowe d once every 2 years. Testin g freque ncy can be increa sed to one year for patien ts who have rapidl y progre ssing diseas e, those who are receiv ing or discon tinuin g medica l therap y to restor e bone mass, or have additi onal risk factor s. Ordere d By: ANA CRISTINA ANDREA Electr onical ly Signed By: Pearl Haas on 025 4:09 PM Interp reted By: Pearl Haas, 4:[address], [address], 03/08/2025 20:57:22 03/08/20 25 03/08/2025 bone densi ty No observ ation record ed. [address], [address], 03/12/2025 12:18:24 Result Notes None recorded. 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 100923755 Active 2020 Not Available [facility] 09:37:20 Osteoarthr itis 883051335 Active 2020 Not Available [facility] 08/20/202 1 09:37:20 Benign hypertensi on 27198917 Active 2020 Not Available [facility] 09:37:20 Mixed hyperlipid emia 971188377 Active 2020 Not Available [facility] 09:37:20 Mixed anxiety and depressive disorder 573167187 Active 2020 Not Available [facility] 09:37:20 Body mass index 30+ - obesity 714378055 Active 2020 Not Available [facility] 09:37:20 Chronic constipati on 492734710 Active 2020 Not Available [facility] 1 09:37:20 Menopause Active 2020 Not Available [facility] 09:37:19 Gastroesop hageal reflux disease without esophagiti s 584420210 Active 2020 Not Available [facility] 1 09:37:20 Primary fibromyalg ia syndrome 79116848 Active 2020 Not Available [facility] 1 09:37:20 Family history of aneurysm of blood vessel of brain 6174756794122 9103 Active 2020 Not Available [facility] 1 09:37:20 Diabetic peripheral neuropathy 864480471 Active 2020 Not Available [facility] 1 09:37:20 Right dominant coronary system 506230159 Active 2020 on cath 12/2017 Not Available [facility] 1 09:37:20 Coronary arterioscl erosis 03044350 Active 2020 mild on cath 12/2017 Not Available [facility] 1 09:37:20 Serum creatinine above reference range 631998310 Active 2020 Not Available [facility] 09:37:20 Hyperkalem ia 58537486 Active 2020 Ana Cristina Whittington MD [address], [place], [address] , [place] - [facility] 1 20:02:56 Serum amylase above reference range 540720969 Active 2020 Ana Cristina Whittington MD [address], [place], [address] , [facility] 1 20:02:58 Arthritis of hand 023634548 Active 2020 Ana Cristina Whittington MD [address], [place], [address] , [facility] 1 10:07:08 Long-term drug therapy Active 2020 Ana Cristina Whittington MD [address], [place], [address] , [facility] 1 10:20:50 Anemia 280653061 Active 2021 Ana Cristina Whittington MD [address], [place], [address] , [facility] 2 20:42:22 Vitamin B12 deficiency (non anemic) 54336698 Active 2021 Ana Cristina Whittington MD [address], [place], [address] , [facility] 2 17:47:29 Uncontroll ed type 2 diabetes mellitus 711120362 Active 2022 Ana Cristina Whittington MD [address], [place], [address] , [facility] 3 21:24:56 History of colectomy 933070483 Active 2023 Ana Cristina Whittington MD [address], [place], [address] , [facility] 4 16:55:12 Problem Notes None recorded. Procedures Surgical History Date Name Laterality Status Provider Name and Address Organization Details Recorded Time 01/12/20 Diabetic Foot Exam completed Ana Cristina Whittington MD [address], [place], [address], [facility] 01/11/2025 09:55:55 09/02/20 24 Diabetic Foot Exam completed Ana Cristina Whittington MD [address], [place], [address], [facility] 09/02/2024 09:40:11 02/26/20 24 Diabetic Foot Exam completed Ana Cristina Whittington MD [address], [place], [address], [facility] 02/26/2024 16:59:35 08/16/20 23 Diabetic Foot Exam completed Ana Cristina Whittington MD [address], [place], [address], [facility] 08/16/2023 13:29:39 06/27/20 23 Cholecystectomy completed Ana Cristina Whittington MD [address], [place], [address], [facility] 08/16/2023 13:20:41 04/22/20 23 Diabetic Foot Exam completed Ana Cristina Whittington MD [address], [place], [address], [facility] 04/22/2023 12:34:06 12/31/19 Diabetic Foot Exam completed Ana Cristina Whittington MD [address], [place], [address], [facility] 12/31/2022 09:57:03 09/03/20 Diabetic Foot Exam completed Ana Cristina Whittington MD [address], [place], [address], [facility] 09/03/2022 16:27:56 05/11/20 Diabetic Foot Exam completed Ana Cristina Whittington MD [address], [place], [address], [facility] 05/11/2022 10:39:14 01/30/20 Diabetic Foot Exam completed Ana Cristina Whittington MD [address], [place], [address], [facility] 01/29/2022 10:34:10 11/01/20 21 Diabetic Foot Exam completed Ana Cristina Whittington MD [address], [place], [address], [place] [facility] 11/01/2021 10:04:31 08/02/20 21 Diabetic Foot Exam completed Ana Cristina Whittington MD [address], [place], [address], [facility] 08/02/2021 10:51:31 04/28/20 21 Diabetic Foot Exam completed Ana Cristina Whittington MD [address], [place], [address], [facility] 04/28/2021 10:44:23 01/27/20 21 Diabetic Foot Exam completed Ana Cristina Whittington MD [address], [place], [address], [facility] 01/26/2021 11:24:07 01/10/20 20 Date of Last Pap Smear completed SENG HINKLE [facility] 01/26/2021 10:23:20 01/10/20 20 Date of Last Mammogram completed SENG HINKLE [facility] 01/26/2021 10:23:25 11/11/19 13 partial resection of colon completed Ana Cristina Whittington MD [address], [place], [address], [facility] 01/26/2021 11:17:55 Imaging Results Imaging Date Name Status LastModified by Organization Details LastModified Time 05/10/2023 MAMMO, screening, tomosynthesis, bilateral completed [address], [address], 08/16/2023 13:18:12 02/27/2024 electrocardiogram completed [facility], [facility] [address], [place], [address], 09/02/2024 09:27:40 02/27/2024 US, echocardiogram completed [facility], [facility] [address], [place], [address], 09/02/2024 09:27:40 02/26/2024 electrocardiogram completed [facility] [address], [place], [address], 09/02/2024 09:27:40 02/26/2024 electrocardiogram completed [facility] [address], [place], [address], 09/02/2024 09:27:40 02/10/2025 CT, abdomen + pelvis, w/wo contrast completed [address], [place], [address], 02/11/2025 13:27:40 03/08/2025 MAMMO, screening, tomosynthesis, bilateral completed [address], [address], 03/08/2025 20:57:22 03/08/2025 MAMMO, screening, digital, bilateral completed [address], [address], 03/12/2025 12:18:24 03/08/2025 bone density/dexa completed [address], [address], 03/08/2025 20:57:22 03/08/2025 bone density completed [address], [address], 03/12/2025 12:18:24 Procedure Notes None recorded. Medical Equipment None Reported. Allergies Allergen ID Allergen Name Allergen Category Reaction Reaction Severity Criticality Documentation Date Start Date Code Code System Note Provider Name and Address Organization Details Recorded Time 39464 gabapenti n medicatio n other Not available Not available 08/02/2021 55454 RxNorm depre ssion with SI Ana Cristina Whittington MD [address], [place], [address], [facility] 1 10:47:31 38852 Ozempic medicatio n other Not available Not available 01/29/2022 07 RxNorm pancr eatit is Ana Cristina Whittington MD [address], [place], [address], [facility] 2 10:34:58 9661 Product containin g penicilli n (product) medicatio n rash Not available Not available 01/26/2021 92773 8001 SNOMED Ana Cristina Whittington MD [address], [place], [address], [facility] 1 10:54:09 9662 hydrocodo ne Not available nausea Not available Not available 01/26/2021 5489 RxNorm Ana Cristina Whittington MD [address], [place], [address], [facility] 1 10:54:23 9950 pregabali n medicatio n abdominal pain diarrhea dizziness nausea Not available Not available Not available Not available Not available 06/21/2021 40016 2 RxNorm Lizzy Leatherwo od [facility] 1 11:47:45 Medications Name Sig Start Date Stop Date Status Note LastModified by Organization Details LastModified Time losartan 50 mg tablet TAKE 1 TABLET DAILY IN THE MORNING 2024 active Not Available Not Available Not Avai lable atorvastati n 40 mg tablet TAKE 1 TABLET DAILY AT BEDTIME 2024 active Not Available Not Available Not Avai lable methocarbam ol 500 mg tablet TAKE 1 [...] 1 TABLET BY MOUTH EVERY 12 HOURS 03/17 completed Not Available Not Available Not Available [...] capsule,del ayed release TAKE 1 CAPSULE DAILY 2024 active Not Available Not Available Not Avai lable pregabalin 100 mg capsule TAKE 1 CAPSULE [...] 3 165.1 cm 97.8 [degF] 36.6 kg/m2 19882.3 2 g 16 /min 83 /min 131 mm[Hg] 78 mm[Hg] Nikki Lagos [facility] 3 12:08:49 Date Recorded Body height Body temperature Body mass index (BMI) Body weight Respiratory rate Heart rate Provider Name and Address Organization Details Last Updated DateTime 3 165.1 cm 98.7 [degF] 37.8 kg/m2 821778. 47 g 16 /min 82 /min Nikki Lagos [facility] 3 13:05:38 Date Recorded Systolic blood pressure Diastolic blood pressure Provider Name and Address Organization Details Last Updated DateTime 08/16/2023 133 mm[Hg] 81 mm[Hg] Ana Cristina Whittington MD [address] [facility] [address], [place], [address], [facility] 08/16/2023 13:30:22 Date Recorded Body height Heart rate Respiratory rate Body temperature Body mass index (BMI) Body weight Systolic blood pressure Diastolic blood pressure Provider Name and Address Organization Details Last Updated DateTime 4 165.1 cm 94 /min 16 /min 97.8 [degF] 36.4 kg/m2 57273.7 3 g 118 mm[Hg] 75 mm[Hg] Joey Galeano [facility] 4 15:55:39 Date Recorded Body height Body mass index (BMI) Body weight Body temperature Heart rate Respiratory rate Systolic blood pressure Diastolic blood pressure Provider Name and Address Organization Details Last Updated DateTime 4 165.1 cm 35.8 kg/m2 78635.3 6 g 97.2 [degF] 84 /min 16 /min 135 mm[Hg] 81 mm[Hg] Nikki Lagos [facility] 4 09:09:55 Date Recorded Body height Body temperature Body mass index (BMI) Body weight Respiratory rate Heart rate Provider Name and Address Organization Details Last Updated DateTime 5 165.1 cm 96.3 [degF] 35.1 kg/m2 98979.9 9 g 16 /min 84 /min Nikki Lagos [facility] 5 09:23:15 Date Recorded Systolic blood pressure Diastolic blood pressure Provider Name and Address Organization Details Last Updated DateTime 01/11/2025 133 mm[Hg] 79 mm[Hg] Ana Cristina Whittington MD [address], [place], [address], [facility] 01/11/2025 09:48:35 Social History Question Answer Notes LastModified by Organizat ion Details LastModified Time Tobacco Smoking Status Never Smoker SENG rouse, [facility] 01/26/2021 10:22:50 What Is Your Level Of Caffeine Consumption? [...] LastModified by Organizat ion Details LastModified Time What is your level of alcohol consumption? None [email or web address] Information not available 01/26/2021 Are you able to care for yourself? [...] Td(adult) unspecified formulation 9 completed Not Available [facility] 11/06/2022 10:28:57 SARS-COV-2 (COVID-19) vaccine, UNSPECIFIED 1 completed Not Available [facility] 11/06/2022 10:28:57 Influenza, split virus, quadrivalent, preservative 0 completed Not Available [facility] 11/06/2022 10:28:57 Pneumococcal conjugate PCV 13 3 completed Not Available [facility] 11/06/2022 10:28:57 SARS-COV-2 (COVID-19) vaccine, UNSPECIFIED 1 completed Not Available [facility] 11/06/2022 10:28:57 zoster recombinant 1 completed Not Available [facility] 11/06/2022 10:28:57 Influenza, split virus, quadrivalent, PF 1 completed Not Available [facility] 11/06/2022 10:28:57 zoster recombinant 1 completed Not Available [facility] 11/06/2022 10:28:57 COVID-19, mRNA, LNP-S, PF, 30 mcg/0.3 mL dose 1 completed Not Available [facility] 11/06/2022 10:28:57 RSV, recombinant, protein subunit RSVpreF, adjuvant reconstituted, 0.5 mL, PF 4 completed Ana Cristina Whittington MD [address], [place], [address], [facility] 08/10/2024 19:54:14 Influenza, split virus, trivalent, PF 4 completed Ana Cristina Whittington MD [address], [place], [address], [facility] 08/10/2024 19:54:14 Past Encounters Encounter ID Performer Location Encounter Start Date Encounter Closed Date Diagnosis/Indication Diagnosis SNOMED-CT Code Diagnosis ICD10 Code Diagnosis Note [id number] Ana Cristina Whittington MD [facility], [facility] [address] [place] [address] 01/26/2021 09:51:01 01/26/2021 11:34:24 Allergy to penicillin 09060336 Z88.0 education Adult [facility] th examination 161079033 Z00.01 Type 2 toña betes mellitus without complication 723630021 E11.9 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 0 Gastroesop hageal reflux disease without esophagitis 111793940 K21.9 Long-term drug therapy 515955725 Z79.899 metformin , lorazepam Family his tory of aneurysm of blood vessel of brain 2482100425 1477374 Z82.49 mother Active or passive immunization 909784625 Z23 Viral screening 49279697 4 Z11.59 Diabetic p eripheral neuropathy 291296436 E11.40 education Syncope and collapse 309 587472 R55 No driving [id number] Ana Cristina Whittington MD [facility] [employer] [facility] [address] [place] [address] 04/28/2021 10:23:56 04/28/2021 10:57:25 Benign hypertension 88488475 I10 last EKG 01/30/21 Body mass index 30+ - obesity 460180122 Z68.36 educationl ost 6 LBs on diet and exercise Type 2 toña betes mellitus without complication 992142631 E11.9 Mixed hyperlipidemia 267 826543 E78.2 last LDL was above goal , increased atorva , recheck Screening mammography 24 487449 Z12.31 last mammogram 03/15/21 Screening for malignant neoplasm of cervix 381595589 Z12.4 per pt had PAP 01/2021 Screening for malignant neoplasm of colon 435550602 Z12.11 per pt had C scope 2019 , good for 5 years Active or passive immunization 522649555 Z23 Osteoarthritis 213798356 M19.90 Dysplastic nevus of skin 294684655 D22.9 [id number] Ana Cristina Whittington MD [facility] [address] [place] [address] 08/02/2021 09:57:51 08/02/2021 11:05:14 Benign hypertension 25010240 I10 last EKG 01/30/21inc rease losartan Body mass index 30+ - obesity 503240521 Z68.36 educationl ost 5 LBs on diet and exercise Chronic constipation 236 105099 K59.09 stable Coronary arteriosclerosis 18627972 I25.10 No CP Diabetic p eripheral neuropathy 838245611 E11.40 educationc ould not tolerate generic 2ry to N/V Mixed hyperlipidemia 267 957927 E78.2 last LDL 04/28/21 Osteoarthritis 564199706 M19.90 Type 2 toña betes mellitus without complication 671715960 E11.9 decreased Ozempic to 0.5 Q week 2ry to Nausea Gastroesop hageal reflux disease without esophagitis 004349323 K21.9 had 2-3 trials of stopping Screening mammography 24 340845 Z12.31 last mammogram 03/15/21 Screening for malignant neoplasm of cervix 302815641 Z12.4 per pt had PAP 01/2021 Screening for malignant neoplasm of colon 742382411 Z12.11 per pt had C scope 2018 , good for 5 years Active or passive immunization 370746781 Z23 up to date Low back pain 817271665 M54.5 [id number] Ana Cristina Whittington MD [facility] [employer] [facility] [address] [place] [address] 11/01/2021 09:22:16 11/01/2021 10:19:10 Persistent insomnia 685861877 G47.09 Diabetic p eripheral neuropathy 390878983 E11.40 education Mixed anxi ety and depressive disorder 088211264 F41.8 just pass away 12/26/20 Type 2 toña betes mellitus without complication 521491338 E11.9 decreased Ozempic to 0.5 Q week 2ry to Nausea Mixed hyperlipidemia 267 713101 E78.2 last LDL 04/28/21 Serum amyl ase above reference range 513796031 R74.8 Screening mammography 24 600890 Z12.31 last mammogram 03/15/21 Screening for malignant neoplasm of cervix 448138206 Z12.4 per pt had PAP 01/2021 Screening for malignant neoplasm of colon 310641343 Z12.11 per pt had C scope 2018 , good for 5 years Active or passive immunization 015519316 Z23 up to date Arthritis of hand 297406 005 M13.849 [id number] Ana Cristina Whittington MD [facility] [employer] [address] [place] [address] 01/29/2022 10:01:21 01/29/2022 10:48:47 Adult health examination 544121507 Z00.01 Benign hypertension 1072 5009 I10 last EKG 08/09/21 Body mass index 30+ - obesity 695641091 Z68.36 educationo n diet and exercise Arthritis of hand 385425 005 M13.849 S/P surg on lt hand 12/28/21 Chronic constipation 236 468665 K59.09 stable Coronary arteriosclerosis 05245324 I25.10 No CP Diabetic p eripheral neuropathy 485491038 E11.40 education Gastroesop hageal reflux disease without esophagitis 419435015 K21.9 had 2-3 trials of stoppingGI increase omeprazole to BIDhad EGD 12/11/21 Hyperkalemia 10666414 E8 7.5 recheck Long-term drug therapy 271917020 Z79.899 metformin , lorazepam Menopause 344661935 Z78. 0 Mixed anxi ety and depressive disorder 731429991 F41.8 just pass away 12/26/20 Mixed hyperlipidemia 267 364861 E78.2 last LDL 04/28/21 Osteoarthritis 925646883 M19.90 stable Primary fi bromyalgia syndrome 07928010 M79.7 stable Type 2 toña betes mellitus without complication 434786225 E11.9 could not get Ozempic to 0.5 Q week 2ry to pancreatit is Screening mammography 24 215188 Z12.31 last mammogram 03/15/21 Screening for malignant neoplasm of cervix 555314159 Z12.4 per pt had PAP 01/2021 Screening for malignant neoplasm of colon 454880151 Z12.11 per pt had C scope 2019 , good for 5 years Active or passive immunization 490501381 Z23 up to date 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 470025482 E11.3299 F/U with ophth [id number] Ana Cristina Whittington MD [facility] [address] [place] [address] 05/11/2022 09:58:09 05/11/2022 10:52:43 Benign hypertension 38831797 I10 last EKG 08/09/21 Body mass index 30+ - obesity 018854632 Z68.36 educationo n diet and exercise Mixed hyperlipidemia 267 102275 E78.2 last LDL 01/29/22 Type 2 toña betes mellitus without complication 138201954 E11.9 could not get Ozempic to 0.5 Q week 2ry to pancreatit isseen ophth 03/2022 Screening for malignant neoplasm of cervix 659338092 Z12.4 per pt had PAP 03/27/22 Screening mammography 24 951575 Z12.31 last mammogram 04/30/22 Screening for malignant neoplasm of colon 306549394 Z12.11 per pt had C scope 2019 , good for 5 years Active or passive immunization 088314171 Z23 up to date Osteoarthritis 390120800 M19.90 stable [id number] Ana Cristina Whittington MD [facility] [address] [place] [address] 09/03/2022 15:44:27 09/03/2022 16:48:55 Benign hypertension 50172827 I10 last EKG 08/09/21 Body mass index 30+ - obesity 205236234 Z68.36 educationo n diet and exercise Coronary arteriosclerosis 24802180 I25.10 No CP Long-term drug therapy 718738844 Z79.899 metformin , lorazepam Mixed hyperlipidemia 267 026100 E78.2 last LDL 05/11/22 Type 2 toña betes mellitus without complication 295126625 E11.9 could not get Ozempic to 0.5 Q week 2ry to pancreatit isseen ophth 03/2022 Screening mammography 24 072130 Z12.31 last mammogram 04/30/22 Screening for malignant neoplasm of cervix 444502661 Z12.4 per pt had PAP 03/27/22 Screening for malignant neoplasm of colon 920100875 Z12.11 per pt had C scope 2019 , good for 5 years Active or passive immunization 769261154 Z23 up to date Mixed anxi ety and depressive disorder 159056968 F41.8 just pass away 12/26/20 [id number] Ana Cristina Whittington MD [facility] [address] [place] [address] 10/11/2022 16:47:41 10/11/2022 18:12:30 Type 2 diabetes mellitus without complication 316588623 E11.9 could not get Ozempic to 0.5 Q week 2ry to pancreatit isseen ophth 03/2022 Vitamin B1 2 deficiency (non anemic) 36644949 E53.8 Anemia 130257179 D64.9 Long-term drug therapy 096800276 Z79.899 metformin , lorazepam Diabetic p eripheral neuropathy 035113459 E11.40 education Benign hypertension 1072 5009 I10 last EKG 09/03/22 Mixed anxi ety and depressive disorder 324294384 F41.8 pass away 12/26/20No SI , No HI Mixed hyperlipidemia 267 513346 E78.2 last LDL 05/11/22 Screening for malignant neoplasm of colon 718074697 Z12.11 per pt had C scope 2019 , good for 5 years Active or passive immunization 408788400 Z23 up to date Screening mammography 24 152608 Z12.31 last mammogram 04/30/22 Lumbago with sciatica 20 1681954 M54.42 Pain of le ft knee joint 3386106599 76153 M25.562 [id number] Ana Cristina Whittington MD [facility], [facility] [address] [facility] [address] [place] [address] 12/31/2022 09:02:51 12/31/2022 10:06:21 Benign hypertension 33763468 I10 last EKG 09/03/22 Body mass index 30+ - obesity 776852652 Z68.36 educationo n diet and exercise Chronic constipation 236 241142 K59.09 stable Coronary arteriosclerosis 28869815 I25.10 No CP Diabetic p eripheral neuropathy 652124797 E11.40 education Long-term drug therapy 080219608 Z79.899 metformin , lorazepaml ast drug screen 08/2022 Mixed anxi ety and depressive disorder 196151776 F41.8 pass away 12/26/20No SI , No HI Mixed hyperlipidemia 267 961765 E78.2 last LDL 05/11/22 Type 2 toña betes mellitus without complication 793657219 E11.9 could not get Ozempic to 0.5 Q week 2ry to pancreatit isseen ophth 11/2022 Vitamin B1 2 deficiency (non anemic) 43265186 E53.8 recheck Screening mammography 24 951601 Z12.31 last mammogram 04/30/22 Screening for malignant neoplasm of cervix 937950785 Z12.4 per pt had PAP 03/27/22 Screening for malignant neoplasm of colon 798225370 Z12.11 per pt had C scope 2019 , good for 5 years Active or passive immunization 046741568 Z23 up to date Gastroesop hageal reflux disease without esophagitis 207828800 K21.9 had 2-3 trials of stoppingGI increase omeprazole to BIDhad EGD 12/11/21 [id number] Ana Cristina Whittington MD [facility], [facility] [address] [place] [address] 04/22/2023 11:22:51 04/22/2023 12:58:40 Adult health examination 579836405 Z00.01 Benign hypertension 1072 5009 I10 last EKG 09/03/22 Arthritis of hand 632505 005 M13.849 S/P surg on lt hand 12/28/21 Anemia 277435750 D64.9 Body mass index 30+ - obesity 125049454 Z68.36 educationo n diet and exercise Chronic constipation 236 516751 K59.09 stable Coronary arteriosclerosis 31247585 I25.10 No CP Diabetic p eripheral neuropathy 386788618 E11.40 education Family his tory of aneurysm of blood vessel of brain 7440695439 3358047 Z82.49 mother Gastroesop hageal reflux disease without esophagitis 354995020 K21.9 had 2-3 trials of stoppingGI increase omeprazole to BIDhad EGD 12/11/21 Hyperkalemia 84834125 E8 7.5 recheck Long-term drug therapy 702755851 Z79.899 metformin , lorazepaml ast drug screen 08/2022 Menopause 511095456 Z78. 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 323320542 E11.3299 F/U with ophth Osteoarthritis 388876651 M19.90 stable Primary fi bromyalgia syndrome 57682632 M79.7 stable Right mari nant coronary system 877504386 Q24.5 Serum amyl ase above reference range 091445007 R74.8 Serum crea tinine above reference range 138101104 R79.89 recheck Type 2 toña betes mellitus without complication 258403441 E11.9 could not get Ozempic to 0.5 Q week 2ry to pancreatit isseen ophth 11/2022 Vitamin B1 2 deficiency (non anemic) 89687736 E53.8 recheck Snoring 59898841 R06.83 Screening mammography 24 346381 Z12.31 last mammogram 04/30/22 Screening for malignant neoplasm of cervix 862277205 Z12.4 per pt had PAP 03/27/22 Screening for malignant neoplasm of colon 963529837 Z12.11 per pt had C scope 2019 , good for 5 years Active or passive immunization 623348403 Z23 up to date Advance di rective discussed with patient 876056621 Z71.89 education Localized eruption of skin 166922689 R21 [id number] Ana Cristina Whittington MD [facility] [employer] [address] [place] [address] 08/16/2023 12:26:31 08/16/2023 13:39:51 Mixed hyperlipidemia 292715640 E78.2 last LDL 04/22/23 Mixed anxi ety and depressive disorder 425194120 F41.8 pass away 12/26/20No SI , No HI Benign hypertension 1072 5009 I10 last EKG 09/03/22 Body mass index 30+ - obesity 413763564 Z68.36 educationo n diet and exercise Type 2 toña betes mellitus without complication 754978904 E11.9 seen endo had A1c 07/2023endo started insulin , stopped metformins een ophth 11/2022 Screening mammography 24 723698 Z12.31 last mammogram 05/10/23 Screening for malignant neoplasm of cervix 278050727 Z12.4 per pt had PAP 03/27/22 Screening for malignant neoplasm of colon 428730071 Z12.11 per pt had C scope 2019 , good for 5 years Active or passive immunization 270661953 Z23 up to date Menopause 281224823 Z78. 0 last DEXA 04/30/22 [id number] Ana Cristina Whittington MD [facility], [facility] [address] [place] [address] 02/26/2024 15:35:37 02/26/2024 17:19:14 Abdominal pain 71600655 R10.9 Diarrhea 46394480 R19.7 increase fluids Nausea and vomiting 1693 1999 R11.2 Benign hypertension 1072 5009 I10 last EKG 09/03/22 Body mass index 30+ - obesity 301702641 Z68.36 educationo n diet and exercise Long-term drug therapy 987439462 Z79.899 metformin , lorazepaml ast drug screen 08/2022 Mixed hyperlipidemia 267 227950 E78.2 last LDL 04/22/23 Type 2 toña betes mellitus without complication 398291828 E11.9 seen endo had A1c 01/27/24inc reased levemier to 35 U QAMendo started insulin , stopped metformins een ophth 11/2023 Screening mammography 24 328574 Z12.31 last mammogram 05/10/23 Screening for malignant neoplasm of cervix 855340444 Z12.4 per pt had PAP 03/27/22 Screening for malignant neoplasm of colon 554354894 Z12.11 per pt had C scope 2019 , good for 5 years Active or passive immunization 115649388 Z23 up to date History of colectomy 427 514473 Z90.49 2012 2ry to obstructio n [id number] Ana Cristina Whittington MD [facility], [facility] [address] [place] [address] 09/02/2024 08:53:16 09/02/2024 09:51:59 Adult health examination 179728097 Z00.01 Benign hypertension 1072 5009 I10 last EKG 02/27/24 Body mass index 30+ - obesity 994572525 Z68.36 educationd own 4 LBs on diet and exercise Chronic constipation 236 979648 K59.09 stable Diabetic p eripheral neuropathy 176263477 E11.40 education Coronary arteriosclerosis 15826295 I25.10 No CP Gastroesop hageal reflux disease without esophagitis 159017134 K21.9 had 2-3 trials of stoppingGI increase omeprazole to BIDhad EGD 12/11/21 History of colectomy 427 651608 Z90.49 2013 2ry to obstructio n Long-term drug therapy 422519751 Z79.899 metformin , Menopause 283368915 Z78. 0 last DEXA 04/30/22 Mixed anxi ety and depressive disorder 689265626 F41.8 pass away 12/26/20No SI , No HI Mixed hyperlipidemia 267 197099 E78.2 last LDL 04/22/23 Osteoarthritis 511521244 M19.90 stable Primary fi bromyalgia syndrome 38961973 M79.7 stable Serum amyl ase above reference range 338817941 R74.8 Type 2 toña betes mellitus without complication 138143167 E11.9 seen endo had A1c 05/25/24inc reased levemier to 35 U QAMendo started insulin , stopped metformin , now on mounjaro 5 q weekseen ophth 11/2023 Vitamin B1 2 deficiency (non anemic) 68988609 E53.8 recheck Nausea and vomiting 1693 1999 R11.2 Screening mammography 24 952997 Z12.31 last mammogram 05/10/23 Screening for malignant neoplasm of cervix 303485600 Z12.4 per pt had PAP 03/27/22 Screening for malignant neoplasm of colon 058286544 Z12.11 per pt had C scope 2019 , good for 5 years Active or passive immunization 978456643 Z23 up to date Advance di rective discussed with patient 293321533 Z71.89 education Viral screening 47730432 4 Z11.59 [id number] Ana Cristina Whittington MD [facility], [facility] [address] [place] [address] 01/11/2025 08:56:53 01/11/2025 10:06:19 Benign hypertension 10032998 I10 last EKG 02/27/24 Body mass index 30+ - obesity 095850895 Z68.36 educationd own 4 LBs on diet and exercise Coronary arteriosclerosis 49885371 I25.10 No CP Diabetic p eripheral neuropathy 797439943 E11.40 education Long-term drug therapy 064413030 Z79.899 metformin , Mixed hyperlipidemia 267 628752 E78.2 last LDL 09/02/24 Type 2 toña betes mellitus without complication 520307864 E11.9 seen endo had A1c 05/25/24end o decrease levemier to 28 U QAM, stopped metformin , now on mounjaro 7.5 q weekseen ophth 12/2024 Vitamin B1 2 deficiency (non anemic) 38267626 E53.8 last level 09/02/24 Pneumonia 870911254 J18. 9 Dysuria 16120231 R30.9 Screening mammography 24 248118 Z12.31 last mammogram 05/10/23 Screening for malignant neoplasm of cervix 479417561 Z12.4 per pt had PAP 11/2024 Menopause 901524226 Z78. 0 last DEXA 04/30/22 Screening for malignant neoplasm of colon 730967486 Z12.11 per pt had C scope 2019 , good for 5 years Active or passive immunization 490863257 Z23 up to date Serum amyl ase above reference range 934927115 R74.8 Health Concerns Section Related Observation LastModified by Organization Detai ls LastModified Time None Recorded Concern Status LastModified by Organization Details LastModified Time None Recorded Advance Directives Directive None Recorded Payers Encounter Date Sequence Insurance Name Policy Number Policy [employer] Covered Member ID [id number] Member ID Guarantor Name 04/22/2023 2 [employer] - FOR LIFE (MEDICARE SUPPLEMENT) Lisa Guzman [id number] Lisa Guzman 04/22/2023 [place] Lisa Guzman [id number] Lisa Guzman 08/16/2023 2 [employer] - FOR LIFE (MEDICARE SUPPLEMENT) Lisa Guzman [id number] Lisa Guzman 08/16/2023 [place] Lisa Guzman [id number] Lisa Guzman 02/26/2024 2 [employer] - FOR LIFE (MEDICARE SUPPLEMENT) Lisa Guzman [id number] Lisa Guzman 02/26/2024 1 [place] Lisa Guzman [id number] Lisa Guzman 09/02/2024 2 [employer] - FOR LIFE (MEDICARE SUPPLEMENT) Lisa Guzman [id number] Lisa Guzman 09/02/2024 1 [place] Lisa Guzman [id number] Lisa Guzman 01/11/2025 2 [employer] - FOR LIFE (MEDICARE SUPPLEMENT) Lisa Guzman [id number] Lisa Guzman 01/11/2025 1 [place] Lisa Guzman [id number] Lisa Guzman Notes Date Note Type Note [...] while driving Ana Cristina Whittington MD [address] [facility] [address], [place], [address], [facility] 04/22/2023 12:40:00 08/16/2023 text/html Hypertension F/UReported bypatient.Medications: taking medications as directed; no side effects from medication Lifestyle:regular exercise; limiting/avoiding salt; compliant with low salt diet Associated Symptoms:no dizziness; no lightheadedness; no chest pain; no shortness of breath; no palpitations; no edema; no calf pain with exertion; no headache Ana Cristina Whittington MD [address] [facility] [address], [place], [address], [facility] 08/16/2023 13:33:55 02/26/2024 text/html Hypertension F/UReported bypatient.Medications: taking medications as directed; no side effects from medication Lifestyle:regular exercise; limiting/avoiding salt; compliant with low salt diet Associated Symptoms:no dizziness; no lightheadedness; no chest pain; no shortness of breath; no palpitations; no edema; no calf pain with exertion; no headache Lt abd pain , N/V/D , low grad grad fever Ana Cristina Whittington MD [address] [place] [address] [address], [place], [address], [facility] 02/26/2024 17:00:56 09/02/2024 text/html Hypertension F/UReported bypatient.Medications: [...] while driving Ana Cristina Whittington MD [address] [facility] [address], [place], [address], [facility] 09/02/2024 09:45:58 01/11/2025 text/html Hypertension F/UReported bypatient.Medications: [...] on levaquin Ana Cristina Whittington MD [address], [place], [address], [facility] 01/11/2025 10:00:52 OBGyn Episode No OBEpisode recorded.
--- OUTSIDE RECORDS SUMMARY | 2025-03-22 08:05 | XMS_ITS | Referral Summary ---
Author Organization [facility] Address [address] [place] [address] Care Team Providers Care Bookmobile Clerk Name Role Phone Ana Cristina Mckeon MD Primary Care Provider [phone]- [phone] Encounters Date Type Department Care Team Description 03/15/2025 2:15 PM CDT Office Visit [facility] Ophthalmology [address] [facility] [address] [place] [phone] Lo Mcgregor MD Proliferative diabetic retinopathy of both eyes with macular edema associated with type 2 diabetes mellitus (HCC) (Primary Dx) 02/11/2025 Telephone [facility] Medical [facility] Diabetes and Endocrinology [address] [place] [phone] Priya Calderon NP Med Management (Pen needles) 12/28/2024 1:45 PM CARROT BUNCHER Office Visit [facility] Ophthalmology [address] [facility] [address] [place] [phone] Lo Mcgregor MD Proliferative diabetic retinopathy of both eyes with macular edema associated with type 2 diabetes mellitus (HCC) (Primary Dx) 12/25/2024 10:30 AM CARROT BUNCHER Office Visit [facility] Diabetes and Endocrinology [address] [place] [phone] Priya Calderon NP Type 2 diabetes mellitus with diabetic polyneuropathy, without long-term current use of insulin (HCC) (Primary Dx); Hypertension associated with type 2 diabetes mellitus (HCC); Hyperlipidemia associated with type 2 diabetes mellitus (HCC) from Last 3 Months Allergies Active Allergy [...] Headache Low 11/27/2017 Penicillins Anaphylaxis,Hives High 11/16/2010 Heath Nut Anaphylaxis,Rash High 03/05/2016 Pineapple Swelling Medium [...] polyneuropathy, without long-term current use of insulin ([facility]) Check blood sugar twice daily 1 kit 4 Active blood glucose diagnostic stripIndications: Type 2 diabetes mellitus with diabetic polyneuropathy, without long-term current use of insulin ([facility]) Check blood sugar twice daily. 200 strip [...] polyneuropathy, without long-term current use of insulin ([facility]) Inject 30 Units under the skin nightly 30 mL 3 4 09/24/20 25 Active tirzepatide (MOUNJARO) 7.5 mg/0.5 mL pen [...] polyneuropathy, without long-term current use of insulin ([facility]) Take 1 tablet (4 mg total) by mouth 3 (three) times a day as needed for nausea or vomiting 20 tablet 1 5 Active pen needle, diabetic (Pen Needle) 31 gauge x 5/16 needleIndications :Type 2 diabetes mellitus with diabetic polyneuropathy, without long-term current use of insulin ([facility]) Use to inject 1-4 times daily as directed 300 each 3 5 Active Hospital, Clinic, or Other Facility Administered Medication Ordered Dose Route Frequency Start Date End Date Status aflibercept syringe (EYLEA) 2 mg/0.05 mL intraocular syringe 2 mgIndications:Prolif erative diabetic retinopathy of both eyes with macular edema associated with type 2 diabetes mellitus (HCC) 2 mg One-Time Injection 03/15/2025 03/15/2025 Ended aflibercept syringe (EYLEA) 2 mg/0.05 mL intraocular syringe 2 mgIndications:Prolif erative diabetic retinopathy of both eyes with macular edema associated with type 2 diabetes mellitus (HCC) 2 mg One-Time Injection 03/15/2025 03/15/2025 Ended Active Problems Problem Noted Date Diagnosed Date [...] Hypertension associated with type 2 diabetes romeo sanchez 08/12/2023 Assessment & Plan (12/25/2024 10:44 AM CARROT BUNCHER): Chronic problem. Controlled on current losartan 50mg daily. Assessment & Plan (09/24/2024 11:10 AM CARROT BUNCHER): Chronic problem. Controlled on current losartan 50mg daily. Assessment & Plan (05/25/2024 9:37 AM CDT): Chronic problem. Controlled on current losartan 50mg daily. Will update labs today. Verified that she uses [employer]. Aware to check results/results letter in [employer]. Will contact by phone if needed. Assessment & Plan (01/27/2024 9:39 AM CDT): Chronic problem. Controlled on current losartan 50mg daily. Assessment & Plan (08/12/2023 2:45 PM CDT): Chronic problem. Controlled on current losartan 50mg daily. Hyperlipidemia associated with type 2 diabetes kolby herbert 08/12/2023 Assessment & Plan (12/25/2024 10:44 AM CARROT BUNCHER): Chronic problem. Currently taking Atorvastatin 40mg & Bempedoic acid-zetia 180- 10mg. Last lipid panel: 05/25/24 NOQ=905, PI=330. Assessment & Plan (09/24/2024 11:11 AM CARROT BUNCHER): Chronic problem. Currently taking Atorvastatin 40mg & Bempedoic acid-zetia 180- 10mg. Last lipid panel: 05/25/24 OXF=669, EI=828. Assessment & Plan (05/25/2024 9:38 AM CDT): Chronic problem. Currently taking Atorvastatin 40mg & Bempedoic acid-zetia 180- 10mg. Last lipid panel: 05/13/23 LDL=31, XE=234. Will update labs today. Verified that she uses [employer]. Aware to check results/results letter in [employer]. Will contact by phone if needed. Assessment & Plan (01/27/2024 9:39 AM CDT): Chronic problem. Currently taking Atorvastatin 40mg & Bempedoic acid-zetia 180- 10mg. Last lipid panel: 05/13/23 LDL=31, FT=451. Assessment & Plan (08/12/2023 2:53 PM CDT): Chronic problem. Currently taking Atorvastatin 40mg & Bempedoic acid-zetia 180- 10mg. Last lipid panel: 05/13/23 LDL=31, CI=602. Class 2 severe obesity due t o [...] 12/17/2019 Assessment & Plan (12/17/2019 2:09 PM CARROT BUNCHER): Without plans for further infusion therapy, vascular port may be removed. Surgical referral provided. Arthritis of carpometacarpal (CMC) joint of left thumb 11/17/2019 Arthritis of carpometacarpal (CMC) joint of righ t thumb 11/17/2019 Restless leg syndrome 11/17/2019 Insomnia 11/17/2019 Assessment & Plan (11/17/2019 8:35 PM CARROT BUNCHER): Symptoms are worsening in the context of increased stressors. She is referred to sleep medicine. Malaise 11/14/2019 Assessment & Plan (11/14/2019 12:22 AM CARROT BUNCHER): Check CBC and CMP. Encounter for adjustment and management of vascular access device 09/14/2019 Osteopenia of multiple sites 08/14/2019 Overview (08/14/2019): Images from the original note were not included. BONE DENSITY/DEX02/27/2018 [facility] Result Narrative Examination: Bone Density Axial and [...] mg a daily. Vitamin D intake of 1925-5371 iu daily. Most [facility] do not get enough Vitamin D, so a supplement in an oil capsule gives the best absorption. I recommend repeating your bone density in 3 years. Assessment & Plan (09/17/2019 3:39 PM CARROT BUNCHER): We recommend you take Caltrate D once [...] canned with bones 3 oz 325 mg Aurora, canned with bones 3 oz 180 mg Shrimp, canned 3 oz 125 mg Dairy Serving Size Estimated Calcium* Ricotta, part-skim 4 oz 335 mg Yogurt, plain, low-fat 6 oz 310 mg Milk, skim, low-fat, whole 8 oz 300 mg Yogurt with fruit, low-fat 6 oz 260 mg Mozzarella, part-skim 1 oz 210 mg Cheddar 1 oz 205 mg Yogurt, Slovak 6 oz 200 mg Venezuelan Cheese 1 oz 195 mg Feta Cheese 4 oz 140 mg Cottage Cheese, 2% 4 oz 105 mg Frozen yogurt, vanilla 8 oz 105 mg Ice Cream, vanilla 8 oz 85 mg Parmesan 1 tbsp 55 mg Fortified Food Serving Size Estimated Calcium* Napoleon milk, rice milk or soy milk, fortified 8 oz 300 mg Dooly juice and other fruit juices, fortified 8 oz 300 mg Tofu, prepared with calcium 4 oz 205 mg Waffle, frozen, fortified 2 pieces 200 mg Oatmeal, fortified 1 packet 140 mg Peruvian muffin, fortified 1 muffin 100 mg Cereal, [...] original note were not included. BONE DENSITY/DEX02/27/2018 [facility] Result Narrative Examination: Bone Density Axial [...] 08/14/2019 Assessment & Plan (12/17/2019 8:59 PM CARROT BUNCHER): Continue acetaminophen as needed. Assessment & Plan (09/17/2019 3:37 PM CARROT BUNCHER): See discussion above. Assessment & Plan (08/14/2019 3:17 PM CDT): See above. Continue acetaminophen for pain. MORRISSEY (dyspnea on exertion) 01/01/2019 Assessment & Plan (01/01/2019 11:08 AM CARROT BUNCHER): EKG, chest x-ray and labs. Patient has an appointment with her master tax advisor on Saturday. Instruct patient that if she [...] 06/24/2017 Assessment & Plan (12/17/2019 1:55 PM CARROT BUNCHER): Images from the original note were not included. She is no longer taking her Vitamin D supplement. Update lab as per orders. Assessment & Plan (11/14/2019 12:20 AM CARROT BUNCHER): She continues vitamin D supplementation. Proliferative diabetic retin opathy of both eyes with macular edema associated with type 2 diabetes mellitus 10/26/2016 Assessment & Plan (09/24/2024 11:11 AM CARROT BUNCHER): Chronic problem. Seen at [facility]. 07/17/24 [facility] optho +PDR w/DME. Assessment & Plan (08/24/2020 3:47 PM CDT): Is followed by Ophthalmology and is receiving I injections. Assessment & Plan (09/17/2019 3:40 PM CARROT BUNCHER): Noted Assessment & Plan (10/31/2018 2:50 PM CARROT BUNCHER): Resolved fluid 5 wks after injection right eye (OD) Isolated cyst left eye (OS) Would continue alternating injections - Eylea left eye (OS) today Assessment & Plan (07/04/2018 4:38 PM CDT): The patient will continue to follow with her farm crew leader. Erosive osteoarthritis 10/08/2016 Overview (09/17/2019): Images from the original note were not included. US Hands Bilateral for Rheumatoid Arthritis (C) Order: [id number] Status: Final result Visible to patient: No [...] 10:40 Assessment & Plan (12/17/2019 1:49 PM CARROT BUNCHER): Erosive osteoarthritis stable. Since she was last seen she has had surgery bilateral thumb (trigger finger) as well as fusion third DIP L hand by Dr. Nicola Singer. She is pleased with outcome; pain relieved. She is working with PT/OT; doing well. Assessment & Plan (09/17/2019 9:51 PM CARROT BUNCHER): Reviewed with patient ultrasound findings with little [...] review. Assessment & Plan (10/30/2018 10:25 AM CARROT BUNCHER): The patient will continue to follow up with rheumatology. Assessment & Plan (07/04/2018 4:38 PM CDT): The patient will continue to follow up with her head chopper. 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 Assessment & Plan (12/17/2019 1:51 PM CARROT BUNCHER): Vitals BP 132/80 (BP Location: Right arm, Patient Position: Sitting) Pulse 78 Temp 36.8 C (98.3 F) (Oral) Resp 16 Ht 162.6 cm (5' 4 ) Wt 104.3 kg (230 lb) BMI 39.48 kg/m Denies headache, dizziness, chest pain, palpitations, shortness of breath, edema, orthopnea, PND. Assessment & Plan (11/14/2019 12:19 AM CARROT BUNCHER): Continue the current medication regimen. Assessment & Plan (09/17/2019 3:38 PM CARROT BUNCHER): Vitals BP 118/64 (BP Location: Right arm, [...] Rheumatology. Assessment & Plan (12/17/2019 1:51 PM CARROT BUNCHER): She remains on Lyrica 100 mg three times daily and duloxetine 30 mg daily. Pain control satisfactory. Assessment & Plan (09/17/2019 3:17 PM CARROT BUNCHER): She remains on Lyrica 100 mg three [...] fluids. Assessment & Plan (12/17/2019 1:53 PM CARROT BUNCHER): Images from the original note were not included. Be sure to maintain good hydration. Do not use any nonsteroidal antiinflammatory medications (including over the counter ibuprofen and naproxen) as these are kidney irritants. Assessment & Plan (09/17/2019 3:40 PM CARROT BUNCHER): Lab Results Component Value Date GLUCOSE 217 [...] 2010. Assessment & Plan (12/25/2024 11:01 AM CARROT BUNCHER): Chronic problem. A1c improved from 7.4% 09/24/24 to now 6.7%. Nico start dropping Lantus dose by 2 units weekly if morning fasting blood sugar is less than 110 persistently. Current medications: Jardiance 25mg daily Mounjaro 7.5mg weekly Lantus 30 units nightly UTD on labs. UTD on DM eye exam (07/17/24 [facility] optho +PDR w/DME). Has appt 12/28/24. Strive [...] barefoot. Assessment & Plan (09/24/2024 11:43 AM CARROT BUNCHER): Chronic problem. A1c not at goal & [...] labs. UTD on DM eye exam (07/17/24 [facility] optho +PDR w/DME). Strive for regular [...] update labs today. Verified that she uses [employer]. Aware to check results/results letter in [employer]. Will contact by phone if needed. UTD [...] 150 Assessment & Plan (09/28/2020 5:24 PM CARROT BUNCHER): Hemoglobin A1c ordered for today. Her last hemoglobin A1c approximately 3 months ago indicated reasonably adequate control. No changes in medication at this time. Patient is taking Ozempic and metformin. Follow-up in 3 months at which time we will perform a diabetic foot exam. Patient sees an farm crew leader for diabetic retinopathy management. Discussed diet and [...] A1C. Assessment & Plan (12/17/2019 1:58 PM CARROT BUNCHER): She is working more diligently ion diet. Lab Results Component Value Date HGBA1C 8.5 (H) 10/20/[address] Valdes 01/2020. Assessment & Plan (11/17/2019 8:34 PM CARROT BUNCHER): The patient is tolerating Ozempic. She reports substantial improvement in blood sugars. She will continues the diabetic diet, and she is referred to a dental therapist. Assessment & Plan (11/14/2019 12:21 AM CARROT BUNCHER): The patient reports recent hyperglycemia. Check A1C. Consider addition of Ozempic. Assessment & Plan (09/17/2019 3:41 PM CARROT BUNCHER): Lab Results Component Value Date HGBA1C 7.1 (H) 06/04/2019 Assessment & Plan (08/14/2019 3:16 PM CDT): Lab Results Component Value Date HGBA1C 7.1 (H) 06/04/2019 Assessment & Plan (06/04/2019 10:28 AM CDT): Check A1C. Assessment & Plan (10/30/2018 10:25 AM CARROT BUNCHER): Check BMP and A1C at the next [...] November. Assessment & Plan (11/17/2019 8:36 PM CARROT BUNCHER): Body mass index is 40.34 kg/m . BMI Follow-up includes: nutrition counseling, exercise counseling and education provided. Assessment & Plan (10/20/2019 2:35 PM CARROT BUNCHER): BMI Follow-up includes: nutrition counseling, exercise counseling [...] provided. Assessment & Plan (12/17/2019 1:50 PM CARROT BUNCHER): 5 pound weight loss noted and endorsed. Continue your good efforts. An optimal BMI (body mass index) is between 20 and 25. Encourage weight loss. Each pound of weight lost unloads 3-4 pounds per square inch pressure from weight bearing joints. Diet and exercise are the keys to weight management. Assessment & Plan (09/17/2019 3:13 PM CARROT BUNCHER): An optimal BMI (body mass index) is [...] provided. Assessment & Plan (01/14/2019 8:39 AM CARROT BUNCHER): BMI Follow-up includes: nutrition counseling, exercise counseling and education provided. Assessment & Plan (01/01/2019 10:04 AM CARROT BUNCHER): BMI Follow-up includes: nutrition counseling, exercise counseling and education provided. Assessment & Plan (10/30/2018 10:12 AM CARROT BUNCHER): BMI Follow-up includes: nutrition counseling, exercise counseling and education provided. Assessment & Plan (09/29/2018 1:07 PM CARROT BUNCHER): BMI Follow-up includes: nutrition counseling, exercise counseling and education provided. Assessment & Plan (07/04/2018 4:39 PM CDT): Follow-up for management of elevated BMI morbid obesity includes nutrition counseling, exercise counseling, and lifestyle education. Dysuria 07/02/2018 12/17/2019 Assessment & Plan (11/14/2019 12:19 AM CARROT BUNCHER): Check UA micro and culture. Assessment & [...] reviewed. 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) Not on file Not on file No t on file Last Filed Vital Signs Vital Sign Reading Time Taken Comments Blood Pressure 120/72 12/25/2024 10:33 AM CARROT BUNCHER Pulse 80 12/25/2024 10:33 AM CARROT BUNCHER Temperature 36 C (96.8 F) 07/14/2024 9:07 AM CDT Respiratory Rate 16 12/25/2024 10:33 AM CARROT BUNCHER Oxygen Saturation 98% 07/14/2024 9:25 AM CDT Inhaled Oxygen Concentration - - Weight 94.8 kg (209 lb) 12/25/2024 10:33 AM CARROT BUNCHER Height 165.1 cm (5' 5 ) 12/25/2024 10:33 AM CARROT BUNCHER Body Mass Index 34.78 12/25/2024 10:33 AM CARROT BUNCHER Plan of Treatment Not on file Medical Devices Implanted Type Area Supervisor Calibration Device Identifier Shelf Expiration Date Model / Serial / Lot [employer] [id number]-8990 [employer] Fibertak Fiberwire Needle 1 Milo Suture Sterile - [id number] Implanted:Qty: 1 on 12/28/2021 by Agapito Yang MD at [facility] Left: Wrist [employer] 10/10/2026 AR-8990 / / [id number] Procedures Procedure Name Priority Date/Time Associated Diagnosis Comments INTRAVITREAL INJECTION, PHARMACOLOGIC AGENT - OD - RIGHT EYE Routine 03/15/2025 5:08 PM CDT Proliferative diabetic retinopathy of both eyes with macular edema associated with type 2 diabetes mellitus (HCC) INTRAVITREAL INJECTION, PHARMACOLOGIC AGENT - OS - LEFT EYE Routine 03/15/2025 5:08 PM CDT Proliferative diabetic retinopathy of both eyes with macular edema associated with type 2 diabetes mellitus (HCC) OCT, RETINA - OU - BOTH EYES Routine 03/15/2025 2:46 PM CDT Proliferative diabetic retinopathy of both eyes with macular edema associated with type 2 diabetes mellitus (HCC) OCT, RETINA - OU - BOTH EYES Routine 12/28/2024 4:57 PM CARROT BUNCHER Proliferative diabetic retinopathy of both eyes with macular edema associated with type 2 diabetes mellitus (HCC) POCT GLUCOSE Routine 12/25/2024 10:36 AM CARROT BUNCHER Type 2 diabetes mellitus with diabetic polyneuropathy, without long-term current use of insulin (HCC) POCT HEMOGLOBIN A1C Routine 12/25/2024 1 0:36 AM CARROT BUNCHER Type 2 diabetes mellitus with diabetic polyneuropathy, [...] Recently Relevant to Health Maintenance Results * Intravitreal Injection, Pharmacologic Agent - OD - Right Eye (03/15/2025 5:08 PM CDT) Anatomical Region Laterality Modality Head Other Narrative 03/15/2025 5:08 PM CDT Time Out Informed consent was obtained after all risks, benefits and alternatives were explained to the patient. The patient understood, agreed and wished to proceed. Timeout was completed verifying the patient, procedure, laterality and allergies. Anesthesia Subconjunctival anesthesia was used, Topical anesthesia was used. Anesthetic medications included Lidocaine 2%, Proparacaine 0.5%. The manufacture of the medication is [employer]. Intravitreal Injection, Pharmacologic Agent Preparation included 5% betadine to ocular surface. A supplied needle was used. Pharmaceutical Medication: 2 mg aflibercept syringe 2 mg/0.05 mL Route: intravitreal, Site: Right Eye [facility]: 42813-488-65, Lot: [id number], Expiration date: 03/10/2026, Waste: 0 mL The medication administered today was not a sample. The medication administered today was not supplied by the patient or insurance. Post-op Post injection exam found visual acuity is at least hand motion, no retinal detachment, perfused optic nerve. the patient tolerated the procedure. there were no complications during today's treatment. The patient received written and verbal post procedure care education. Post injection medications were not given (Artificial tear ointment). The attending physician was present for the entire procedure. Notes LUCILLE OU Consent signed 03/15/2024 Lo Mcgregor MD OPHTH CLINIC PROCEDURES Fi nal Result * Intravitreal Injection, Pharmacologic Agent - OS - Left Eye (03/15/2025 5:08 PM CDT) Anatomical Region Laterality Modality Head Other Narrative 03/15/2025 5:08 PM CDT Time Out Informed consent was obtained after all risks, benefits and alternatives were explained to the patient. The patient understood, agreed and wished to proceed. Timeout was completed verifying the patient, procedure, laterality and allergies. Anesthesia Subconjunctival anesthesia was used. Anesthetic medications included Lidocaine 2%. The manufacture of the medication is FK. Intravitreal Injection, Pharmacologic Agent Preparation included 5% betadine to ocular surface. A 30 gauge needle was used. Pharmaceutical Medication: 2 mg aflibercept syringe 2 mg/0.05 mL Route: intravitreal, Site: Left Eye [facility]: 73830-470-19, Lot: [id number], Expiration date: 03/10/2026, Waste: 0 mL The medication administered today was not supplied by the patient or insurance. The medication administered today was not a sample. Post-op Post injection exam found visual acuity is at least hand motion. the patient tolerated the procedure. there were no complications during today's treatment. The patient received written and verbal post procedure care education. Post injection medications were not given. The attending physician was present for the entire procedure. Notes LUCILLE OU Consent signed 03/15/2024 Lo Mcgregor MD OPHTH CLINIC PROCEDURES Fi nal Result * OCT, Retina - OU - Both Eyes (03/15/2025 2:46 PM CDT) Anatomical Region Laterality Modality Head Optical Coherenc e Tomography Narrative 03/15/2025 2:46 PM CDT Right Eye Quality was good. Scan locations included subfoveal. Left Eye Quality was good. Scan locations included subfoveal. Notes OD: + cme OS: temporal CME Lo Mcgregor MD OPHTH TOMOGRAPHY Final Res ult * OCT, Retina - OU - Both Eyes (12/28/2024 4:57 PM CARROT BUNCHER) Anatomical Region Laterality Modality Head Optical Coherenc e Tomography Narrative 12/28/2024 4:57 PM CARROT BUNCHER Right Eye Quality was good. Scan locations included subfoveal. Left Eye Quality was good. Scan locations included subfoveal. Notes OD: no cme OS: no CME Lo Mcgregor MD OPHTH TOMOGRAPHY Final Res ult * (ABNORMAL) POCT hemoglobin A1c (12/25/2024 10:36 AM CARROT BUNCHER) Hemoglobin A1C, POC 6.7 4.0 - 5.6 % Blood 12/25/2024 10:3 6 AM CARROT BUNCHER Priyacarmen Calderon DAY CARE PROVIDER POINT OF CARE TEST ORDERA BLES Final Result * POCT glucose (12/25/2024 10:36 AM CARROT BUNCHER) Glucose Blood, POC 102 mg/dL Blood 12/25/2024 10:3 6 AM CARROT BUNCHER us Priya Calderon DAY CARE PROVIDER POINT OF CARE TEST ORDERA BLES Final [...] LAB BLOOD ORDERABLES Fi nal Result Y[facility] Department [place] [address] * Albumin Creatinine Ratio, Urine (05/25/2024 9:58 [...] LAB URINE ORDERABLES Joyce l Result [facility] [id number] [address] Department [place] [address] * (ABNORMAL) Lipid panel (05/25/2024 9:58 AM [...] Chol/HDL ratio 3 YADI BRANDON Blood 05/25/2024 9:5 8 AM CDT 05/25/2024 2:40 PM CDT us Priya Calderon NP LAB BLOOD ORDERABLES Joyce moreno Result [facility] [id number] [address] Department [place] [address] * PAP SMEAR (01/14/2020) Pathologist [facility] Pap smear Normal Comment:see scanned report Historical Provider HEALTH MAINTENANCE Final Result * Hepatitis C antibody (08/14/2019 3:21 PM CDT) [facility] Hep C Ab Non-Reactiv e Non-Reactiv e [facility] Blood specimen (specimen) 08/14/2019 3:21 PM CDT 08/14/2019 6:33 PM CDT Arden Justin MD LAB MICROBIOLOGY - GENERA L ORDERABLES Final Result Performing Organization Address [facility] Co de Phone Number [facility] [address] [place] [address] * COLONOSCOPY (05/09/2018) [facility] Colonoscopy Abnormal Historical Provider HEALTH MAINTENANCE Final Result from Last 3 Months or Most Recently Relevant to Health Maintenance Insurance MEDICARE [employer] MEDICARE FOR LIFE MEDICARE FOR LIFE Care Teams Bookmobile Clerk Relationship Specialty Start Date End Date Ana Cristina Mckeon MD [address] [facility] [address] [place] [address] PCP - General Internal Medicine 03/03/21
--- OUTSIDE RECORDS SUMMARY | 2025-03-22 08:05 | XMS_ITS | Encounter Summary ---
Author Organization [facility] Address [address] [place] [address] Care Team Providers Care Oracle Erp Architect Name Role Phone Darin Bryant MD Unavailable [phone] Mary Rodriguez Primary Care Provider [phone] Elizabeth Nava NP Primary Care Provider [phone] None, Provider MD Primary Care Provider Unavaila ble Mary Rodriguez Unavailable [phone] Elena Valdes MD Primary Care Provider [phone] Ana Cristina Mckeon MD Primary Care Provider [phone] Encounter Details Date Type Department Care Team (Late st Contact Info) Description 12/11/[address] [facility] [place] [address] Darin Bryant MD [facility]. 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 Gender Identity Not on file Sexual Orientation Not on file Occupation Industry Job Start Date Job End Date Not on file Not on file Not on file Not on file documented as of this encounter Plan of Treatment Not on file documented as of this encounter Visit Diagnoses Not on filedocumented in this encounter Care Teams Oracle Erp Architect Relationship Specialty Start Date End Date Mary Rodriguez APNP [address] [place] [address] PCP - General NURSE PRACTITIONER 11/11/17 01/08/19 Elizabeth Nava NP [address] [place] [address] PCP - General NURSE PRACTITIONER 01/09/19 02/02/19 None, MD Jermaine PCP - General 02/03/19 11/11/19 Mary Rodriguez APNP [address] [place] [address] PCP - Med Group - MSSP Attributed Provider 08/11/17 11/10/21 Elena Valdes MD [address] [place] [address] PCP - General INTERNAL MEDICINE GERIATRIC MEDICINE 11/12/19 03/14/21 Ana Cristina Mckeon MD [address] [facility] [address] [place] [phone] PCP - General INTERNAL MEDICINE 03/15/21 Darin Bryant MD [facility]. [facility] [address] [place] [address] Jelani Cloth Roll Winder CARDIOVASCULAR DISEASE 11/05/17 documented as of this encounter
--- OUTSIDE RECORDS SUMMARY | 2025-03-22 08:05 | XMS_ITS | Clinical Summary ---
Author Organization [facility] Address [facility] [place] [address] Care Team Providers Care Skate Shop Attendant Name Role Phone Darin Bryant MD Unavailable [phone] Ana Cristina Mckeon MD Primary Care Provider Allergies Active Allergy Reactions Criticality Noted Date [...] Headache Low 11/27/2017 Penicillins Anaphylaxis,Hives High 11/16/2010 [place] Anaphylaxis,Rash High 03/05/2016 [place] Nut Anaphylaxis,Rash High 03/05/2016 Pineapple Swelling 03/06/2016 Promethazine Hallucinations High 03/05/2016 Anxiety, Mental status changes, Psychiatric Medications traMADol 50 MG tablet Take 50-100 mg by mouth 3 (three) times daily. Active cyclobenzaprine 5 MG tablet Take 1 tablet (5 mg total) by mouth daily as needed for Muscle Spasms. 8 Active vitamin D2, ergocalciferol, 79781 UNITS capsule Take 1 capsule (50,000 Units [...] Diagnosed Date Chest pain 11/20/2017 Diabetes mellitus ([facility]) 11/20/2017 Palpitations 11/20/2017 Mixed hyperlipidemia 09/23/2017 Essential hypertension 05/21/2016 Old ID (myocardial infarction) 05/21/2016 Acute renal failure (ARF) 03/06/2016 Encounters Date Type Department Care Team Description 03/08/2025 2:00 PM CDT - 03/08/2025 11:59 PM CDT Hospital Encounter [facility] [place] [address] Ana Cristina Mckeon MD Discharge Disposition: Home or Self Care (Routine Discharge) 03/08/2025 Travel from Last 3 Months Family History Medical History Relation Comments hyperthyroidism [...] on file Legal Sex Female 10:12 AM BACK END WEB DEVELOPER Gender Identity Not on file Sexual Orientation [...] 06/08/2020 9:26 AM CDT Plan of Treatment Health Maintenance Due Date Last Done Comments ASCVD Statin 1961 Kidney Health Evaluation 1961 Annual Physical 1964 Diabetes: Retinopathy Eye Exam 1979 Hepatitis C 1979 Cervical Cancer Screening Pap with HPV Testing (Age 30 to 64) Every 5 Years 1991 ASCVD LDL 12/06/2018 12/06/2017 Lipid Panel 12/06/2018 12/06/2017 Pneumococcal Vaccine: 50+ Years (3 of 3 - PCV20 or PCV21) 11/08/2020 11/08/2015, 11/11/2012 RSV Immunization or 60+ Years (1 - Risk 60-74 years 1-dose series) 2021 Hemoglobin A1C 07/23/2023 04/22/2023, 07/0 11/2021, 09/28/2020, Additional history exists COVID-19 Vaccine ( season) 2024 11/01/2021, 01/30/2021, 01/06/2021 PHQ-2 (Physician [place]) 11/11/2024 Mammogram Screening 03/08/2027 03/08/2025, 05/10/2023, 04/30/2022, Additional history exists Cervical Cancer Screening Pap Smear (Age 30 to 64) Every 3 Years 10/28/2027 10/28/2024 Cervical Cancer Screening with HPV 10/28/2027 DTaP, Tdap and Td Vaccines (5 - [...] this topic Medical Devices Implanted Type Area Extracorporeal Technician Device Identifier Shelf Expiration Date Model / Serial / Lot Implantable Loop Recorder- [id number] Implanted:12/03 by Radha Gillespie MD (Quantity not on file) Explanted:02/03 by Radha Gillespie MD (Quantity not on file) Implantable Loop Recorder [employer] [id number] / [id number] / Procedures Procedure Name Priority Date/Time Associated Diagnosis Comments MG SCREENING W HILDA RUPA DIGI Routine 03/08/2025 2:54 PM CDT Encounter for screening mammogram for malignant neoplasm of breast BONE DENSITY/DEXA Routine 03/08/2025 2:4 3 PM CDT Menopause OUTSIDE LAB (SCAN ORDER) Routine 04/22/2023 LIPID PANEL Routine 12/06/2017 8:49 AM BACK END WEB DEVELOPER Abnormal stress test Type 2 diabetes mellitus with other specified complication, without long-term current use of insulin Benign essential HTN Preop testing COLONOSCOPY Routine 11/11/2012 12:00 AM BACK END WEB DEVELOPER from Last 3 Months or Most Recently Relevant to Health Maintenance Results * MG SCREENING W HILDA RUPA DIGI (03/08/2025 2:54 PM CDT) Anatomical Region Laterality Modality Breast Bilateral Mammography 03/08/2025 3:05 PM CDT Impressions 03/08/2025 3:07 PM CDT IMPRESSION: No suspicious mammographic findings. Recommendation: 1. Routine Screening, Bilateral Assessment: ACR BI-RADS 2 - BENIGN FINDING(S) Ordered By: ANA CRISTINA MCKEON Interpreted By: Jose Triplett, 03/08/2025 3:05 PM Narrative 03/08/2025 3:07 PM CDT [facility] [address] [place] [address] Examination: Screening bilateral mammogram Exam Date/Time: 03/08/2025 2:41 PM Clinical history: No current complaints. Comparison: 05/10/2023 Technique: Digital screening mammography of both breasts was performed. Breast tomosynthesis acquisitions were obtained and reviewed. This study was read with the assistance of a computer-aided detection system. Tissue density: There are scattered areas of fibroglandular density. Findings: No suspicious masses, malignant appearing calcifications, skin thickening or other abnormalities are present. No significant change from the prior exam. us Ana Cristina Mckeon MD MAMMO Final Result * BONE DENSITY/DEXA (03/08/2025 2:43 PM CDT) Anatomical Region Laterality Modality Bone Mammography 03/08/2025 4:08 PM CDT Impressions 03/08/2025 4:09 PM CDT IMPRESSION: WHO Classification: Osteopenia. RECOMMENDATIONS: All patients should ensure an adequate intake of dietary calcium and vitamin D. The NOF recommend adults under the age of 50 need 1000 mg of calcium and 400-800 IU of vitamin D daily. Effective therapy for the prevention and treatment of osteoporosis include bisphosphonates. FOLLOW-UP: People with diagnosed cases of osteoporosis or at high risk for fracture should have regular bone mineral density test. For patients eligible for Medicare, routine testing is allowed once every 2 years. Testing frequency can be increased to one year for patients who have rapidly progressing disease, those who are receiving or discontinuing medical therapy to restore bone mass, or have additional risk factors. Ordered By: ANA CRISTINA MCKEON Interpreted By: Eduar Haas, 03/08/2025 4:08 PM Narrative 03/08/2025 4:09 PM CDT [facility] [address] [place] [address] EXAMINATION: BONE DENSITY/DEXA INDICATIONS: Asymptomatic menopausal state COMPARISON: 04/30/2022 TECHNIQUE: DEXA bone mineral density evaluation was performed in the AP projection over the lumbar spine and both hips utilizing standard imaging techniques. FINDINGS: The BMD measured at the AP spine L1-L4 is 1.110 g/cm? with a T-score of 0.6 (previously 1.079 g/cm? with a T-score of 0.3). The BMD measured at the left femoral neck is 0.636 g/cm? with a T-score of -1.9 (previously 0.637 g/cm? with a T-score of -1.9). The BMD measured at the left hip is 0.902 g/cm? with a T-score of -0.3 (previously 0.870 g/cm? with a T-score of -0.6). The BMD measured at the right femoral neck is 0.642 g/cm? with a T-score of -1.9 (previously 0.698 g/cm? with a T-score of -1.4). The BMD measured at the right hip is 0.893 g/cm? with a T-score of -0.4 (previously 0.877 g/cm? with a T-score of -0.5). FRAX 10-year fracture risk: Major Osteoporotic Fracture: 9.4% Hip Fracture: 1.2% Procedure Note Eduar Haas MD - 03/08/2025 [facility] [address] [place] [address] EXAMINATION: BONE DENSITY/DEXA INDICATIONS: Asymptomatic menopausal state COMPARISON: 04/30/2022 TECHNIQUE: DEXA bone mineral density evaluation was performed in the APprojection over the lumbar spine and both hips utilizing standard imagingtechniques. FINDINGS: The BMD measured at the AP spine L1-L4 is 1.110 g/cm? with a T-score of0.6 (previously 1.079 g/cm? with a T-score of 0.3). The BMD measured at the left femoral neck is 0.636 g/cm? with a T-score of-1.9 (previously 0.637 g/cm? with a T-score of -1.9). The BMD measured at the left hip is 0.902 g/cm? with a T-score of - 0.3(previously 0.870 g/cm? with a T-score of -0.6). The BMD measured at the right femoral neck is 0.642 g/cm? with a T-scoreof -1.9 (previously 0.698 g/cm? with a T-score of -1.4). The BMD measured at the right hip is 0.893 g/cm? with a T-score of - 0.4(previously 0.877 g/cm? with a T-score of -0.5). FRAX 10-year fracture risk: Major Osteoporotic Fracture: 9.4% Hip Fracture: 1.2% IMPRESSION: WHO Classification: Osteopenia. RECOMMENDATIONS: All patients should ensure an adequate intake of dietary calcium andvitamin D. The NOF recommend adults under the age of 50 need 1000 mg ofcalcium and 400-800 IU of vitamin D daily. Effective therapy for theprevention and treatment of osteoporosis include bisphosphonates. FOLLOW-UP: People with diagnosed cases of osteoporosis or at high risk for fractureshould have regular bone mineral density test. For patients eligible forMedicare, routine testing is allowed once every 2 years. Testing frequencycan be increased to one year for patients who have rapidly progressingdisease, those who are receiving or discontinuing medical therapy torestore bone mass, or have additional risk factors. Ordered By: ANA CRISTINA MCKEON Interpreted By: Eduar Haas, 03/08/2025 4:08 PM Ana Cristina Mckeon MD DEXA Final Result * OUTSIDE LAB (SCAN) (04/22/2023) HGB A1C 9.3 % [facility] CREATININE (U) 38.57 [facility] MICROALBUMIN (U) 12 [facility] MICROALB/CREAT 30 [facility] 04/22/2023 [facility] Scanned SCANNING Edited Res ult - Final [facility] ON[facility] * (ABNORMAL) LIPID PANEL (12/06/2017 8:49 AM BACK END WEB DEVELOPER) CHOLESTEROL 182 <200 MG/DL 12/06/2017 9:55 AM [facility] TRIGLYCERIDES 226(H) <150 MG/DL 12/06/2017 9:55 AM [facility] HDL 55 >40.0 MG/DL 12/06/2017 9:55 AM [facility] LDL (CALCULATED) 81.8 <100 MG/L 12/06/19 18 9:55 AM [facility] NON HDL CHOLESTEROL 127 <130 MG/DL 12/06/2017 9:55 AM [facility] CHOL/HDL RATIO 3.3 0.0 - 4.5 12/06/2017 9:55 AM [facility] VLDL CALCULATION 45 5 - 55 MG/DL 12/06/2017 9:55 AM [facility] LIPID INTERPRETATION 12/06/2017 9:55 AM [facility] Comment: NIH CONCENSUS REPORT RECOMMENDATIONS: ADULT CHILD LOW RISK: CHOLESTEROL <200 <170 TRIGLYCERIDE <150 --- HDL >=60 --- LDL <100 <110 BORDERLINE: CHOLESTEROL 200-239 170-199 TRIGLYCERIDE 150-199 --- HDL 40-59 --- LDL 100-159 110-129 HIGH RISK: CHOLESTEROL >=240 >=200 TRIGLYCERIDE >=200 --- HDL <40 --- LDL >=160 >=130 12/06/2017 8:49 AM BACK END WEB DEVELOPER us Darin Bryant MD LABORATORY Final Result Performing Organization Address [facility]/ZIP Co de Phone Number [facility] [address] [place] [address], [place] [phone] * Colonoscopy (11/11/2012 12:00 AM BACK END WEB DEVELOPER) 11/11/2012 11/11/2012 Narrative TOUCHWORKS TO EPIC CONVERSION - 05/09/2018 1:14 PM CDT removed colon Procedure Note Joya Sellers MD - 02/24/2019 removed colon Joya Burr Md, MD GI PROCEDURE ORDERABLES Final Result TOUCHWORKS TO EPIC CONVERSION from Last 3 Months or Most Recently Relevant to Health Maintenance Insurance [employer] MEDICARE [employer] MED[employer] Care Teams Skate Shop Attendant Relationship Specialty Start Date End Date Ana Cristina Mckeon MD [address] [place] [address] [address] [place] [address] PCP - General INTERNAL MEDICINE 03/15/21 Darin Bryant MD [facility]. [address] [place] [address] [place] Naval Inspector CARDIOVASCULAR DISEASE 11/05/17
--- OUTSIDE RECORDS SUMMARY | 2025-03-22 08:05 | XMS_ITS | Data Portability ---
Author Organization [facility] Address [address] [place] [address] Assessment Encounter Date Assessment Date Assessment LastModified by Organization Details LastModified Time 10/28/2024 10/28/2024 Annual gynecological exam performed. Patient will come back in a year unless there are new symptoms. Not available 10/28/2024 16:22:45 Plan of Treatment Reminders Order Date Submit Date Provider Last Modified By Organization Details Last Modified Time Details Appointments MED CHECK 2024 03:30P JUSTICE Vargas Not available Not available Not available Lab None recorded. Referral None recorded. Procedures None recorded. Surgeries None recorded. Imaging None recorded. Medication Orders estradiol 0.01% (0.1 mg/gram) vaginal cream 2023 024 [facility] [address], [place], [address], 10/28/2024 16:36:03 Patient TargetsNo targets recorded. Patient [...] Dennis , CT on 11/09 at 1117 AMORTIZATION SCHEDULE CLERK ----- ----- ----- ----- ----- ----- ----- [...] as clini jesu jolley nted. Not Available [facility] (Lab) [address] [facility], [place], [address], 11/09/2024 12:21:47 Result Notes None recorded. Procedures Surgical History Date Name Laterality Status Provider Name and Address Organization Details Recorded Time 10/28/20 24 Date of Last Pap Smear completed Catieinocente Daniels [facility] 10/28/2024 18:05:41 08/11/20 23 surgical procedure on eye proper using laser completed Catieinocente Daniels [facility] 10/28/2024 19:30:04 06/11/20 23 cholecystectomy completed Catieinocente Daniels [facility] 10/28/2024 19:13:18 11/11/19 22 Date of Last Mammogram completed Catieinocente Daniels [facility] 10/28/2024 19:03:39 11/11/19 19 Date of Last Colonoscopy completed [facility] 10/28/2024 19:04:22 11/11/19 19 colonoscopy completed [facility] 10/28/2024 19:17:27 11/11/19 18 surgical procedure on eye proper using laser completed [facility] 10/28/2024 19:29:58 11/11/19 18 insertion of denture completed [facility] 10/28/2024 19:31:09 11/11/19 16 cataract surgery completed [facility] 10/28/2024 19:26:20 11/11/19 13 cholecystostomy completed [facility] 10/28/2024 19:24:21 11/11/19 09 surgical procedure on eye proper using laser completed [facility] 10/28/2024 19:29:53 04/14/19 86 section completed [facility] 10/28/2024 19:10:08 11/11/18 86 Tubal Ligation completed [facility] 10/28/2024 19:30:26 12/11/18 84 section completed [facility] 10/28/2024 19:09:56 11/11/18 82 extraction of wisdom tooth completed [facility] 10/28/2024 19:30:46 Imaging Results None recorded. Procedure Notes None recorded. Medical Equipment None Reported. Allergies Allergen ID Allergen Name Allergen Category Reaction Reaction Severity Criticality Documentation Date Start Date Code Code System Note Provider Name and Address Organization Details Recorded Time 45414 Product containin g penicilli n (product) medicatio n Not available Not available Not available 10/28/[address] [facility] 4 16:31:07 Medications Name Sig Start [...] Updated DateTime 10/28/2024 160.02 cm 37.2 kg/m2 22649.4 g 138 mm[Hg] 71 mm[Hg] Catie Daniels [facility] 16:30:58 Social History Question Answer Notes LastModified by Organizat ion Details LastModified Time Tobacco Smoking Status Never Smoker Catie Daniels [facility], [facility] 10/28/2024 19:09:15 Are You Blind Or Do You Have Difficulty Seeing? No [email or web address] Information n ot available 10/28/2024 What Is Your Level Of Caffeine Consumption? Moderate [email or web address] Information not available 10/28/2024 In The 14 Days Before Symptom Onset, Have You Had Close Contact With A Laboratory-confirm ed COVID-19 While That Case Was Ill? No [email or web address] Information n ot available 10/28/2024 In The 14 Days Before Symptom Onset, Have You Had Close Contact With A Person Who Is Under Investigation For COVID-19 While That Person Was Ill? No [email or web address] Information not available 10/28/2024 Have You Been To An Area Known To Be High Risk For COVID-19? No [email or web address] Information not available 10/28/2024 Are You Deaf Or Do You Have Serious Difficulty Hearing? No [email or web address] Information not available 10/28/2024 What Type Of Diet Are You Following? REGULAR [email or web address] Information n ot available 10/28/2024 Have You Ever Been Counseled For Unhealthy Alcohol Use? No [email or web address] Information not available 10/28/2024 Do You Use Your Seat Belt Or Car Seat Routinely? Yes [email or web address] Information not available 10/28/2024 Do You Have Smoke And Carbon Monoxide Detectors In Your Home? Yes [email or web address] Information not available 10/28/2024 Do You Use Sunscreen Routinely? Yes [email or web address] Information not available 10/28/2024 Has Tobacco Cessation Counseling Been Provided? No [email or web address] Information not available 10/28/2024 Sex: Unknown Functional Status Question Answer Note LastModified by Organizat ion Details LastModified Time Do you use any illicit or recreational drugs? No [email or web address] Information not available 10/28/2024 Do you or have you ever used any other forms of tobacco or nicotine? No Information not available 10/28/2024 What is your level of alcohol consumption? Occasional Information not available 10/28/2024 Do you have difficulty walking or climbing stairs? No [email or web address] Information not available 10/28/2024 Are you able to walk? YESWOREST Information not available 10/28/2024 Are you able to care for yourself? Yes Information n ot available 10/28/2024 Do you have difficulty dressing or bathing? No [email or web address] Information not available 10/28/2024 What is your exercise level? Occasional [email or web address] Information not available 10/28/2024 Mental Status Question Answer Note LastModified by Organization D etails LastModified Time Do you feel stressed (tense, restless, nervous, or anxious, or unable to sleep at night)? [id number] [email or web address] Information not available 10/28/2024 Family History Relationship Description Onset Age of this Age Resolved Age Notes LastModified by Organization Details LastModified Time Mother Malignant tumor of cervix [email or web address] Not available 10/28 19:07:06 Mother Diabetes mellitus [email or web address] Not available 10/28 19:07:30 Mother Hypertensive disorder Not available 10/28 19:08:12 Maternal Grandfather Diabetes mellitus [email or web address] Not available 10/28 19:07:30 Maternal Grandfather Hypertensive disorder [email or web address] Not available 10/28 19:08:12 Brother Diabetes mellitus [email or web address] Not available 10/28 19:07:30 Brother Hypertensive disorder [email or web address] Not available 10/28 19:08:19 Brother Hypertensive disorder [email or web address] Not available 10/28 19:08:23 Father Hypercholest erolemia [email or web address] Not available 10/28 19:07:40 Father Disorder of thyroid gland [email or web address] Not available 10/28 19:08:52 Maternal Grandmother Hypertensive disorder [email or web address] Not available 10/28 19:08:12 Paternal Grandfather Hypertensive disorder [email or web address] Not available 10/28 19:08:12 Paternal Grandmother Hypertensive disorder [email or web address] Not available 10/28 19:08:12 Medical History Condition [...] SNOMED-CT Code Diagnosis ICD10 Code Diagnosis Note [id number] JUSTICE Machado [place] [address] [address] 10/28/2024 15:35:35 10/28/2024 16:48:10 Gynecologic examination 53031417 Z01.419 WWEpostmen opausalPap - updated todaySTI screen [...] advised.Qu estions have been answered. Vaginal dryness 48980419 N89.8 veg based moisturize r routine discussedr [...] Name 10/28/2024 1 [place] Lisa Guzman [id number] Lisa Guzman 10/28/2024 2 WPS - FOR LIFE (MEDICARE SUPPLEMENT) Lisa Guzman [id number] Lisa Guzman Notes Date Note Type Note Provider Name and Address Organization Details Recorded Time 4 text/html Annual Professional Nursing Tutor Post-MenopausalReported bypatient.Menopausal Symptoms:no menopausal symptoms;inadequacy of lubrication [...] SA - 3 yrs ago JUSTICE Machado [address], [place], [address], [facility] 10/28/2024 16:38:51 OBGyn Episode Ob Episode Information Episode Created Date Number of Fetuses Patient Bloodtype Patient rh Status Prepregnancy Weight lbs Domestic Partner Domestic Partner Phone Father Name Armored Machine Operator Status 10/28/20 24 1 CLOSED Fetus Data First Name Last Name Admitted to NICU Weight (g) Sex Living Outcome Pediatric Complications Fetus ID Race Codes Race Delivery Type 4365.82 3 F Full Term [id number] Primary Michael Calculation Initial Michael Date Initial [...] Domestic Partner Domestic Partner Phone Father Name Armored Machine Operator Status 10/28/20 24 1 CLOSED Fetus Data First Name Last Name Admitted to NICU Weight (g) Sex Living Outcome Pediatric Complications Fetus ID Race Codes Race Delivery Type 3742.13 4 F Full Term [id number] Repeat Michael Calculation Initial Michael Date Initial [...]
--- OUTSIDE RECORDS SUMMARY | 2025-03-22 08:05 | XMS_ITS | Encounter Summary ---
Author Organization [facility] Address [address] [place] [address] Phone Care Team Providers Care Addressing Machine Operator Name Role Phone Eduardo Liu MD Primary [...] Mekhi Medrano DO Primary Care Provider [phone] No, Physician Primary Care Provider [phone] Ana Cristina Mckeon MD Primary Care Provider [phone] Encounter Details Date Type Department Care Team (Late st Contact Info) Description 02/05/2014 Orders Only [facility] ProviderMoose MD [address] [place] [address] Social History Tobacco Use Types Packs/Day Years Used Date Smoking Tobacco: Never Alcohol Use Standard Drinks/Week Comments Yes 0 (1 standard drink = 0.6 oz pur e alcohol) Comments Unknown Sex and Gender Information Value Date Recorded Sex Assigned at Not on file Legal Sex Female 10:06 AM OPERATIVE SUPERVISOR Gender Identity Female 09/28/2020 10:45 AM OPERATIVE SUPERVISOR Sexual Orientation Straight 09/28/2020 10 :45 AM OPERATIVE SUPERVISOR documented as of this encounter Plan of [...] on filedocumented in this encounter Care Teams Addressing Machine Operator Relationship Specialty Start Date End Date Eduardo Liu MD PCP - General 04/09/14 03/05/17 Eduardo Liu MD PCP - General 09/07/13 04/08/14 [place] [id number] [address] [id number] PCP - General 03/06/17 10/13/17 Eduardo Liu MD PCP - General Internal Medicine 10/14/17 10/17/17 [place] [address] [place] [address] [id number] PCP - General 10/18/17 03/06/18 [place] [address] [address] PCP - General 03/07/18 07/01/18 Elena Valdes MD [address] [facility] [address] [place] [address] PCP - General Geriatric Medicine 07/02/18 08/23/20 Sarah Lopez MD [address] [facility] [address], [place] [address] PCP - General Internal Medicine 08/24/20 09/27/20 Mekhi Medrano DO [address] [facility] [address] [place] [address] PCP - General Internal Medicine 09/28/20 02/13/21 No, Physician PCP - General 02/14/21 03/02/21 Ana Cristina Mckeon MD [address] [facility] [address] [place] [address] PCP - General Internal Medicine 03/03/21 documented as of this encounter
--- OUTSIDE RECORDS SUMMARY | 2025-03-22 08:05 | XMS_ITS | Clinical Summary ---
Author Organization [facility] Address [address] [place] [address] Care Team Providers Care Operations Support Representative Name Role Phone Ana Cristina Mckeon MD Primary Care Provider [phone] Allergies Active Allergy Reactions Criticality Noted Date [...] Headache Low 11/27/2017 Penicillins Anaphylaxis,Hives High 11/16/2010 Spencer Nut Anaphylaxis,Rash High 03/05/2016 Pineapple Swelling Medium [...] polyneuropathy, without long-term current use of insulin ([facility]) Check blood sugar twice daily. 200 [...] polyneuropathy, without long-term current use of insulin ([facility]) Inject 30 Units under the skin [...] polyneuropathy, without long-term current use of insulin ([facility]) Take 1 tablet (4 mg total) by mouth 3 (three) times a day as needed for nausea or vomiting 20 tablet 1 5 Active pen needle, diabetic (Pen Needle) 31 gauge x 5/16 needleIndications :Type 2 diabetes mellitus with diabetic polyneuropathy, without long-term current use of insulin ([facility]) Use to inject 1-4 times daily as directed 300 each 3 Active Hospital, Clinic, or Other Facility Administered [...] 08/12/2023 Assessment & Plan (12/25/2024 10:44 AM CLUB LICENSEE): Chronic problem. Controlled on current losartan 50mg daily. Assessment & Plan (09/24/2024 11:10 AM CLUB LICENSEE): Chronic problem. Controlled on current losartan 50mg daily. Assessment & Plan (05/25/2024 9:37 AM CDT): Chronic problem. Controlled on current losartan 50mg daily. Will update labs today. Verified that she uses [employer]. Aware to check results/results letter in [employer]. Will contact by phone if needed. Assessment & Plan (01/27/2024 9:39 AM CDT): Chronic problem. Controlled on current losartan 50mg daily. Assessment & Plan (08/12/2023 2:45 PM CDT): Chronic problem. Controlled on current losartan 50mg daily. Hyperlipidemia associated with type 2 diabetes kolby herbert 08/12/2023 Assessment & Plan (12/25/2024 10:44 AM CLUB LICENSEE): Chronic problem. Currently taking Atorvastatin 40mg & Bempedoic acid-zetia 180- 10mg. Last lipid panel: 05/25/24 GMG=261, VZ=364. Assessment & Plan (09/24/2024 11:11 AM CLUB LICENSEE): Chronic problem. Currently taking Atorvastatin 40mg & Bempedoic acid-zetia 180- 10mg. Last lipid panel: 05/25/24 YMP=991, FM=772. Assessment & Plan (05/25/2024 9:38 AM CDT): Chronic problem. Currently taking Atorvastatin 40mg & Bempedoic acid-zetia 180- 10mg. Last lipid panel: 05/13/23 LDL=31, KS=340. Will update labs today. Verified that she uses [employer]. Aware to check results/results letter in [employer]. Will contact by phone if needed. Assessment & Plan (01/27/2024 9:39 AM CDT): Chronic problem. Currently taking Atorvastatin 40mg & Bempedoic acid-zetia 180- 10mg. Last lipid panel: 05/13/23 LDL=31, JP=620. Assessment & Plan (08/12/2023 2:53 PM CDT): Chronic problem. Currently taking Atorvastatin 40mg & Bempedoic acid-zetia 180- 10mg. Last lipid panel: 05/13/23 LDL=31, LJ=438. Class 2 severe obesity due t o excess calories with serious comorbidity and body mass index (BMI) of 37.0 to 37.9 in adult 08/12/2023 Assessment & Plan (08/12/2023 2:27 PM CDT): Discussed healthy diet and importance of regular physical activity (20- 30min/day, 150min/wk). Please start using your Y membership. Right posterior capsular opacification 1 Assessment & Plan (08/15/2021 12:06 PM CDT): [...] 12/17/2019 Assessment & Plan (12/17/2019 2:09 PM CLUB LICENSEE): Without plans for further infusion therapy, vascular port may be removed. Surgical referral provided. Arthritis of carpometacarpal (CMC) joint of left thumb 11/17/2019 Arthritis of carpometacarpal (CMC) joint of americo ambrosio thumb 11/17/2019 Restless leg syndrome 11/17/2019 Insomnia 11/17/2019 Assessment & Plan (11/17/2019 8:35 PM CLUB LICENSEE): Symptoms are worsening in the context of increased stressors. She is referred to sleep medicine. Malaise 11/14/2019 Assessment & Plan (11/14/2019 12:22 AM CLUB LICENSEE): Check CBC and CMP. Encounter for adjustment and management of vascular access device 09/14/2019 Osteopenia of multiple sites 08/14/2019 Overview (08/14/2019): Images from the original note were not included. BONE DENSITY/DEX02/27/2018 [facility] Result Narrative Examination: Bone Density [...] mg a daily. Vitamin D intake of 0425-5259 iu daily. Most [facility] do not get enough Vitamin D, so a supplement in an oil capsule gives the best absorption. I recommend repeating your bone density in 3 years. Assessment & Plan (09/17/2019 3:39 PM CLUB LICENSEE): We recommend you take Caltrate D once [...] canned with bones 3 oz 325 mg [place], canned with bones 3 oz 180 mg Shrimp, canned 3 oz 125 mg Dairy Serving Size Estimated Calcium* Ricotta, part-skim 4 oz 335 mg Yogurt, plain, low-fat 6 oz 310 mg Milk, skim, low-fat, whole 8 oz 300 mg Yogurt with fruit, low-fat 6 oz 260 mg Mozzarella, part-skim 1 oz 210 mg Cheddar 1 oz 205 mg Yogurt, Persian [address] [place] Cheese 1 oz 195 mg Feta Cheese 4 oz 140 mg Cottage Cheese, 2% 4 oz 105 mg Frozen yogurt, vanilla 8 oz 105 mg Ice Cream, vanilla 8 oz 85 mg Parmesan 1 tbsp 55 mg Fortified Food Serving Size Estimated Calcium* Shafter milk, rice milk or soy milk, fortified 8 oz 300 mg [place] juice and other fruit juices, fortified 8 oz 300 mg Tofu, prepared with calcium 4 oz 205 mg Waffle, frozen, fortified 2 pieces 200 mg Oatmeal, fortified 1 packet 140 mg Slovenian muffin, fortified 1 muffin 100 mg Cereal, [...] original note were not included. BONE DENSITY/DEX02/27/2018 [facility] Result Narrative Examination: Bone Density [...] 08/14/2019 Assessment & Plan (12/17/2019 8:59 PM CLUB LICENSEE): Continue acetaminophen as needed. Assessment & Plan (09/17/2019 3:37 PM CLUB LICENSEE): See discussion above. Assessment & Plan (08/14/2019 3:17 PM CDT): See above. Continue acetaminophen for pain. MORRISSEY (dyspnea on exertion) 01/01/2019 Assessment & Plan (01/01/2019 11:08 AM CLUB LICENSEE): EKG, chest x-ray and labs. Patient has an appointment with her skein spooler on Saturday. Instruct patient that if she [...] 06/24/2017 Assessment & Plan (12/17/2019 1:55 PM CLUB LICENSEE): Images from the original note were not included. She is no longer taking her Vitamin D supplement. Update lab as per orders. Assessment & Plan (11/14/2019 12:20 AM CLUB LICENSEE): She continues vitamin D supplementation. 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 Seen at [facility]. 07/17/24 [facility] optho +PDR w/DME. Assessment & Plan (08/24/2020 3:47 PM CDT): Is followed by Ophthalmology and is receiving I injections. Assessment & Plan (09/17/2019 3:40 PM CLUB LICENSEE): Noted Assessment & Plan (10/31/2018 2:50 PM CLUB LICENSEE): Resolved fluid 5 wks after injection right eye (OD) Isolated cyst left eye (OS) Would continue alternating injections - Eylea left eye (OS) today Assessment & Plan (07/04/2018 4:38 PM CDT): The patient will continue to follow with her sourcing intern. Erosive osteoarthritis 10/08/2016 Overview (09/17/2019): Images from the original note were not included. US Hands Bilateral for Rheumatoid Arthritis (C) Order: [id number] Status: Final result Visible to patient: No [...] 10:40 Assessment & Plan (12/17/2019 1:49 PM CLUB LICENSEE): Erosive osteoarthritis stable. Since she was last seen she has had surgery bilateral thumb (trigger finger) as well as fusion third DIP L hand by Dr. Nicola Singer. She is pleased with outcome; pain relieved. She is working with PT/OT; doing well. Assessment & Plan (09/17/2019 9:51 PM CLUB LICENSEE): Reviewed with patient ultrasound findings with little [...] review. Assessment & Plan (10/30/2018 10:25 AM CLUB LICENSEE): The patient will continue to follow up with rheumatology. Assessment & Plan (07/04/2018 4:38 PM CDT): The patient will continue to follow up with her compliance tester. 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 Assessment & Plan (12/17/2019 1:51 PM CLUB LICENSEE): Vitals BP 132/80 (BP Location: Right arm, Patient Position: Sitting) Pulse 78 Temp 36.8 C (98.3 F) (Oral) Resp 16 Ht 162.6 cm (5' 4 ) Wt 104.3 kg (230 lb) BMI 39.48 kg/m Denies headache, dizziness, chest pain, palpitations, shortness of breath, edema, orthopnea, PND. Assessment & Plan (11/14/2019 12:19 AM CLUB LICENSEE): Continue the current medication regimen. Assessment & Plan (09/17/2019 3:38 PM CLUB LICENSEE): Vitals BP 118/64 (BP Location: Right arm, [...] Rheumatology. Assessment & Plan (12/17/2019 1:51 PM CLUB LICENSEE): She remains on Lyrica 100 mg three times daily and duloxetine 30 mg daily. Pain control satisfactory. Assessment & Plan (09/17/2019 3:17 PM CLUB LICENSEE): She remains on Lyrica 100 mg three [...] fluids. Assessment & Plan (12/17/2019 1:53 PM CLUB LICENSEE): Images from the original note were not included. Be sure to maintain good hydration. Do not use any nonsteroidal antiinflammatory medications (including over the counter ibuprofen and naproxen) as these are kidney irritants. Assessment & Plan (09/17/2019 3:40 PM CLUB LICENSEE): Lab Results Component Value Date GLUCOSE 217 [...] 2010. Assessment & Plan (12/25/2024 11:01 AM CLUB LICENSEE): Chronic problem. A1c improved from 7.4% 09/24/24 to now 6.7%. Nico start dropping Lantus dose by 2 units weekly if morning fasting blood sugar is less than 110 persistently. Current medications: Jardiance 25mg daily Mounjaro 7.5mg weekly Lantus 30 units nightly UTD on labs. UTD on DM eye exam (07/17/24 [facility] optho +PDR w/DME). Has appt 12/28/24. [...] barefoot. Assessment & Plan (09/24/2024 11:43 AM CLUB LICENSEE): Chronic problem. A1c not at goal & [...] labs. UTD on DM eye exam (07/17/24 [facility] optho +PDR w/DME). Strive for regular [...] update labs today. Verified that she uses [employer]. Aware to check results/results letter in [employer]. Will contact by phone if needed. UTD [...] 150 Assessment & Plan (09/28/2020 5:24 PM CLUB LICENSEE): Hemoglobin A1c ordered for today. Her last hemoglobin A1c approximately 3 months ago indicated reasonably adequate control. No changes in medication at this time. Patient is taking Ozempic and metformin. Follow-up in 3 months at which time we will perform a diabetic foot exam. Patient sees an sourcing intern for diabetic retinopathy management. Discussed diet and [...] A1C. Assessment & Plan (12/17/2019 1:58 PM CLUB LICENSEE): She is working more diligently ion diet. Lab Results Component Value Date HGBA1C 8.5 (H) 10/20/[address] Valdes 01/2020. Assessment & Plan (11/17/2019 8:34 PM CLUB LICENSEE): The patient is tolerating Ozempic. She reports substantial improvement in blood sugars. She will continues the diabetic diet, and she is referred to a pool technician. Assessment & Plan (11/14/2019 12:21 AM CLUB LICENSEE): The patient reports recent hyperglycemia. Check A1C. Consider addition of Ozempic. Assessment & Plan (09/17/2019 3:41 PM CLUB LICENSEE): Lab Results Component Value Date HGBA1C 7.1 (H) 06/04/2019 Assessment & Plan (08/14/2019 3:16 PM CDT): Lab Results Component Value Date HGBA1C 7.1 (H) 06/04/2019 Assessment & Plan (06/04/2019 10:28 AM CDT): Check A1C. Assessment & Plan (10/30/2018 10:25 AM CLUB LICENSEE): Check BMP and A1C at the next [...] November. Assessment & Plan (11/17/2019 8:36 PM CLUB LICENSEE): Body mass index is 40.34 kg/m . BMI Follow-up includes: nutrition counseling, exercise counseling and education provided. Assessment & Plan (10/20/2019 2:35 PM CLUB LICENSEE): BMI Follow-up includes: nutrition counseling, exercise counseling [...] provided. Assessment & Plan (12/17/2019 1:50 PM CLUB LICENSEE): 5 pound weight loss noted and endorsed. Continue your good efforts. An optimal BMI (body mass index) is between 20 and 25. Encourage weight loss. Each pound of weight lost unloads 3-4 pounds per square inch pressure from weight bearing joints. Diet and exercise are the keys to weight management. Assessment & Plan (09/17/2019 3:13 PM CLUB LICENSEE): An optimal BMI (body mass index) is [...] provided. Assessment & Plan (01/14/2019 8:39 AM CLUB LICENSEE): BMI Follow-up includes: nutrition counseling, exercise counseling and education provided. Assessment & Plan (01/01/2019 10:04 AM CLUB LICENSEE): BMI Follow-up includes: nutrition counseling, exercise counseling and education provided. Assessment & Plan (10/30/2018 10:12 AM CLUB LICENSEE): BMI Follow-up includes: nutrition counseling, exercise counseling and education provided. Assessment & Plan (09/29/2018 1:07 PM CLUB LICENSEE): BMI Follow-up includes: nutrition counseling, exercise counseling and education provided. Assessment & Plan (07/04/2018 4:39 PM CDT): Follow-up for management of elevated BMI morbid obesity includes nutrition counseling, exercise counseling, and lifestyle education. Dysuria 07/02/2018 12/17/2019 Assessment & Plan (11/14/2019 12:19 AM CLUB LICENSEE): Check UA micro and culture. Assessment & [...] reviewed. Assessment & Plan (11/12/2018 3:51 PM CLUB LICENSEE): Status post (s/p) anti-VEGF left eye (OS) [...] Description 03/15/2025 2:15 PM CDT Office Visit [facility] Ophthalmology [facility] [address] [address] Lo Mcgregor MD Proliferative diabetic retinopathy of both eyes with macular edema associated with type 2 diabetes mellitus (HCC) (Primary Dx) 02/11/2025 Telephone [facility] Diabetes and Endocrinology [address] [place] [phone] Priya Calderon, HANG Med Management (Pen needles) 12/28/2024 1:45 PM CLUB LICENSEE Office Visit [facility] Ophthalmology [facility] [address] [address] Lo Mcgregor MD Proliferative diabetic retinopathy of both eyes with macular edema associated with type 2 diabetes mellitus (HCC) (Primary Dx) 12/25/2024 10:30 AM CLUB LICENSEE Office Visit [facility] Diabetes [facility] Endocrinology [address] [place] [phone] Priya Calderon, HANG Type 2 diabetes mellitus with diabetic polyneuropathy, without long-term current use of insulin (HCC) (Primary Dx); Hypertension associated with type 2 diabetes mellitus (HCC); Hyperlipidemia associated with type 2 diabetes mellitus (HCC) from Last 3 Months Immunizations Immunization Administration [...] GERD (gastroesophageal reflux disease) Anxiety Arthritis Hypertension 2016 Rheumatic fever Rheumatic fever as child Iron [...] on file Legal Sex Female 10:06 AM CLUB LICENSEE Gender Identity Female 09/28/2020 10:45 AM CLUB LICENSEE Sexual Orientation Straight 09/28/2020 10 :45 AM CLUB LICENSEE 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 Not on file No t on file Obstetrics History Last Filed Vital Signs Vital Sign Reading Time Taken Comments Blood Pressure 120/72 12/25/2024 10:33 AM CLUB LICENSEE Pulse 80 12/25/2024 10:33 AM CLUB LICENSEE Temperature 36 C (96.8 F) 07/14/2024 9:07 AM CDT Respiratory Rate 16 12/25/2024 10:33 AM CLUB LICENSEE Oxygen Saturation 98% 07/14/2024 9:25 AM CDT Inhaled Oxygen Concentration - - Weight 94.8 kg (209 lb) 12/25/2024 10:33 AM CLUB LICENSEE Height 165.1 cm (5' 5 ) 12/25/2024 10:33 AM CLUB LICENSEE Body Mass Index 34.78 12/25/2024 10:33 AM CLUB LICENSEE Plan of Treatment Health Maintenance Due Date Last Done Comments Regular Well Visit/Exam 18-64 1979 Zoster Vaccine (1 of 2) 2011 Pneumococcal vaccine <65 (2 of 2 - PCV) 11/08/2016 11/08/2015, 08/23/2014, 08/23/2014 Cervical Cancer Screening 01/13/20212019, 01/14/2020, 03/14/2015, Additional history exists Depression Screening 09/28/2021 09/28/2020, 08/24/2020, 06/22/2020, Additional history exists Albumin Creatinine Ratio, Urine 05/25/2025 05/25/2024, 05/13/2023, 10/20/2019 Lipid Panel 05/25/2025 05/25/2024, 01/2023, 03/22/2020, Additional history exists Hemoglobin A1C 06/24/2025 12/25/2024, 09/11, 05/25/2024, Additional history exists eGFR 07/03/2025 07/03/2024, 05/11, 05/13/2023, Additional history exists Influenza Vaccine (Season Ended) 2025 08/23/2020, 08/14/2019, 08/14/2019, Additional history exists Foot Exam 09/24/2025 09/24/2024, 12/2022, 10/20/2019, Additional history exists Breast Cancer Screening-Mammogram 03/08/2026 03/08/2025, 03/08/2025, 05/10/2023, Additional history exists Dilated Eye Exam 03/15/2026 03/15/2025, , 10/26/2024, Additional history exists DTaP/Tdap/Td Vaccine (3 - Td or Tdap) 03/06/2028 03/06/2018, 11/12/2017, 12/26/2011 Colon Cancer Screening-Colonoscopy 05/09/2028 05/09/2018, 10/29/2016 Hepatitis B Screening Completed 11/12/2000 Colon Cancer Screening-CT Colonography Discontinued 05/09/2018, 10/29/2016 Colon Cancer Screening-DNA Stool Discontinued 05/09/20 18, 10/29/2016 Colon Cancer Screening-FIT Discontinued 05/09/2018, Colon Cancer Screening-Sigmoidoscopy Discontinued 05/09/2018, 10/29/2016 Hepatitis C Screening Completed 08/14/2019 Medical Devices Implanted Type Area Wardrobe Image Consultant Device Identifier Shelf Expiration Date Model / Serial / Lot [employer] [id number] Arthrex Fibertak Fiberwire Needle 1 [place] Suture Sterile - [id number] Implanted:Qty: 1 on 12/28/2021 by Agapito Yang MD at [facility] Left: Wrist [employer] 10/10/2026 [id number] / / [id number] Procedures Procedure Name Priority Date/Time Associated Diagnosis [...] - BOTH EYES Routine 12/28/2024 4:57 PM CLUB LICENSEE Proliferative diabetic retinopathy of both eyes with macular edema associated with type 2 diabetes mellitus (HCC) POCT GLUCOSE Routine 12/25/2024 10:36 AM CLUB LICENSEE Type 2 diabetes mellitus with diabetic polyneuropathy, without long-term current use of insulin (HCC) POCT HEMOGLOBIN A1C Routine 12/25/2024 1 0:36 AM CLUB LICENSEE Type 2 diabetes mellitus with diabetic polyneuropathy, [...] 0.5%. The manufacture of the medication is [employer]resor[employer]. Intravitreal Injection, Pharmacologic Agent Preparation included 5% betadine to ocular surface. A supplied needle was used. Pharmaceutical Medication: 2 mg aflibercept syringe 2 mg/0.05 mL Route: intravitreal, Site: Right Eye [facility]: 15530-017-60, Lot: [id number], Expiration date: 03/10/2026, Waste: 0 mL The [...] 2%. The manufacture of the medication is Sync[employer]. Intravitreal Injection, Pharmacologic Agent Preparation included 5% betadine to ocular surface. A 30 gauge needle was used. Pharmaceutical Medication: 2 mg aflibercept syringe 2 mg/0.05 mL Route: intravitreal, Site: Left Eye [facility]: 74608-855-87, Lot: [id number], Expiration date: 03/10/2026, Waste: 0 mL The [...] OU - Both Eyes (12/28/2024 4:57 PM CLUB LICENSEE) Anatomical Region Laterality Modality Head Optical Coherenc e Tomography Narrative 12/28/2024 4:57 PM CLUB LICENSEE Right Eye Quality was good. Scan locations included subfoveal. Left Eye Quality was good. Scan locations included subfoveal. Notes OD: no cme OS: no CME Lo Mcgregor MD OPHTH TOMOGRAPHY Final Res ult * (ABNORMAL) POCT hemoglobin A1c (12/25/2024 10:36 AM CLUB LICENSEE) Hemoglobin A1C, POC 6.7 4.0 - 5.6 % Blood 12/25/2024 10:3 6 AM CLUB LICENSEE Priya Calderon SLOT EDITOR POINT OF CARE TEST ORDERA BLES Final Result * POCT glucose (12/25/2024 10:36 AM CLUB LICENSEE) Glucose Blood, POC 102 mg/dL Blood 12/25/2024 10:3 6 AM CLUB LICENSEE Priya Calderon SLOT EDITOR POINT OF CARE TEST ORDERA BLES Final [...] LAB BLOOD ORDERABLES Fi nal Result YADI MARIEH [facility] Department [place] [address] * Albumin Creatinine Ratio, Urine (05/25/2024 9:58 [...] NP LAB URINE ORDERABLES Joyce l Result Performing Organization Address City/[facility]/ZIP Co de Phone Number YADI [address] Department [place] [address] * (ABNORMAL) Lipid panel (05/25/2024 9:58 AM [...] last revised on 2018. Chol/HDL ratio 3 [facility] Blood 05/25/2024 9:58 AM CDT 05/25/2024 2:40 PM CDT Priya Calderon SLOT EDITOR LAB BLOOD ORDERABLES Joyce l Result Performing Organization Address City/[facility] Co de Phone Number [facility] [id number] [place] [address] * PAP SMEAR (01/14/2020) Pathologist [facility] Pap smear Normal Comment:see scanned report Historical Provider HEALTH MAINTENANCE Final Result * Hepatitis C antibody (08/14/2019 3:21 PM CDT) [facility] Hep C Ab Non-Reactiv e Non-Reactiv e [facility] Blood specimen (specimen) 08/14/2019 3:21 PM CDT 08/14/2019 6:33 PM CDT Arden Justin MD LAB MICROBIOLOGY - GENERA L ORDERABLES Final Result Performing Organization Address [facility] Co de Phone Number [facility] [address] [place] [address] * COLONOSCOPY (05/09/2018) [facility] Colonoscopy Abnormal Historical Provider HEALTH MAINTENANCE Final Result from Last 3 Months or Most Recently Relevant to Health Maintenance Insurance MEDICARE FOR LIFE MEDICARE FOR LIFE MEDICARE [facility] Care Teams Operations Support Representative Relationship Specialty Start Date End Date Ana Cristina Mckeon MD [address] [facility] [address] [place] [address] PCP - General Internal Medicine 03/03/21
[2025-03-22 09:38] LABS: Hematocrit 40.1 % (37.0-47.0); Hemoglobin 11.6 g/dL (12.0-15.0); Mean Corpuscular HGB Conc 28.9 g/dl (32-36); Mean Corpuscular Hemoglobin 24.8 pg (26-34); Mean Corpuscular Volume 85.9 fl (80-100); Mean Platelet Volume 10.4 fl (7.4-10.4); Platelet Count Result 256 k/mm3 (150-375); Red Blood Count 4.67 M/mm3 (4.2-5.4); Red Cell Distribution Width 15.4 % (11.5-14.5); White Blood Count 7.2 K/mm3 (4.5-10.0)
[2025-03-22 09:55] LABS: Alanine Aminotransferase 19 U/L (6-35); Albumin Level 4.2 g/dL (3.5-5.1); Alkaline Phosphatase 109 U/L (38-126); Amylase 277 U/L (30-110); Anion Gap 9 mmol/L (4-12); Aspartate Amino Transferase 27 U/L (14-36); Bilirubin,Total 0.3 mg/dL (0.2-1.3); Blood Urea Nitrogen 25 mg/dL (7-17); Calcium 9.2 mg/dL (8.4-10.2); Carbon Dioxide 22 mmol/L (22-30); Chloride 110 mmol/L (98-107); Estimated Glomerular Filt Rate 58; Glucose 101 mg/dL (65-110); Potassium 4.7 mmol/L (3.4-5.0); Sodium 141 mmol/L (137-145)
[2025-03-22 09:56] LABS: Lipase 2067 U/L (23-300)
== END 2025-03-22 07:58 | disposition home or self-care (01) ==
PROVIDERS: PCP Internal Medicine; Visit Provider Nurse Practitioner Family
DX: K83.8 Other specified diseases of biliary tract (principal); R74.8 Abnormal levels of other serum enzymes; R10.13 Epigastric pain; R10.11 Right upper quadrant pain; Z90.49 Acquired absence of other specified parts of digestive tract
CPT/HCPCS: 36415; 74183; 76376; 80053; 82150; 83690; 85027; A9577

== ENCOUNTER 2025-04-30 14:15 | Outpatient (CLI) | payer MEDICARE, OTHER, SELFPAY ==
[2025-04-30 15:26] LABS: Amylase 272 U/L (30-110)
[2025-04-30 15:47] LABS: Lipase 2723 U/L (23-300)
== END 2025-04-30 14:16 | disposition home or self-care (01) ==
LOC: ANHLAB 14:16
PROVIDERS: PCP Internal Medicine; Visit Provider Nurse Practitioner Family
DX: K85.90 Acute pancreatitis without necrosis or infection, unspecified (principal)
CPT/HCPCS: 36415; 82150; 83690

== ENCOUNTER 2025-05-01 07:50 | Outpatient (CLI) | payer MEDICARE, OTHER, SELFPAY ==
--- NOTE | ~2025-05-01 | MR_ITS ---
MRI of the left knee Clinical history: Pain Technique: Coronal proton density and proton density-weighted images, sagittal proton-density and T2 fat-sat images, and axial proton-density fat-saturated images were acquired. Findings: Anterior and posterior cruciate ligaments are intact. Medial collateral ligament and the la teral collateral ligament complex are intact. Popliteus tendon intact. Questioned subtle oblique tear of the body segment of the medial meniscus. No lateral meniscal tear. There is focal high-grade chondromalacia at the patellar apex. There is extensive high-grade chondrom alacia the femoral trochlea. There is mild chondral thinning in the medial lateral compartments. Extensor mechanism is intact. No joint effusion. Impression: Questionable subtle oblique tear of the body segment of the medial meniscus. High-grade chondral malacia the patellofemoral compartment, as detailed above. Reviewed, dictated and finalized at [facility]. Impression: Questionable subtle oblique tear of the body segment of the medial meniscus. High-grade chondral malacia the patellofemoral compartment, as detailed above.
== END 2025-05-01 07:51 | disposition home or self-care (01) ==
PROVIDERS: PCP Internal Medicine; Visit Provider Nurse Practitioner Family
DX: M25.562 Pain in left knee (principal)
CPT/HCPCS: 73721

== ENCOUNTER 2025-06-22 09:49 | Outpatient (CLI) | payer MEDICARE, OTHER, SELFPAY ==
--- OUTSIDE RECORDS SUMMARY | 2025-06-22 10:30 | XMS_ITS | Clinical Summary ---
Author Organization [facility] Address [address] [place] [address] Care Team Providers Care Assembling Machine Operator Name Role Phone Ana Cristina Mckeon MD Primary Care Provider [phone] Swapnil Poe DO Unavailable Allergies Active Allergy Reactions Criticality Noted Date Comments Adalimumab Unknown 12/16/2017 Beltran couldn't tolerate Alprazolam Other (See comments) Low 11/17/2019 Intolerance - She becomes very irritable. Beta-Blockers (Beta-Adrenergic Blocking Agts) Palpitations Low Per patient caused slight heart attack Cephalosporins Hives Medium 07/02/2018 Gabapentin Other (See comments) Low 11/27/2017 Anxiety, depression Insulin Glargine Vomiting Medium 08/12/2023 States that no allergy, was nauseated Canagliflozin Stomach upset Low 10/01/2014 Yeast infection Metformin Diarrhea Medium 08/12/2023 Methotrexate Other (See comments),Stomach upset Low 12/16/2017 Medication did not work methotrexate Penicillins Anaphylaxis,Hives High 11/16/2010 [place] Nut Anaphylaxis,Rash High 03/05/2016 Pineapple Swelling Medium 03/06/2016 Promethazine Mental status changes High 03/05/2016 anxiety Semaglutide Diarrhea,Stomach upset,Nausea & Vomiting High 08/08/2021 pancreatitis Medications MULTIVITAMIN ORALIndications:hendrix pplement Take 1 tablet by mouth daily as needed Active cholecalciferol (VITAMIN D-3) 2000 unit capsule Take 1 capsule (2,000 Units total) by mouth daily 12/18/19 20 Active aflibercept (Eylea) 2 mg/0.05 mL intra-ocular injection 0.05 mL (2 mg total) Pt currently getting injections every 10 weeks. 06/19/20 19 Active aspirin 81 mg enteric coated tabletIndications: Myocardial Reinfarction Prevention,prevent ion of thrombosis Take 1 tablet (81 mg total) by mouth every morning On hold for bleeding 01/28/[address] (CYMBALTA) 60 mg capsuleIndications :Fibromyalgia Take 1 capsule (60 mg total) by mouth nightly 04/25/20 21 Active losartan (COZAAR) 50 mg tabletIndications: hypertension Take 1 tablet (50 mg total) by mouth every morning 08/02/20 21 Active pregabalin (LYRICA) 100 mg capsuleIndications :Fibromyalgia Take 1-2 capsules (100-200 mg total) by mouth 2 (two) times a day 100mg in am and 200mg in pm Active cyanocobalamin (Vitamin B-12) 1,000 mcg sublingual tabletIndications: Prevention of Vitamin B12 Deficiency Take 1 tablet (1,000 mcg total) by mouth every morning Active freestyle 28 gauge lancets 2 (two) times a day 04/30/20 23 Active atorvastatin (LIPITOR) 40 mg tabletIndications: hyperlipidemia Take 1 tablet (40 mg total) by mouth nightly 01/15/20 24 Active blood-glucose meter kitIndications:Typ e 2 diabetes mellitus with diabetic polyneuropathy, without long-term current use of insulin ([facility]) Check blood sugar twice daily 1 kit 05/29/20 24 Active blood glucose diagnostic stripIndications:T ype 2 diabetes mellitus with diabetic polyneuropathy, without long-term current use of insulin ([facility]) Check blood sugar twice daily. 200 strip 3 05/29/20 24 Active methocarbamoL (ROBAXIN) 500 mg tablet TAKE 1 TABLET BY MOUTH THREE TIMES A DAY NEEDED FOR MUSCLE SPASM 09/14/20 24 Active triamcinolone (KENALOG) 0.1 % cream PLEASE SEE ATTACHED FOR DETAILED DIRECTIONS 07/28/20 24 Active insulin glargine (LANTUS) 100 unit/mL (3 mL) pen for injectionIndicatio ns:Type 2 diabetes mellitus with diabetic polyneuropathy, without long-term current use of insulin ([facility]) Inject 30 Units under the skin nightly 30 mL 3 09/24/20 24 025 Active estradioL (ESTRACE) 0.01 % (0.1 mg/gram) vaginal cream INSERT 1 GRAM VAGINALLY AT BEDTIME 2-3 TIMES PER WEEK 10/28/20 24 Active pen needle, diabetic (Pen Needle) 31 gauge x 03/26 needleIndications: Type 2 diabetes mellitus with diabetic polyneuropathy, without long-term current use of insulin ([facility]) Use to inject 1-4 times daily as directed 300 each 3 02/12/20 25 Active glipiZIDE (GLUCOTROL) 5 mg tabletIndications: type 2 diabetes mellitus Take 1 tablet (5 mg total) by mouth 2 (two) times a day before breakfast and dinner 180 tablet 3 05/06/20 25 026 Active aspirin 81 mg chewable tabletIndications: prevention of thrombosis Take 1 tablet (81 mg total) by mouth 2 (two) times a day 60 tablet 05/26/20 25 Active docusate sodium (COLACE) 100 mg capsuleIndications :constipation Take 1 capsule (100 mg total) by mouth 2 (two) times a day 60 capsule 05/26/20 25 Active HYDROcodone-acetam inophen (NORCO) 5-325 mg per tablet Take 1 tablet by mouth every 8 (eight) hours as needed for pain for up to 30 doses 30 tablet 05/26/20 25 Active ondansetron ODT (ZOFRAN-ODT) 4 mg disintegrating tabletIndications: Prevention of Post-Operative Nausea and Vomiting Take 1 tablet (4 mg total) by mouth every 8 (eight) hours as needed for nausea or vomiting 10 tablet 05/26/20 25 Active diclofenac sodium (VOLTAREN) 1 % gel Apply 2 g topically 4 (four) times a day 100 g 2 09/17/20 19 025 Discontin ued(Stop Taking at Discharge ) omeprazole (PriLOSEC) 20 mg capsuleIndications :Stress Ulcer Prophylaxis Take 1 capsule (20 mg total) by mouth 2 (two) times a day as needed 01/27/20 21 025 Discontin ued(Stop Taking at Discharge ) albuterol HFA (PROVENTIL HFA,VENTOLIN HFA,PROAIR HFA) 90 mcg/actuation inhaler INHALE 1 TO 2 PUFFS BY MOUTH EVERY 4-6 HOURS NEEDED FOR WHEEZING FOR 10 DAYS 12/21/19 25 025 Discontin ued(Stop Taking at Discharge ) benzonatate (TESSALON) 200 mg capsule TAKE 1 CAPSULE BY MOUTH THREE TIMES A DAY FOR 10 DAYS 12/21/19 25 025 Discontin ued(Error ) ondansetron (ZOFRAN) 4 mg tabletIndications: Type 2 diabetes mellitus with diabetic polyneuropathy, without long-term current use of insulin (HCC) Take 1 tablet (4 mg total) by mouth 3 (three) times a day as needed for nausea or vomiting 20 tablet 1 12/25/19 25 025 Discontin ued(Stop Taking at Discharge ) cyclobenzaprine (FLEXERIL) 10 mg tablet TAKE 1 TABLET BY MOUTH 2 TIMES A DAY NEEDED FOR MUSCLE SPASMS 04/12/20 025 Discontin ued(Stop Taking at Discharge ) busPIRone (BUSPAR) 10 mg tablet TAKE 1 TABLET THREE TIMES A DAY NEEDED 025 Discontin ued(Stop Taking at Discharge ) empagliflozin (Jardiance) 25 mg tablet Take 1 tablet (25 mg total) by mouth every morning 02/02/20 25 025 Discontin ued(Stop Taking at Discharge ) polysaccharide iron complex (Ferrex 150) 150 mg iron capsule Take 1 capsule every other day by oral route. 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 Exercising 20 min 2x/wk. Discussed need to increase amount of time she's exercising. Difficulty exercising d/t L meniscal tear. Will check with [facility] formulary re: diet/weight loss medications. Assessment & Plan (05/25/2024 9:26 AM CDT): Discussed healthy diet and importance of regular physical activity (20- 30min/day, 150min/wk). Now on Mounjaro 5mg weekly that is helping with weight loss. Hypertension associated with type 2 diabetes romeo litus 08/12/2023 Assessment & Plan (05/06/2025 2:03 PM CDT): Chronic problem. Controlled on current losartan 50mg daily. Will update labs. Verified that she uses mychart. Aware to check results/results letter in [employer]. Will contact by phone if needed. Assessment & Plan (12/25/2024 10:44 AM RADIATION PHYSICIST): Chronic problem. Controlled on current losartan 50mg daily. Assessment & Plan (09/24/2024 11:10 AM RADIATION PHYSICIST): Chronic problem. Controlled on current losartan 50mg daily. Assessment & Plan (05/25/2024 9:37 AM CDT): Chronic problem. Controlled on current losartan 50mg daily. Will update labs today. Verified that she uses mychart. Aware to check results/results letter in [employer]. Will contact by phone if needed. Assessment & Plan (01/27/2024 9:39 AM CDT): Chronic problem. Controlled on current losartan 50mg daily. Assessment & Plan (08/12/2023 2:45 PM CDT): Chronic problem. Controlled on current losartan 50mg daily. Hyperlipidemia associated with type 2 diabetes kolby herbert 08/12/2023 Assessment & Plan (05/06/2025 2:03 PM CDT): Chronic problem. Currently taking Atorvastatin 40mg & Bempedoic acid-zetia 180- 10mg. Last lipid panel: 05/25/24 MKL=651, SZ=486. Will update labs. Verified that she uses mychart. Aware to check results/results letter in [facility]. Will contact by phone if needed. Assessment & Plan (12/25/2024 10:44 AM RADIATION PHYSICIST): Chronic problem. Currently taking Atorvastatin 40mg & Bempedoic acid-zetia 180- 10mg. Last lipid panel: 05/25/24 SIH=389, LN=508. Assessment & Plan (09/24/2024 11:11 AM RADIATION PHYSICIST): Chronic problem. Currently taking Atorvastatin 40mg & Bempedoic acid-zetia 180- 10mg. Last lipid panel: 05/25/24 AZW=101, DW=685. Assessment & Plan (05/25/2024 9:38 AM CDT): Chronic problem. Currently taking Atorvastatin 40mg & Bempedoic acid-zetia 180- 10mg. Last lipid panel: 05/13/23 LDL=31, TJ=289. Will update labs today. Verified that she uses mychart. Aware to check results/results letter in [facility]. Will contact by phone if needed. Assessment & Plan (01/27/2024 9:39 AM CDT): Chronic problem. Currently taking Atorvastatin 40mg & Bempedoic acid-zetia 180- 10mg. Last lipid panel: 05/13/23 LDL=31, WR=342. Assessment & Plan (08/12/2023 2:53 PM CDT): Chronic problem. Currently taking Atorvastatin 40mg & Bempedoic acid-zetia 180- 10mg. Last lipid panel: 05/13/23 LDL=31, SB=144. Class 2 severe obesity due t o excess calories with serious comorbidity and body mass index (BMI) of 37.0 to 37.9 in adult 08/12/2023 Assessment & Plan (08/12/2023 2:27 PM CDT): Discussed healthy diet and importance of regular physical activity (20- 30min/day, 150min/wk). Please start using your [employer] membership. Vitamin B12 deficiency (non anemic) 10/10/2022 Anemia 09/04/2022 Right posterior capsular opacification Assessment & Plan (08/15/2021 12:06 PM CDT): PCO causing glare, poor vision at baseline. Discussed that vision may not improve although glare might. RBA discussed and pt wants to proceed with yag cap OD. High serum amylase 08/03/2021 Hyperkalemia 08/03/2021 Coronary arteriosclerosis 01/29/2021 Overview (05/21/2025): mild on cath 12/2017 Malformation of coronary vessels 01/29/2021 Overview (05/21/2025): on cath 12/2017 Chronic constipation 01/26/2021 Diabetic peripheral neuropathy 01/26/2021 Nonproliferative diabetic retinopathy 01/26/2021 Mixed anxiety and depressive disorder 01/26/2021 Type 2 diabetes mellitus without complication History of iron deficiency anemia 06/29/2020 Assessment [...] 12/17/2019 Assessment & Plan (12/17/2019 2:09 PM RADIATION PHYSICIST): Without plans for further infusion therapy, vascular port may be removed. Surgical referral provided. Arthritis of carpometacarpal (CMC) joint of left thumb 11/17/2019 Arthritis of carpometacarpal (CMC) joint of righ t thumb 11/17/2019 Restless leg syndrome 11/17/2019 Insomnia 11/17/2019 Assessment & Plan (11/17/2019 8:35 PM RADIATION PHYSICIST): Symptoms are worsening in the context of increased stressors. She is referred to sleep medicine. Malaise 11/14/2019 Assessment & Plan (11/14/2019 12:22 AM RADIATION PHYSICIST): Check CBC and CMP. Encounter for adjustment and management of vascular access device 09/14/2019 Osteopenia of multiple sites 08/14/2019 Overview (08/14/2019): Images from the original note were not included. BONE DENSITY/DEX02/27/2018 [facility] - [facility] Result Narrative Examination: Bone Density [...] mg a daily. Vitamin D intake of [id number] iu daily. Most [facility] do not get enough Vitamin D, so a supplement in an oil capsule gives the best absorption. I recommend repeating your bone density in 3 years. Assessment & Plan (09/17/2019 3:39 PM RADIATION PHYSICIST): We recommend you take Caltrate D once [...] canned with bones 3 oz 325 mg Mccaulley, canned with bones 3 oz 180 mg Shrimp, canned 3 oz 125 mg Dairy Serving Size Estimated Calcium* Ricotta, part-skim 4 oz 335 mg Yogurt, plain, low-fat 6 oz 310 mg Milk, skim, low-fat, whole 8 oz 300 mg Yogurt with fruit, low-fat 6 oz 260 mg Mozzarella, part-skim 1 oz 210 mg Cheddar 1 oz 205 mg Yogurt, Prydeinig 6 oz 200 mg Algerian Cheese 1 oz 195 mg Feta Cheese 4 oz 140 mg Cottage Cheese, 2% 4 oz 105 mg Frozen yogurt, vanilla 8 oz 105 mg Ice Cream, vanilla 8 oz 85 mg Parmesan 1 tbsp 55 mg Fortified Food Serving Size Estimated Calcium* [place] milk, rice milk or soy milk, fortified 8 oz 300 mg [place] juice and other fruit juices, fortified 8 oz 300 mg Tofu, prepared with calcium 4 oz 205 mg Waffle, frozen, fortified 2 pieces 200 mg Oatmeal, fortified 1 packet 140 mg Kinyarwanda muffin, fortified 1 muffin 100 mg Cereal, [...] the original note were not included. BONE DENSITY/DEXA4/ [facility] - [facility] Result Narrative Examination: Bone Density [...] 08/14/2019 Assessment & Plan (12/17/2019 8:59 PM RADIATION PHYSICIST): Continue acetaminophen as needed. Assessment & Plan (09/17/2019 3:37 PM RADIATION PHYSICIST): See discussion above. Assessment & Plan (08/14/2019 3:17 PM CDT): See above. Continue acetaminophen for pain. MORRISSEY (dyspnea on exertion) 01/01/2019 Assessment & Plan (01/01/2019 11:08 AM RADIATION PHYSICIST): EKG, chest x-ray and labs. Patient has an appointment with her side seam tender on Saturday. Instruct patient that if she [...] 06/24/2017 Assessment & Plan (12/17/2019 1:55 PM RADIATION PHYSICIST): Images from the original note were not included. She is no longer taking her Vitamin D supplement. Update lab as per orders. Assessment & Plan (11/14/2019 12:20 AM RADIATION PHYSICIST): She continues vitamin D supplementation. 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 Seen at [facility]. 07/17/24 [facility] optho +PDR w/DME. Assessment & Plan (08/24/2020 3:47 PM CDT): Is followed by Ophthalmology and is receiving I injections. Assessment & Plan (09/17/2019 3:40 PM RADIATION PHYSICIST): Noted Assessment & Plan (10/31/2018 2:50 PM RADIATION PHYSICIST): Resolved fluid 5 wks after injection right eye (OD) Isolated cyst left eye (OS) Would continue alternating injections - Eylea left eye (OS) today Assessment & Plan (07/04/2018 4:38 PM CDT): The patient will continue to follow with her tool and die maker. Erosive osteoarthritis 10/08/2016 Overview (09/17/2019): Images from the original note were not included. US Hands Bilateral for Rheumatoid Arthritis (C) Order: [id number] Status: Final result Visible to patient: No [...] 10:40 Assessment & Plan (12/17/2019 1:49 PM RADIATION PHYSICIST): Erosive osteoarthritis stable. Since she was last seen she has had surgery bilateral thumb (trigger finger) as well as fusion third DIP L hand by Dr. Nicola Singer. She is pleased with outcome; pain relieved. She is working with PT/OT; doing well. Assessment & Plan (09/17/2019 9:51 PM RADIATION PHYSICIST): Reviewed with patient ultrasound findings with little [...] review. Assessment & Plan (10/30/2018 10:25 AM RADIATION PHYSICIST): The patient will continue to follow up with rheumatology. Assessment & Plan (07/04/2018 4:38 PM CDT): The patient will continue to follow up with her tile helper. 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 Assessment & Plan (03/22/2020 7:40 PM CDT): The patient's blood pressure is 132/68. Continue the current medication regimen. Continued weight loss encouraged. She is eating a more heart healthy eating plan. Assessment & Plan (12/17/2019 1:51 PM RADIATION PHYSICIST): Vitals BP 132/80 (BP Location: Right arm, Patient Position: Sitting) Pulse 78 Temp 36.8 C (98.3 F) (Oral) Resp 16 Ht 162.6 cm (5' 4) Wt 104.3 kg (230 lb) BMI 39.48 kg/m Denies headache, dizziness, chest pain, palpitations, shortness of breath, edema, orthopnea, PND. Assessment & Plan (11/14/2019 12:19 AM RADIATION PHYSICIST): Continue the current medication regimen. Assessment & Plan (09/17/2019 3:38 PM RADIATION PHYSICIST): Vitals BP 118/64 (BP Location: Right arm, Patient Position: Sitting) Pulse 77 Temp 36.8 C (98.3 F) (Oral) Resp 16 Ht 162.6 cm (5' 4) Wt 107.8 kg (237 lb 11.2 oz) BMI 40.80 kg/m Assessment & Plan (08/14/2019 3:17 PM CDT): Vitals BP 128/72 (BP Location: Right arm, Patient Position: Sitting) Pulse 72 Temp 36.9 C (98.5 F) (Oral) Resp 18 Ht 162.6 cm (5' 4) Wt 104.3 kg (230 lb) BMI 39.48 kg/m Denies headache, dizziness, chest pain, palpitations, shortness of breath, edema, orthopnea, PND. Fibromyalgia 05/21/2016 Assessment & Plan (08/24/2020 3:50 PM CDT): Followed by Rheumatology. Assessment & Plan (12/17/2019 1:51 PM RADIATION PHYSICIST): She remains on Lyrica 100 mg three times daily and duloxetine 30 mg daily. Pain control satisfactory. Assessment & Plan (09/17/2019 3:17 PM RADIATION PHYSICIST): She remains on Lyrica 100 mg three [...] fluids. Assessment & Plan (12/17/2019 1:53 PM RADIATION PHYSICIST): Images from the original note were not included. Be sure to maintain good hydration. Do not use any nonsteroidal antiinflammatory medications (including over the counter ibuprofen and naproxen) as these are kidney irritants. Assessment & Plan (09/17/2019 3:40 PM RADIATION PHYSICIST): Lab Results Component Value Date GLUCOSE 217 [...] mellitus diagnosed in 2010. Assessment & Plan (05/06/2025 2:42 PM CDT): Chronic problem. A1c worsened from 6.7% 12/25/24 to now 8.2%. To send me a [facility] message after completing diabetic education class & I'll send in a [employer] or [employer]. -will start on Glipizide 5mg before breakfast & dinner. -cannot tolerate GLP1 & SGLT2. Current medications: Glipizide 5mg before breakfast & dinner. Lantus 30 units nightly Will update labs. Verified that she uses [facility]. Aware to check results/results letter in [facility]. Will contact by phone if needed. UTD on DM eye exam (03/15/25 [facility] +PDR w/DME). Strive for regular exercise (30min [...] not to go barefoot. Assessment & Plan (12/25/2024 11:01 AM RADIATION PHYSICIST): Chronic problem. A1c improved from 7.4% 09/24/24 to now 6.7%. Nico start dropping Lantus dose by 2 units weekly if morning fasting blood sugar is less than 110 persistently. Current medications: Jardiance 25mg daily Mounjaro 7.5mg weekly Lantus 30 units nightly UTD on labs. UTD on DM eye exam (07/17/24 [facility] optho +PDR w/DME). Has appt 12/28/24. [...] barefoot. Assessment & Plan (09/24/2024 11:43 AM RADIATION PHYSICIST): Chronic problem. A1c not at goal & [...] labs. UTD on DM eye exam (07/17/24 [facility] optho +PDR w/DME). Strive for regular [...] mychart. Aware to check results/results letter in [employer]. Will contact by phone if needed. UTD [...] 150 Assessment & Plan (09/28/2020 5:24 PM RADIATION PHYSICIST): Hemoglobin A1c ordered for today. Her last hemoglobin A1c approximately 3 months ago indicated reasonably adequate control. No changes in medication at this time. Patient is taking Ozempic and metformin. Follow-up in 3 months at which time we will perform a diabetic foot exam. Patient sees an tool and die maker for diabetic retinopathy management. Discussed diet and [...] A1C. Assessment & Plan (12/17/2019 1:58 PM RADIATION PHYSICIST): She is working more diligently ion diet. Lab Results Component Value Date HGBA1C 8.5 (H) 10/20/[address] Valdes 01/2020. Assessment & Plan (11/17/2019 8:34 PM RADIATION PHYSICIST): The patient is tolerating Ozempic. She reports substantial improvement in blood sugars. She will continues the diabetic diet, and she is referred to a blending tank tender helper. Assessment & Plan (11/14/2019 12:21 AM RADIATION PHYSICIST): The patient reports recent hyperglycemia. Check A1C. Consider addition of Ozempic. Assessment & Plan (09/17/2019 3:41 PM RADIATION PHYSICIST): Lab Results Component Value Date HGBA1C 7.1 (H) 06/04/2019 Assessment & Plan (08/14/2019 3:16 PM CDT): Lab Results Component Value Date HGBA1C 7.1 (H) 06/04/2019 Assessment & Plan (06/04/2019 10:28 AM CDT): Check A1C. Assessment & Plan (10/30/2018 10:25 AM RADIATION PHYSICIST): Check BMP and A1C at the next [...] November. Assessment & Plan (11/17/2019 8:36 PM RADIATION PHYSICIST): Body mass index is 40.34 kg/m . BMI Follow-up includes: nutrition counseling, exercise counseling and education provided. Assessment & Plan (10/20/2019 2:35 PM RADIATION PHYSICIST): BMI Follow-up includes: nutrition counseling, exercise counseling [...] provided. Assessment & Plan (12/17/2019 1:50 PM RADIATION PHYSICIST): 5 pound weight loss noted and endorsed. Continue your good efforts. An optimal BMI (body mass index) is between 20 and 25. Encourage weight loss. Each pound of weight lost unloads 3-4 pounds per square inch pressure from weight bearing joints. Diet and exercise are the keys to weight management. Assessment & Plan (09/17/2019 3:13 PM RADIATION PHYSICIST): An optimal BMI (body mass index) is [...] provided. Assessment & Plan (01/14/2019 8:39 AM RADIATION PHYSICIST): BMI Follow-up includes: nutrition counseling, exercise counseling and education provided. Assessment & Plan (01/01/2019 10:04 AM RADIATION PHYSICIST): BMI Follow-up includes: nutrition counseling, exercise counseling and education provided. Assessment & Plan (10/30/2018 10:12 AM RADIATION PHYSICIST): BMI Follow-up includes: nutrition counseling, exercise counseling and education provided. Assessment & Plan (09/29/2018 1:07 PM RADIATION PHYSICIST): BMI Follow-up includes: nutrition counseling, exercise counseling and education provided. Assessment & Plan (07/04/2018 4:39 PM CDT): Follow-up for management of elevated BMI morbid obesity includes nutrition counseling, exercise counseling, and lifestyle education. Dysuria 07/02/2018 12/17/2019 Assessment & Plan (11/14/2019 12:19 AM RADIATION PHYSICIST): Check UA micro and culture. Assessment & [...] reviewed. Assessment & Plan (11/12/2018 3:51 PM RADIATION PHYSICIST): Status post (s/p) anti-VEGF left eye (OS) [...] Encounters Date Type Department Care Team Description 06/10/2025 2:45 PM CDT Office Visit [facility] [address] [place] [phone] Swapnil Poe, Status post arthroscopy of knee (Primary Dx); Complex tear of medial meniscus of left knee as current injury, initial encounter; Complex tear of lateral meniscus of left knee as current injury, initial encounter 05/26/2025 9:50 AM CDT - 05/26/2025 11:25 AM CDT Surgery [facility] OR [address] [place] [id number] Swapnil Poe DO LEFT KNEE ARTHROSCOPY WITH MEDIAL AND LATERAL MENISCAL DEBRIDEMENT AND LOOSE BODY REMOVAL 05/26/2025 9:33 AM CDT Anesthesia Event [facility] OR [address] [place] [id number] Ad Rockwell, Sheila Álvarez, THERMOSTAT MACHINE TENDER 05/26/2025 8:45 AM CDT - 05/26/2025 11:59 PM CDT Hospital Encounter [facility] [employer] [address] [place] [address] Discharge Disposition: Discharge to home or self care 05/26/2025 7:54 AM CDT - 05/26/2025 12:59 PM CDT Hospital Encounter [facility] [place] [address] [place] [phone] Swapnil Poe DO Complex tear of medial meniscus of left knee as current injury, initial encounter [S83.232A] (Primary Dx); 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 [M23.301]; Chondral loose body of left knee joint [M23.42] Discharge Disposition: Discharge to home or self care 05/24/2025 Documentation [facility] Orthopedics and Sports Medicine [address] [place] [phone] Yoselin Aragon MA 05/21/2025 10:00 AM CDT - 05/21/2025 11:59 PM CDT Hospital Encounter [facility] 1 DIAG IMG [address] [place] [phone] Left knee pain, unspecified chronicity Discharge Disposition: Discharge to home or self care 05/21/2025 10:00 AM CDT Office Visit [facility] Orthopedics [facility] Sports Medicine [address] [place] [phone] Swapnil Poe DO Left knee pain, unspecified chronicity (Primary Dx); Complex tear of medial meniscus of left knee as current injury, initial encounter 05/17/[address] [address] Lo Mcgregor MD No Show 05/13/2025 Telephone [facility] Diabetes and Endocrinology [address] [place] [phone] Priya Calderon NP Forms/questionnaires (DM Education Order) 05/07/2025 Results Follow-Up [facility] Diabetes and Endocrinology [address] [place] [phone] Priya Calderon, HANG Albumin Creatinine Ratio, Urine, Comprehensive metabolic panel, Lipid panel, eGFR 05/06/2025 2:47 PM CDT - 05/06/2025 11:59 PM CDT Hospital Encounter [address] [address] Type 2 diabetes mellitus with diabetic polyneuropathy, without long-term current use of insulin (HCC); Hypertension associated with type 2 diabetes mellitus (HCC); Hyperlipidemia associated with type 2 diabetes mellitus (HCC) Discharge Disposition: Discharge to home or self care 05/06/2025 2:45 PM CDT Lab [facility] Outpatient Lab at [address] [phone] 05/06/2025 1:30 PM CDT Office Visit [facility] Diabetes and Endocrinology [address] [place] [phone] Priya Calderon, HANG Type 2 diabetes mellitus with diabetic polyneuropathy, without long-term current use of insulin (HCC) (Primary Dx); Hypertension associated with type 2 diabetes mellitus (HCC); Hyperlipidemia associated with type 2 diabetes mellitus (HCC); Class 2 severe obesity due to excess calories with serious comorbidity and body mass index (BMI) of 38.0 to 38.9 in adult (HCC) from Last 3 Months Immunizations Immunization [...] N/A EPIDURAL INJECTION LUMBOSACRAL 01/21/2013 N/A SECTION 1985 RETINAL LASER PROCEDURE Bilateral OTHER SURGICAL HISTORY 11/11/2014 - 11/10/2015 implanted and removal (2018) implantable loop recorder CATARACT EXTRACTION W/ INTRA OCULAR LENS IMPLANT 11/11/2019 - 11/10/2020 Bilateral Karacal JOINT REPLACEMENT 11/11/2019 - 11/10/2020 Bilateral Finger bones fused due to arthritis ESOPHAGOGASTRODUODENOSCOPY 11/11/2021 - 11/10/2022 has hiatal hernia FOOT GANGLION EXCISION 07/12/2021 - 08/10/2021 Left COLONOSCOPY 11/30/2016 THUMB SURGERY 12/28/2021 Left LEFT FIRST CARPOMETACARPAL ARTHROPLASTY OTHER SURGICAL HISTORY 11/11/2018 - 11/10/2019 portacath removal VITRECTOMY 07/12/2024 - 08/10/2024 Left CHOLECYSTECTOMY Medical History Medical History Date Comments Hx Other Medical c-sections Hx Other Medical benign lung nod ules Hx Other Medical uterine fibroid s Depression resolved per pt Diabetes mellitus (HCC) Anxiety resolved Arthritis Hypertension 2017 Rheumatic fever Rheumatic fever as child Iron deficiency anemia iron defi ciency- assoc w colon surgery Type 2 diabetes mellitus 2010 Heart murmur transient murmer heard with no symptoms Gastroparesis patient states n o isses resolved Diabetic retinopathy (HCC) Pneumonia 12/18/2024 Blind right eye legally blind History of pancreatitis last fla re up couple months ago Full dentures Family History Medical History Relation Name Comments Heart attack Brother 1 1 Other Brother 1 1 heart conditio n; Diabetes Brother 2 2 Other Brother 2 [...] Packs/Day Years Used Date Smoking Tobacco: Never Passive Smoke Exposure: Past Smokeless Tobacco: Never Tobacco Cessation:Counseling Given: Not Answered Alcohol Use Standard Drinks/Week Comments No 0 (1 standard drink = 0.6 oz pur e alcohol) AUDIT-C Answer Date Recorded Q1: How often do you have a drink containing alcohol? Never 05/26/2025 Q2: How many drinks containi ng alcohol do you have on a typical day when you are drinking? Patient does not drink Q3: How often do you have si x or more drinks on one occasion? Never 05/26/2025 PHQ-2 Answer Date Recorded PHQ-2 Total Score (If total score is 3 or more points, staff should administer the PHQ-9) 0 09/28/2020 Personal Safety Answer Date Recorded Have you ever been in or are you currently in a harmful physical or emotional relationship or is someone making you feel afraid or unsafe? 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 file Not on file No t on file Obstetrics History Last Filed Vital Signs Vital Sign Reading Time Taken Comments Blood Pressure 125/69 05/26/2025 11:40 AM CDT Pulse 73 05/26/2025 11:40 AM CDT Temperature 36.2 C (97.2 F) 05/26/2025 11:10 AM CDT Respiratory Rate 20 05/26/2025 11:40 AM CDT Oxygen Saturation 100% 05/26/2025 11:40 AM CDT Inhaled Oxygen Concentration - - Weight 105 kg (231 lb 8 oz) 05/26/2025 8:45 AM C DT Height 165.1 cm (5' 5) 05/26/2025 8:45 AM CDT Body Mass Index 38.52 05/26/2025 8:45 AM CDT Plan of Treatment Health Maintenance Due Date Last Done Comments Regular Well Visit/Exam 18-64 1979 Pneumococcal vaccine <65 (3 of 3 - PCV20 or PCV21) 11/08/2020 11/08/2015, 08/23/2014, 08/23/2014, Additional history exists Cervical Cancer Screening 01/13/20212019, 01/14/2020, 03/14/2015, Additional history exists Depression Screening 09/28/2021 09/28/2020, 08/24/2020, 06/22/2020, Additional history exists Influenza Vaccine (#1) 2025 , 06/28/2021, 08/23/2020, Additional history exists Hemoglobin A1C 11/05/2025 05/06/2025, 12/12, 09/24/2024, Additional history exists Breast Cancer Screening-Mammogram 03/08/2026 03/08/2025, 03/08/2025, 05/10/2023, Additional history exists Dilated Eye Exam 03/15/2026 03/15/2025, , 10/26/2024, Additional history exists Albumin Creatinine Ratio, Urine 05/06/2026 05/06/2025, 05/25/2024, 05/13/2023, Additional history exists Foot Exam 05/06/2026 05/06/2025, 09/11, 08/12/2023, Additional history exists Lipid Panel 05/06/2026 05/06/2025, 0703/2024, 05/13/2023, Additional history exists eGFR 05/06/2026 05/06/2025, 06/12, 05/25/2024, Additional history exists Colon Cancer Screening-Colonoscopy 05/09/2028 05/09/2018, 10/29/2016 DTaP/Tdap/Td Vaccine (4 - Td or Tdap) 05/11/2029 05/11/2019, 03/06/2018, 11/12/2017, Additional history exists Hepatitis B Screening Completed 11/12/2000 Colon Cancer Screening-CT Colonography Discontinued 05/09/2018, 10/29/2016 Colon Cancer Screening-DNA Stool Discontinued 05/09/20, 10/29/2016 Colon Cancer Screening-FIT Discontinued 05/09/2018, Colon Cancer Screening-Sigmoidoscopy Discontinued 05/09/2018, 10/29/2016 Hepatitis C Screening Completed 08/14/2019 Zoster Vaccine Completed 06/28/2021, 04/28/2021 Medical Devices Implanted Type Area Tool Mechanic Device Identifier Shelf Expiration Date Model / Serial / Lot [employer] [id number] Ar[employer]rex Fibertak Fiberwire Needle 1 [place] Suture Sterile - [id number] Implanted:Qty: 1 on 12/28/2021 by Agapito Yang MD at [facility] Left: Wrist [employer] 10/10/2026 [id number] / / [id number] Procedures Procedure Name Priority Date/Time Associated Diagnosis Comments POCT GLUCOSE DEVICE Routine 05/26/2025 1 0:26 AM CDT TX AN PROCEDURE PLACEHOLDER Routine 05/26/2025 9:50 AM CDT TX AN ELECTIVE SUPRAGLOTTIC AIRWAY Routine 05/26/2025 9:50 AM CDT ARTHROSCOPY KNEE PARTIAL MEDIAL MENISECTOMY 05/26/2025 9:34 AM CDT Complex tear of medial meniscus of left knee as current injury, initial encounter Case Notes Lt knee scope MSK MR OUTSIDE REFERENCE Routine 05/26/2025 8:45 AM CDT POCT GLUCOSE DEVICE Routine 05/26/2025 8 :35 AM CDT XR KNEE LEFT 3 VIEWS Schedule Routine, Read Routine (OP Routine) 05/21/2025 10:12 AM CDT Left knee pain, unspecified chronicity EGFR Routine 05/06/2025 2:47 PM CDT Type 2 diabetes mellitus with diabetic polyneuropathy, without long-term current use of insulin (HCC) Hypertension associated with type 2 diabetes mellitus (HCC) LIPID PANEL Routine 05/06/2025 2:47 PM CDT Type 2 diabetes mellitus with diabetic polyneuropathy, without long-term current use of insulin (HCC) Hyperlipidemia associated with type 2 diabetes mellitus (HCC) COMPREHENSIVE METABOLIC PANEL Routine 05/06/2025 2:47 PM CDT Type 2 diabetes mellitus with diabetic polyneuropathy, without long-term current use of insulin (HCC) Hypertension associated with type 2 diabetes mellitus (HCC) ALBUMIN CREATININE RATIO, URINE Routine 05/06/2025 2:47 PM CDT Type 2 diabetes mellitus with diabetic polyneuropathy, without long-term current use of insulin (HCC) POCT HEMOGLOBIN A1C Routine 05/06/2025 1 :36 PM CDT Type 2 diabetes mellitus with diabetic polyneuropathy, without long-term current use of insulin (HCC) POCT GLUCOSE Routine 05/06/2025 1:36 PM CDT Type 2 diabetes mellitus with diabetic [...] Recently Relevant to Health Maintenance Results * POCT glucose (05/26/2025 10:26 AM CDT) Glucose, POC 85 70 - 199 mg/dL Blood 05/26/2025 10:2 6 AM CDT 05/26/2025 10:26 AM CDT us Swapnil Poe DO LAB POCT ORDERABLES - DEVICE F inal Result Performing Organization Address [facility] de Phone Number [facility] [address] [facility] [place] [phone] * TX AN ELECTIVE SUPRAGLOTTIC AIRWAY, TX AN PROCEDURE PLACEHOLDER (05/26/2025 9:50 AM CDT) Narrative Alvina Ortiz CRNA - 05/26/2025 9:50 AM CDT Alvina Ortiz CRNA 05/26/2025 9:50 AM Airway Patient location: OR Urgency: elective Date/time: 05/26/2025 9:50 AM Indications for airway management: anesthesia Difficult airway: no Staff: Placed by: TRANSIT POLICE OFFICER: Alvina Ortiz CRNA Emergent airway documentation: Risks and benefits discussed: yes Consent obtained: yes Consent given by: patient Airway prep: Preoxygenated: yes Patient position: sniffing Spontaneous ventilation during airway: absent Sedation level during airway: deep Final airway details: Final airway type: supraglottic airway Final supraglottic airway: IGel SGA size: 4 Number of attempts: 1 us Ad Rockwell MD ANESTHESIA ORDERABLES Final Re sult * MSK MR Outside Reference (05/26/2025 8:45 AM CDT) Narrative [facility] - 05/26/2025 8:45 AM CDT This order has been auto-finalized and does not contain a result. us Provider Transcribed Order IMG MRI PROCEDURES Fi nal Result Performing Organization Address City/[facility]/ZIP Co de Phone Number RAD_GERMAN_MHB_MHE * POCT glucose (05/26/2025 8:35 AM CDT) Glucose, POC 94 70 - 199 mg/dL Blood 05/26/2025 8:35 AM CDT 05/26/2025 8:35 AM CDT us Swapnil Poe DO LAB POCT ORDERABLES - DEVICE F inal Result [facility] [address] [facility] Department [place] [address] * XR Knee Left 3 Views (05/21/2025 10:12 AM CDT) Anatomical Region Laterality Modality Lower Extremities, Knee Left Computed Radiography 05/30/2025 4:03 PM CDT Narrative 05/30/2025 4:04 PM CDT EXAM DESCRIPTION: 1. XR KNEE LEFT 3 VIEWS REASON FOR STUDY: osteoarthritis Fall in November, pain FINDINGS: Three views submitted without comparison. No acute fracture. Alignment is normal. Mild medial and patellofemoral bicompartmental left knee osteoarthritis. Small knee effusion. Arterial atherosclerosis is present. IMPRESSION: 1. Mild medial and patellofemoral bicompartmental left knee osteoarthritis with a small effusion. THIS IS AN ELECTRONICALLY VERIFIED FINAL REPORT 05/30/2025 4:04 PM - Electronically signed by Elver Brannon M.D. MF: JULIAN Report ID: [id number] Reading Location: [id number] Procedure Note Elver Brannon MD - 05/30/2025 EXAM DESCRIPTION: 1. XR KNEE LEFT 3 VIEWS REASON FOR STUDY: osteoarthritis Fall in November, pain FINDINGS: Three views submitted without comparison. No acute fracture. Alignment is normal. Mild medial and patellofemoral bicompartmental left knee osteoarthritis. Small knee effusion. Arterial atherosclerosis is present. IMPRESSION: 1. Mild medial and patellofemoral bicompartmental left kneeosteoarthritis with a small effusion. THIS IS AN ELECTRONICALLY VERIFIED FINAL REPORT 05/30/2025 4:04 PM - Electronically signed by Elver Brannon M.D. MF: JULIAN Report ID: [id number] Reading Location: [place] [address] us Dannyjessy Poe DO IMG XR PROCEDURES Final Result * eGFR (05/06/2025 2:47 PM CDT) eGFR 74 >=60 mL/min/1. 73 m2 Comment: Interpretive Data [...] interpretive data was last reviewed 2021. Blood 05/06/2025 2:47 PM CDT 05/06/2025 9:01 PM CDT us Priya Calderon NP LAB BLOOD ORDERABLES Joyce moreno Result [facility] [address] Department [place] [address] * (ABNORMAL) Albumin Creatinine Ratio, Urine (05/06/2025 2:47 PM CDT) Albumin Ur 13.5 mg/L Comment: Interpretive Data No reference range established. Current interpretive data was last revised 2019. Creatinine Ur 36.3 mg/dL [facility] Comment: Interpretive Data No reference range established. Current interpretive data was last revised 2019. Albumin Creatinine Ratio, Ur 37(H) 1 - 29 mg/g [facility] Urine 05/06/2025 2:47 PM CDT 05/06/2025 8:42 PM CDT us Priya Calderon THERMOSTAT MACHINE TENDER LAB URINE ORDERABLES Joyce l Result [facility] [address] [address] Department [place] [address] * (ABNORMAL) Lipid panel (05/06/2025 2:47 PM CDT) Cholesterol 190 30 - 199 mg/dL Comment: Interpretive Data [...] Data was last revised on 2018. Triglycerides 219(H) <=149 mg/dL [facility] Comment: Interpretive Data Ages < or = [...] Data was last revised on 2018. HDL 67 >=40 mg/dL [facility] Comment: Interpretive Data Ages < [...] was last revised on 2018. LDL, calculated 87 <=129 mg/dL [facility] Comment: Interpretive Data Ages < or = 19 years Acceptable: <110 mg/dL Borderline high: 110-129 mg/dL High: >or= 130 mg/dL Ages > or = 20 years Optimal: <100 mg/dL Near optimal: 100-129 mg/dL Borderline high: 130-159 mg/dL High: >160 mg/dL Calculated using the Marcelo LDL-C estimating equation. This equation was implemented on 2024. Prior to this date LDL-C was estimated using the Friedewald equation. Literature References: 1. Expert Panel on Integrated Guidelines for Cardiovascular Health and Risk Reduction in Children and Adolescents. Pediatrics 2011;128:S213 2. NCEP Expert Panel. Circulation 2004;110:227 3. Marcelo Aguirre al. FRANCHESKA Cardiol. 2019March 11;5(5):540-548. doi: 10.1001/jamacardio.2020.0013 Current Interpretive Data was last revised on 2024. Non-HDL Cholesterol 123 mg/dL [facility] Comment: Interpretive Data Ages < [...] last revised on 2018. Chol/HDL ratio 3 [facility] Blood 05/06/2025 2:47 PM CDT 05/06/2025 8:41 PM CDT us Priya Calderon THERMOSTAT MACHINE TENDER LAB BLOOD ORDERABLES Joyce moreno Result [facility] [address] [address] Department [place] [address] * Comprehensive metabolic panel (05/06/2025 2:47 PM CDT) Sodium 141 135 - 145 mmol/L Potassium, pl 3.9 3.3 - 4.9 mmol/L [facility] Chloride 106 97 - 110 mmol/L [facility] CO2 25 22 - 32 mmol/L [facility] Anion gap 10 2 - 15 mmol/L [facility] BUN 14 6 - 25 mg/dL [facility] Creatinine 0.88 0.60 - 1.10 mg/dL [facility] Glucose 90 70 - 199 mg/dL [facility] Comment: Interpretive Data Fasting glucose >/= 126 mg/dl is diagnostic for diabetes. Fasting is defined as no caloric intake for at least 8 hours. Fasting glucose between 100 mg/dl to 125 mg/dl is diagnostic of prediabetes. In a patient with classic symptoms of hyperglycemia or hyperglycemic crisis, a random glucose >/= 200 mg/dl is diagnostic for diabetes. In the absence of unequivocal hyperglycemia, results should be confirmed by repeat testing. The classification and Diagnosis of Diabetes Diabetes Care 2021; 46: S19-S40. Current interpretive data was last revised 2022. Calcium 9.3 8.5 - 10.3 mg/dL [facility] Bilirubin, total 0.2 0.1 - 1.2 mg/dL [facility] Protein, pl 6.6 6.5 - 8.5 g/dL [facility] Albumin 3.8 3.5 - 5.0 g/dL [facility] Alk phos 122 40 - 130 Units/L [facility] ALT 13 7 - 45 Units/L [facility] AST 17 10 - 45 Units/L [facility] Blood 05/06/2025 2:47 PM CDT 05/06/2025 8:41 PM CDT us Priya Calderon NP LAB BLOOD ORDERABLES Joyce l Result [facility] [address] [address] Department [place] [address] * (ABNORMAL) POCT hemoglobin A1c (05/06/2025 1:36 PM CDT) Hemoglobin A1C, POC 8.2(A) 4.0 - 5.6 % Blood 05/06/2025 1:36 PM CDT us Priya Calderon NP POINT OF CARE TEST ORDERA BLES Final Result * (ABNORMAL) POCT glucose (05/06/2025 1:36 PM CDT) Glucose Blood, POC 139 Normal Fasting 70 - 100, Random <200 mg/dL Blood 05/06/2025 1:36 PM CDT us Priya Calderon NP POINT OF CARE TEST ORDERA BLES Final Result * Screening Mammogram (01/15/2020) Anatomical Region Laterality Modality Breast N/A Mammography Impressions 01/15/2020 Mammogram report 01/15/2020 Impression: No mammographic findings suggestive of malignancy. Assessment: ACR BI-RADS CATEGORY 2- benign findings Recommendation: Routine screening mammogram bilateral in 1 year. us Notinfile Unknown IMG MAMMO PROCEDURES Final Res ult * HM PAP SMEAR (01/14/2020) HM Pap smear Normal Comment:see scanned report us Historical Provider HEALTH MAINTENANCE Final Result * Hepatitis C antibody (08/14/2019 3:21 PM CDT) Hep C Ab Non-Reactiv e Non-Reactiv e [facility] Blood specimen (specimen) 08/14/2019 3:21 PM CDT 08/14/2019 6:33 PM CDT Arden Justin MD LAB MICROBIOLOGY - GENERA L ORDERABLES Final Result [facility] [address] [place] [address] * COLONOSCOPY (05/09/2018) Colonoscopy Abnormal Historical Provider HEALTH MAINTENANCE Final Result from Last 3 Months or Most Recently Relevant to Health Maintenance Insurance MEDICARE [employer] [facility] MEDICARE FOR LIFE MEDICARE FOR LIFE Care Teams Assembling Machine Operator Relationship Specialty Start Date End Date Ana Cristina Mckeon MD [address] [facility] [address] [place] [address] PCP - General Internal Medicine 03/03/21 Swapnil Poe DO [address] [place] [address] [place] [address] Consulting Physician Orthopedic Surgery 05/26/25
--- OUTSIDE RECORDS SUMMARY | 2025-06-22 10:30 | XMS_ITS | Patient Health Record ---
Author Organization [facility] Address [address] [facility] [address] [facility] [address] [place] [address] Care Team Providers Care Fresh Food Manager Name Role Phone GRACESUSHMAFI Unavailable [phone] Reason For Referral No Information Plan Of Treatment No Information
--- OUTSIDE RECORDS SUMMARY | 2025-06-22 10:30 | XMS_ITS | Encounter Summary ---
Author Organization [facility] Healthcare Address [address] [place] [address] Care Team Providers Care Supervisor Powdered Sugar Name Role Phone Ana Cristina Mckeon MD Primary Care Provider [phone] Deepika Dannyjessy DO Unavailable [phone] Encounter Details Date Type Department Care Team (Late st Contact Info) Description 05/24/2025 Documentation [facility] Orthopedics and Sports Medicine [address] [place] [phone] Yoselin Aragon MA Social History Tobacco Use Types Packs/Day Years Used Date Smoking Tobacco: Never Passive Smoke Exposure: Past Smokeless Tobacco: Never Alcohol Use Standard Drinks/Week [...] on file Legal Sex Female 10:06 AM DINING SERVICES DIRECTOR Gender Identity Female 09/28/2020 10:45 AM DINING SERVICES DIRECTOR Sexual Orientation Straight 09/28/2020 10 :45 AM DINING SERVICES DIRECTOR 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 Never 05/26/2025 8:38 AM Serina Rivera RN Q2: How many drinks containing alcohol do you have on a typical day when you are drinking? Patient does not drink 05/26/2025 8:38 AM Serina Rivera RN Q3: How often do you have six or more drinks on one occasion? Never 05/26/2025 8:38 AM Serina Rivera RN documented as of this encounter Plan of Treatment Not on file documented as of this encounter Visit Diagnoses Not on filedocumented in this encounter Care Teams Supervisor Powdered Sugar Relationship Specialty Start Date End Date Ana Cristina Mckeon MD [address] [address] PCP - General Internal Medicine 03/03/21 Swapnil Poe DO [address] [facility] [address] [address] Consulting Physician Orthopedic Surgery 05/26/25 documented as of this encounter
--- OUTSIDE RECORDS SUMMARY | 2025-06-22 10:30 | XMS_ITS | Encounter Summary ---
Author Organization [facility] Address [address] [place] [address] Phone Care Team Providers Care Supervisor [address] Name Role Phone Eduardo Liu MD Primary Care Provi jose antonio Eduardo Liu MD Primary Care Provi jose antonio Moses Kate MD Primary Care Provider Eduardo Liu MD Primary Care Provi jose antonio Moses Kate MD Primary Care Provider [phone] Mary Rodriguez NP Primary Care Provider [phone] Elena Valdes MD Primary Care Provider Sarah Lopez MD Primary Care Provider Mekhi Medrano DO Primary Care Provider [phone] No, Physician Primary Care Provider [phone] Ana Cristina Mckeon MD Primary Care Provider [phone] Swapnil Poe DO Unavailable [phone] Encounter Details Date Type Department Care Team (Late st Contact Info) Description 02/05/2014 Orders Only [facility] ProviderMoose MD [address] [place] [address] Social History Tobacco Use Types Packs/Day Years Used Date Smoking Tobacco: Never Alcohol Use Standard Drinks/Week Comments Yes 0 (1 standard drink = 0.6 oz pur e alcohol) Comments Unknown Sex and Gender Information Value Date Recorded Sex Assigned at Not on file Legal Sex Female 10:06 AM MANAGER WORK Gender Identity Female 09/28/2020 10:45 AM MANAGER WORK Sexual Orientation Straight 09/28/2020 10 :45 AM MANAGER WORK documented as of this encounter Plan of [...] filedocumented in this encounter Care Teams Supervisor [address] Relationship Specialty Start Date End Date Eudardo Liu MD PCP - General 04/09/14 03/05/17 Eduardo Liu MD PCP - General 09/07/13 04/08/14 [place] [address] [place] [address] PCP - General 03/06/17 10/13/17 Eduardo Liu MD PCP - General Internal Medicine 10/14/17 10/17/17 [place] [address] [place] [place] [address] PCP - General 10/18/17 03/06/18 [place] [address] [place] [address] [address] [address] PCP - General 03/07/18 07/01/18 Elena Valdes MD [address] [facility] [address], [place] [address] PCP - General Geriatric Medicine 07/02/18 08/23/20 Sarah Lopez MD [address] [facility] [address], [place] [address] PCP - General Internal Medicine 08/24/20 09/27/20 Mekhi Medrano DO [address] [facility] [address] [place] [address] PCP - General Internal Medicine 09/28/20 02/13/21 No, Physician PCP - General 02/14/21 03/02/21 Ana Cristina Mckeon MD [address] [facility] [address] [place] [address] PCP - General Internal Medicine 03/03/21 Swapnil Poe DO [address] [facility] [address] [place] [address] [place] [id number] Consulting Physician Orthopedic Surgery 05/26/25 documented as of this encounter
[2025-06-22 10:51] LABS: Hematocrit 36.4 % (37.0-47.0); Hemoglobin 11.0 g/dL (12.0-15.0); Immature Granulocyte Percent A 0.4 % (0-0.5); Lymphocytes Absolute Auto 2.00 K/mm3 (0.9-3.2); Mean Corpuscular HGB Conc 30.2 g/dl (32-36); Mean Corpuscular Hemoglobin 25.8 pg (26-34); Mean Corpuscular Volume 85.4 fl (80-100); Nucleated Red Blood Cells Absolute Auto 0.000 K/mm3 (0.0-0.012); Nucleated Red Blood Cells Perc 0.0 % (0.0-0.2); Platelet Count Result 268 k/mm3 (150-375); Red Blood Count 4.26 M/mm3 (4.2-5.4); White Blood Count 6.8 K/mm3 (4.5-10.0)
[2025-06-22 11:12] LABS: Alanine Aminotransferase 19 U/L (6-35); Albumin Level 4.0 g/dL (3.5-5.1); Alkaline Phosphatase 115 U/L (38-126); Amylase 182 U/L (30-110); Anion Gap 8 mmol/L (4-12); Aspartate Amino Transferase 26 U/L (14-36); Bilirubin,Total 0.4 mg/dL (0.2-1.3); Blood Urea Nitrogen 21 mg/dL (7-17); Calcium 10.0 mg/dL (8.4-10.2); Carbon Dioxide 24 mmol/L (22-30); Chloride 105 mmol/L (98-107); Cholesterol 200 mg/dL (0-200); Estimated Glomerular Filt Rate > 60; Glucose 146 mg/dL (65-110); HDL Direct 68 mg/dL; Potassium 4.3 mmol/L (3.4-5.0); Sodium 137 mmol/L (137-145); Total Protein 7.2 g/dL (6.3-8.2); Triglycerides 188 mg/dL (<150)
== END 2025-06-22 09:50 | disposition home or self-care (01) ==
LOC: ANHLAB 09:52
PROVIDERS: PCP Internal Medicine; Visit Provider Internal Medicine
DX: E78.2 Mixed hyperlipidemia (principal); I10 Essential (primary) hypertension; R74.8 Abnormal levels of other serum enzymes
CPT/HCPCS: 36415; 80053; 80061; 82150; 85025

== ENCOUNTER 2025-06-23 14:30 | Outpatient (RCR) | payer MEDICARE, OTHER, SELFPAY | END 2025-08-30 11:41 | disposition home or self-care (01) | LOC: ANHDMC 14:30 | PROVIDERS: PCP Internal Medicine; Visit Provider Internal Medicine Endocrinology, Diabetes & Metabolism | DX: E11.42 Type 2 diabetes mellitus with diabetic polyneuropathy (principal); Z71.89 Other specified counseling | CPT/HCPCS: G0108; G0109 ==